=== PATIENT | female | born 1950 | race Caucasian/White ===

== ENCOUNTER 2017-04-12 13:55 | Outpatient (CLI) | payer MEDICARE, OTHER ==
--- NOTE | 2017-04-17 17:10 | Mammography Report ---
DIGITAL SCREENING MAMMOGRAM: 04/12/2017 CLINICAL INDICATION: A 66-year-old for screening. COMPARISON: 01/2014, 01/2012, 01/2011. TECHNIQUE: Routine CC and MLO projections were obtained of the breasts as well as bilateral laterall y exaggerated craniocaudal views. FINDINGS: Parenchymal tissue within both breasts is heterogeneously dense, which may lower the sensi tivity of mammography; however, there are no dominant masses, suspicious microcalcifications, or seco ndary signs of malignancy. In comparison to the previous studies, there are no significant changes. ASSESSMENT: NO MAMMOGRAPHIC EVIDENCE OF MALIGNANCY. NO SIGNIFICANT INTERVAL CHANGES. RECOMMENDATION: Screening mammography is recommended annually. BI-RADS category 1 - negative. STANDARD QUALIFYING STATEMENTS 1. This examination was reviewed with the aid of Computed-Aided Detection (CAD). 2. A negative or benign imaging report should not delay biopsy if clinically suspicious findings are present. Consider surgical consultation if warranted. More than 5% of cancers are not identified by i maging. 3. Dense breasts may obscure an underlying neoplasm. JOB #: [id number] EXT JOB #:[id number]
== END 2017-04-12 13:56 | disposition home or self-care (01) ==
LOC: DI.S 13:55
PROVIDERS: ATTEND Family Medicine
DX: Z12.39 Encounter for other screening for malignant neoplasm of breast (principal)
CPT/HCPCS: 77067

== ENCOUNTER 2019-04-08 09:17 | Outpatient (CLI) | payer MEDICARE ==
--- NOTE | 2019-04-09 09:11 | DEXA Report ---
Reason: PREVENTIVE MEASURE Procedure Date: 04/08/2019 Accession Number: [id number] / [id number] Procedure: DEX - Dexa Spine and/or Hip CPT Code: FULL RESULT: EXAM: Dexa Spine and/or Hip DATE: 04/08/2019 9:55 AM CLINICAL HISTORY: PREVENTIVE MEASURE TECHNIQUE: Dual energy x-ray absorptiometry (DXA) was performed on a [employer] System. Regions measured are the AP Spine, femoral neck, and if needed forearm. COMPARISON: None. In accordance with the International Society for Clinical Densitometry (ISCD) guidelines, data from previous exams may be reanalyzed using current recommendations and techniques. This is done to allow a more accurate basis for comparison with the current study. FINDINGS: The data for the lumbar spine is as follows: BMD (g/cm/cm) T-SCORE Z-SCORE REGION L1 0.987 -1.2 -0.3 L2 1.211 0.1 1.0 L3 1.237 0.3 1.2 L4 1.277 0.6 1.5 TOTAL 1.191 0.1 1.0 NOTE: All evaluable vertebrae are used for classification The data for the hip is as follows: BMD (g/cm/cm) T-SCORE Z-SCORE REGION Neck 0.832 -1.5 -0.4 TOTAL 0.817 -1.5 -0.7 NOTE: The femoral neck or total proximal femur, whichever is lowest, is used for classification. IMPRESSION: THE WHO CLASSIFICATION BASED ON THE INTERNATIONAL REFERENCE STANDARD IS OSTEOPENIA. THE FRACTURE RISK IS INCREASED. RECOMMENDATION: Patients with diagnosis of osteoporosis or osteopenia should have regular bone mineral density assessment. For those eligible for Medicare, routine testing is allowed once every 2 years. Testing frequency can be increased for patients who have rapidly progressing disease or for those who are receiving medical therapy to restore bone mass. COMMENT: World Health Organization (WHO) definitions for osteoporosis and osteopenia: NORMAL BMD: T-score at -1.0 or higher, fracture risk is low OSTEOPENIA BMD: T-score between -1.0 and -2.5, fracture risk is increased. OSTEOPOROSIS BMD: T-score at -2.5 or lower, fracture risk is high. National Osteoporosis Foundation recommends: 1. Obtain adequate dietary calcium (at least 1200 mg per day) and vitamin D (400-800 international units per day). 2. Participate, as appropriate, in regular weightbearing and muscle-strengthening exercise. 3. Avoid tobacco use and reduce alcohol and caffeine intake. 4. For more detailed information see the website at www.NOF.org.
== END 2019-04-08 09:18 | disposition home or self-care (01) ==
LOC: DI 09:17
PROVIDERS: ATTEND Family Medicine
DX: M85.88 Other specified disorders of bone density and structure, other site (principal)
CPT/HCPCS: 77080

== ENCOUNTER 2019-10-29 09:03 | Outpatient (CLI) | payer MEDICARE | END 2019-10-29 09:04 | disposition home or self-care (01) | LOC: DI 09:03 | PROVIDERS: ATTEND Internal Medicine Hematology & Oncology | DX: C50.411 Malignant neoplasm of upper-outer quadrant of right female breast (principal) | CPT/HCPCS: 93306 ==

== ENCOUNTER 2019-11-26 09:26 | Emergency (ER) | payer MEDICARE ==
--- NOTE | 2019-11-26 10:32 | ED Physician Documentation ---
PD HPI FEMALE - Stated complaint Stated Complaint: FEMALE /MOUTH SORES - Chief complaint Chief Complaint: General - History obtained from History obtained from: Patient - History of Present Illness Timing - onset: How many days ago (She had started another round of chemotherapy on November 18 and had been tolerating fairly well up until the last few days when she noticed more throat pain nausea general aches and malaise. She denies any diarrhea per se. She has not had fever. She has had some mild nasal congestion. No noted cough.) Timing - duration: Days (3-4) Timing - details: Gradual onset, Still present Associated symptoms: No: Fever, Abdominal pain, Genital sore/lesion, Dysuria (She did not have discomfort urinating but noticed she was not urinating very much and it was dark.) Similar symptoms before: Diagnosis (She had had some general symptoms similar to this from chemotherapy previously but not this pronounced.) Recently seen: Clinic (She was seen in the [facility] clinic 8 days ago with starting the second round of chemotherapy for her breast cancer.) Review of Systems Constitutional: reports: Myalgias, Fatigue. denies: Fever, Chills Nose: reports: Congestion. denies: Rhinorrhea / runny nose Throat: denies: Sore throat Cardiac: denies: Chest pain / pressure, Palpitations Respiratory: denies: Dyspnea, Cough GI: reports: Nausea. denies: Abdominal Pain, Vomiting, Diarrhea : denies: Frequency (less urine output), Discharge Skin: denies: Rash, Lesions Musculoskeletal: denies: Neck pain, Back pain Neurologic: reports: Generalized weakness, Headache. denies: Near syncope, Altered mental status PD PAST MEDICAL HISTORY - Past Medical History Cardiovascular: None Respiratory: None Neuro: None Endocrine/Autoimmune: None Derm: Other (chemotherapy for breast cancer) - Present Medications Home Medications: Ambulatory Orders Medication Instructions Recorded Confirmed Atorvastatin Calcium 20 mg PO DAILY 11/04/19 11/18/19 Bupropion HCl [Bupropion Xl] 150 mg PO DAILY 11/04/19 11/18/19 Cholecalciferol (Vitamin D3) 1,000 unit PO DAILY 11/04/19 11/18/19 [Vitamin D3] Citalopram Hydrobromide 20 mg PO DAILY 11/04/19 11/18/19 [Citalopram HBr] Levothyroxine [Synthroid] 88 mcg PO QDAC 11/04/19 11/18/19 Lidocaine/Prilocain 2.5% Cream 30 gm TOP DAILY 11/04/19 11/18/19 [Emla 2.5% Cream] Ondansetron [Ondansetron Odt] 8 mg PO BID PRN 11/04/19 11/18/19 Prochlorperazine [Compazine] 10 mg PO Q6H PRN 11/04/19 11/18/19 dexAMETHasone [Dexamethasone] 8 mg PO DAILY 11/04/19 11/18/19 hydroCHLOROthiazide 25 mg PO DAILY 11/04/19 11/18/19 [Hydrochlorothiazide] lisinopriL [Lisinopril] 20 mg PO DAILY 11/04/19 11/18/19 - Allergies Allergies/Adverse Reactions: Allergies Allergy/AdvReac Type Severity Reaction Status Date / Time No Known Drug Allergies Allergy Verified 11/26/19 09:32 - Living Situation Living Situation: reports: With spouse/s.o. Living Arrangement: reports: At home - Social History Does the pt smoke?: No Does the pt drink ETOH?: No Does the pt have substance abuse?: No PD ED PE NORMAL - Vitals Vital signs reviewed: Yes - General General: Alert and oriented X 3, Well developed/nourished - HEENT HEENT: Ears normal, Pharynx benign. No: Moist mucous membranes - Neck Neck: Supple, no meningeal sign, No adenopathy - Cardiac Cardiac: RRR, No murmur, Other (chest wall area without tenderness nor signs of infection. ) - Respiratory Respiratory: Clear bilaterally - Abdomen Abdomen: Soft, Non tender Results - Vitals Vitals: Vital Signs - 24 hr 11/26/19 11/26/19 11/26/19 09:32 11:08 12:44 Temperature 37.7 C H Heart Rate 97 73 73 Respiratory 14 16 16 Rate Blood Pressure 96/71 114/72 96/59 L O2 Saturation 96 94 96 11/26/19 11/26/19 14:11 15:00 Temperature 37.1 C Heart Rate 73 78 Respiratory 14 16 Rate Blood Pressure 102/59 L 99/67 O2 Saturation 97 100 Oxygen O2 Source Room air - Labs Labs: Laboratory Tests 11/26/19 11/26/19 11/26/19 10:45 10:45 10:45 WBC 0.2 L* RBC 2.88 L Hgb 9.1 L Hct 27.3 L MCV 94.8 MCH 31.6 H MCHC 33.3 RDW 11.5 L Plt Count 129 L MPV 9.7 Neut # (Auto) Not Reportable Lymph # (Auto) Not Reportable [place] # (Auto) Not Reportable Eos # (Auto) Not Reportable Baso # (Auto) Not Reportable Absolute Nucleated RBC Not Reportable Total Counted 50 Band Neuts % (Manual) 0 Abnorm Lymph % (Manual) 0 Nucleated RBC % Not Reportable Neutrophils # (Manual) 0.0 L* Lymphocytes # (Manual) 0.1 L Monocytes # (Manual) 0.0 Eosinophils # (Manual) 0.0 Basophils # (Manual) 0.0 Differential Comment MANUAL DIFFERENTIAL Manual Slide Review Indicated WBC Morphology 1+ DOHLE BODIES Platelet Estimate DECREASED (<130,000) Platelet Morphology NORMAL APPEARANCE RBC Morph Micro Appear NORMAL APPEARANCE Sodium 132 L Potassium 3.6 Chloride 96 L Carbon Dioxide 26 Anion Gap 10.0 BUN 13 Creatinine 0.8 Estimated GFR (MDRD) 71 L Glucose 133 H Lactic Acid Calcium 8.2 L Magnesium 1.8 Total Bilirubin 0.8 AST 12 ALT 11 Alkaline Phosphatase 52 Total Protein 6.3 L Albumin 3.2 Globulin 3.1 Albumin/Globulin Ratio 1.0 Lipase 21 L Urine Color Urine Clarity Urine pH Ur Specific [place] Urine Protein Urine Glucose (UA) Urine Ketones Urine Occult Blood Urine Nitrite Urine Bilirubin Urine Urobilinogen Ur Leukocyte Esterase Ur Microscopic Review Urine Culture Comments Influenza A (Rapid) Influenza B (Rapid) 11/26/19 11/26/19 11/26/19 10:45 11:05 14:10 WBC RBC Hgb Hct MCV MCH MCHC RDW Plt Count MPV Neut # (Auto) Lymph # (Auto) [place] # (Auto) Eos # (Auto) Baso # (Auto) Absolute Nucleated RBC Total Counted Band Neuts % (Manual) Abnorm Lymph % (Manual) Nucleated RBC % Neutrophils # (Manual) Lymphocytes # (Manual) Monocytes # (Manual) Eosinophils # (Manual) Basophils # (Manual) Differential Comment Manual Slide Review WBC Morphology Platelet Estimate Platelet Morphology RBC Morph Micro Appear Sodium Potassium Chloride Carbon Dioxide Anion Gap BUN Creatinine Estimated GFR (MDRD) Glucose Lactic Acid 1.7 Calcium Magnesium Total Bilirubin AST ALT Alkaline Phosphatase Total Protein Albumin Globulin Albumin/Globulin Ratio Lipase Urine Color DARK YELLOW Urine Clarity CLEAR Urine pH 6.0 Ur Specific [place] 1.025 Urine Protein TRACE Urine Glucose (UA) NEGATIVE Urine Ketones NEGATIVE Urine Occult Blood NEGATIVE Urine Nitrite NEGATIVE Urine Bilirubin NEGATIVE Urine Urobilinogen 1 (NORMAL) Ur Leukocyte Esterase NEGATIVE Ur Microscopic Review NOT INDICATED Urine Culture Comments NOT INDICATED Influenza A (Rapid) Negative Influenza B (Rapid) Negative - Rads (name of study) chest xray Radiology: Prelim report reviewed (No acute infiltrates), See rad report PD MEDICAL DECISION MAKING - ED course Complexity details: re-evaluated patient (She is feeling much better with IV fluids and antiemetics and anti-inflammatories. I think she mostly was dehydrated and side effects of the chemo.), considered differential (She may be having side effects of her chemotherapy finally cumulative with the general aches sore throat and nausea. Alternatively there could be a viral illness on top of her chemotherapy side effects. We will look for signs of acute bacterial infections. We will check her blood count. She is afebrile here. She does appear clinically dehydrated.), d/w patient, d/w sr technical sales consultant (Dr. Ureña, documentation manager Oncology, who is comfortable with workup. Since no fever nor infections, then okay with the neutropenia. Will see patient tomorrow in [facility] for recheck/further IV fluids if needed. ) Departure - Departure Disposition: 01 Home, Self Care Clinical Impression: Stomatitis, Dehydration, General weakness, Chemotherapy induced neutropenia Condition: Stable Record reviewed to determine appropriate education?: Yes Instructions: ED Dehydration Follow-Up: Bernadine Rhodes MD [Primary Care Provider] - Alena Streeter MD [Physician No Access] - Comments: Small frequent fluids. He could use some Benadryl liquid 1 to 2 teaspoons every 6 hours rinse and swallow in your mouth to help with some of the mouth sores. Dr. Ureña also suggested some baking soda and water to help with that as well. They can see you in the [facility] clinic tomorrow at 2:00. Show up there for a reassessment and likely some further IV fluids. Return if other symptoms develop or you to have fever or other concerns. Discharge Date/Time: 11/26/19 15:01
[2019-11-26] MEDS ORDERED: SODIUM CHLORIDE 0.9% 1,000 ML IV ONE ×3 (10:53→12:27)
[2019-11-26] MEDS ORDERED: KETOROLAC 15 MG/ML VIAL IVP STA (10:54)
[2019-11-26 11:01] LABS: HGB - HEMOGLOBIN 9.1 g/dL (12.0-16.0); MEAN CORPUSCULAR HEMOGLOBIN 31.6 pg (27.0-31.0); MEAN CORPUSCULAR HGB CONC 33.3 g/dL (32.0-36.0); MEAN CORPUSCULAR VOLUME 94.8 fL (81.0-99.0); MEAN PLATELET VOLUME 9.7 fL (7.9-10.8); PLT - PLATELET COUNT 129 10^3/uL (130-450); RED BLOOD COUNT 2.88 10^6/uL (4.20-5.40); RED CELL DISTRIBUTION WIDTH 11.5 % (12.0-15.0)
[2019-11-26 11:07] LABS: ALBUMIN 3.2 g/dL (3.2-5.5); BILIRUBIN,TOTAL 0.8 mg/dL (0.2-1.0); CALCIUM 8.2 mg/dL (8.5-10.3); CREATININE 0.8 mg/dL (0.4-1.0); TOTAL PROTEIN 6.3 g/dL (6.7-8.2)
[2019-11-26 11:15] LABS: WHITE BLOOD COUNT 0.2 x10^3/uL (4.8-10.8)
[2019-11-26 11:17] LABS: ABNORMAL LYMPHS % (MANUAL) 0 %; BAND NEUTROPHILS % (MANUAL) 0 %
--- NOTE | 2019-11-26 12:05 | XRAY Report ---
Reason: dyspnea Procedure Date: 11/26/2019 Accession Number: [id number] / [id number] Procedure: XR - Chest 2 View X-Ray CPT Code: 83816 Final Report FULL RESULT: EXAM: CHEST RADIOGRAPHY EXAM DATE: 11/26/2019 11:31 AM. CLINICAL HISTORY: Shortness of breath. COMPARISON: None. TECHNIQUE: 2 views. FINDINGS: Lungs/Pleura: No focal opacities evident. No pleural effusion. No pneumothorax. Normal volumes. Mediastinum: Heart and mediastinal contours are unremarkable. Other: Left sided [id number] is seen terminating in the mid SVC region. IMPRESSION: No acute cardiopulmonary abnormality demonstrated. RADIA
[2019-11-26 12:18] LABS: BASOPHILS % (MANUAL) 8 %; LYMPHOCYTES # (MANUAL) 0.1 10^3/uL (1.5-3.5); LYMPHOCYTES % (MANUAL) 44 %; PLATELET MORPHOLOGY NORMAL APPEARANCE (NORMAL); RBC MORPHOLOGY (MULTIPLE) NORMAL APPEARANCE (NORMAL)
[2019-11-26 12:19] LABS: DIFFERENTIAL COMMENT MANUAL DIFFERENTIAL; PLATELET ESTIMATE, MANUAL DECREASED (<130,000) (NORMAL)
[2019-11-26 14:26] LABS: BILIRUBIN,URINE NEGATIVE (NEGATIVE); GLUCOSE, URINE (UA) NEGATIVE (NEGATIVE); KETONES,URINE (UA) NEGATIVE (NEGATIVE); LEUKOCYTE ESTERASE, URINE NEGATIVE (NEGATIVE); NITRITE,URINE NEGATIVE (NEGATIVE); OCCULT BLOOD,URINE NEGATIVE (NEGATIVE); PROTEIN,URINE TRACE mg/dL (NEGATIVE); UROBILINOGEN,URINE 1 (NORMAL) E.U./dL (NORMAL)
[2019-11-26 14:29] LABS: CLARITY,URINE CLEAR (CLEAR)
[2019-11-26 15:02] VITALS: BP 99/67
== END 2019-11-26 15:01 | disposition home or self-care (01) ==
LOC: ED 09:26
DX: K12.1 Other forms of stomatitis (principal); E86.0 Dehydration; R53.1 Weakness; D70.1 Agranulocytosis secondary to cancer chemotherapy; T45.1X5A Adverse effect of antineoplastic and immunosuppressive drugs, initial encounter; C50.919 Malignant neoplasm of unspecified site of unspecified female breast
CPT/HCPCS: 36415; 71046; 80053; 81001; 81003; 83605; 83690; 83735; 85025; 87040; 87077; 87086; 87181; 87275; 87276; 96361; 96374; 99284

== ENCOUNTER 2019-11-27 14:51 | Observation (INO) | payer MEDICARE ==
[2019-11-27] MEDS ORDERED: VANCOMYCIN INJ 1.5 GM in SODIUM CHLORIDE 0.9% 500 ML IV STA (14:56)
[2019-11-27] MEDS ORDERED: CEFEPIME 2 GM in SODIUM CHLORIDE 0.9% MINIBAG 100 ML IV STA (14:57)
--- NOTE | 2019-11-27 15:10 | ED Physician Documentation ---
History of Present Illness - Stated complaint Stated Complaint: + BLOOD CULTURE - History obtained from History obtained from: Patient - History of Present Illness Timing: Other (69-year-old woman undergoing chemotherapy for for breast cancer. She was seen yesterday for an acute illness with malaise, vomiting, poor appetite, mouth sores. Blood cultures were drawn and she was brought back today because 1 of the 2 blood cultures is positive for gram-positive cocci. She does not feel any worse than yesterday. She denies fevers and chills. She is had some difficulty urinating but her urine yesterday was unremarkable. No cough or pulmonary complaints.) Review of Systems Ten Systems: 10 systems reviewed and negative Constitutional: reports: Fatigue. 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 Derm: Other (chemotherapy for breast cancer) - Present Medications Home Medications: Ambulatory Orders Medication Instructions Recorded Confirmed Atorvastatin Calcium 20 mg PO DAILY 11/04/19 11/18/19 Bupropion HCl [Bupropion Xl] 150 mg PO DAILY 11/04/19 11/18/19 Cholecalciferol (Vitamin D3) 1,000 unit PO DAILY 11/04/19 11/18/19 [Vitamin D3] Citalopram Hydrobromide 20 mg PO DAILY 11/04/19 11/18/19 [Citalopram HBr] Levothyroxine [Synthroid] 88 mcg PO QDAC 11/04/19 11/18/19 Lidocaine/Prilocain 2.5% Cream 30 gm TOP DAILY 11/04/19 11/18/19 [Emla 2.5% Cream] Ondansetron [Ondansetron Odt] 8 mg PO BID PRN 11/04/19 11/18/19 Prochlorperazine [Compazine] 10 mg PO Q6H PRN 11/04/19 11/18/19 dexAMETHasone [Dexamethasone] 8 mg PO DAILY 11/04/19 11/18/19 hydroCHLOROthiazide 25 mg PO DAILY 11/04/19 11/18/19 [Hydrochlorothiazide] lisinopriL [Lisinopril] 20 mg PO DAILY 11/04/19 11/18/19 Mouthwash Compounding Base 227 240 ml MM 11/27/19 [Mouthwash-Om] Nystatin 5 ml PO QID 11/27/19 11/27/19 - Allergies Allergies/Adverse Reactions: Allergies Allergy/AdvReac Type Severity Reaction Status Date / Time No Known Drug Allergies Allergy Verified 11/27/19 15:14 - Social History Does the pt smoke?: No Smoking Status: Never smoker Does the pt drink ETOH?: No Does the pt have substance abuse?: No PD ED PE NORMAL - Vitals Vital signs reviewed: Yes - General General: Alert and oriented X 3, No acute distress - HEENT HEENT: PERRL, EOMI - Neck Neck: Supple, no meningeal sign, No bony TTP - Cardiac Cardiac: RRR, No murmur - Respiratory Respiratory: No respiratory distress, Clear bilaterally - Abdomen Abdomen: Normal bowel sounds, Soft, Non tender - Back Back: No CVA TTP, No spinal TTP - Derm Derm: Normal color, Warm and dry - Extremities Extremities: No edema, No calf tenderness / cord - Neuro Neuro: Alert and oriented X 3, Normal speech Results - Vitals Vitals: Vital Signs - 24 hr 11/27/19 15:14 Temperature 37.4 C Heart Rate 77 Respiratory 18 Rate Blood Pressure 107/68 O2 Saturation 98 Oxygen O2 Source Room air - Labs Labs: Laboratory Tests 11/27/19 11/27/19 15:32 15:32 WBC 1.2 L* RBC 2.57 L Hgb 8.1 L Hct 25.1 L MCV 97.7 MCH 31.5 H MCHC 32.3 RDW 11.7 L Plt Count 116 L MPV 10.8 Neut # (Auto) Not Reportable Lymph # (Auto) Not Reportable [place] # (Auto) Not Reportable Eos # (Auto) Not Reportable Baso # (Auto) Not Reportable Absolute Nucleated RBC Not Reportable Total Counted 50 Band Neuts % (Manual) 14 H Abnorm Lymph % (Manual) 0 Metamyelocytes % 4 H Nucleated RBC % Not Reportable Neutrophils # (Manual) 0.9 L Lymphocytes # (Manual) 0.1 L Monocytes # (Manual) 0.1 Eosinophils # (Manual) 0.0 Basophils # (Manual) 0.0 Differential Comment MANUAL DIFFERENTIAL Manual Slide Review Indicated WBC Morphology 2+ TOXIC GRANULATION Platelet Estimate DECREASED (<130,000) Platelet Morphology NORMAL APPEARANCE RBC Morph Micro Appear 1+ HYPOCHROMASIA Sodium 138 Potassium 3.4 L Chloride 105 Carbon Dioxide 25 Anion Gap 8.0 BUN 12 Creatinine 0.7 Estimated GFR (MDRD) 83 L Glucose 99 Calcium 8.0 L Total Bilirubin 0.6 AST 18 ALT 22 Alkaline Phosphatase 64 Total Protein 6.1 L Albumin 2.9 L Globulin 3.2 Albumin/Globulin Ratio 0.9 L Lipase 22 PD MEDICAL DECISION MAKING - ED course ED course: 69-year-old woman presents as requested because "blood cultures from yesterday are positive 1 out of 2 for gram-positive cocci. Could be a contaminant but she is at high risk for infection given chemotherapy and neutropenia and as such the cultures were repeated and she was given cefepime and vancomycin and she will be admitted. Departure - Departure Disposition: 66 [facility] DC/Xfer Clinical Impression: Chemotherapy induced neutropenia, Bacteremia Condition: Serious Discharge Date/Time: 11/27/19 16:48
[2019-11-27] MEDS ORDERED: ONDANSETRON 4 MG/2 ML VIAL IVP PRN (15:33)
[2019-11-27] MEDS ORDERED: oxyCODONE 5 MG TABLET PO PRN (15:33)
[2019-11-27] MEDS ORDERED: ONDANSETRON ODT 4 MG TABLET TL PRN (15:33)
[2019-11-27] MEDS ORDERED: SODIUM CHLORIDE FLUSH 0.9% 10 ML SYRINGE IVP PRN (15:33)
[2019-11-27] MEDS ORDERED: ACETAMINOPHEN 325 MG TABLET PO PRN (15:33)
[2019-11-27 15:43] LABS: BASOPHILS % (AUTO) 3.4 %; HGB - HEMOGLOBIN 8.1 g/dL (12.0-16.0); LYMPHOCYTES % (AUTO) 20.7 %; MEAN CORPUSCULAR HEMOGLOBIN 31.5 pg (27.0-31.0); MEAN CORPUSCULAR HGB CONC 32.3 g/dL (32.0-36.0); MEAN CORPUSCULAR VOLUME 97.7 fL (81.0-99.0); MEAN PLATELET VOLUME 10.8 fL (7.9-10.8); MONOCYTES % (AUTO) 7.8 %; NEUTROPHILS % (AUTO) 63.8 %; PLT - PLATELET COUNT 116 10^3/uL (130-450); RED BLOOD COUNT 2.57 10^6/uL (4.20-5.40); RED CELL DISTRIBUTION WIDTH 11.7 % (12.0-15.0)
[2019-11-27 15:52] LABS: WHITE BLOOD COUNT 1.2 x10^3/uL (4.8-10.8)
[2019-11-27 15:54] LABS: ABNORMAL LYMPHS % (MANUAL) 0 %
[2019-11-27 15:57] LABS: ALBUMIN 2.9 g/dL (3.2-5.5); ALBUMIN/GLOBULIN RATIO 0.9 (1.0-2.2); BILIRUBIN,TOTAL 0.6 mg/dL (0.2-1.0); CREATININE 0.7 mg/dL (0.4-1.0); TOTAL PROTEIN 6.1 g/dL (6.7-8.2)
[2019-11-27 16:15] LABS: BAND NEUTROPHILS % (MANUAL) 14 %; LYMPHOCYTES # (MANUAL) 0.1 10^3/uL (1.5-3.5); LYMPHOCYTES % (MANUAL) 10 %; METAMYELOCYTES % (MANUAL) 4 %; MONOCYTES # (MANUAL) 0.1 10^3/uL (0.0-1.0)
[2019-11-27 16:17] LABS: DIFFERENTIAL COMMENT MANUAL DIFFERENTIAL; PLATELET ESTIMATE, MANUAL DECREASED (<130,000) (NORMAL); PLATELET MORPHOLOGY NORMAL APPEARANCE (NORMAL)
--- NOTE | 2019-11-27 17:20 | HISTORY & PHYSICAL EXAMINATION ---
Chief Complaint - Chief Complaint Chief Complaint: Bacteremia History of Present Illness - Admitted From Admitted From:: ER - History Obtained From History obtained from: Patient - History of Present Illness HPI Comment/Other: Cassidy Mathis is a 69 yo female with a PMH of HTN, hypothyroidism, depression, alcohol abuse, and right breast infiltrating ductal carcinoma, ER/MS/HER-2 negative cT2 v T3 N0Mx. She received her first two of four Adriamycin and Cytoxan infusions 11/05/2019 and 11/18/2019. Patient came to the ER yesterday complaining of mucocytis, headache with photosensitivity, and urinary retention. Blood cultures were drawn from her port. After IV hydration, anti-emtics, anti- inflammatory medication, the patient felt better and was discharged home. Patient was instructed to return to the [facility] today 11/27/2019 for reassessment of her symptoms. 1 out of 2 bottles were growing gram positive cocci in clusters. Patient was notified and the decision to admit patient and treat patient with empiric IV antibiotics for CLABSI. Patient's vital signs in the ER were unremarkable. Patient admitted that she felt much better than she had yesterday. The headache and photosensitivity have not returned. She continues to have uncomfortable sores in her mouth and on her lips. Patient was is good spirits and was agreeable to hospital admit. WBC 1.2 and ANC 900. History - Past Medical History Cardiovascular: reports: Hypertension, High cholesterol Respiratory: reports: None Neuro: reports: None Endocrine/Autoimmune: reports: HyPOthyroidism MEDICAL EDITOR: reports: Breast cancer, Other () : reports: Retention HEENT: reports: None Psych: reports: Depression Musculoskeletal: reports: None MRSA Hx?: No Other Past Medical History: Alcohol dependence - Family & Social History Family History: Mother: Alive and Well, Father: , Parkinson's Disease Living arrangement: At home Living Situation: With spouse/s.o., With family Social History Notes: She never smoked. She never had a history of recreational substance abuse. - Substance History Use: Uses substance without health or social issues: Alcohol (Previous dependence. Currently reports drinking one glass of wine per day.) Abuse: Recurrent use of substance despite neg consequences: NONE Dependence: Experiences withdrawal or developed tolerances: NONE - POLST Patient has POLST: No POLST Status: Full Code Meds/Allgy - Home Medications Home Medications: Ambulatory Orders Medication Instructions Recorded Confirmed Atorvastatin Calcium 20 mg PO DAILY 11/04/19 11/18/19 Bupropion HCl [Bupropion Xl] 150 mg PO DAILY 11/04/19 11/18/19 Cholecalciferol (Vitamin D3) 1,000 unit PO DAILY 11/04/19 11/18/19 [Vitamin D3] Citalopram Hydrobromide 20 mg PO DAILY 11/04/19 11/18/19 [Citalopram HBr] Levothyroxine [Synthroid] 88 mcg PO QDAC 11/04/19 11/18/19 Lidocaine/Prilocain 2.5% Cream 30 gm TOP DAILY 11/04/19 11/18/19 [Emla 2.5% Cream] Ondansetron [Ondansetron Odt] 8 mg PO BID PRN 11/04/19 11/18/19 Prochlorperazine [Compazine] 10 mg PO Q6H PRN 11/04/19 11/18/19 dexAMETHasone [Dexamethasone] 8 mg PO DAILY 11/04/19 11/18/19 hydroCHLOROthiazide 25 mg PO DAILY 11/04/19 11/18/19 [Hydrochlorothiazide] lisinopriL [Lisinopril] 20 mg PO DAILY 11/04/19 11/18/19 Mouthwash Compounding Base 227 240 ml MM 11/27/19 [Mouthwash-Om] Nystatin 5 ml PO QID 11/27/19 11/27/19 - Allergies Allergies/Adverse Reactions: Allergies Allergy/AdvReac Type Severity Reaction Status Date / Time No Known Drug Allergies Allergy Verified 11/27/19 15:14 Review of Systems - Constitutional Constitutional: reports: Fatigue, Poor appetite. denies: Fever, Chills, Night sweats, Weight gain, Weight loss - Eyes Eyes: denies: Pain, Irritation, Amaurosis - Ears, Nose & Throat Ears, Nose & Throat: reports: Sore throat, Mouth lesions (Thrush on her tongue and sores in mouth and lips), Other (White coating on her tongue) - Cardiovascular Cariovascular: denies: Irregular heart rate, Palpitations, Chest pain - Respiratory Respiratory: reports: Other (Recent cold that was present at Jeanine time has resolved). denies: Cough, Sputum production, Orthopnea - Gastrointestinal Gastrointestinal: reports: Poor appetite. denies: Abdominal pain, Constipation, Diarrhea, Nausea, Vomiting - Genitourinary Genitourinary: reports: Nocturia, Other (Retention 11/26/2019-resolved). denies: Dysuria, Hematuria - Musculoskeletal Musculoskeletal: reports: Muscle weakness (Patient is weaker than her baseline, but is able to walk her dog outside for about 20 minutes before she gets tired.). denies: Muscle pain, Muscle aches, Stiffness - Integumentary Integumentary: denies: Rash, Lesions - Neurological Neurological: reports: General weakness, Headache (Present yesterday with ph otophobia and now gone). denies: Focal weakness - Psychiatric Psychiatric: reports: Depression. denies: Suicidal, Hallucinations, Homicidal - Endocrine Endocrine: denies: Polyuria, Polydypsia, Polyphagia - Hematologic/Lymphatic Hematologic/Lymphatic: reports: Anemia, Bruising. denies: Petechiae, Blood clots, Lymphadenopathy, Bleeding tendencies Prior Level of Functionality: Patient lives at home with her and adult son. She is able to complete activities of daily living and walk her dog for 20 minutes. She feels that she has about half as much energy as she did before starting chemotherapy. Exam - Vital Signs Reviewed Vital Signs: Yes Vital Signs: Vital Signs x48h Temp Pulse Pulse Resp BP BP Pulse Ox 11/27/19 17:03 36.7 C 79 14 93/61 100 11/27/19 15:38 70 14 90/60 99 11/27/19 15:14 37.4 C 77 18 107/68 98 - Physical Exam General Appearance: positive: No acute distress, Alert, Other (White female who looks her stated age, wearing a hat, and has diffuse alopecia) Eyes Bilateral: positive: Normal inspection ENT: positive: Other (Dry oral mucosa with thrush of the tongue and mucositis/sores on lateral edges of tongue and buccal mucosa roof of mouth and lips that hurts) Neck: positive: Nml inspection. negative: Lymphadenopathy (R), Lymphadenopathy (L) Respiratory: positive: Chest non-tender, No respiratory distress, Breath sounds nml Cardiovascular: positive: Regular rate & rhythm, No murmur, No gallop Peripheral Pulses: positive: 2+ Abdomen: positive: Non-tender, Nml bowel sounds, No distention Back: positive: Nml inspection Skin: positive: Color nml Extremities: positive: Non-tender, Nml appearance Neurologic/Psychiatric: positive: Oriented x3, Mood/affect nml Conclusion/Plan - Problem List (1) Bacteremia due to Gram-positive bacteria Conclusion/Plan: Patient neutropenic with WBC 1.2 and ANC 900. Afebrile. Patient looks and feels well. VSS. Patient received IV vancomycin and cefepime for empiric treatment of CLABSI presumed to be present on admission in the emergency room. Repeat Blood cultures sent unfortunately not from the port. Patient received 1L NS. 1. Continue IV vancomycin and cefepime. 2. Daily CBC. . 3. Daily blood cultures. 4. If she continues to have blood cultures that are positive after starting vancomycin and cefepime, I will have to suspect that there is a port infection and the line may need to be changed (2) Pancytopenia due to antineoplastic chemotherapy Conclusion/Plan: After two rounds of chemotherapy, patient ANC 900. 1. Initiate neutropenic precautions. 2. Neutropenic diet. 3 She has already received neulasta in [facility]. 4. Daily CBC (3) Stomatitis Conclusion/Plan: Patient has completed 2 of 4 rounds of Adriamycin and Cytoxan (11/05/2019 and 11/18/2019). She has sores in her mouth and on her lips. 1. Magic mouthwash 2. Eat soft and/or cold foods. 3. Avoid spicy, salty, acid-rich foods. 4. Draw plenty of fluids. 5. Good oral hygiene with soft tooth brush. (4) Hypokalemia Conclusion/Plan: supplement po. recheck in am. (5) Hypotension Conclusion/Plan: Probably due to decreased p.o. intake, dehydration, and anemia. Lactic acid is normal. I do not suspect sepsis at this time but will continue to monitor. Continue IV fluids Qualifiers: Hypotension type: orthostatic hypotension Qualified Code(s): I95.1 - Orthostatic hypotension - Lab Results Lab results reviewed: Yes Fish Bones: 11/27/19 15:32 11/27/19 15:32 Other Lab Results: Lab Results x24hrs 11/27/19 11/27/19 11/27/19 15:38 15:32 15:32 WBC 1.2 x10^3/uL L* x10^3/uL (4.8-10.8) RBC 2.57 10^6/uL L 10^6/uL (4.20-5.40) Hgb 8.1 g/dL L g/dL (12.0-16.0) Hct 25.1 % L % (37.0-47.0) MCV 97.7 fL fL (81.0-99.0) MCH 31.5 pg H pg (27.0-31.0) MCHC 32.3 g/dL g/dL (32.0-36.0) RDW 11.7 % L % (12.0-15.0) Plt Count 116 10^3/uL L 10^3/uL (130-450) MPV 10.8 fL fL (7.9-10.8) Neut # (Auto) Not Reportable Lymph # (Auto) Not Reportable Terry # (Auto) Not Reportable Eos # (Auto) Not Reportable Baso # (Auto) Not Reportable Absolute Nucleated RBC Not Reportable Total Counted 50 Band Neuts % (Manual) 14 % H % (0 - 10) Abnorm Lymph % (Manual) 0 % % Metamyelocytes % 4 % H % ( - 0) Nucleated RBC % Not Reportable Neutrophils # (Manual) 0.9 10^3/uL L 10^3/uL (1.5-6.6) Lymphocytes # (Manual) 0.1 10^3/uL L 10^3/uL (1.5-3.5) Monocytes # (Manual) 0.1 10^3/uL 10^3/uL (0.0-1.0) Eosinophils # (Manual) 0.0 10^3/uL 10^3/uL (0-0.7) Basophils # (Manual) 0.0 10^3/uL 10^3/uL (0-0.1) Differential Comment MANUAL DIFFERENTIAL Manual Slide Review Indicated WBC Morphology 2+ TOXIC GRANULATION (NORMAL) Platelet Estimate DECREASED (<130,000) (NORMAL) Platelet Morphology NORMAL APPEARANCE (NORMAL) RBC Morph Micro Appear 1+ HYPOCHROMASIA (NORMAL) Sodium 138 mmol/L mmol/L (135-145) Potassium 3.4 mmol/L L mmol/L (3.5-5.0) Chloride 105 mmol/L mmol/L (101-111) Carbon Dioxide 25 mmol/L mmol/L (21-32) Anion Gap 8.0 (6-13) BUN 12 mg/dL mg/dL (6-20) Creatinine 0.7 mg/dL mg/dL (0.4-1.0) Estimated GFR (MDRD) 83 L (>89) Glucose 99 mg/dL mg/dL (70-100) Lactic Acid 1.4 mmol/L mmol/L (0.5-2.2) Calcium 8.0 mg/dL L mg/dL (8.5-10.3) Total Bilirubin 0.6 mg/dL mg/dL (0.2-1.0) AST 18 IU/L IU/L (10-42) ALT 22 IU/L IU/L (10-60) Alkaline Phosphatase 64 IU/L IU/L (42-121) Total Protein 6.1 g/dL L g/dL (6.7-8.2) Albumin 2.9 g/dL L g/dL (3.2-5.5) Globulin 3.2 g/dL g/dL (2.1-4.2) Albumin/Globulin Ratio 0.9 L (1.0-2.2) Lipase 22 U/L U/L (22-51) - Diagnostic Imaging Results Diagnostic Imaging Results Comments: CHEST RADIOGRAPHY EXAM DATE: 11/26/2019 11:31 AM. CLINICAL HISTORY: Shortness of breath. COMPARISON: None. TECHNIQUE: 2 views. FINDINGS: Lungs/Pleura: No focal opacities evident. No pleural effusion. No pneumothorax. Normal volumes. Mediastinum: Heart and mediastinal contours are unremarkable. Other: Left sided [id number] is seen terminating in the mid SVC region. IMPRESSION: No acute cardiopulmonary abnormality demonstrated. Core Measures - Anticipated LOS I expect patient to be DC'd or transferred within 96 hours.: Yes - DVT/VTE - Prophylaxis VTE/DVT Device ordered at admit?: Yes
[2019-11-27] MEDS: PANTOPRAZOLE 40 MG TABLET PO SCH (17:45)
[2019-11-27] MEDS: SODIUM CHLORIDE FLUSH 0.9% 10 ML SYRINGE IVP SCH (17:47)
--- NOTE | 2019-11-27 18:31 | PHARMACY PROGRESS NOTE ---
- Therapy Status Vancomycin regimen day #: 1 (1.5 G IV dose x1 given in ED, follwed by Maintenance dose 1250 mg IV q12h (consistent with protocol: 15 mg/kg rounded to nearest 250 mg)) Therapy status: Awaiting steady state Basis for treatment: Empirical Treatment indication: Positive blood Cx (preliminary) gram + cocci Trough goal: 15-20 Concurrent antibiotics: cefepime - VALE Risk Risk level for Acute Kidney Injury: Moderate Acute Kidney Injury risk factors: Goal trough >15, Chronic baseline hypertension - Monitoring and Recommendation Clinical response to treatment: I&O Previous 24 hours 11/25/19 11/26/19 11/27/19 23:59 23:59 23:59 Intake Total 100 Balance 100 Lab Results 11/27/19 15:32 BUN 12 Creatinine 0.7 Estimated GFR (MDRD) 83 L Monitoring plan: Daily serum creatinine Next trough due prior to maintenance dose #: 3 Next trough due (date/time): 11/29 at 0430 Areas for additional monitoring: IV to PO when appropriate, Therapy de-escalation based on culture results, Acute Kidney Injury Pharmacy recommendation: Continue current regime
[2019-11-27] MEDS: SODIUM CHLORIDE 0.9% 1,000 ML IV SCH (19:01)
[2019-11-28] MEDS: CEFEPIME 2 GM in SODIUM CHLORIDE 0.9% MINIBAG 100 ML IV SCH ×2 (01:11→09:13)
[2019-11-28] MEDS: SODIUM CHLORIDE FLUSH 0.9% 10 ML SYRINGE IVP SCH ×2 (01:12→09:30)
[2019-11-28] MEDS ORDERED: MAGIC MOUTHWASH 120 ML BOTTLE PO PRN (03:39)
[2019-11-28] MEDS ORDERED: VANCOMYCIN INJ 1.25 GM in SODIUM CHLORIDE 0.9% 250 ML IV SCH (05:00)
[2019-11-28] MEDS: SODIUM CHLORIDE 0.9% 1,000 ML IV SCH (05:02)
[2019-11-28 05:38] LABS: BASOPHILS % (AUTO) 3.4 %; HGB - HEMOGLOBIN 7.3 g/dL (12.0-16.0); LYMPHOCYTES % (AUTO) 14.5 %; MEAN CORPUSCULAR HEMOGLOBIN 31.6 pg (27.0-31.0); MEAN CORPUSCULAR HGB CONC 32.6 g/dL (32.0-36.0); MEAN PLATELET VOLUME 10.6 fL (7.9-10.8); MONOCYTES % (AUTO) 8.5 %; NEUTROPHILS % (AUTO) 66.3 %; PLT - PLATELET COUNT 124 10^3/uL (130-450); RED BLOOD COUNT 2.31 10^6/uL (4.20-5.40); RED CELL DISTRIBUTION WIDTH 11.7 % (12.0-15.0); WHITE BLOOD COUNT 2.3 x10^3/uL (4.8-10.8)
[2019-11-28 05:45] LABS: ABNORMAL LYMPHS % (MANUAL) 0 %
[2019-11-28 05:49] LABS: ALBUMIN 2.5 g/dL (3.2-5.5); BILIRUBIN,TOTAL 0.4 mg/dL (0.2-1.0); CALCIUM 7.8 mg/dL (8.5-10.3); CREATININE 0.7 mg/dL (0.4-1.0); TOTAL PROTEIN 5.1 g/dL (6.7-8.2)
[2019-11-28 06:19] LABS: BAND NEUTROPHILS % (MANUAL) 17 %; DIFFERENTIAL COMMENT MANUAL DIFFERENTIAL; LYMPHOCYTES # (MANUAL) 0.3 10^3/uL (1.5-3.5); LYMPHOCYTES % (MANUAL) 11 %; METAMYELOCYTES % (MANUAL) 1 %; MONOCYTES # (MANUAL) 0.1 10^3/uL (0.0-1.0); MYELOCYTES % (MANUAL) 1 %; PLATELET ESTIMATE, MANUAL DECREASED (<130,000) (NORMAL); RBC MORPHOLOGY (MULTIPLE) NORMAL APPEARANCE (NORMAL)
[2019-11-28] MEDS: PANTOPRAZOLE 40 MG TABLET PO SCH (06:42)
[2019-11-28] MEDS ORDERED: POTASSIUM CHLORIDE 20 MEQ TABLET PO ONE (07:24)
[2019-11-28 07:55] VITALS: BP 92/48
[2019-11-28] MEDS ORDERED: LEVOTHYROXINE 88 MCG TABLET PO SCH (08:00)
--- NOTE | 2019-11-28 08:39 | PROVIDER PROGRESS NOTE ---
<Yohana Perez - Last Filed: 11/28/19 08:37> Subjective - Prog Note Date Prog Note Date: 11/28/19 Prog Note Time: 08:38 - Subjective Pt reports feeling: Improved Subjective: Patient states that she feels relatively well. She slept about 4 hours. Current Medications - Current Medications Current Medications: Active Medications Acetaminophen (Tylenol) 650 mg PO Q4HR PRN PRN Reason: Pain 1 to 4 Bupropion HCl (Wellbutrin Xl) 150 mg PO DAILY [facility] Cholecalciferol (Vitamin D3) 1,000 unit PO DAILY [facility] Citalopram Hydrobromide (Celexa) 20 mg PO DAILY [facility] Sodium Chloride (Normal Saline 0.9%) 1,000 mls @ 100 mls/hr IV .Q10H [facility] Last Infusion: 11/28/19 05:19 Dose: 0 mls/hr Cefepime HCl 2 gm/ Sodium (Chloride) 100 mls @ 200 mls/hr IV Q8H [facility] Last Infusion: 11/28/19 01:43 Dose: Infused Vancomycin HCl 1.25 gm/ Sodium (Chloride) 250 mls @ 166.667 mls/hr IV Q12H [facility] Last Infusion: 11/28/19 06:43 Dose: Infused Levothyroxine Sodium (Synthroid) 88 mcg PO QDAC [facility] Last Admin: 11/28/19 08:18 Dose: 88 mcg Multi-Ingredient Mouthwash/Gargle () 30 ml PO Q4H PRN PRN Reason: Mouth Sore Pain Nystatin (Mycostatin) 5 ml PO QID [facility] Ondansetron HCl (Zofran Inj) 4 mg IVP Q6HR PRN PRN Reason: Nausea / Vomiting Ondansetron HCl (Zofran Odt) 4 mg TL Q6HR PRN PRN Reason: Nausea / Vomiting Oxycodone HCl (Roxicodone) 5 mg PO Q4HR PRN PRN Reason: Pain 5 to 7 Pantoprazole Sodium (Protonix) 40 mg PO QDAC [facility] Last Admin: 11/28/19 06:42 Dose: 40 mg Sodium Chloride (Normal Saline Flush 0.9%) 10 ml IVP PRN PRN PRN Reason: NEEDED PER PROVIDER ORDERS Sodium Chloride (Normal Saline Flush 0.9%) 10 ml IVP 0100,0900,1700 [facility] Last Admin: 11/28/19 01:12 Dose: Not Given Atorvastatin Calcium 20 mg PO DAILY 11/04/19 Bupropion HCl [Bupropion Xl] 150 mg PO DAILY 11/04/19 Cholecalciferol (Vitamin D3) [Vitamin D3] 1,000 unit PO DAILY 11/04/19 Citalopram Hydrobromide [Citalopram HBr] 20 mg PO DAILY 11/04/19 Levothyroxine [Synthroid] 88 mcg PO QDAC 11/04/19 Lidocaine/Prilocain 2.5% Cream [Emla 2.5% Cream] 30 gm TOP DAILY 11/04/19 Ondansetron [Ondansetron Odt] 8 mg PO BID PRN 11/04/19 Prochlorperazine [Compazine] 10 mg PO Q6H PRN 11/04/19 dexAMETHasone [Dexamethasone] 8 mg PO DAILY 11/04/19 hydroCHLOROthiazide [Hydrochlorothiazide] 25 mg PO DAILY 11/04/19 lisinopriL [Lisinopril] 20 mg PO DAILY 11/04/19 Mouthwash Compounding Base 227 [Mouthwash-Om] 240 ml MM 11/27/19 Nystatin 5 ml PO QID 11/27/19 Objective - Vital Signs/Intake & Output Reviewed Vital Signs: Yes Vital Signs: Vital Signs x48h Temp Pulse Resp BP Pulse Ox 11/28/19 07:54 36.9 C 69 16 92/48 L 97 11/28/19 05:24 37.2 C 78 16 92/56 L 99 Intake & Output: Intake & Output 11/25/19 11/26/19 11/27/19 11/28/19 23:59 23:59 23:59 23:59 Intake Total 936 1801.666 Balance 936 1801.666 - Objective General Appearance: positive: No acute distress, Alert. negative: Anxious Eyes Bilateral: positive: Normal inspection, PERRL, EOMI, Conjunctivae nml. negative: No lid inflammation, No scleral icterus ENT: positive: ENT inspection nml, Oral lesions Neck: positive: Nml inspection Respiratory: positive: Chest non-tender, No respiratory distress, Breath sounds nml. negative: Wheezes, Rales, Rhonchi Cardiovascular: positive: Regular rate & rhythm, No murmur, No gallop. negative: Irregularly irregular, Bradycardia Peripheral Pulses: 2+ Radial (R), 2+ Radial (L), 2+ Dorsalis pedis (R), 2+ Dorsalis pedis (L) Abdomen: positive: Non-tender, No organomegaly, Nml bowel sounds, No distention Back: positive: Nml inspection Skin: positive: Color nml, Warm, Dry Extremities: positive: Non-tender, Nml appearance, No pedal edema Neurologic/Psychiatric: positive: Oriented x3, Mood/affect nml, Weakness - Lab Results Fish Bones: 11/28/19 05:15 11/28/19 05:15 Other Labs: Lab Results x24hrs 11/28/19 11/28/19 11/27/19 Range/Units 05:15 05:15 15:38 WBC 2.3 L (4.8-10.8) x10^3/uL RBC 2.31 L (4.20-5.40) 10^6/uL Hgb 7.3 L (12.0-16.0) g/dL Hct 22.4 L (37.0-47.0) % MCV 97.0 (81.0-99.0) fL MCH 31.6 H (27.0-31.0) pg MCHC 32.6 (32.0-36.0) g/dL RDW 11.7 L (12.0-15.0) % Plt Count 124 L (130-450) 10^3/uL MPV 10.6 (7.9-10.8) fL Neut # (Auto) Not Reportable Lymph # (Auto) Not Reportable [place] # (Auto) Not Reportable Eos # (Auto) Not Reportable Baso # (Auto) Not Reportable Absolute Nucleated RBC Not Reportable Total Counted 100 Band Neuts % (Manual) 17 H (0 - 10) % Abnorm Lymph % (Manual) 0 % Metamyelocytes % 1 H ( - 0) % Myelocytes % 1 H ( - 0) % Nucleated RBC % Not Reportable Neutrophils # (Manual) 1.9 (1.5-6.6) 10^3/uL Lymphocytes # (Manual) 0.3 L (1.5-3.5) 10^3/uL Monocytes # (Manual) 0.1 (0.0-1.0) 10^3/uL Eosinophils # (Manual) 0.0 (0-0.7) 10^3/uL Basophils # (Manual) 0.0 (0-0.1) 10^3/uL Differential Comment MANUAL DIFFERENTIAL Manual Slide Review WBC Morphology (NORMAL) Platelet Estimate DECREASED (<130,000) (NORMAL) Platelet Morphology (NORMAL) RBC Morph Micro Appear NORMAL APPEARANCE (NORMAL) Sodium 141 (135-145) mmol/L Potassium 3.3 L (3.5-5.0) mmol/L Chloride 111 (101-111) mmol/L Carbon Dioxide 25 (21-32) mmol/L Anion Gap 5.0 L (6-13) BUN 11 (6-20) mg/dL Creatinine 0.7 (0.4-1.0) mg/dL Estimated GFR (MDRD) 83 L (>89) Glucose 91 (70-100) mg/dL Lactic Acid 1.4 (0.5-2.2) mmol/L Calcium 7.8 L (8.5-10.3) mg/dL Total Bilirubin 0.4 (0.2-1.0) mg/dL AST 11 (10-42) IU/L ALT 19 (10-60) IU/L Alkaline Phosphatase 53 (42-121) IU/L Total Protein 5.1 L (6.7-8.2) g/dL Albumin 2.5 L (3.2-5.5) g/dL Globulin 2.6 (2.1-4.2) g/dL Albumin/Globulin Ratio 1.0 (1.0-2.2) Lipase (22-51) U/L 11/27/19 11/27/19 Range/Units 15:32 15:32 WBC 1.2 L* (4.8-10.8) x10^3/uL RBC 2.57 L (4.20-5.40) 10^6/uL Hgb 8.1 L (12.0-16.0) g/dL Hct 25.1 L (37.0-47.0) % MCV 97.7 (81.0-99.0) fL MCH 31.5 H (27.0-31.0) pg MCHC 32.3 (32.0-36.0) g/dL RDW 11.7 L (12.0-15.0) % Plt Count 116 L (130-450) 10^3/uL MPV 10.8 (7.9-10.8) fL Neut # (Auto) Not Reportable Lymph # (Auto) Not Reportable [place] # (Auto) Not Reportable Eos # (Auto) Not Reportable Baso # (Auto) Not Reportable Absolute Nucleated RBC Not Reportable Total Counted 50 Band Neuts % (Manual) 14 H (0 - 10) % Abnorm Lymph % (Manual) 0 % Metamyelocytes % 4 H ( - 0) % Myelocytes % ( - 0) % Nucleated RBC % Not Reportable Neutrophils # (Manual) 0.9 L (1.5-6.6) 10^3/uL Lymphocytes # (Manual) 0.1 L (1.5-3.5) 10^3/uL Monocytes # (Manual) 0.1 (0.0-1.0) 10^3/uL Eosinophils # (Manual) 0.0 (0-0.7) 10^3/uL Basophils # (Manual) 0.0 (0-0.1) 10^3/uL Differential Comment MANUAL DIFFERENTIAL Manual Slide Review Indicated WBC Morphology 2+ TOXIC GRANULATION (NORMAL) Platelet Estimate DECREASED (<130,000) (NORMAL) Platelet Morphology NORMAL APPEARANCE (NORMAL) RBC Morph Micro Appear 1+ HYPOCHROMASIA (NORMAL) Sodium 138 (135-145) mmol/L Potassium 3.4 L (3.5-5.0) mmol/L Chloride 105 (101-111) mmol/L Carbon Dioxide 25 (21-32) mmol/L Anion Gap 8.0 (6-13) BUN 12 (6-20) mg/dL Creatinine 0.7 (0.4-1.0) mg/dL Estimated GFR (MDRD) 83 L (>89) Glucose 99 (70-100) mg/dL Lactic Acid (0.5-2.2) mmol/L Calcium 8.0 L (8.5-10.3) mg/dL Total Bilirubin 0.6 (0.2-1.0) mg/dL AST 18 (10-42) IU/L ALT 22 (10-60) IU/L Alkaline Phosphatase 64 (42-121) IU/L Total Protein 6.1 L (6.7-8.2) g/dL Albumin 2.9 L (3.2-5.5) g/dL Globulin 3.2 (2.1-4.2) g/dL Albumin/Globulin Ratio 0.9 L (1.0-2.2) Lipase 22 (22-51) U/L ABX Reporting Has patient been on IV antibiotics over the past 48 hours?: No Assessment/Plan - Problem List (1) Bacteremia due to Gram-positive bacteria Impression: Bacterial culture drawn from port 11/26/2019 at 1058. Positive form coagulase-n egative staphylococci 11/27/2019 at 1809. Second blood culture collected 11/26/2019 at 1100 has no growth to date. Patient afebrile, feeling tired but overall well, hypotensive with BP 90s/50s. WBCs 2.3, up from 1.2 the day prior. Port site is clean dry and intact, no redness or drainage noted. 1. Continue empiric coverage of CLABSI with vancomycin and cefepime. 2. Monitor blood cultures from 11/26, 11/27. (2) Pancytopenia due to antineoplastic chemotherapy Impression: Patient has finished 2 of 4 rounds of Adriamycin and Cytoxan 11/05/19 and 11/18/19 as neoadjuvant treatment for right breast infiltrating ductal carcinoma ER/IL/HER-2 negative, cT2 v T3 N0Mx. Patient came to the ER 11/26/2019 for stomatitis and urinary retention. Labs notable for pancytopenia. Improvement of WBC, ANC from 11/26 to 11/28. 1. Continue neutropenic precations. 2. Continue neutropenic diet. (3) Stomatitis Impression: Patient has mouth and lip sores after second of four rounds of Adriamycin and Cytoxan. 1. Mouth wash q4hrs for comfort. 2. Gentle oral hygiene. 3. Soft diet. (4) Hypokalemia Impression: Patient potassium level 11/27 3.4. She was given 20 meq KCl. Potassium level 11/28 3.3. 1. Increase potassium to 20 meq KCL BID. (5) Hypotension Impression: Patient continues to be hypotensive despite oral and IV hydration. Patient reports taking her lisinopril and hydrochlorothiazide 11/27/2019. 1. Hold lisinopril and HCTZ today. 2. Consider holding lisinopril and HCTZ at discharge. Follow-up with PCP to restart. Qualifiers: Hypotension type: hypotension due to hypovolemia Qualified Code(s): I95.89 - Other hypotension; E86.1 - Hypovolemia <Eve Lester - Last Filed: 11/28/19 14:25> Subjective - Subjective Subjective: After breakfast. Her was at the bedside. A few questions were asked about the causes of her anemia. What they could be. They have noted that her blood pressure has been low for several weeks now. She is given has varying stories of whether she took the blood pressure pill in the last 3 days, or has not taken it for a week. Both she and her disagree about when she stopped taking her blood pressure pill. Overall she is improved with less mouth pain. Actually had hunger and was wanting to eat. Got up and showered this morning. Tired and a little lightheaded but feels overall so much better. Objective - Vital Signs/Intake & Output Vital Signs: Vital Signs x48h Temp Pulse Resp BP Pulse Ox 11/28/19 07:54 36.9 C 69 16 92/48 L 97 Intake & Output: Intake & Output 11/25/19 11/26/19 11/27/19 11/28/19 23:59 23:59 23:59 23:59 Intake Total 936 1901.666 Balance 936 1901.666 - Objective Comments/Other: On examination the patient is pale, diffuse alopecia with her hat off. Fatmata is much improved in the mouth and there is not as much white coating. Oral mucosa is also much more pink and moist. She has no petechial lesions of the eyes mouth. Neck has shotty adenopathy and the lungs are clear. Abdomen is benign. - Lab Results Fish Bones: 11/28/19 05:15 11/28/19 05:15 Other Labs: Lab Results x24hrs 11/28/19 11/28/19 11/27/19 Range/Units 05:15 05:15 15:38 WBC 2.3 L (4.8-10.8) x10^3/uL RBC 2.31 L (4.20-5.40) 10^6/uL Hgb 7.3 L (12.0-16.0) g/dL Hct 22.4 L (37.0-47.0) % MCV 97.0 (81.0-99.0) fL MCH 31.6 H (27.0-31.0) pg MCHC 32.6 (32.0-36.0) g/dL RDW 11.7 L (12.0-15.0) % Plt Count 124 L (130-450) 10^3/uL MPV 10.6 (7.9-10.8) fL Neut # (Auto) Not Reportable Lymph # (Auto) Not Reportable [place] # (Auto) Not Reportable Eos # (Auto) Not Reportable Baso # (Auto) Not Reportable Absolute Nucleated RBC Not Reportable Total Counted 100 Band Neuts % (Manual) 17 H (0 - 10) % Abnorm Lymph % (Manual) 0 % Metamyelocytes % 1 H ( - 0) % Myelocytes % 1 H ( - 0) % Nucleated RBC % Not Reportable Neutrophils # (Manual) 1.9 (1.5-6.6) 10^3/uL Lymphocytes # (Manual) 0.3 L (1.5-3.5) 10^3/uL Monocytes # (Manual) 0.1 (0.0-1.0) 10^3/uL Eosinophils # (Manual) 0.0 (0-0.7) 10^3/uL Basophils # (Manual) 0.0 (0-0.1) 10^3/uL Differential Comment MANUAL DIFFERENTIAL Manual Slide Review WBC Morphology (NORMAL) Platelet Estimate DECREASED (<130,000) (NORMAL) Platelet Morphology (NORMAL) RBC Morph Micro Appear NORMAL APPEARANCE (NORMAL) Sodium 141 (135-145) mmol/L Potassium 3.3 L (3.5-5.0) mmol/L Chloride 111 (101-111) mmol/L Carbon Dioxide 25 (21-32) mmol/L Anion Gap 5.0 L (6-13) BUN 11 (6-20) mg/dL Creatinine 0.7 (0.4-1.0) mg/dL Estimated GFR (MDRD) 83 L (>89) Glucose 91 (70-100) mg/dL Lactic Acid 1.4 (0.5-2.2) mmol/L Calcium 7.8 L (8.5-10.3) mg/dL Total Bilirubin 0.4 (0.2-1.0) mg/dL AST 11 (10-42) IU/L ALT 19 (10-60) IU/L Alkaline Phosphatase 53 (42-121) IU/L Total Protein 5.1 L (6.7-8.2) g/dL Albumin 2.5 L (3.2-5.5) g/dL Globulin 2.6 (2.1-4.2) g/dL Albumin/Globulin Ratio 1.0 (1.0-2.2) Lipase (22-51) U/L 11/27/19 11/27/19 Range/Units 15:32 15:32 WBC 1.2 L* (4.8-10.8) x10^3/uL RBC 2.57 L (4.20-5.40) 10^6/uL Hgb 8.1 L (12.0-16.0) g/dL Hct 25.1 L (37.0-47.0) % MCV 97.7 (81.0-99.0) fL MCH 31.5 H (27.0-31.0) pg MCHC 32.3 (32.0-36.0) g/dL RDW 11.7 L (12.0-15.0) % Plt Count 116 L (130-450) 10^3/uL MPV 10.8 (7.9-10.8) fL Neut # (Auto) Not Reportable Lymph # (Auto) Not Reportable [place] # (Auto) Not Reportable Eos # (Auto) Not Reportable Baso # (Auto) Not Reportable Absolute Nucleated RBC Not Reportable Total Counted 50 Band Neuts % (Manual) 14 H (0 - 10) % Abnorm Lymph % (Manual) 0 % Metamyelocytes % 4 H ( - 0) % Myelocytes % ( - 0) % Nucleated RBC % Not Reportable Neutrophils # (Manual) 0.9 L (1.5-6.6) 10^3/uL Lymphocytes # (Manual) 0.1 L (1.5-3.5) 10^3/uL Monocytes # (Manual) 0.1 (0.0-1.0) 10^3/uL Eosinophils # (Manual) 0.0 (0-0.7) 10^3/uL Basophils # (Manual) 0.0 (0-0.1) 10^3/uL Differential Comment MANUAL DIFFERENTIAL Manual Slide Review Indicated WBC Morphology 2+ TOXIC GRANULATION (NORMAL) Platelet Estimate DECREASED (<130,000) (NORMAL) Platelet Morphology NORMAL APPEARANCE (NORMAL) RBC Morph Micro Appear 1+ HYPOCHROMASIA (NORMAL) Sodium 138 (135-145) mmol/L Potassium 3.4 L (3.5-5.0) mmol/L Chloride 105 (101-111) mmol/L Carbon Dioxide 25 (21-32) mmol/L Anion Gap 8.0 (6-13) BUN 12 (6-20) mg/dL Creatinine 0.7 (0.4-1.0) mg/dL Estimated GFR (MDRD) 83 L (>89) Glucose 99 (70-100) mg/dL Lactic Acid (0.5-2.2) mmol/L Calcium 8.0 L (8.5-10.3) mg/dL Total Bilirubin 0.6 (0.2-1.0) mg/dL AST 18 (10-42) IU/L ALT 22 (10-60) IU/L Alkaline Phosphatase 64 (42-121) IU/L Total Protein 6.1 L (6.7-8.2) g/dL Albumin 2.9 L (3.2-5.5) g/dL Globulin 3.2 (2.1-4.2) g/dL Albumin/Globulin Ratio 0.9 L (1.0-2.2) Lipase 22 (22-51) U/L Assessment/Plan - Problem List (1) Bacteremia due to Gram-positive bacteria Impression: It looks more like her initial blood culture was contamination. I have explained this to her and her . She will be going home today. Yesterday's blood cultures are not finalized for 48 hours. She asked what would happen if her blood cultures were positive. I would suspect that I would just give her oral antibiotics. But we will wait and see what happens. (5) Hypotension Impression: I have asked her to take her blood pressure on a daily basis. Just write it down in a diary. When her blood pressure is consistently in the 140s or 150s sh e consider resuming lisinopril at 10 mg a day not 20 mg a day. Qualifiers: Hypotension type: hypotension due to hypovolemia Qualified Code(s): I95.89 - Other hypotension; E86.1 - Hypovolemia
[2019-11-28] MEDS ORDERED: CITALOPRAM HYDROBROMIDE 20 MG TABLET PO SCH (09:00)
[2019-11-28] MEDS ORDERED: CHOLECALCIFEROL 1,000 UNIT TABLET PO SCH (09:00)
[2019-11-28] MEDS ORDERED: buPROPion XL 150 MG TABLET PO SCH (09:00)
[2019-11-28] MEDS ORDERED: NYSTATIN 500000 UNITS/5 ML UDC PO SCH (09:00)
--- NOTE | 2019-11-28 10:27 | Discharge Plan ---
Discharge Plan Problem Reviewed?: Yes Disposition: Home, Self Care Condition: Good Prescriptions: Mouthwash Compounding Base 227 [Mouthwash-Om] 240 ml MM Q4H PRN #240 mouthwash PRN Reason: Mouth Sore Pain Diet: Regular Activity Restrictions: Activity as Tolerated Shower Restrictions: No Driving Restrictions: No Instruction Topics: Neutropenia Health Concerns: You were called by our emergency room physicians because the blood cultures that you had had taken the day before in the ER were now positive for staph aureus. You are currently on chemotherapy and have a very low white cell count. As such we were concerned that you had a port line infection causing staff to go into your bloodstream. After evaluation in the emergency room you did not have a fever, your absolute neutrophil count (which is the count of your white cells) was above 500, and you had already improved and how you felt from the day bef ore. We started you on antibiotic therapy for possible infection. We also continued the treatment of the mucositis/candidiasis of your mouth. Plan of Treatment: 1. Blood cultures, repeat, have been negative so far. 2. The staph aureus that was identified from the emergency room is now identified as a contaminant. 3. As such, you do not need to be on antibiotics anymore and can go home. Care Goals: 1. Follow-up with your primary care provider in the next few weeks for continuity of care 2. Follow-up with your oncologist on your regularly scheduled visit Assessment: Patient understands care goals and will follow through No Smoking: If you smoke, Please STOP! Call for help. Follow-up with: Marie Wilson PA-C [Physician No Access] -
--- NOTE | 2019-11-28 10:59 | ADVANCE CARE PLANNING NOTE ---
Advance Care Planning - Planning Encounter Date: 11/28/19 Time: 10:58 Purpose: Explore her understanding of her cancer Parties in Attendance: , Patient, Hospitalist Dr. Lester Decisional Capacity of the Patient: intact and alert to person, place, time, situation. Lucid historian - Diagnosis for Encounter (1) Infiltrating duct carcinoma of breast, estrogen receptor negative, stage 3 Qualifiers: Laterality: right Qualified Code(s): C50.911 - Malignant neoplasm of unspecified site of right female breast; Z17.1 - Estrogen receptor negative status [ER-] - Encounter Subjective/Patient's Story: She is a 69-year-old white female who considers herself completely healthy until she was diagnosed with breast cancer. She is to her first , and they live in their own home that they built in 1997. He is a contractor. They have 2 sons, and 1 son lives with him. He has mental health issues and has difficulty maintaining employment so he lives with them. He does work with his dad and uncle who are in the [employer] business. But only a few hours a day, most of the time he does not. She says that her life is relatively stable, and happy. The main worry is their son. It is starting to don on them that they are getting older, and who will take care of him when they are gone. She does have problems with blood pressure, a little bit of being overweight, but regarded herself is completely independent. She loves walking with [place] dogs, [place] and also like to read and do a little gardening. All of that is gone by the [place] right now because of the effects of the chemotherapy. It has left her with poor appetite, a raw mouth, severe fatigue. But her breast cancer is shrinking in the right breast and she is very happy with this. As a stage III breast cancer, she has been told that her treatment is a treatmen t designed for "cure". That is her anticipation. She and her have not made any plans in case this does not work. This last week of chemotherapy really knocked her down. With the wall mouth, poor appetite, she was not eating or drinking very much and was miserable. When she was seen in the emergency room and received IV fluids and treatment for her mouth she is much improved. But then her blood cultures were positive and she had to come back to the hospital. At this time we think the blood cultures are contaminant. She is back to being up and about. She is walking in her room, eating 50% of her food, and taking a shower on her own. At this time she wishes to remain a full code. Objective/Medical Story: Cassidy Mathis is a 69 yo female with a PMH of HTN, hypothyroidism, depression, alcohol abuse, and right breast infiltrating ductal carcinoma, ER/TX/HER-2 negative cT2 v T3 N0Mx. She received her first two of four Adriamycin and Cytoxan infusions 11/05/2019 and 11/18/2019. Patient came to the ER yesterday complaining of mucocytis, headache with photosensitivity, and urinary retention. Blood cultures were drawn from her port. After IV hydration, anti-emtics, anti- inflammatory medication, the patient felt better and was discharged home. Patient was instructed to return to the [facility] [place] today 11/27/2019 for reassessment of her symptoms. 1 out of 2 bottles were growing gram positive cocci in clusters. Patient was notified and the decision to admit patient and treat patient with empiric IV antibiotics for CLABSI. Patient's vital signs in the ER were unremarkable. Patient admitted that she felt much better than she had yesterday. The headache and photosensitivity have not returned. She continues to have uncomfortable sores in her mouth and on her lips. Patient was is good spirits and was agreeable to hospital admit. WBC 1.2 and ANC 900. - Past Medical History Cardiovascular: reports: Hypertension, High cholesterol Respiratory: reports: None Neuro: reports: None Endocrine/Autoimmune: reports: HyPOthyroidism RUG SCRATCHER: reports: Breast cancer, Other () : reports: Retention HEENT: reports: None Psych: reports: Depression Musculoskeletal: reports: None MRSA Hx?: No Other Past Medical History: Alcohol dependence in the past, sober for years now Goals of Care: 1. To continue chemotherapy with anticipation of shrinking tumor, followed by surgery. At this time she is not anticipating being treated with radiation. Goal is cure. 2. To make plans regarding her son who lives with him. I have recommended that they get a neuropsychiatric evaluation order through his primary care provider and start there. 3. To return to her previous life of gentle walks, enjoying her food in the company of her family. Plan: 1. I would like her to follow-up with her oncologist on her regularly scheduled appointments. 2. Follow-up with her primary care provider for continuity of care 3. Encouraged to make sure that she takes plenty of fluid intake, stop her blood pressure pills because of hypotension, increase her caloric intake with Ensure on those bad days. 4. She will be talking to her other son, to see if they have thought about what it would be like if his brother came to live with him down the road. Code Status: Attempt Resuscitation Time spent on advance care plannin minutes
--- NOTE | 2019-11-28 11:19 | PHARMACY PROGRESS NOTE ---
- Best Possible Medication History Admit Date and Time: 11/28/19 0956 Processed by: Nursing Medication History completed: Yes As the person ultimately responsible for medication therapy, providers are able to order a medication from an existing home medication list in [facility] via the "Reconcile Routine" prior to Confirmation of that medication by software support representative. Such practice is discouraged except when the physician, in their clinical judgment, deems that a medical need exists for a medication without regard to previous use.
--- NOTE | 2019-11-28 16:48 | DISCHARGE SUMMARY ---
Discharge Summary Admit Date: 11/27/19 Discharge Date: 11/28/19 Discharging Provider: Eve Lester MD Primary Care Provider: PHILL Pérez Code Status: Attempt Resuscitation Condition at Discharge: Good Discharge Disposition: 01 Home, Self Care - DIAGNOSES Discharge Diagnoses with Status of Each Condition: 1. Coag negative Staphylococcus bacteremia 2. Pancytopenia due to antineoplastic chemotherapy 3. Stomatitis and mucositis 4. Hypokalemia 5. Hypotension 6. Infiltrating duct carcinoma of breast, estrogen receptor negative, stage III. - HPI History of Present Illness: Cassidy Mathis is a 69 yo female with a PMH of HTN, hypothyroidism, depression, alcohol abuse, and right breast infiltrating ductal carcinoma, ER/UT/HER-2 negative cT2 v T3 N0Mx. She received her first two of four Adriamycin and Cytoxan infusions 11/05/2019 and 11/18/2019. Patient came to the ER yesterday complaining of mucocytis, headache with photosensitivity, and urinary retention. Blood cultures were drawn from her port. After IV hydration, anti-emtics, anti- inflammatory medication, the patient felt better and was discharged home. Patient was instructed to return to the [facility] today 11/27/2019 for reassessment of her symptoms. 1 out of 2 bottles were growing gram positive cocci in clusters. Patient was notified and the decision to admit patient and treat patient with empiric IV antibiotics for CLABSI. Patient's vital signs in the ER were unremarkable. Patient admitted that she felt much better than she had yesterday. The headache and photosensitivity have not returned. She continues to have uncomfortable sores in her mouth and on her lips. Patient was is good spirits and was agreeable to hospital admit. WBC 1.2 and ANC 900. History - Past Medical History Cardiovascular: reports: Hypertension, High cholesterol Respiratory: reports: None Neuro: reports: None Endocrine/Autoimmune: reports: HyPOthyroidism [employer]: reports: Breast cancer, Other () : reports: Retention HEENT: reports: None Psych: reports: Depression Musculoskeletal: reports: None MRSA Hx?: No Other Past Medical History: Alcohol dependence - HOSPITAL COURSE Hospital Course: For her stage III infiltrating duct carcinoma of the breast that is triple receptor negative. She felt lousy this weekend and had photophobia, headache, and severe stomatitis.She is a nichole lady who has recently started cycle 2 of Cytoxan and Adriamycin she was lightheaded and dizzy and came to the emergency room. She was seen by Dr. Ferrer and she was hydrated, treated for her mucositis, and felt better. She went home. Blood cultures were done before discharge. Those blood cultures have come back positive for gram-positive cocci and she was brought back to the emergency room. Overall she states that she felt much better. The photophobia, headache were gone. She was actually having an appetite again. Mucositis was still a problem. She was started on empiric antibiotic therapy with cefepime and vancomycin for possible CLABSI on admission. She did not have a fever. Her absolute neutrop hil count was 900. After 24 hours the bacteria was identified as coag negative staph and most likel y contaminant. Her absolute neutrophil count was now 1900. She continued to be afebrile, showered, eating. As such it was felt that she had contamination of the blood cultures and did not have true CLABSI. She was discharged to home. Noted during her stay was the pancytopenia due to antineoplastic chemotherapy. That is gradually improving over 24 hours as well. Stomatitis and mucositis were treated with Magic mouthwash and nystatin swish and spit. A new bottle of mouthwash was called into [facility] in [place]. Hypokalemia was treated with supplement. She continues to be mildly hypotensive. She was in the 90s systolic in the emergency room. After hydration and eating she was still in the 90s. She is on 20 mg of lisinopril and hydrochlorothiazide in the outpatient setting. I have recommended that she not take those medications. I have asked her to take her blood pressure on a daily basis. Put that in a diary. Give that diary to her primary care provider. I would not consider treating her until her systolic is consistently, on a daily basis, in the 140s to 150s.During her stay calcium, magnesium, and phosphorus were all supplemented. Potassium as well. Exam at discharge showed a middle-aged white female who had diffuse alopecia with sparse spikes of hair. Temperature was 36.9. Heart rate 69. Blood pressure 92/48. Respirations 16 and 97% on room air. Alert, oriented. Vivacious individual in spite of her illness. Very, very pleasant person that made us all laugh many many times. Neck has shotty adenopathy. Lungs are clear. She has a regular rate and rhythm. The abdomen is soft, nontender. No pedal edema. There is no petechiae on her nailbeds, sclerae clear. She continues to have some stomatitis and that her tongue is still a little white but not nearly as cracked and dry as it was on admission. Buccal mucosa also normal. She is to follow-up with her primary care provider in the next few weeks. To follow-up with PHILL Mai who is the practitioner following her for her breast cancer in the medical ambulatory clinic. - ALLERGIES Allergies/Adverse Reactions: Allergies Allergy/AdvReac Type Severity Reaction Status Date / Time No Known Drug Allergies Allergy Verified 11/27/19 15:14 - MEDICATIONS Home Medications: Ambulatory Orders Medication Instructions Recorded Confirmed Atorvastatin Calcium 20 mg PO DAILY 11/04/19 11/28/19 Bupropion HCl [Bupropion Xl] 150 mg PO DAILY 11/04/19 11/28/19 Cholecalciferol (Vitamin D3) 1,000 unit PO DAILY 11/04/19 11/28/19 [Vitamin D3] Citalopram Hydrobromide 20 mg PO DAILY 11/04/19 11/28/19 [Citalopram HBr] Levothyroxine [Synthroid] 88 mcg PO QDAC 11/04/19 11/28/19 Lidocaine/Prilocain 2.5% Cream 30 gm TOP DAILY 11/04/19 11/28/19 [Emla 2.5% Cream] Ondansetron [Ondansetron Odt] 8 mg PO BID PRN 11/04/19 11/28/19 Prochlorperazine [Compazine] 10 mg PO Q6H PRN 11/04/19 11/28/19 dexAMETHasone [Dexamethasone] 8 mg PO DAILY 11/04/19 11/28/19 Nystatin 5 ml PO QID 11/27/19 11/28/19 Mouthwash Compounding Base 227 240 ml MM Q4H PRN #240 mouthwash 11/28/19 [Mouthwash-Om] - LABS Result Diagrams: 11/28/19 05:15 11/28/19 05:15
== END 2019-11-28 11:55 | disposition home or self-care (01) ==
LOC: ED 14:51 → UNDOADMOB 15:33 → MS2 15:33 → INTOOBSV 15:33 → MS2 11-28 09:56
PROVIDERS: ADMIT Specialist; ATTEND Specialist
DX: D70.1 Agranulocytosis secondary to cancer chemotherapy (principal); D69.59 Other secondary thrombocytopenia; D64.81 Anemia due to antineoplastic chemotherapy; T45.1X5A Adverse effect of antineoplastic and immunosuppressive drugs, initial encounter; C50.911 Malignant neoplasm of unspecified site of right female breast; Z17.1 Estrogen receptor negative status [ER-]; K12.1 Other forms of stomatitis; K12.30 Oral mucositis (ulcerative), unspecified; I95.1 Orthostatic hypotension; E86.1 Hypovolemia; I10 Essential (primary) hypertension; E03.9 Hypothyroidism, unspecified; E87.6 Hypokalemia; F32.9 Major depressive disorder, single episode, unspecified; Z95.828 Presence of other vascular implants and grafts; Z79.899 Other long term (current) drug therapy
CPT/HCPCS: 36415; 80053; 83605; 83690; 85025; 87040; 96361; 96365; 96366; 96367; 96368; 99283; 99285; A9270; G0378; J3370; J8499

== ENCOUNTER 2020-09-28 13:02 | Outpatient (CLI) | payer MEDICARE ==
--- NOTE | 2020-09-29 13:53 | Mammography Report ---
UNILATERAL LEFT DIGITAL SCREENING MAMMOGRAM 3D/2D: 09/28/2020 CLINICAL: Routine screening. Personal history of right breast cancer. Comparison is made to exams dated: 09/18/2019 mammogram, 04/12/2017 mammogram, and 01/22/2014 mammogram - [facility]. There are scattered fibroglandular elements in left breast. No significant masses, calcifications, or other findings are seen in the breast. There has been no significant interval change. IMPRESSION: NEGATIVE There is no mammographic evidence of malignancy. A 1 year screening mammogram is recommended. This exam was interpreted at Station ID: [id number]. NOTE: For mammograms, a report in lay terms will be sent to the patient. Approximately 15% of breast malignancies will not be visualized mammographically. In the management of a palpable breast mass, a negative mammogram must not discourage biopsy of a clinically suspicious lesion. Electronically Signed By: Abebe Boles M.D. slc/penrad:09/28/2020 17:12:59 ACR BI-RADS Category 1: Negative 3341F PARENCHYMAL PATTERN: (A) - The breast(s) demonstrate(s) scattered fibroglandular densities. BI-RADS CATEGORY: (1) - 1 RECOMMENDATION: (ANNUAL) - Recommend routine annual screening mammography. [id number] 1 year screening LATERALITY: (B)
== END 2020-09-28 13:03 | disposition home or self-care (01) ==
LOC: DI 13:02
PROVIDERS: ATTEND Internal Medicine Hematology & Oncology
DX: Z12.31 Encounter for screening mammogram for malignant neoplasm of breast (principal); Z85.3 Personal history of malignant neoplasm of breast
CPT/HCPCS: 77063

== ENCOUNTER 2021-09-21 13:04 | Outpatient (CLI) | payer MEDICARE ==
--- NOTE | 2021-09-27 13:48 | Mammography Report ---
UNILATERAL LEFT DIGITAL SCREENING MAMMOGRAM 3D/2D WITH EXAGGERATED CC: 09/21/2021 CLINICAL: Routine screening. Personal history of right breast cancer. Comparison is made to exams dated: 09/28/2020 mammogram, 09/18/2019 mammogram, and 04/12/2017 mammogr am - [facility]. There are scattered fibroglandular elements in left breast. No significant masses, calcifications, or other findings are seen in the breast. There has been no significant interval change. IMPRESSION: NEGATIVE There is no mammographic evidence of malignancy. A 1 year screening mammogram is recommended. Future imaging is recommended as follows: 09/29/2021 screening mammogram. This exam was interpreted at Station ID: [id number]. NOTE: For mammograms, a report in lay terms will be sent to the patient. Approximately 15% of breast malignancies will not be visualized mammographically. In the management of a palpable breast mass, a negative mammogram must not discourage biopsy of a clinically suspicious lesion. Electronically Signed By: Aldo Fisher M.D. ddpao/penrad:09/26/2021 07:57:07 ACR BI-RADS Category 1: Negative 3341F PARENCHYMAL PATTERN: (A) - The breast(s) demonstrate(s) scattered fibroglandular densities. BI-RADS CATEGORY: (1) - 1 RECOMMENDATION: (ANNUAL) - Recommend routine annual screening mammography. [id number] 1 year screening LATERALITY: (B)
== END 2021-09-21 13:05 | disposition home or self-care (01) ==
LOC: DI.S 13:04
PROVIDERS: ATTEND Internal Medicine Hematology & Oncology
DX: Z12.31 Encounter for screening mammogram for malignant neoplasm of breast (principal); C50.411 Malignant neoplasm of upper-outer quadrant of right female breast; C50.911 Malignant neoplasm of unspecified site of right female breast; Z85.3 Personal history of malignant neoplasm of breast

== ENCOUNTER 2021-11-14 10:52 | Outpatient (CLI) | payer MEDICARE ==
[2021-11-14 14:41] LABS: BILIRUBIN,URINE NEGATIVE (NEGATIVE); GLUCOSE, URINE (UA) NEGATIVE (NEGATIVE); KETONES,URINE (UA) NEGATIVE (NEGATIVE); LEUKOCYTE ESTERASE, URINE LARGE (NEGATIVE); NITRITE,URINE NEGATIVE (NEGATIVE); OCCULT BLOOD,URINE TRACE-INTA (NEGATIVE); PROTEIN,URINE NEGATIVE (NEGATIVE); UROBILINOGEN,URINE 0.2 (NORMAL) E.U./dL (NORMAL)
[2021-11-14 14:48] LABS: CLARITY,URINE CLOUDY (CLEAR)
[2021-11-14 15:09] LABS: BACTERIA,URINE Many /HPF (None Seen); SQUAMOUS EPITHELIAL CELL,UR MANY Squamous (<= Few); WBC,URINE >25 /HPF (0-5)
[2021-11-14 15:10] LABS: EPITHELIAL CELLS,UR FEW Transitional /HPF (<= Few)
== END 2021-11-14 23:59 | disposition home or self-care (01) ==
LOC: LAB.S 10:52
PROVIDERS: ATTEND Emergency Medicine
DX: R30.0 Dysuria (principal)
CPT/HCPCS: 81001; 87086

== ENCOUNTER 2021-11-17 08:00 | Outpatient (CLI) | payer MEDICARE ==
--- NOTE | 2021-11-17 17:36 | XRAY Report ---
PROCEDURE: Chest 2 View X-Ray INDICATIONS: DYSPNEA ON EXERTION TECHNIQUE: 2 view(s) of the chest. COMPARISON: None. FINDINGS: Examination is limited by technical factors. Surgical changes and devices: None. Lungs and pleura: No pneumothorax. Large left pleural effusion. Limited evaluation of the right lung secondary to technique. Mediastinum: Mediastinal contours are normal. Heart size is normal. Bones and chest wall: No suspicious bony abnormalities. Soft tissues appear unremarkable. IMPRESSION: Large left pleural effusion. Reviewed by: Jayleen Torrez MD on 11/17/2021 5:35 PM PST Approved by: Jayleen Torrez MD on 11/17/2021 5:35 PM [facility] Station ID: [id number]
[2021-11-17 20:01] LABS: BILIRUBIN,URINE NEGATIVE (NEGATIVE); GLUCOSE, URINE (UA) NEGATIVE (NEGATIVE); KETONES,URINE (UA) NEGATIVE (NEGATIVE); LEUKOCYTE ESTERASE, URINE MODERATE (NEGATIVE); NITRITE,URINE NEGATIVE (NEGATIVE); OCCULT BLOOD,URINE NEGATIVE (NEGATIVE); PROTEIN,URINE NEGATIVE (NEGATIVE); UROBILINOGEN,URINE 0.2 (NORMAL) E.U./dL (NORMAL)
[2021-11-17 20:02] LABS: CLARITY,URINE SL. CLOUDY (CLEAR)
[2021-11-17 20:18] LABS: BACTERIA,URINE Few /HPF (None Seen); RBC,URINE 0-5 /HPF (0-5); SQUAMOUS EPITHELIAL CELL,UR MOD Squamous (<= Few)
== END 2021-11-17 23:59 | disposition home or self-care (01) ==
LOC: DI.S 08:00
PROVIDERS: ATTEND Emergency Medicine
DX: J90 Pleural effusion, not elsewhere classified (principal); R30.0 Dysuria; M54.50 Low back pain, unspecified; R82.79 Other abnormal findings on microbiological examination of urine; Z20.822 Contact with and (suspected) exposure to COVID-19
CPT/HCPCS: 71046; 81001; 87086; U0004

== ENCOUNTER 2021-11-24 14:01 | Outpatient (CLI) | payer MEDICARE ==
[2021-11-24] MEDS ORDERED: GADOBUTROL 7.5 MMOL/7.5 ML VIAL ONE (14:17)
[2021-11-24] MEDS ORDERED: IOPAMIDOL-300 50 ML VIAL ONE (14:58)
[2021-11-24] MEDS ORDERED: iohexoL-300 100 ML VIAL ONE (14:59)
--- NOTE | 2021-11-24 15:59 | MRI Report ---
PROCEDURE: Brain W/WO INDICATIONS: METASTATIC BREAST CA CONTRAST: IV CONTRAST: Gadavist ml: 7.5 TECHNIQUE: Noncontrast axial T1 spin echo, axial T2 fast spin echo, sagittal and axial FLAIR, coronal T2 fast sp in echo, axial gradient echo, axial diffusion and ADC through the brain. After the administration of contrast, axial and coronal T1 spin echo with fat saturation through the brain. COMPARISON: None. FINDINGS: Image quality: Excellent. CSF spaces: Basal cisterns are patent. No extra-axial fluid collections. Ventricles are normal in size and shape. Brain: There is a 1.0 x 1.1 x 1.5 cm lobulated enhancing focus with surrounding increased FLAIR signa l in the left lateral frontal lobe seen on series 1102 image 72. There are approximately 10-12 enhanc ing foci within the cerebellum, many punctate in size. However, the largest is on the left measuring 1.2 x 1.1 x 1.3 cm on series 1102 image 34. 2 mm enhancement is noted in the inferior right frontal t emporal lobe seen on series 1102 image 52. 6 mm right parietal lobe focus of enhancement is present o n series 1102 image 48. 2 mm right parietal-occipital enhancement is present on series 1102 image 45. 2 to 3 mm focus of enhancement is noted within the right anterior janee on series 1102 image 39. Post erior right janee lesion measuring approximately 4 mm noted on series 1102 image 35. All lesions demon strate corresponding hyperintense FLAIR signal. In addition, there overall appears to be mildly asymm etrically more prominent enhancement of the meninges on the right. There is no visualized midline martha ft. There is cerebral volume loss for age. There is periventricular white matter chronic small vessel is chemic change. The brainstem appears normal. Diffusion-weighted images demonstrate no acute ischemi c insults. No chronic ischemic insults. Normal intravascular flow voids are present. Skull and face: There is heterogeneous appearance within the clivus. Several scattered poorly defined areas of abnormal signal are also noted within the calvarium. Orbits appear normal. Sinuses: Sinuses and mastoids appear clear. IMPRESSION: 1. Multifocal areas of enhancement with surrounding vasogenic edema as described above most consisten t with metastatic disease. 2. Areas of abnormal marrow signal within the calvarium most notably the clivus raising concern for o sseous metastatic disease. These areas would be better evaluated with CT head and/or bone scan. Reviewed by: Radha Gomez MD on 11/24/2021 3:58 PM PST Approved by: Radha Gomez MD on 11/24/2021 3:58 PM PST Station ID: [id number]
[2021-11-24] MEDS ORDERED: GADOBUTROL 7.5 MMOL/7.5 ML VIAL IVP ONE (16:20)
[2021-11-24] MEDS ORDERED: iohexoL-300 100 ML VIAL IVP ONE (21:33)
[2021-11-24] MEDS ORDERED: IOPAMIDOL-300 50 ML VIAL PO ONE (21:40)
== END 2021-11-24 14:02 | disposition home or self-care (01) ==
LOC: DI 14:01
PROVIDERS: ATTEND Internal Medicine Hematology & Oncology
DX: C50.919 Malignant neoplasm of unspecified site of unspecified female breast (principal); R90.89 Other abnormal findings on diagnostic imaging of central nervous system; R93.7 Abnormal findings on diagnostic imaging of other parts of musculoskeletal system; R93.0 Abnormal findings on diagnostic imaging of skull and head, not elsewhere classified; C78.02 Secondary malignant neoplasm of left lung; J90 Pleural effusion, not elsewhere classified; C78.7 Secondary malignant neoplasm of liver and intrahepatic bile duct
CPT/HCPCS: 70553; 74177; A9585; Q9967

== ENCOUNTER 2021-11-24 15:15 | Outpatient (CLI) | payer MEDICARE ==
--- NOTE | 2021-11-24 17:48 | CT Report ---
PROCEDURE: Abdomen/Pelvis W INDICATIONS: METASTATIC BREAST CA CONTRAST: IV CONTRAST: Optiray 320 ml: 100 PO CONTRAST: Isovue 300 ml50 TECHNIQUE: After the administration of oral and intravenous contrast, 5 mm thick sections acquired from the diap hragms to the symphysis. 5 mm thick coronal and sagittal reformats were acquired. For radiation dos e reduction, the following was used: automated exposure control, adjustment of mA and/or kV accordin g to patient size. COMPARISON: None. FINDINGS: Image quality: Excellent. ABDOMEN: Lung bases: At least moderate multiloculated left pleural effusion with a configuration highly suspic ious for malignant pleural fluid. Additionally, there is nodularity along the pleura, likely represen ting pleural implants. Associated compressive atelectasis in the left lung base. Multiple basilar pul monary nodules consistent with pulmonary metastatic disease. The largest imaged nodule on this CT of the abdomen and pelvis measures approximately 9 mm. Heart size is normal. Solid organs: There is a metastatic lesion in segment 8 of the right lobe of the liver, measuring 1.5 cm. There is eventration of the right hemidiaphragm. This lesion is not amenable to percutaneous bio psy based on its location near the capsule underneath the diaphragmatic eventration. Spleen is unrema rkable. Gallbladder is unremarkable. Biliary system is non dilated. Pancreas enhances normally. No adrenal nodules. Kidneys demonstrate normal size and enhancement, without hydronephrosis. Peritoneum and bowel: Bowel loops demonstrate normal wall thickness and caliber. No free fluid or a ir. Nodes and vessels: No retroperitoneal or mesenteric adenopathy by size criteria. Aorta and inferior vena cava are normal in size. Miscellaneous: No ventral hernias. PELVIS: Genitourinary: Bladder wall thickness is normal. Miscellaneous: No inguinal hernias or adenopathy. Bones: There is a prominent Schmorl's node involving inferior endplate of L3. Additionally, there is central low density which may represent a lytic metastatic lesion. There is also a question of a subt le metastatic lesion involving L4. No vertebral body compression fractures. IMPRESSION: 1. There is pulmonary parenchymal metastatic disease. 2. There is a multiloculated left pleural effusion with pleural nodularity which is highly consistent with a malignant left pleural effusion. 3. There is a 1.5 cm segment 8 right lobe liver metastatic lesion. This lesion is not amenable to elzbieta ge guided biopsy. 4. Question lumbar metastatic disease. Consider lumbar MRI with and without contrast versus spine scr een MRI for confirmation. Reviewed by: Agustin Gaming MD on 11/24/2021 5:47 PM PST Approved by: Agustin Gaming MD on 11/24/2021 5:47 PM PST Station ID: [id number]
== END 2021-11-24 23:59 | disposition home or self-care (01) ==
LOC: DI 15:15
PROVIDERS: ATTEND Internal Medicine Hematology & Oncology
DX: C50.919 Malignant neoplasm of unspecified site of unspecified female breast (principal); C78.02 Secondary malignant neoplasm of left lung; J90 Pleural effusion, not elsewhere classified; C78.7 Secondary malignant neoplasm of liver and intrahepatic bile duct; R93.7 Abnormal findings on diagnostic imaging of other parts of musculoskeletal system

== ENCOUNTER 2021-11-25 09:46 | Outpatient (CLI) | payer MEDICARE ==
--- NOTE | 2021-11-25 15:28 | Nuclear Medicine Report ---
PROCEDURE: Bone Whole Body INDICATIONS: METASTATIC BREAST CA RADIOPHARMACEUTICAL: 26.7 mCi Tc-99m MDP IV. TECHNIQUE: Delayed whole-body scintigrams were obtained approximately 3-4 hours after intravenous injection of r adiotracer. Anterior and posterior views were acquired from vertex to feet. Additional left and rig ht oblique views of the were obtained. COMPARISON: None available. FINDINGS: Foci of relatively intense radiotracer uptake identified in the superior lateral right orb it wall of the calvarium, the posterior left fourth rib and in the right L4 pedicle suspicious for me tastatic disease. Increased radiotracer uptake identified in the cervical spine, upper thoracic spine , the shoulders bilaterally and the knees bilaterally most compatible with osteoarthritis. No areas o f photopenia identified in the osseous skeleton. No abnormal soft tissue uptake. Activity in the kidn eys is normal and symmetric. IMPRESSION: Abnormal radiotracer uptake in the right superior-lateral orbital wall, the left fourth rib and the r ight L4 pedicle concerning for osseous metastatic disease. Reviewed by: Polly Estrella MD, PhD on 11/25/2021 3:27 PM PST Approved by: Polly Estrella MD, PhD on 11/25/2021 3:27 PM PST Station ID: [id number]
== END 2021-11-25 09:47 | disposition home or self-care (01) ==
LOC: DI 09:46
PROVIDERS: ATTEND Internal Medicine Hematology & Oncology
DX: C50.919 Malignant neoplasm of unspecified site of unspecified female breast (principal); R93.7 Abnormal findings on diagnostic imaging of other parts of musculoskeletal system
CPT/HCPCS: 78306

== ENCOUNTER 2021-11-30 09:46 | Outpatient (CLI) | payer MEDICARE ==
[2021-11-30 10:05] LABS: CREATININE 0.7 mg/dL (0.4-1.0)
[2021-11-30] MEDS ORDERED: lidocaine 1% 20 ML MDV ONE (12:26)
--- NOTE | 2021-11-30 12:50 | XRAY Report ---
PROCEDURE: Post Thoracentesis 1V CXR INDICATIONS: POST THORACENTESIS TECHNIQUE: One view of the chest was acquired. COMPARISON: Chest x-ray 11/17/2021 FINDINGS: Surgical changes and devices: None. Right axillary clips. Lungs and pleura: Mild left effusion. No pneumothorax. Mediastinum: Mediastinal contours appear normal. Heart size is normal. Bones and chest wall: No suspicious bony lesions. Overlying soft tissues appear unremarkable. IMPRESSION: Mild left effusion. No pneumothorax. Reviewed by: Radha Gomez MD on 11/30/2021 12:49 PM PST Approved by: Radha Gomez MD on 11/30/2021 12:49 PM PST Station ID: [id number]
[2021-11-30] MEDS ORDERED: lidocaine 1% 20 ML MDV SUBQ ONE (14:03)
--- NOTE | 2021-11-30 16:20 | Ultrasound Report ---
PROCEDURE: Thoracentesis Puncture INDICATIONS: METASTATIC BREAST CA TECHNIQUE: The indications, alternatives, benefits, risks, and complications of the procedure were explained to the patient. Written informed consent was obtained and placed in the chart. The chest was examined sonographically, and an appropriate site was chosen for thoracentesis. The skin was prepared and diana ped in the usual sterile fashion, and 1% lidocaine was infiltrated from the skin down through the ple ural surface. A 19-gauge catheter-covered needle was then introduced into the pleural space, the cat heter was advanced and the needle was withdrawn, and thereafter pleural fluid was aspirated. The cat heter was then removed and a dressing was applied. COMPARISON: None. FINDINGS: Access site: Left hemithorax. Needle: One-Step centesis catheter with introducer needle. Fluid volume and description: Clear yellow 350 cc Fluid sent for diagnostic testing: No Medications: 1% lidocaine for local anaesthesia. Complications: None; post-procedural chest radiograph is pending to assess for pneumothorax. IMPRESSION: Successful ultrasound-guided thoracentesis. Reviewed by: Radha Gomez MD on 11/30/2021 4:19 PM PST Approved by: Radha Gomez MD on 11/30/2021 4:19 PM PST Station ID: [id number]
== END 2021-11-30 09:47 | disposition home or self-care (01) ==
LOC: DI 09:46
PROVIDERS: ATTEND Internal Medicine Hematology & Oncology
DX: C50.919 Malignant neoplasm of unspecified site of unspecified female breast (principal)
CPT/HCPCS: 32555; 36415; 82565; 85049

== ENCOUNTER 2021-12-02 08:01 | Outpatient (CLI) | payer MEDICARE ==
[2021-12-02] MEDS ORDERED: lidocaine 1% 20 ML MDV ONE (08:03)
[2021-12-02] MEDS ORDERED: LACTATED RINGERS 1,000 ML IV ONE ×2 (08:34→10:24)
[2021-12-02 08:44] LABS: BASOPHILS % (AUTO) 0.5 %; EOSINOPHILS # (AUTO) 0.1 10^3/uL (0.0-0.7); EOSINOPHILS % (AUTO) 1.4 %; HCT - HEMATOCRIT 36.6 % (37.0-47.0); HGB - HEMOGLOBIN 11.8 g/dL (12.0-16.0); LYMPHOCYTES % (AUTO) 11.2 %; MEAN CORPUSCULAR HEMOGLOBIN 30.7 pg (27.0-31.0); MEAN CORPUSCULAR HGB CONC 32.2 g/dL (32.0-36.0); MEAN CORPUSCULAR VOLUME 95.3 fL (81.0-99.0); MEAN PLATELET VOLUME 9.1 fL (7.9-10.8); MONOCYTES # (AUTO) 0.5 10^3/uL (0.0-1.0); MONOCYTES % (AUTO) 5.3 %; NEUTROPHILS % (AUTO) 81.1 %; PLT - PLATELET COUNT 465 10^3/uL (130-450); RED BLOOD COUNT 3.84 10^6/uL (4.20-5.40); RED CELL DISTRIBUTION WIDTH 12.4 % (12.0-15.0); WHITE BLOOD COUNT 8.7 x10^3/uL (4.8-10.8)
[2021-12-02 08:54] LABS: INR 1.2 (0.8-1.2); PT - PROTHROMBIN TIME 12.9 secs (9.9-12.6)
[2021-12-02] MEDS ORDERED: fentaNYL 100 MCG/2 ML VIAL ONE (09:24)
[2021-12-02] MEDS ORDERED: MIDAZOLAM 2 MG/2 ML VIAL ONE (09:24)
--- NOTE | 2021-12-02 11:50 | CT Report ---
PROCEDURE: RT LUNG BX PERC Sedation analgesia for minutes. INDICATIONS: RT LUNG NODULE BIOPSEY TECHNIQUE: The indications, alternatives, benefits, risks, and possible complications of the procedure were comm unicated to the patient. Informed written consent from the patient was obtained and placed in the art. Continuous EKG and hemodynamic monitoring was started by trained personnel. For radiation dose reduction, the following was used: automated exposure control, adjustment of mA and/or kV according to patient size. The patient was brought to the CT suite and instrument person spiral CT imaging was performed with localization g rid. The appropriate site for percutaneous access to the biopsy target was marked, was prepped and d raped sterilely, and was infused with local anaesthesia. Under CT guidance, a core biopsy trocar and needle set was advanced to the biopsy target, and specimen(s) were obtained. The trocar and needle were then removed, and the patient was sent for post-procedure monitoring. COMPARISON: Chest CT without contrast, 11/18/2021. CT abdomen and pelvis with contrast, 11/24/2021. FINDINGS: Biopsy site: Right middle lobe nodule. Needle: 20 gauge biopsy needle with introducer trocar. Number of passes: 3 Medications: 1% lidocaine for local anaesthesia. IV Fentanyl and Versed for conscious sedation for 20 minutes (see nursing record). Complications: Tiny penumothorax in anterior right middle lobe.. IMPRESSION: 1. Successful CT-guided biopsy of right middle lobe nodule. 2. Trace pneumothorax at the biopsy site. Reviewed by: Abel Murray MD on 12/02/2021 11:48 AM PST Approved by: Abel Murray MD on 12/02/2021 11:48 AM PST Station ID: [id number]
--- NOTE | 2021-12-02 12:36 | XRAY Report ---
PROCEDURE: Chest 1 View X-Ray INDICATIONS: POST LT LUNG BIOPSEY 2HR FILM NO CHARGE TECHNIQUE: One view of the chest was acquired. COMPARISON: Chest x-ray, 11/30/2021. FINDINGS: Surgical changes and devices: None. Lungs and pleura: There is a small right apical pneumothorax. Small left effusion is present there i s left upper lobe infiltrate and new since the last exam, suspicious for pneumonia. Mediastinum: Mediastinal contours appear normal. Heart size is normal. Bones and chest wall: No suspicious bony lesions. Overlying soft tissues appear unremarkable. IMPRESSION: 1. Small right apical pneumothorax. 2. Small left effusion. 3. Left upper lobe infiltrates suspicious for pneumonia. Reviewed by: Abel Murray MD on 12/02/2021 12:35 PM PST Approved by: Abel Murray MD on 12/02/2021 12:35 PM PST Station ID: [id number]
[2021-12-02] MEDS ORDERED: ACETAMINOPHEN 500 MG TABLET PO ONE (12:47)
[2021-12-02 14:24] VITALS: BP 127/67
--- NOTE | 2021-12-02 16:21 | XRAY Report ---
PROCEDURE: Chest 1 View X-Ray INDICATIONS: POST LUNG BIOPSEY 4HR FILM TECHNIQUE: One view of the chest was acquired. COMPARISON: Chest x-ray 12/02/2021. FINDINGS: Surgical changes and devices: None. Lungs and pleura: There is a small right apical pneumothorax, unchanged from the last exam. Small le ft effusion is stable. There is left upper lobe infiltrate. Mediastinum: Mediastinal contours appear normal. Heart size is normal. Bones and chest wall: No suspicious bony lesions. Overlying soft tissues appear unremarkable. IMPRESSION: 1. Stable small right apical pneumothorax. Note: The patient had a CT-guided lung biopsy today. Post biopsy CT showed a small pneumothorax. Fol low up chest x-ray at 2 hours and 4 hours post biopsy showed small right apical pneumothorax, not sig nificant changed over the time. Patient mild headache post biopsy which was treated with Tylenol and resolved. No chest pain or shortness of breath. Her vital signs have been stable. Oxygen saturation 9 5-96% on room air. I talked with the patient and her prior to her discharge from the hospital . I instructed the patient to come to ER if she develops chest pain or dyspnea. Patient and her husba nd understood instructions. She was discharged from the hospital in good condition. Reviewed by: Abel Murray MD on 12/02/2021 4:20 PM PST Approved by: Abel Murray MD on 12/02/2021 4:20 PM PST Station ID: [id number]
== END 2021-12-02 08:02 | disposition home or self-care (01) ==
LOC: DI 08:01
PROVIDERS: ATTEND Internal Medicine Hematology & Oncology
DX: C50.911 Malignant neoplasm of unspecified site of right female breast (principal); J95.811 Postprocedural pneumothorax; J90 Pleural effusion, not elsewhere classified; R91.8 Other nonspecific abnormal finding of lung field
CPT/HCPCS: 32408; 85025; 85610; A9270; J7120

== ENCOUNTER 2021-12-09 08:01 | Outpatient (CLI) | payer MEDICARE ==
[2021-12-09] MEDS ORDERED: LACTATED RINGERS 1,000 ML IV ONE ×2 (08:17→12:33)
[2021-12-09] MEDS ORDERED: MIDAZOLAM 2 MG/2 ML VIAL ONE (08:53)
[2021-12-09] MEDS ORDERED: fentaNYL 100 MCG/2 ML VIAL ONE (08:54)
[2021-12-09] MEDS ORDERED: lidocaine 1% 20 ML MDV ONE (09:26)
[2021-12-09] MEDS ORDERED: LACTATED RINGERS 450 ML IV ONE (10:45)
--- NOTE | 2021-12-09 11:41 | XRAY Report ---
PROCEDURE: Chest 1 View X-Ray INDICATIONS: IMMEDIATE POST LUNG BIOPSY TECHNIQUE: One view of the chest was acquired. COMPARISON: 12/02/2021 FINDINGS: Surgical changes and devices: Surgical clips are redemonstrated in the right axilla. Lungs and pleura: No evidence of pneumothorax. There are increased indistinct opacities peripherally in the right midlung zone in the area of biopsy compatible with postbiopsy hemorrhage. Bilateral ind istinct nodules are redemonstrated. There is a mild to moderate left pleural effusion with areas of l oculation redemonstrated. Findings are slightly increased on the prior study. Mediastinum: Mediastinal contours appear unchanged. Heart size is normal. Bones and chest wall: No suspicious bony lesions. Postsurgical changes redemonstrated status post ri ght mastectomy. IMPRESSION: 1. No evidence of pneumothorax. 2. Indistinct peripheral opacities in the right midlung zone consistent with postbiopsy hemorrhage. 3. Small to moderate left pleural effusion with areas of loculation. Reviewed by: Aldo Fisher MD on 12/09/2021 11:40 AM PST Approved by: Aldo Fisher MD on 12/09/2021 11:40 AM PST Station ID: [id number]
--- NOTE | 2021-12-09 13:21 | XRAY Report ---
PROCEDURE: Chest 1 View X-Ray INDICATIONS: 2HR POST LUNG BIOPSY TECHNIQUE: One view of the chest was acquired. COMPARISON: CT lung biopsy earlier today. CXR 12/02/2021. CT chest 11/18/2021. FINDINGS: Surgical changes and devices: Right axillary clips. Lungs and pleura: No pneumothorax is identified. Moderate left pleural effusion. No significant effus ion on the right. Airspace opacity in the left upper lobe is similar. Mediastinum: Mediastinal contours appear unchanged. Heart size is within normal limits. Bones and chest wall: No suspicious bony lesions. Overlying soft tissues appear unremarkable. IMPRESSION: No pneumothorax identified in the right lung post lung biopsy. Similar left lung pleural effusion and airspace opacity. Reviewed by: Abebe Boles MD on 12/09/2021 1:19 PM [facility] Approved by: Abebe Boles MD on 12/09/2021 1:19 PM [facility] Station ID: [id number]
--- NOTE | 2021-12-09 14:52 | CT Report ---
PROCEDURE: RT LUNG BX PERC Sedation analgesia for 45 minutes. INDICATIONS: BREAST CANCER TECHNIQUE: The indications, alternatives, benefits, risks, and possible complications of the procedure were comm unicated to the patient. Informed written consent from the patient was obtained and placed in the art. Continuous EKG and hemodynamic monitoring was started by trained personnel. For radiation dose reduction, the following was used: automated exposure control, adjustment of mA and/or kV according to patient size. The patient was brought to the CT suite and cardiac care unit nurse spiral CT imaging was performed with localization g rid. The appropriate site for percutaneous access to the biopsy target was marked, was prepped and d raped sterilely, and was infused with local anaesthesia. Under CT guidance, a core biopsy trocar and needle set was advanced to the biopsy target, and specimen(s) were obtained. The trocar and needle were then removed, and the patient was sent for post-procedure monitoring. COMPARISON: CT chest 11/18/2021, CT lung biopsy 12/02/2021. FINDINGS: Biopsy site: Right lower lobe. Needle: 20 gauge biopsy needle with introducer trocar. Number of passes: 3 Medications: 1% lidocaine for local anaesthesia. IV Fentanyl and Versed for conscious sedation for 45 minutes (see nursing record). Complications: Post biopsy images demonstrate no evidence of pneumothorax. There are confluent opaci ties in the right lower lobe adjacent to the nodule consistent with hemorrhage. IMPRESSION: 1. Successful CT-guided biopsy of right lower lobe nodule. 2. Postbiopsy hemorrhage demonstrated in the right lower lobe. Reviewed by: Aldo Fisher MD on 12/09/2021 2:50 PM PST Approved by: Aldo Fisher MD on 12/09/2021 2:50 PM PST Station ID: [id number]
[2021-12-09 15:05] VITALS: BP 102/66
--- NOTE | 2021-12-09 15:07 | XRAY Report ---
PROCEDURE: Chest 1 View X-Ray INDICATIONS: 4HR POST LUNG BIOPSY TECHNIQUE: One view of the chest was acquired. COMPARISON: Prior study of same day FINDINGS: SUPPORT DEVICES: None. LUNGS/PLEURA: Redemonstrated left lower lung zone opacity, compatible with pleural fluid/atelectasis. No appreciable left pneumothorax. Left pleural thickening/scarring. The right lung is well aerated. MEDIASTINUM: The cardiac silhouette is partially obscured. BONES/SOFT TISSUES: No acute abnormality. Right chest wall surgical clips. IMPRESSION: 1.No appreciable left pneumothorax. Reviewed by: Rome Shen MD on 12/09/2021 3:06 PM PST Approved by: Rome Shen MD on 12/09/2021 3:06 PM PST Station ID: [id number]
[2021-12-09 15:42] LABS: HCT - HEMATOCRIT 29.9 % (37.0-47.0); HGB - HEMOGLOBIN 9.5 g/dL (12.0-16.0)
== END 2021-12-09 08:02 | disposition home or self-care (01) ==
LOC: DI 08:01
PROVIDERS: ATTEND Internal Medicine Hematology & Oncology
DX: C50.411 Malignant neoplasm of upper-outer quadrant of right female breast (principal); R91.1 Solitary pulmonary nodule; J95.830 Postprocedural hemorrhage of a respiratory system organ or structure following a respiratory system procedure; J90 Pleural effusion, not elsewhere classified
CPT/HCPCS: 32408; 36415; 71045; 85014; 85018; J7120

== ENCOUNTER 2022-01-05 14:05 | Outpatient (CLI) | payer MEDICARE ==
--- NOTE | 2022-01-05 16:27 | CONSULTATION NOTE ---
Palliative Care Consultation - Referral Referring Provider: Dr. Lidia Streeter Time of Visit: [id number] Referral setting: Home Referral Reason: Pain of neoplasm/Constipation/Metastatic cancer - Information Sources Records reviewed: Previous records reviewed History/Review of Systems obtained from: Patient, Family (spouse, Madhav) - History of Present Illness Brief History of Present Illness: This is a 71-year-old female who was seen evaluated a for initial palliative care consultation in the setting of metastatic breast cancer, pain of neoplastic origin, advance care planning seen within her home with her spouse, Madhav present. Provider wore N95 mask. The patient has a history of right breast infiltrating ductal carcinoma, triple negative. She is status post chemotherapy followed by right mastectomy and sentinel lymph node biopsy with pathologic response. She completed radiation June 2020.The patient and spouse report that initially and the course of the patient's chemotherapy a "knocked her down" but then it felt as if it was "smooth sailing." In October 2021 the patient was experiencing shortness of breath which was not her baseline. She was seen and evaluated at urgent care the first time where she was possibly believed to have a urinary tract infection and this was not the case. She continued to have shortness of breath and return to urgent care the following day where a chest x-ray was obtained demonstrating a pleural effusion and she was sent to the emergency department where she had approximately 2 L of fluid drained from her left lung. This was deemed to be malignant. She also was started to have headaches during around the same time of presentation of symptoms in October 2021. She denies blurred vision or double vision. She is presently titrating on Namenda for prevention of memory loss.She had a CT-guided biopsy on 12/02 that was nondiagnostic and again on 12/09 with a second attempt however, unsuccessful. She is now status post left pleural biopsy via VATS on 01/02 with pathology pending and she now has a Tunneled pleural catheter placed by Dr. Lott that the spouse has been managing at home. He reports that yesterday drained 37.5 mL of fluid. Having the drain placed has significantly improve the patient's breathing. She was also diagnosed with intracranial metastases and she is status post brain radiation by Dr. Parker on 01/03. She reports since completion of radiation she has had improvement in her headaches. She also has pain to her left side as well as headaches that she has been managing with oxycodone 10 mg approximately every 3-4 hours. OxyContin was attempted be be prescribed by her oncologist however insurance denied. She is to start MS Contin 10 mg twice daily however, the patient spouse has not picked this up from the pharmacy but plans to later this evening. The patient relays that with the oxycodone her pain level will diminish and typically goes to a 7-8 out of 10. Unfortunately, the patient does have difficulty with swallowing pills and this leads the spouse to cutting up medications. She also has nausea and has not tolerated Zofran. She finds that the Compazine suppositories the most effective to eliminate her nausea. She reports in the last 1 to 2 days her appetite has picked up. She has lost approximately 9 to 10 pounds in the last 2 to 3 months. Has had a bowel movement however, it has been some interval between and would benefit from further bowel regimen. She reports having a bowel movement today. She believes that as she had not been eating much this would lead to a decrease in regularity. Patient is seen in recliner chair in front of a wood-[employer] stove with no evidence of acute distress. Medical/Surgical History - Past Medical History Cardiovascular: reports: Hypertension, High cholesterol Respiratory: reports: None Neuro: Headaches Endocrine/Autoimmune: reports: HyPOthyroidism GI: reports: None CIRCUS SUPERVISOR: reports: Breast cancer (right, triple negative invasive ductal carcinoma), Other () : reports: Retention HEENT: reports: None Psych: reports: Depression Musculoskeletal: reports: None Derm: reports: Other MRSA Hx?: No Other Past Medical History: +COVID -19 vaccine and booster - Past Surgical History Ortho: reports: Other /CIRCUS SUPERVISOR: reports: Mastectomy (Right mastectomy and sentinel lymph ode biopsy 03/2020) Other past surgical history: Left Tunneled pleural catheter placed 01/02/[address] Lott - Substance History Use: Uses substance without health or social issues: NONE, Alcohol (Previous dependence. Currently reports drinking one glass of wine per day--but in the last 2 months has not had a desire to drink wine or alcohol.) Social History - Living Situation Living arrangement: At home Living Situation: With spouse/s.o., With family (son) Support System: The patient and spouse have lived on and off of [facility] since the 1970s. They have been for 50 years. They have 2 sons. 1 son lives with them. They have 3 grandchildren. They also have 1 dog, Madison who is a pisano retriever in the home. Family History - Family History Family History: Father: , Parkinson's Disease Medications/Allergies - Medications Home Medications: Ambulatory Orders Medication Instructions Recorded Confirmed Levothyroxine [Synthroid] 88 mcg PO QDAC 11/04/19 12/13/21 oxyCODONE [Roxicodone] 10 mg PO .Q3-4H PRN MDD NTE 8tabs 12/08/21 12/13/21 Ondansetron Odt [Zofran Odt] 1 PO Q8HR PRN 12/21/21 Prochlorperazine Supp [Compazine 25 mg [place] BID 12/21/21 12/21/21 Supp] Senna [Senokot] 8.6 mg PO DAILY MDD 1-2tab TID PRN 12/21/21 12/21/21 polyethylene glycoL 3350 [Miralax] 1 PO DAILY MDD up to BID 12/21/21 Memantine [Namenda] MDD see below 01/06/22 Ms Contin Er 10 mg PO BID 01/06/22 Prochlorperazine Maleate 1 tab PO Q6H PRN 01/06/22 01/06/22 [Compazine] - Allergies Allergies/Adverse Reactions: Allergies Allergy/AdvReac Type Severity Reaction Status Date / Time dexamethasone Allergy Rash Verified 01/06/22 16:14 Review of Systems - Constitutional Constitutional: reports: Fatigue, Poor appetite (recently picked up), Weight loss (9-10lbs). denies: Fever - Eyes Eyes: reports: Corrective lenses. denies: Blurred vision, Vision loss - Ears, Nose & Throat Ears, Nose & Throat: denies: Hearing loss, Hearing aids, Dentures - Cardiovascular Cardiovascular: denies: Chest pain, Edema - Respiratory Respiratory: reports: SOB with exertion, Other (Left pleural catheter). denies: Wheezing, SOB at rest - Gastrointestinal Gastrointestinal: reports: Constipation (see HPI), Nausea, Vomiting, Other (Decreased appetite but picked up today). denies: Abdominal pain, Early satiety - Genitourinary Genitourinary: denies: Dysuria - Musculoskeletal Musculoskeletal: reports: Back pain, Assistive devices (walker) - Integumentary Integumentary: denies: Rash - Neurological Neurological: reports: General weakness, Headache. denies: Dizziness - Psychiatric Psychiatric: reports: Depression - Endocrine Endocrine: reports: Hypothyroidism - All Other Systems All Other Systems: reports: Reviewed and negative Physical Exam - Vital Signs Temperature: 36.9 C Pulse Rate: 90 O2 Saturation: 93 (on RA) Blood Pressure: 105/60 - Physical Exam General Appearance: positive: No acute distress, Alert Eyes Bilateral: positive: Normal inspection, Other (+eyeglasses) ENT: positive: No signs of dehydration Neck: positive: Trachea midline Cardiovascular: positive: Regular rate & rhythm Respiratory: positive: No respiratory distress, Rales (LLL), Other (Air movement throughout both lobes; Dressing to left chest wall C/D/I for pleural catheter) Abdomen: positive: Non-tender, Soft, Nml bowel sounds. negative: Guarding Skin: positive: Pallor, Bruising (right dorsal aspect of hand from IV, resolving) Extremities: positive: No pedal edema Neurologic/Psychiatric: positive: Oriented x3, Mood/affect nml, Weakness Palliative Care - POLST Patient has POLST: No Pain: Pain unchanged (Back pain with rating 7-8/10 taking oxycodone 10mg q3-4h as needed and to start MS COntin 10mg BID but has not been picked up from pharmacy yet. Patient has difficulty with swallowing medications.) Tiredness/Fatigue: Moderate (4-6) Nausea: Moderate (4-6) Anorexia: Moderate (4-6) Dyspnea: Moderate (4-6) Depression: Mild (1-3) Feelings of wellbeing/Perceived Quality of Life: Improved Sleep: Sleeps well Constipation: Yes, Opoid induced, Intermittent constipation Performance Status: Prior to October 2021 the patient was ambulatory without an assistive device. Now she ambulates with a walker. Continent of bowel and bladder. assists with managing medications. - Palliative Care Discussion: The patient was initially diagnosed with stage IIIb triple negative invasive ductal carcinoma of the right breast in 2019 and unfortunately, this has now metastasized to brain metastasis, bony metastasis, and liver metastasis. She developed a malignant left pleural effusion and now has a tunneled pleural catheter that was placed on 01/03 that is providing relief for the patient's. She reports that her breathing has improved. However, she does continue to present with symptom burden of nausea, vomiting, anorexia, and Pandian of neoplastic origin. The patient is achieving some pain relief with oxycodone 10 mg every 3-4 hours as needed. Thus far today she is taking 30 mg of oxycodone during this evaluation. Patient is to start MS Contin 10 mg twice daily and set expectations that moving forward palliative care will follow and manage pain and it is to be through one provider in 1 pharmacy moving forward with both the patient and spouse understanding verbalized. Does have Narcan within the home. Set expectations that we will not be pain-free but the goal will be to be comfortable and functional. Also set expectations regarding physical tolerance versus addiction as spouse expressed some concerns regarding addiction with opioid therapy. The patient and spouse are anxious to have the biopsy results from 01/02 to move forward with a chemotherapy plan. The patient spouse expresses that he is "not ready to lose her." They both have Experienced cancer and are optimistic regarding the patient's ability to tolerate her chemotherapy and looking towards longevity. Impression and Recommendations - Palliative Care Impression: This is a 71-year-old female who has a history of right breast infiltrating ductal carcinoma, triple negative status post right mastectomy and chemotherapy diagnosed 2019 now with metastatic cancer involving brain metastases, bony mets, liver mets and malignant left pleural effusion with pain of neoplastic origin. She presents with symptom burden of anorexia, nausea, and pain of neoplastic origin. To initiate MS Contin 10 mg twice daily beginning this evening and to titrate from there. To continue to utilize her oxycodone 10 mg every 3-4 hours as needed for breakthrough pain. Palliative care will continue to provide pain and symptom management, care coordination and anticipatory guidance as well as develop pain rapport. Recommendations/Counseling Done: 1. Pain of neoplastic origin with bony metastasis. Patient primarily has back pain. Initiate MS Contin 10 mg twice daily beginning this evening and as prescribed by oncology and set expectations moving forward will likely need to move to 3 times daily dosing and reviewed long acting opioid therapy. Advised to continue to utilize oxycodone 10 mg every 3-4 hours for breakthrough pain and continue to record for monitoring and and acknowledgment for how to adjust long-acting opioid therapy. When at next prescription as needed for oxycodone to transition to oxycodone 5 mg tablets to take 2 tablets every 3-4 hours as needed for breakthrough pain given the patient has difficulty swallowing the 10 mg oxycodone tablets and would prefer to take the smaller 5 mg tablets. Has Narcan in the home. Is aware that moving forward opioid therapy to come from palliative care as one provider and 1 pharmacy. Patient does not present with neuropathic component and is unable to swallow the gabapentin capsules and therefore, advised to discontinue. 2. Constipation. In the setting of high decreased oral intake and opioid therapy. Discussed initiation of MiraLAX 1 cap in 4 to 6 ounces dailyAnd discussed bowel titration up to 1 cap twice a day. To initiate senna 8.6 mg take 1 to 2 tablets up to 3 times a day for constipation and reviewed titration. Discussed that the goal is to have a bowel movement that is soft approximately every other day and to titrate bowel regimen accordingly. 3. Generalized weakness. Due to deconditioning and recent dyspnea on exertion due to malignant left pleural effusion. Patient utilizing a walker. No history of falls. Advised to look into transport her wheelchair at [facility]. Fall precautions. 4. Nausea and vomiting in the setting of metastatic breast cancer. Patient has not found oral antiemetics effective and is utilizing Compazine rectal suppository effectively. Given her decreased oral intake lengthy discussion was had about increasing caloric intake and having small frequent meals throughout the day. 5. Metastatic breast cancer. Followed by oncology. Treatment regimen to be established status post biopsy result. To follow-up with [facility] regarding patient's next oncology appointment as patient and spouse do not have one on hand. 6. Advanced care planning. Patient does not have a POLST. Both the patient and spouse are looking for longevity and are optimistic given the patient tolerated chemotherapy when she was diagnosed with right breast infiltrating ductal carcinoma in 2019. Palliative care will need to continue to build rapport and provide assistance moving forward regarding advanced care planning slowly as report develops. Total time spent 85 minutes with greater than 50% of this spent in counselling and coordination of care with patient and spouse; review of palliative philsophy; review of recent oncology notes; examination of patient; review of pain medication and bowel regimen management; pain and symptom management; supportive listening and anticipatory guidance. Disclaimer: This chart was formulated using voice recognition technology and unfortunately sound alike errors may occur.
== END 2022-01-05 14:06 | disposition home or self-care (01) ==
LOC: PC 14:05
PROVIDERS: ATTEND Nurse Practitioner Family
DX: Z51.5 Encounter for palliative care (principal); G89.3 Neoplasm related pain (acute) (chronic); R13.10 Dysphagia, unspecified; C78.7 Secondary malignant neoplasm of liver and intrahepatic bile duct; C79.51 Secondary malignant neoplasm of bone; C79.31 Secondary malignant neoplasm of brain; Z85.3 Personal history of malignant neoplasm of breast; J91.0 Malignant pleural effusion; Z79.891 Long term (current) use of opiate analgesic; Z79.899 Other long term (current) drug therapy; Z96.89 Presence of other specified functional implants; R63.0 Anorexia; K59.03 Drug induced constipation; T40.2X5A Adverse effect of other opioids, initial encounter; R53.1 Weakness; Z74.09 Other reduced mobility; R11.2 Nausea with vomiting, unspecified; R53.83 Other fatigue
CPT/HCPCS: 99345

== ENCOUNTER 2022-01-10 10:40 | Outpatient (CLI) | payer MEDICARE ==
--- NOTE | 2022-01-10 13:14 | CONSULTATION NOTE ---
Palliative Care Follow Up - Referral Referring Provider: Dr. Lidia Streeter Time of Visit: [id number] Referral setting: Home Referral Reason: Pain of neoplasm/Constipation - Information Sources Records reviewed: Previous records reviewed History/Review of Systems obtained from: Patient, Family (spouse, Madhav) - History of Present Illness Update Brief HPI Update: This is a 8-year-old female who was seen in follow-up today in her home due to metastatic breast cancer, pain of neoplastic origin and constipation with her spouse, Madhav present. Provider wore N95 mask. The patient underwent a CT-guided biopsy on 12/02 that was nondiagnostic and again on 12/09 with a second attempt to have her under expects full. She is now status post left pleural biopsy via VATS on 01/02 with pathology pending she now has a tunneled pleural catheter placed by Dr. Lopez at this pouts has been managing at home. This was done on 01/02/2022. Output on 01/08 was 28 mL. Patient reports that her breathing is "fine." She is not becoming dyspneic on exertion. She denies any increase shortness of breath. Last week she was started on MS Contin 10 mg twice daily by her oncologist and since last week has had an improvement of her overall pain down to a 5 out of 10 when previously 7-8 out of 10. Her pain is mainly concentrated to her lower back. She is utilizing oxycodone for breakthrough pain. Typically taking 25 to 45 mg of oxycodone per day which has reduced since initiating MS Contin. She is also sleeping through the night without waking up. Her appetite has also improved and she has been eating more. Since appetite has picked up the patient reports that she has noticed less weakness. She finds it easier to get up and is more ambulatory. Given her usage of oxycodone would benefit from further dose titration of MS Contin to 10 mg 3 times daily. It has been approximately 6 days from her last bowel movement. She has been able to swallow the senna. Of note, the patient does have difficulty with swallowing medications however, this has eased up some per the spouse's report. Would benefit from further bowel titration today. Patient seen in recliner chair watching TV with no evidence of acute distress. Appears comfortable and engaged. 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 Their home has a generator. They have been for 50 years. They have 2 sons. 1 son lives with them. They have 3 grandchildren. They have 1 dog, Madison who is a pisano retriever in the home as well as a cat, sender. The patient spouse is overseeing meal prep and medication management. The patient's sister is coming to assist with cleaning within the home. Medications/Allergies - Medications Home Medications: Ambulatory Orders Medication Instructions Recorded Confirmed Levothyroxine [Synthroid] 88 mcg PO QDAC 11/04/19 12/13/21 Ondansetron Odt [Zofran Odt] 1 PO Q8HR PRN 12/21/21 Prochlorperazine Supp [Compazine 25 mg KS BID 12/21/21 12/21/21 Supp] Senna [Senokot] 17.6 mg PO BID MDD 2-3 tab TID 12/21/21 12/21/21 titrate PRN polyethylene glycoL 3350 [Miralax] 1 PO BID MDD up to BID 12/21/21 Memantine [Namenda] MDD see below 01/06/22 Ms Contin Er 10 mg PO TID 01/06/22 Prochlorperazine Maleate 1 tab PO Q6H PRN 01/06/22 01/06/22 [Compazine] Magnesium Hydroxide [Milk of 30 ml PO DAILY PRN MDD no BM in 72 01/10/22 01/10/22 Magnesia] hours Naloxone HCl Nasal [Narcan Nasal] PRN MDD use as prescribed 01/10/22 oxyCODONE [Roxicodone] 1 - 2 tab PO Q4H PRN 01/10/22 01/10/22 - Allergies Allergies/Adverse Reactions: Allergies Allergy/AdvReac Type Severity Reaction Status Date / Time dexamethasone Allergy Rash Verified 01/06/22 16:14 Review of Systems - Constitutional Constitutional: reports: Fatigue, Poor appetite (recently picked up), Weight loss (9-10lbs). denies: Fever - Eyes Eyes: reports: Corrective lenses - Ears, Nose & Throat Ears, Nose & Throat: denies: Mouth lesions - Cardiovascular Cardiovascular: denies: Chest pain, Edema - Respiratory Respiratory: reports: Other (Left pleural catheter). denies: Wheezing, SOB at rest - Gastrointestinal Gastrointestinal: reports: Constipation (see HPI), Nausea (controlled with compazine suppositories), Vomiting (no vomiting since the weekend--improvement), Bloating, Other (Decreased appetite but picked up today). denies: Abdominal pain, Abdominal distention, Early satiety - Genitourinary Genitourinary: denies: Dysuria - Musculoskeletal Musculoskeletal: reports: Back pain, Assistive devices (walker) - Neurological Neurological: reports: General weakness. denies: Dizziness - Psychiatric Psychiatric: reports: Depression - Endocrine Endocrine: reports: Hypothyroidism - All Other Systems All Other Systems: reports: Reviewed and negative Physical Exam - Vital Signs Temperature: 36.6 C Pulse Rate: 64 O2 Saturation: 94 (on RA) Blood Pressure: 103/67 (left arm) - Physical Exam General Appearance: positive: No acute distress, Alert Eyes Bilateral: positive: Other (+eyeglasses) ENT: positive: No signs of dehydration. negative: Oral lesions Neck: positive: Trachea midline Cardiovascular: positive: Regular rate & rhythm Respiratory: positive: No respiratory distress, Rales (LLL), Other (Air movement throughout both lobes) Abdomen: positive: Non-tender, Soft, Nml bowel sounds (hyperactive bowel sounds throughout). negative: Guarding, Distended Skin: positive: Pallor, Bruising (right dorsal aspect of hand from IV, resolving), Other (mild alopecia to scalp due to radiation) Extremities: positive: No pedal edema Neurologic/Psychiatric: positive: Oriented x3, Mood/affect nml, Weakness Palliative Care - POLST Patient has POLST: No Pain: Pain improved (Taking MS Contin capsule 10m BID and able to swallow-- pain imrpoved to 5/10 and increased function. Using oxycodone 5-10mg every 4 hours if needed appx 25-45mg of oxyconde per day.) Anorexia: Moderate (4-6) (appetite is imroving), Weight loss Sleep: Sleep improved Constipation: Yes, Opoid induced - Palliative Care Discussion: Patient has had significant improvement with her pain since initiation of morphine extended release 10 mg capsules twice a day with utilization of oxycodone 5 to 10 mg every 4 hours as needed for breakthrough pain. She has tolerated this adjustment well. She is sleeping better through the night. Given her daily activity would benefit from increase of MS Contin to 10 mg 3 times daily. Pain continues to primarily be located in the patient's lower back. The patient is experiencing constipation due to lack of oral intake, sedentary as well as opioid therapy. Advised to titrate senna to 2 tablets every 4 hours until a bowel movement is achieved not to exceed 12 tablets in 24 hours. The patient has been able to tolerate her senna. Also made recommendation to utilize milk of magnesia 30 mL once today and then every 3 days if there is been no bowel movement. Once the patient has a bowel movement to reset her senna dosage to 2 tablets twice a day and moving forward to increase her MiraLAX to twice a day. Goal remains to have a soft bowel movement daily to every other day. Patient has no discomfort related to her lack of defecation in almost 1 week and has positive flatus. Impression and Recommendations - Palliative Care Impression: This is a 71-year-old female with a history of right breast infiltrating ductal carcinoma diagnosed in 2019 now with metastatic cancer involving brain metastases, bony mets, liver mets and malignant left pleural effusion with pain of neoplastic origin specifically to her back. Improvement of pain however, would benefit from dose titration of MS Contin to 10 mg 3 times daily. Continue to utilize oxycodone 5 to 10 mg every 4 hours as needed for breakthrough pain. Patient has had reduction in symptom burden of anorexia and nausea. Palliative care will continue to provide care and coordination, pain and symptom management as well as anticipatory guidance. Recommendations/Counseling Done: 1. Pain of neoplastic origin with bony metastases. Patient primarily has back pain. Increase MS Contin to 10 mg twice a day and continue to set expectations moving forward. New Rx for MS Contin 10 mg capsules sent to [facility] [place] however, unable to sweet pickled fruit maker until / per pharmacy. Looked up patient in [facility] however, no record found at the present time. Utilize oxycodone 5 mg tablets utilizing 1 to 2 tablets every 4 hours as needed for breakthrough pain and continue to record for monitoring for adjustment of long-acting opioid therapy. Patient prefers oxycodone 5 mg tablets for ease of swallowing. New Rx for oxycodone 5 mg tablets sent to pharmacy. Patient has Narcan in the home. Continue to monitor and adjust pain regimen based on patient's response. 2. Constipation in the setting of decreased oral intake, sedentary movement, and opioid therapy. Increase MiraLAX to 1 cap twice a day. Initiate senna 8.6 mg take 2 tablets every 4 hours until bowel movement is achieved not to exceed 12 tablets in 24 hours. Once bowel movement achieved to change to senna 2 tablets twice a day and reviewed bowel titration schedule with patient and spouse. Also to utilize milk of magnesia take 30 mL once daily if no bowel movement in 3 days. To take first dose of milk of magnesia today. May also utilize prune juice on a daily basis for prevention of constipation. Patient to trial today. Also encourage spouse to have Dulcolax suppository on hand within the home. However, patient does not perceive rectal fullness. Goal continues to be a bowel movements that is soft are approximately daily to every other day and to titrate bowel regimen accordingly. 4. Nausea and vomiting in the setting of metastatic breast cancer. Patient continues to not find oral antiemetics effective and is utilizing Compazine rectal suppository approximately 1-2 times per day. New Rx for Compazine suppository sent to [facility]. Patient has had a reduction in her overall nausea as her pain is under better control and her appetite has increased. Continue to encourage staying hydrated and drinking slowly throughout the day. Continue to have small frequent meals throughout the day. Continue to follow. 5. Metastatic breast cancer. Followed by oncology. Treatment regimen to be established status post biopsy results. Follow-up with oncology 01/17 and palliative care to follow-up after this visit for care coordination. Has follow-up with Dr. Lott on 01/13. Total time spent 45 minutes with greater than 50% of the spent in counseling and coordination of care with the patient and spouse, review of bowel titration and management, Medication management for pain and symptom management; examination of patient; and anticipatory guidance. Disclaimer: The chart note was formulated using voice recognition technology and unfortunately sound alike errors may occur.
== END 2022-01-10 10:41 | disposition home or self-care (01) ==
LOC: PC 10:40
PROVIDERS: ATTEND Nurse Practitioner Family
DX: Z51.5 Encounter for palliative care (principal); G89.3 Neoplasm related pain (acute) (chronic); C79.51 Secondary malignant neoplasm of bone; C79.31 Secondary malignant neoplasm of brain; C78.7 Secondary malignant neoplasm of liver and intrahepatic bile duct; J91.0 Malignant pleural effusion; K59.00 Constipation, unspecified; R11.2 Nausea with vomiting, unspecified; R63.0 Anorexia
CPT/HCPCS: 99349

== ENCOUNTER 2022-01-20 10:25 | Outpatient (CLI) | payer MEDICARE ==
--- NOTE | 2022-01-20 17:22 | CONSULTATION NOTE ---
Palliative Care Follow Up - Referral Referring Provider: Dr. Lidia Streeter Time of Visit: 9418-7752 Referral setting: Home Referral Reason: Pain of neoplasm/Constipation/Metastatic breast cancer - Information Sources Records reviewed: Previous records reviewed History/Review of Systems obtained from: Patient, Family (spouse, Madhav) Exam limitations: Clinical condition (mild STM impairment) - History of Present Illness Update Brief HPI Update: This is a 71-year-old female who was seen in follow-up today in her home due to metastatic breast cancer, pain of neoplastic origin and constipation with her spouse, Madhav present. Provider wore N95 mask. Patient has an Aspria drainage system that was placed at [facility] by Dr. Ambriz on 01/02/22. She was to have a f/u last sunday but did not attend and spouse states he was told the sutures needed to come out and to empty the drainage system every 3 days. Reports that they will drain about 20-25mL at a time. Patient will have dyspnea with exertion after going to the bathroom and returning to her recliner chair in the living room. No cough reported. Will fatigue easily. Is still struggling with nausea and vomiting. She continues to not findings oral antiemetics helpful and is utilizing Compazine suppository typically twice a day. Yesterday, she had an episode of vomiting that lasted 20 minutes. She has been fine since that time. Continues to maintain oral hydration throughout the day but solids are hit and miss. Patient due to her underlying nausea was no longer able to tolerate senna without becoming nauseated. Therefore switched her to Dulcolax 5 mg daily. Had a bowel movement yesterday and then this morning. It is hit or miss if she is able to keep down her MiraLAX. She did have 1 cap full yesterday. She is having a craving for leftmost and her is trying to look into this. On 01/10 the patient's MS Contin was increased to 10 mg 3 times a day. Patient spouse reports that insurance will not cover for 3 times daily dosing. Given the patient's underlying nausea and vomiting best to switch to a fentanyl patch for maintenance of pain. She is using a lysing approximately 45 to 65 mg of oxycodone during the day for breakthrough pain upon review of documentation from the patient's spouse who is recording. She was seen and evaluated by the oncologist on 01/17 with the results of her biopsy performed 01/02 from left pleural biopsy that confirmed metastatic breast cancer, triple negative. She is to have a port placed on 01/23 and to begin chemotherapy on 01/24 with carboplatinum and Gemzar. Awaiting results of PD-L1 to see if immunotherapy will be added. 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 The home has a generator. They have been for 50 years. They have 2 sons. 1 son lives with them. They have 3 grandchildren. They have dog, Madison who is a pisano retriever in the home as well as a cat, sender. The patient spouse is overseeing meal prep and medication management. 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 The patient's [id number] assisted with reorganizing and straightening the kitchen yesterday for which, the patient is appreciative. Medications/Allergies - Medications Home Medications: Ambulatory Orders Medication Instructions Recorded Confirmed Levothyroxine [Synthroid] 88 mcg PO QDAC 11/04/19 12/13/21 Ondansetron Odt [Zofran Odt] 1 PO Q8HR PRN 12/21/21 Prochlorperazine Supp [Compazine 25 mg CA BID 12/21/21 12/21/21 Supp] Senna [Senokot] 17.6 mg PO BID PRN MDD 2-3 tab TID 12/21/21 12/21/21 titrate PRN polyethylene glycoL 3350 [Miralax] 1 PO BID MDD up to BID 12/21/21 Memantine [Namenda] MDD see below 01/06/22 Prochlorperazine Maleate 1 tab PO Q6H PRN 01/06/22 01/06/22 [Compazine] Magnesium Hydroxide [Milk of 30 ml PO DAILY PRN MDD no BM in 72 01/10/22 01/10/22 Magnesia] hours Naloxone HCl Nasal [Narcan Nasal] PRN MDD use as prescribed 01/10/22 oxyCODONE [Roxicodone] 1 - 2 tab PO Q4H PRN 01/10/22 01/10/22 Bisacodyl Supp [Dulcolax Supp] 1 supp CA DAILY PRN 01/20/22 01/20/22 bisacodyL [Dulcolax] 5 mg PO BID 01/20/22 01/20/22 fentaNYL 12 MCG PATCH [Duragesic 1 patch TP Q72H 01/20/22 01/20/22 12mcg patch] - Allergies Allergies/Adverse Reactions: Allergies Allergy/AdvReac Type Severity Reaction Status Date / Time dexamethasone Allergy Rash Verified 01/06/22 16:14 Review of Systems - Constitutional Constitutional: reports: Fatigue, Poor appetite (see HPI), Weight loss (9- 10lbs). denies: Fever - Eyes Eyes: reports: Corrective lenses - Ears, Nose & Throat Ears, Nose & Throat: denies: Hearing aids, Dentures - Cardiovascular Cardiovascular: reports: Exertional dyspnea. denies: Chest pain, Edema - Respiratory Respiratory: reports: Other (Left pleural catheter). denies: Cough, Wheezing, SOB at rest - Gastrointestinal Gastrointestinal: reports: Constipation (see HPI), Nausea (controlled with compazine suppositories), Vomiting (vomiting yesterday, wanted coffee this AM). denies: Abdominal pain, Abdominal distention, Diarrhea, Early satiety - Genitourinary Genitourinary: denies: Dysuria - Musculoskeletal Musculoskeletal: reports: Back pain, Assistive devices (walker) - Integumentary Integumentary: reports: Other (Hair loss). denies: Rash - Neurological Neurological: reports: General weakness. denies: Dizziness - Psychiatric Psychiatric: reports: Depression - Endocrine Endocrine: reports: Hypothyroidism - All Other Systems All Other Systems: reports: Reviewed and negative Physical Exam - Vital Signs Temperature: 36.7 C Pulse Rate: 88 O2 Saturation: 92 (on RA) Blood Pressure: 123/69 (left wrist) - Physical Exam General Appearance: positive: No acute distress, Alert Eyes Bilateral: positive: Other (+eyeglasses) ENT: positive: No signs of dehydration Neck: positive: Trachea midline Cardiovascular: positive: Regular rate & rhythm Respiratory: positive: No respiratory distress, Rales (LLL), Other (air movement throughout both lobes; +Aspira drain in place left chestwall with two sutures at enterance without drainage or erythema). negative: Diminished in bases, Wheezes Abdomen: positive: Non-tender, Soft, Nml bowel sounds. negative: Guarding, Distended Skin: positive: Pallor, Bruising (right dorsal aspect of hand from IV, resolving), Other (mild alopecia to scalp due to radiation) Extremities: positive: No pedal edema Neurologic/Psychiatric: positive: Oriented x3 (mild STM impairment at times with recall, and is supportive by her spouse), Mood/affect nml, Weakness Palliative Care - POLST Patient has POLST: No Pain: Pain improved (with MS COntin 10mg TID--however due to vomiting and insurance will swith to fentanyl patch and continue oxycodone 5-10mg every 4 hours as needed, see HPI for details) Nausea: Moderate (4-6) Anorexia: Moderate (4-6) Depression: None Sleep: Sleeps well Constipation: Opoid induced, Intermittent constipation - Palliative Care Discussion: Patient has been doing well with MS Contin 10 mg 3 times a day with controlling her pain however, given her nausea, vomiting and lack of insurance to cover up to 3 times daily dosing will transition to fentanyl patch 12 mcg. Lengthy discussion was had with patient and spouse regarding administration of fentanyl patch, disposal of patches in setting expectations. Oxycodone 5 to 10 mg to continue to be utilized every 4 hours as needed for pain. Unclear regarding removal of sutures at site of pleural drain and contacted IR at [facility] for clarification on awaiting a return call. Patient is scheduled to have not only a port placement on 01/23 but that initiates chemotherapy on 01/24. She does not report trepidation regarding initiating chemotherapy if it will "do its job." She was looking forward to "eliminating the cancer."Patient has been doing well with MS Contin 10 mg 3 times a day with controlling her pain however, given her nausea, vomiting and lack of insurance to cover up to 3 times daily dosing will transition to fentanyl patch 12 mcg. Lengthy discussion was had with patient and spouse regarding administration of fentanyl patch, disposal of patches in setting expectations. Oxycodone 5 to 10 mg to continue to be utilized every 4 hours as needed for pain. Unclear regarding removal of sutures at site of pleural drain and contacted IR at [facility] for clarification on awaiting a return call. Patient is scheduled to have not only a port placement on 01/23 but that initiates chemotherapy on 01/24. She does not report trepidation regarding initiating chemotherapy if it will "do its job." She was looking forward to "eliminating the cancer." Impression and Recommendations - Palliative Care Impression: This is a 71-year-old female with a history of right breast infiltrating ductal carcinoma diagnosed in 2019 now with metastatic breast cancer, triple negative to begin chemotherapy on 01/24. She continues with symptom burden of nausea, vomiting, anorexia, and pain of neoplastic origin as well as constipation due to opioid therapy. Given her oral intake in the setting of nausea and vomiting will transition to fentanyl patch and discontinue MS Contin moving forward. Bowel regimen will also be adjusted as the patient no longer can tolerate senna due to nausea and vomiting. Palliative care will continue to provide care coordination, pain and symptom management as well as anticipatory guidance. Recommendations/Counseling Done: 1. Pain of neoplastic origin with bony metastases. Patient primarily has back pain. Given underlying nausea and vomiting as well as insurance coverage will transition to fentanyl patch 12 mcg to be changed every 72 hours. Reviewed purpose, dose, and side effects at length with patient and spouse and how to dispose of fentanyl patches. Advised starting tomorrow a.m. to take MS Contin 10 mg and then discontinue and place fentanyl patch [address]. Advised will take 8 to 10 hours to build to effect. During that time patient may u tilize oxycodone 5 mg 1 to 2 tablets every 4 hours as needed for breakthrough pain and continue to record for monitoring adjustment of long-acting opioid therapy. Patient prefers oxycodone 5 mg tablets for ease of swallowing. Patient has Narcan within the home. Continue to monitor and adjust pain regimen based on the patient's response. Once beginning chemotherapy would expect reduction in pain based upon response. 2. Constipation in the setting of decreased oral intake, sedentary lifestyle and opioid therapy. Continue MiraLAX 1 cap twice a day. Has patient is no longer able to tolerate senna will hold at this time. Increase to lax 5 mg tablets to 1 tablet twice a day. Utilize milk of magnesia 30 mL once daily if no bowel movement in 3 days. May also utilize prune juice on a daily basis for prevention of constipation. Does have Dulcolax suppository on hand within the home. Goal continues to be a bowel movement that is soft approximately daily to every other day and titrate bowel regimen accordingly. 3. Malignant left pleural effusion. Pleural catheter in place. No signs and symptoms of infection at site. Spouse is to drain every 3 days. Message left for IR at [facility] to determine if sutures are to come out at the site of insertion. 4. Nausea and vomiting in the setting of metastatic breast cancer. Patient continues to not find oral antiemetics effective and is utilizing Compazine rectal suppository approximately 1-2 times per day. Continue to encourage staying hydrated and drinking slowly throughout the day. Continue to encourage small frequent meals throughout the day. Continue to follow. 5. Metastatic breast cancer, triple negative. Followed by oncology. To add initiate carboplatin and gemzar on 01/24 after port placement on 01/23. s/p brain radiation by Dr. Parker on 01/04 (10 fractions). Unable to increase namenda past 5mg daily due to nausea and vomiting. Continue to be followed by oncology. Total time spent 55 minutes with greater than 50% of the spent in counseling and coordination of care with the patient and spouse; examination of patient; evaluation of pleural port; review of pain and symptom management with setting expectations, supportive listening, and anticipatory guidance. [id number] to PHILL Zamarripa at [facility] who reports typically will have the sutures for the pleural catheter in place for at least 2 weeks. However, if the patient has not bothered by the sutures these may be left in as it can provide additional support. In regards to drainage of the pleural catheter if the quantity drained is 200 to 250 mL or less in total for a week and not more symptomatic may begin decreasing frequency from daily x7 days post insertion to every other to every 3 days. If the drain were to stop draining then to recontact their office and they would be able to assist with unclogging. Patient spouse is aware to make palliative care [facility] aware in the future with any concerns regarding care coordination to an sure the appropriate parties have coordinated. [place] f[place] [facility]: suture removal. Disclaimer: The chart note was formulated using voice recognition technology and unfortunately sound alike errors may occur.
== END 2022-01-20 10:26 | disposition home or self-care (01) ==
LOC: PC 10:25
PROVIDERS: ATTEND Nurse Practitioner Family
DX: Z51.5 Encounter for palliative care (principal); G89.3 Neoplasm related pain (acute) (chronic); C50.919 Malignant neoplasm of unspecified site of unspecified female breast; C79.51 Secondary malignant neoplasm of bone; K59.03 Drug induced constipation; T40.2X5A Adverse effect of other opioids, initial encounter; J91.0 Malignant pleural effusion; R11.2 Nausea with vomiting, unspecified; R53.1 Weakness; R41.3 Other amnesia
CPT/HCPCS: 99349

== ENCOUNTER 2022-01-24 09:30 | Outpatient (CLI) | payer MEDICARE ==
--- NOTE | 2022-01-24 12:56 | CONSULTATION NOTE ---
Palliative Care Follow Up - Referral Referring Provider: Dr. Lidia Streeter Time of Visit: [id number] Referral setting: [facility] Referral Reason: Pain of neoplasm/Aneroxia/Metstatic breast Ca - Information Sources Records reviewed: Previous records reviewed History/Review of Systems obtained from: Patient, Family (Madhav) Exam limitations: Clinical condition (mild STM impairment) - History of Present Illness Update Brief HPI Update: This is a 71-year-old female who is seen in follow-up today at the [facility] due to metastatic breast cancer, pain of neoplastic origin, anorexia, and constipation with her spouse, Madhav present. Provider wore N95 mask. The patient continues to have waxing and waning nausea and vomiting. She has not found oral antiemetics helpful and is using utilizing Compazine suppository. Had no vomiting yesterday. It is hit or miss in regards to her solid intake but is able to have consistency with her oral intake with liquids. She has had weight loss that is perceived. Continue to encourage supplementation and caloric intake during the day. The patient has a history of constipation with opioids contributing. Since initiating Dulcolax 5 mg tablets twice a day patient has had an improvement with her ability to defecate. Last bowel movement was yesterday. However, would benefit from utilizing MiraLAX in his entire dose. Patient was previously on MS Contin 10 mg twice daily that was initially initiated by her oncologist. However due to escalating pain as well as nausea and vomiting this was transition to fentanyl patch 12 mcg on 01/21/2022. This had a positive effect until yesterday, the patient spouse reported the patient was having increased pain that was not well controlled with oxycodone 10 mg approximately every 3-4 hours. Had the patient spouse place an additional 12 mcg patch of fentanyl in place for an approximately 25 mcg of fentanyl. Today, the patient reports that her pain is significantly improved. The pain was mainly to her lower back radiating from left to right. She states that her pain is now down to about a 3 out of 10. Yesterday she reports pain was "out of control." She was unable to have her port placed on 01/23 as a originally scheduled and today, had chemotherapy education and is beginning chemotherapy peripherally. 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 They have a generator. They have been for 50 years. They have 2 sons, 1 son lives with them. They have 3 grandchildren. They have 1 dog, Madison who is a pisano retriever in the home as well as a cat, sender. Medications/Allergies - Medications Home Medications: Ambulatory Orders Medication Instructions Recorded Confirmed Levothyroxine [Synthroid] 88 mcg PO QDAC 11/04/19 12/13/21 Ondansetron Odt [Zofran Odt] 1 PO Q8HR PRN 12/21/21 Prochlorperazine Supp [Compazine [address] BID 12/21/21 12/21/21 Supp] Senna [Senokot] 17.6 mg PO BID PRN MDD 2-3 tab TID 12/21/21 12/21/21 titrate PRN polyethylene glycoL 3350 [Miralax] 1 PO BID MDD up to BID 12/21/21 Memantine [Namenda] MDD see below 01/06/22 Prochlorperazine Maleate 1 tab PO Q6H PRN 01/06/22 01/06/22 [Compazine] Magnesium Hydroxide [Milk of 30 ml PO DAILY PRN MDD no BM in 72 01/10/22 01/10/22 Magnesia] hours Naloxone HCl Nasal [Narcan Nasal] PRN MDD use as prescribed 01/10/22 oxyCODONE [Roxicodone] 2 tab PO .Q3-4H PRN 01/10/22 01/10/22 Bisacodyl Supp [Dulcolax Supp] [address] DAILY PRN 01/20/22 01/20/22 bisacodyL [Dulcolax] 5 mg PO BID 01/20/22 01/20/22 fentaNYL [Fentanyl 25mcg patch] 1 patch TP Q72H 01/24/22 01/24/22 - Allergies Allergies/Adverse Reactions: Allergies Allergy/AdvReac Type Severity Reaction Status Date / Time dexamethasone Allergy Rash Verified 01/06/22 16:14 Review of Systems - Constitutional Constitutional: reports: Fatigue, Poor appetite (see HPI), Weight loss (today weight 72.2kg 01/24/22). denies: Fever - Eyes Eyes: reports: Corrective lenses - Cardiovascular Cardiovascular: reports: Exertional dyspnea. denies: Chest pain, Edema - Respiratory Respiratory: reports: Other (Left pleural catheter, Aspire, and drained 30mL last night and spouse draining every 2 days appx presently). denies: Cough, Wheezing, SOB at rest - Gastrointestinal Gastrointestinal: reports: Constipation (see HPI), Nausea (controlled with compazine suppositories), Poor appetite, Early satiety. denies: Abdominal pain, Diarrhea, Vomiting (none today) - Musculoskeletal Musculoskeletal: reports: Back pain, Assistive devices (walker in the home. They just got a wheelchair to use for long distances.) - Integumentary Integumentary: reports: Other (Hair loss). denies: Rash - Neurological Neurological: reports: General weakness, Memory problems (after XRT to brain). denies: Dizziness - Psychiatric Psychiatric: reports: Depression - Endocrine Endocrine: reports: Hypothyroidism - All Other Systems All Other Systems: reports: Reviewed and negative (supplemented by spouse, Madhav) Physical Exam - Vital Signs Temperature: 36.3 C Pulse Rate: 82 O2 Saturation: 95 (on RA) Blood Pressure: 98/67 - Physical Exam General Appearance: positive: No acute distress, Alert, Other (muscle wasting noted, well groomed) Eyes Bilateral: positive: Other (+eyeglasses) ENT: positive: No signs of dehydration Neck: positive: Trachea midline Cardiovascular: positive: Regular rate & rhythm Respiratory: positive: No respiratory distress, Rales (LLL), Other (air movement throughout both lobes; +Aspira drain in place left chestwall- patient denies irritation from suture sites) Abdomen: positive: Non-tender, Soft, Nml bowel sounds. negative: Distended Skin: positive: Pallor, Bruising (right dorsal aspect of hand from IV, resolving), Other (mild alopecia to scalp due to radiation) Extremities: positive: No pedal edema Neurologic/Psychiatric: positive: Oriented x3 (mild STM impairment at times with recall, and is supportive by her spouse), Mood/affect nml, Weakness Palliative Care - POLST Patient has POLST: No Pain: Pain improved (after increase of fentanyl patch to 25mcg every 72h and use of oxycodone 10mg for breakthrough pain) Anorexia: Moderate (4-6) Constipation: Yes, Opoid induced, Managed Performance Status: Patient becomes easily fatigued ambulating long distances and utilizes a walker. For longer distances she utilizes a wheelchair. - Palliative Care Discussion: The patient tolerated transition to fentanyl patch from MS Jayson due to her underlying nausea and vomiting. However, yesterday she had escalating back pain that required dose increase of her fentanyl patch from 12 mcg to approximately 25 mcg utilizing to 12 mcg patches. Patient reports significant improvement of her pain with this adjustment. She continues to utilize oxycodone 10mg approximately every 4 hours if needed. Reiterated today with the and spouse marking the calendar when the patch is due to be changed every 72 hours as a way to keep track and having a central area for all parties to see. Spouse is managing medications and at times continues to become overwhelmed and requires reeducation And support. The patient herself at times has some cognitive impairment due to her radiation radiation to the brain. Results - Lab Results Lab results reviewed: Yes Lab and Imaging Results: Potassium 3.3 Impression and Recommendations - Palliative Care Impression: This is a 71-year-old female With a history of right breast infiltrating ductal carcinoma diagnosed in 2019 now with metastatic cancer involving brain metastases, bony mets, liver mets and malignant left pleural effusion with pain of neoplastic origin specifically to her back, anorexia, and constipation. Has tolerated dose increase of fentanyl patch to 25 mcg every 72 hours. Advised to utilize oxycodone 10 mg every 3-4 hours as needed for breakthrough pain. We will also request that squash centre manager evaluate the patient today while she is in the MAC. Palliative care will continue to provide care coordination, pain and symptom management as well as anticipatory guidance. Recommendations/Counseling Done: 1. Pain of neoplastic origin with bony metastases. Patient primarily has back pain. Continue fentanyl patch 25 mcg every 72 hours and discontinue fentanyl 12 mcg patch. New Rx for fentanyl 25 mcg patch sent to [facility] in [place]. Advised to utilize oxycodone 10 mg every 3-4 hours as needed for breakthrough pain and new Rx sent to [facility]. Patient prefers oxycodone 5 mg tablets for ease of swallowing. Narcan in the home. Reviewed site rotation with spouse. Continue to monitor and adjust pain regimen based on patient's response. 2. Hyperkalemia in the setting of nausea and vomiting. Potassium today 3.3. Request squash centre manager to provide insight into foods for the patient increased to raise her potassium level. If continues to persist will need supplementation and would make recommendation for Effer-K that is a powder for ease of administration given the patient's limitations with swallowing. 3. Nausea and vomiting the setting of metastatic breast cancer. Patient continues to not find oral antiemetics effective and is utilizing Compazine rectal suppositories approximately 1-2 times per day. Continue to encourage staying hydrated and drinking slowly. Continue to have small frequent meals throughout the day and discussed ways to increase caloric intake. Requested that squash centre manager see and evaluate the patient with nursing to place referral request. 4. Constipation in the setting of decreased oral intake, sedentary lifestyle and opioid therapy. Continue MiraLAX 1 cap twice a day and reiterated today the need for complete administration and intake. No longer able to tolerate senna and will hold at this time due to nausea and vomiting. Continue Dulcolax 5 mg twice daily. Did discuss may increase to Dulcolax 5 mg 1 tablet 3 times daily as needed if increased assistance is needed for defecation. Does have Dulcolax suppositories on hand within the home. Goal continues to be a bowel movement that is soft approximately daily to every other day and to titrate the bowel regimen accordingly. 5. Left malignant pleural effusion. Has tunneled catheter in place. Given the minimal output advised the spouse to drain every 4 days. Patient is not bothered by sutures and will remove at next appointment next week given time restraints. 6. Metastatic breast cancer. Followed by oncology. To begin chemotherapy today, 01/24/2022. To have port placement tomorrow, 01/25/2022. Continues to be followed by oncology. Total time spent 30 minutes with greater than 50% of the spent in counseling and coordination of care with the patient and spouse, care coordination with excelsior machine tender; bowel titration. Pain and symptom management as well as anticipatory guidance. Disclaimer: The chart note was formulated using voice recognition technology and unfortunately sound alike errors may occur.
== END 2022-01-24 09:31 | disposition home or self-care (01) ==
LOC: PC 09:30
PROVIDERS: ATTEND Nurse Practitioner Family
DX: Z51.5 Encounter for palliative care (principal); G89.3 Neoplasm related pain (acute) (chronic); R63.0 Anorexia; R11.2 Nausea with vomiting, unspecified; E87.5 Hyperkalemia; R63.4 Abnormal weight loss; Z79.891 Long term (current) use of opiate analgesic; Z79.899 Other long term (current) drug therapy; R53.1 Weakness; Z96.89 Presence of other specified functional implants; K59.03 Drug induced constipation; T40.2X5A Adverse effect of other opioids, initial encounter; R53.83 Other fatigue; C79.51 Secondary malignant neoplasm of bone; C78.7 Secondary malignant neoplasm of liver and intrahepatic bile duct; J91.0 Malignant pleural effusion; C79.31 Secondary malignant neoplasm of brain; Z85.3 Personal history of malignant neoplasm of breast; R41.3 Other amnesia; Y84.2 Radiological procedure and radiotherapy as the cause of abnormal reaction of the patient, or of later complication, without mention of misadventure at the time of the procedure; Z74.1 Need for assistance with personal care
CPT/HCPCS: 99214; 99349

== ENCOUNTER 2022-01-25 08:30 | Day surgery (SDC) | payer MEDICARE | END 2022-01-25 08:31 | disposition home or self-care (01) | LOC: SDS 08:30 | PROVIDERS: ATTEND Surgery | DX: Z53.9 Procedure and treatment not carried out, unspecified reason (principal) ==

== ENCOUNTER 2022-01-26 09:27 | Day surgery (SDC) | payer MEDICARE ==
[2022-01-26] MEDS ORDERED: CEFAZOLIN SODIUM IN 0.9 % NACL 2 GM/50 ML BAG IV ONE (09:41)
[2022-01-26] MEDS ORDERED: LACTATED RINGERS 1,000 ML IV ONE ×2 (10:13→12:06)
--- NOTE | 2022-01-26 10:28 | ANESTHESIA ---
Pre-Anesthesia VS, & Labs - Diagnosis metastatic breast CA - Procedure port placement Vital Signs: Temp Pulse Resp BP Pulse Ox 36 C L 102 H 16 92/56 L 91 L 01/26/22 09:47 01/26/22 09:47 01/26/22 09:47 01/26/22 09:47 01/26/22 09:47 Height: 5 ft 7 in Weight (kg): 72.9 kg Body Mass Index: 25.2 BMI Classification: Overweight - NPO >8 hours - Is Patient ?: No - Lab Results Lab results reviewed: Yes Home Medications and Allergies Levothyroxine [Synthroid] 88 mcg PO QDAC 11/04/19 Ondansetron Odt [Zofran Odt] 1 PO Q8HR PRN 12/21/21 Prochlorperazine Supp [Compazine Supp] 25 mg AK BID 12/21/21 Senna [Senokot] 17.6 mg PO BID PRN MDD 2-3 tab TID titrate PRN 12/21/21 polyethylene glycoL 3350 [Miralax] 1 PO BID MDD up to BID 12/21/21 Memantine [Namenda] MDD see below 01/06/22 Prochlorperazine Maleate [Compazine] 1 tab PO Q6H PRN 01/06/22 Magnesium Hydroxide [Milk of Magnesia] 30 ml PO DAILY PRN MDD no BM in 72 hours 01/10/22 Naloxone HCl Nasal [Narcan Nasal] PRN MDD use as prescribed 01/10/22 oxyCODONE [Roxicodone] 2 tab PO .Q3-4H PRN 01/10/22 Bisacodyl Supp [Dulcolax Supp] 1 supp [place] DAILY PRN 01/20/22 bisacodyL [Dulcolax] 5 mg PO BID 01/20/22 fentaNYL [Fentanyl 25mcg patch] 1 patch TP Q72H 01/24/22 Allergies/Adverse Reactions: Allergies Allergy/AdvReac Type Severity Reaction Status Date / Time dexamethasone Allergy Rash Verified 01/06/22 16:14 Anes History & Medical History - Anesthetic History Anesthesia Complications: reports: No previous complications Family history of Anesthesia Complications: Denies Family history of Malignant Hyperthermia: Denies - Medical History Cardiovascular: reports: Hypertension, High cholesterol Pulmonary: reports: None Gastrointestinal: reports: Other Urinary: reports: Retention Neuro: reports: Headaches Musculoskeletal: reports: None Endocrine/Autoimmune: reports: HyPOthyroidism Blood Disorders: reports: None Skin: reports: Other Smoking Status: Never smoker - Surgical History General: reports: Other Cardiothoracic: reports: Other Gynecologic: reports: Mastectomy Orthopedic: reports: Other Exam General: Alert, Oriented x3, Cooperative Mouth Openin Fingerbreadth Neck Mobility: Normal Mallampati classification: II Respiratory: Lungs clear, Decreased breath sounds Cardiovascular: Regular rate Neurological: Normal speech Mental/Cognitive Status: Alert/Oriented X3, Normal for patient Cognitive Status: Within normal limits Plan Anesthesia Type: MAC Consent for Procedure(s) Verified and Reviewed: Yes Code Status: Attempt Resuscitation ASA classification: 3-Severe systemic disease Is this case an emergency?: No
--- NOTE | 2022-01-26 11:17 | HISTORY & PHYSICAL EXAMINATION ---
Chief Complaint - Chief Complaint Chief Complaint: cancer and need for port placement History of Present Illness - History Obtained From Records Reviewed: yes History obtained from: pt Exam Limitations: none - History of Present Illness HPI Comment/Other: metastatic breast cancer History - Past Medical History Cardiovascular: reports: Hypertension, High cholesterol Respiratory: reports: None Neuro: reports: Headaches Endocrine/Autoimmune: reports: HyPOthyroidism GI: reports: Other DIAMOND DIE DRILLER: reports: Breast cancer (right, triple negative invasive ductal carcinoma), Other () : reports: Retention HEENT: reports: Chronic vision loss Psych: reports: Depression Musculoskeletal: reports: None Derm: reports: Other MRSA Hx?: No - Past Surgical History General: reports: Other Ortho: reports: Other /DIAMOND DIE DRILLER: reports: Mastectomy Cardiovascular: reports: Other - Family & Social History Family History: Mother: Alive and Well, Father: , Parkinson's Disease Living Situation: With spouse/s.o., With family (son) Social History Notes: She never smoked. She never had a history of recreational substance abuse. - Substance History Use: Uses substance without health or social issues: NONE, Alcohol (Previous dependence. Currently reports drinking one glass of wine per day--but in the last 2 months has not had a desire to drink wine or alcohol.) - POLST Patient has POLST: No POLST Status: Full Code Meds/Allgy - Home Medications Home Medications: Ambulatory Orders Medication Instructions Recorded Confirmed Levothyroxine [Synthroid] 88 mcg PO QDAC 11/04/19 12/13/21 Senna [Senokot] 17.6 mg PO BID PRN MDD 2-3 tab TID 12/21/21 12/21/21 titrate PRN polyethylene glycoL 3350 [Miralax] 1 PO BID MDD up to BID 12/21/21 Memantine [Namenda] MDD see below 01/06/22 Magnesium Hydroxide [Milk of 30 ml PO DAILY PRN MDD no BM in 72 01/10/22 01/10/22 Magnesia] hours Naloxone HCl Nasal [Narcan Nasal] PRN MDD use as prescribed 01/10/22 oxyCODONE [Roxicodone] 2 tab PO .Q3-4H PRN 01/10/22 01/10/22 Bisacodyl Supp [Dulcolax Supp] 1 supp NE DAILY PRN 01/20/22 01/20/22 bisacodyL [Dulcolax] 5 mg PO BID 01/20/22 01/20/22 fentaNYL [Fentanyl 25mcg patch] 12 mcg TP Q72H 01/24/22 01/24/22 - Allergies Allergies/Adverse Reactions: Allergies Allergy/AdvReac Type Severity Reaction Status Date / Time dexamethasone Allergy Rash Verified 01/26/22 10:42 Review of Systems - Constitutional Constitutional: reports: Fatigue (10 pt ros as above otherwise unremarkable) Exam - Vital Signs Reviewed Vital Signs: Yes Vital Signs: Vital Signs x48h Temp Pulse Resp BP Pulse Ox 01/26/22 11:01 84 18 99/66 99 01/26/22 10:45 88 18 86/62 L 99 01/26/22 10:15 85 16 93/68 88 L 01/26/22 09:47 36 C L 102 H 16 92/56 L 91 L - Physical Exam General Appearance: positive: No acute distress, Alert Eyes Bilateral: positive: PERRL, EOMI, No scleral icterus ENT: positive: No signs of dehydration Neck: positive: No JVD Respiratory: positive: No respiratory distress, Other (decreased on the left) Abdomen: positive: Non-tender, No distention Neurologic/Psychiatric: positive: Oriented x3 Conclusion/Plan - Problem List (1) Metastatic breast cancer Conclusion/Plan: plan port placement. parq held and consent obtained - Lab Results Lab results reviewed: Yes
[2022-01-26] MEDS ORDERED: BUPIVACAINE 0.5% PF 10 ML VIAL IM ONE ×2 (11:43)
[2022-01-26] MEDS ORDERED: LIDOCAINE 2%-EPI 1:100000 20 ML MDV SUBQ ONE ×2 (11:44)
[2022-01-26] MEDS ORDERED: oxyCODONE 5 MG TABLET PO PRN (12:05)
--- NOTE | 2022-01-26 12:06 | XRAY Report ---
PROCEDURE: OR Port-A-Cath INDICATIONS: PORT PLACEMENT TECHNIQUE: Fluoroscopic cine run was obtained during effacement of the left-sided Port-A-Cath COMPARISON: None. FINDINGS: Fluoroscopic cine run shows sequential placement of the Port-A-Cath tip at the cavoatrial junction IMPRESSION: Fluoroscopic guidance Reviewed by: Joe Bond MD on 01/26/2022 11:05 AM [facility] Approved by: Joe Bond MD on 01/26/2022 11:05 AM [facility] Station ID: [id number]
--- NOTE | 2022-01-26 12:10 | OPERATIVE REPORT ---
Operative Report - General Procedure Date: 01/26/22 Planned Procedure: left subclavian power port placement Pre-Op Diagnosis: metatstatic breast cancer Procedure Performed: left subclavian power port placement Post Op Diagnosis: metastatic breast cancer - Procedure Note Primary Surgeon: isaaih conway Anesthesia Technique: Local, MAC Pathology: none Estimated Blood Loss (mL): 5 Drain/Tube Type: Other (none) Indications: metastatic breast cancer Findings: goo placement with tip at junction of svc and atrium. good flush and flow Complications: none - Other Other Information/Narrative: The patient was properly identified brought to the operating room and placed in supine position. Monitored anesthesia care was given as well as IV sedation. A towel roll was placed under the upper back. The patient was prepped and draped in a sterile fashion and given preoperative antibiotics. Local anesthetic was given. The left subclavian vein was easily accessed first pass with a needle. Guide wire placed and position confirmed. A subcutaneous pocket on the left upper chest was created measuring approximately 2-1/2 cm. Portacatheter tubing was then placed subcutaneous up to the venous access point. The portacatheter tubing was then easily placed with the use of a dilator peel-away sheath. The tubing was aspirated and flushed with saline. Under fluoroscopic guidance the tubing was pulled back to the junction of the atrium and the superior vena cava. The portacatheter aspirated and flushed easily assuring good position. The portacatheter was then cut to size and further assembled. The port was secured to subcutaneous tissue with 2 interrupted 4-0 Prolene sutures. The port again was aspirated and flushed now with heparin. Buried interrupted subdermal 3-0 Vicryl sutures were then placed. Skin was closed with buried interrupted and running 4-0 Monocryl subcuticular suture. Dressing was applied. The patient tolerated the procedure well was awakened and brought to recovery in good condition.
[2022-01-26] MEDS ORDERED: oxyCODONE 5 MG TABLET ONE (12:28)
[2022-01-26 13:10] VITALS: BP 96/60
--- NOTE | 2022-01-26 13:17 | ANESTHESIA POST OP EVALUATION ---
Anesthesia Post Eval - Post Anesthesia Eval Vitals: Last Vital Signs Temp 36.3 C L 01/26/22 13:04 Pulse 88 01/26/22 13:04 Resp 16 01/26/22 13:04 BP 96/60 01/26/22 13:04 Pulse Ox 94 01/26/22 13:04 CV Function Including HR & BP: Stable Pain Control: Satisfactory Nausea & Vomiting: Negative Mental Status: Baseline Respiratory Status: Airway Patent Hydration Status: Satisfactory Anesthesia Complications: None
== END 2022-01-26 09:28 | disposition home or self-care (01) ==
LOC: SDS 09:27
PROVIDERS: ATTEND Surgery
DX: C50.911 Malignant neoplasm of unspecified site of right female breast (principal); C79.9 Secondary malignant neoplasm of unspecified site; Z17.1 Estrogen receptor negative status [ER-]; I10 Essential (primary) hypertension; E03.9 Hypothyroidism, unspecified; E78.00 Pure hypercholesterolemia, unspecified; F32.A Depression, unspecified; H54.7 Unspecified visual loss; R33.9 Retention of urine, unspecified; Z79.890 Hormone replacement therapy; Z88.8 Allergy status to other drugs, medicaments and biological substances; Z90.10 Acquired absence of unspecified breast and nipple
CPT/HCPCS: 36561; A9270; C1788; J0690; J7120

== ENCOUNTER 2022-01-29 09:39 | Outpatient (CLI) | payer MEDICARE | END 2022-01-29 09:40 | disposition critical access hospital (66) | LOC: EMS 09:39 | DX: M54.6 Pain in thoracic spine (principal) | CPT/HCPCS: A0425; A0429 ==

== ENCOUNTER 2022-01-29 10:12 | Emergency (ER) | payer MEDICARE ==
--- OUTSIDE RECORDS SUMMARY | 2022-01-29 10:20 | EXTERNAL MEDICAL SUMMARY RPT | Continuity of Care Document ---
:1950 Author Organization [place] Address [address] [place] [address] Phone Care Team Providers Name Role Phone OR Unavailable Unavailable MD Unavailable Unavailable PA-C Unavailable Unavailable RN Unavailable Unavailable Adeel Unavailable Unavailable Registrar Unavailable Unavailable Allergies No information. Encounters No information. Medications date description facility [id number] polyethylene glycol [facility] [id number] magnesium hydroxide [facility] [id number] bupropion hcl [facility] [id number] levothyroxine [facility] [id number] atorvastatin [facility] [id number] citalopram [facility] [id number] meloxicam [facility] [id number] bupropion hcl [facility] [id number] levothyroxine [facility] [phone] atorvastatin [facility] [id number] citalopram [facility] [id number] meloxicam [facility] [id number] bupropion hcl [facility] [id number] levothyroxine [facility] [id number] atorvastatin [facility] [id number] citalopram [facility] [id number] meloxicam [facility] [id number] bupropion hcl [facility] [id number] levothyroxine [facility] [id number] atorvastatin [facility] [id number] citalopram [facility] [id number] meloxicam [facility] [id number] bupropion hcl [facility] [id number] levothyroxine [facility] [id number] atorvastatin [facility] [id number] citalopram [facility] [id number] meloxicam [facility] [place] Problems date description facility [id number] Malignant tumor of breast [facility] 20220118 Malignant neoplasm of unspecified site [facility] & of unspecified female breast Ancillary S ervices [facility] 20220118 Malignant neoplasm of breast (female), [facility] & unspecified [facility] 20220118 Infiltrating duct carcinoma of breast [facility] 20220102 Malignant pleural effusion [facility] 20211226 Medical Problem (Major) [facility] 20211226 Malignant pleural effusion [facility] 20211117 Urine C&S [facility] Services [facility] haroon 20211117 Pulmonary congestion [facility] 20211117 Other symptoms involving respiratory W alk-In [facility] Primary Care & system and chest Ancillary Services [facility] 20211117 Other specified symptoms and signs [facility] & involving the circulatory and Ancillary Services [facility] respiratory systems 20211117 Other nonspecific findings on [facility] & examination of urine Ancillary Services [facility] 20211117 Other low back pain [facility] Care & Ancillary Services C haroon 20211117 Other forms of dyspnea [facility] 20211117 Dyspnea on exertion [facility] & [facility] Services [facility] le[facility]ard 20211117 Details of drug misuse behavior [facility] haroon 20211117 CHEST 2 VIEW [facility] Services C haroon 20211117 Acute low back pain [facility] Care & Ancillary Services C haroon 20211117 Pleural effusion, not elsewhere [facility] & classified Ancillary Services C haroon 20211117 Other dyspnea and respiratory [facility] Care & abnormality Ancillary Services [facility] haroon 20211117 Other abnormal findings on [facility] orestes Primary Care & microbiological examination of urine Anc illary Services [facility] 20211117 Alcohol use [facility] Services C haroon 20211117 Unspecified pleural effusion [facility] & Ancillary Services C haroon 20211117 Never smoker [facility] Services C haroon 20211117 Urinalysis with Microscopic Exam [facility] haroon 20211117 Pleural effusion [facility] C haroon 20211117 Lumbago [facility] C haroon 20211117 Leukocytes in urine [facility] & [facility] Services C haroon 20211117 COVID19 Testing [facility] Services C haroon 20211117 Hypoxemia [facility] [id number] Hypokalemia [facility] 23330151 Cough [facility] [id number] Contact with and (suspected) exposure [facility] to covid-19 [id number] Back Pain [facility] 82563769 Lumbar sprain [facility] Services [facility] har[place] 20211114 Low back strain [facility] har[place] 20211114 Alcohol use [facility] Services C haroon 20211114 Urinalysis with Microscopic Exam, [facility] Primary Care & Culture in Indicated Ancillary Services [facility] 20211114 Never smoker [facility] Services [facility] har[place] 20211114 Strain of muscle, fascia and tendon of [facility] Primary Care & lower back, initial encounter Ancillary Services [facility] 20211114 Dysuria [facility] Services C haroon 20211114 Details of drug misuse behavior Walk[facility] n [facility] Primary Care & Ancillary Services C haroon 20211114 No current problems or disability - [facility] Primary Care & unknown Ancillary Services Wanda patiño Procedures date description facility 20211117 POC URINALYSIS DIP [facility] [id number] POC URINALYSIS DIP [facility] [id number] POC URINALYSIS DIP [facility] [phone] POC URINALYSIS DIP [facility] [id number] POC URINALYSIS DIP [facility] [id number] POC URINALYSIS DIP [facility] [id number] POC URINALYSIS DIP [facility] [id number] POC URINALYSIS DIP [facility] [id number] POC URINALYSIS DIP [facility] Results test status date ordered by attending specimen anthony e WBC_urine_on_microscop unknown [id number] unknown unknown unknown y Urobilinogen_Presence_ unknown [id number] unknown unknown unknown in_Urine_by_Test_strip Urobilinogen_Presence_ unknown [id number] unknown unknown unknown in_Urine_by_Test_strip Specific_gravity_of_Ur unknown 95315722 unknown unknown unknown ine_by_Test_strip Specific_gravity_of_Ur unknown 85917779 unknown unknown unknown ine_by_Test_strip pH_of_Urine_by_Test_st unknown 52429098 unknown unknown unknown rip Nitrite_Presence_in_Ur unknown 78284773 unknown unknown unknown ine_by_Test_strip Nitrite_Presence_in_Ur unknown 17569377 unknown unknown unknown ine_by_Test_strip Leukocyte_esterase_Pre unknown 40316064 unknown unknown unknown sence_in_Urine_by_Test_ strip Leukocyte_esterase_Pre unknown 14781785 unknown unknown unknown sence_in_Urine_by_Test_ strip Ketones_Mass_volume_in unknown 16767609 unknown unknown unknown _Urine_by_Test_strip Ketones_Mass_volume_in unknown 32743837 unknown unknown unknown _Urine_by_Test_strip Glucose_Mass_volume_in unknown 07368544 unknown unknown unknown _Urine_by_Test_strip Color_of_Urine unknown 72652743 unknown unknown unknown Color_of_Urine unknown 81269641 unknown unknown unknown Bilirubin.total_Presen unknown 37595210 unknown unknown unknown ce_in_Urine_by_Test_str ip Bilirubin.total_Presen unknown 79999447 unknown unknown unknown ce_in_Urine_by_Test_str ip Appearance_of_Urine unknown 61101851 unknown unknown unk nown clarity_urine_point unknown 40609350 unknown unknown unk nown pH_study_of_acidity unknown 80097819 unknown unknown unk nown urinalysis_routine unknown 53240417 unknown unknown unkn own glucose_urine unknown 12577436 unknown unknown unknown appearance_urine unknown 50850821 unknown unknown unknow n leukocyte_esterase_uri unknown 32527145 unknown unknown unknown ne_by_dipstick leukocyte_esterase_uri unknown 74612399 unknown unknown unknown ne_by_dipstick urobilinogen_urine_sem unknown 06177511 unknown unknown unknown iquantitative_dipstick_ urobilinogen_urine_sem unknown 09824923 unknown unknown unknown iquantitative_dipstick_ specific_gravity_urine unknown 93132363 unknown unknown unknown specific_gravity_urine unknown 25358760 unknown unknown unknown pH_urine_semiquantitat unknown 71272877 unknown unknown unknown morteza nitrite_urine_semiquan unknown 21473058 unknown unknown unknown titative nitrite_urine_semiquan unknown 25011886 unknown unknown unknown titative ketones_urine_by_test_ unknown 88984544 unknown unknown unknown strip ketones_urine_by_test_ unknown 71030125 unknown unknown unknown strip bilirubin_urine unknown 89104173 unknown unknown unknown bilirubin_urine unknown 03579969 unknown unknown unknown urine_color unknown 71530513 unknown unknown unknown urine_color unknown 52926058 unknown unknown unknown Glucose_Mass_volume_in unknown 84574043 unknown unknown unknown _Urine Albumin_Presence_in_Ur unknown 81939062 unknown unknown unknown ine RBC_urine_dipstick unknown 02184451 unknown unknown unkn own Erythrocytes_area_in_U unknown 44431496 unknown unknown unknown rine_sediment_by_Micros copy_high_power_field glucose_urine_semiquan unknown 60631559 unknown unknown unknown titative protein_urine_semiquan unknown 40125344 unknown unknown unknown titative_dipstick_ Urine_HCG_QC_Result_CL unknown 61483060 unknown unknown unknown IA_Waived_ WBC_urine_on_microscop unknown 29785159 unknown unknown unknown y DIPSTICK_URINE_STRIP_L unknown 65644696 unknown unknown unknown OT_NUMBER WBC_URINE unknown 53101205 unknown unknown unknown UROBILINOGEN_URINE unknown 61926685 unknown unknown unkn own SPECIFIC_GRAVITY_URINE unknown 60256123 unknown unknown unknown T unknown 23568292 unknown unknown unknown T unknown 38624151 unknown unknown unknown T unknown 72167064 unknown unknown unknown T unknown 29665928 unknown unknown unknown T unknown 25767923 unknown unknown unknown T unknown 88876468 unknown unknown unknown T unknown 06656543 unknown unknown unknown T unknown 20038789 unknown unknown unknown T unknown 58620285 unknown unknown unknown T unknown 67305302 unknown unknown unknown T unknown 45635337 unknown unknown unknown PH_URINE unknown 71799903 unknown unknown unknown NITRITE_URINE unknown 08680612 unknown unknown unknown LEUKOCYTE_ESTERASE_URI unknown 95792699 unknown unknown unknown NE KETONES_URINE_UA_ unknown 62372092 unknown unknown unkno wn GLUCOSE_URINE_UA_ unknown 35326798 unknown unknown unkno wn COLOR_URINE unknown 97899201 unknown unknown unknown CLARITY_URINE unknown 80096174 unknown unknown unknown BILIRUBIN_URINE unknown 52255610 unknown unknown unknown _2019NCoV_COVID-19_Lab unknown 84040926 unknown unknown unknown _Test_Result_Text_ WBC_urine_on_microscop unknown 39051034 unknown unknown unknown y Urobilinogen_Presence_ unknown 83616792 unknown unknown unknown in_Urine_by_Test_strip Specific_gravity_of_Ur unknown 77719187 unknown unknown unknown ine_by_Test_strip pH_of_Urine_by_Test_st unknown 92084560 unknown unknown unknown rip Nitrite_Presence_in_Ur unknown 57572254 unknown unknown unknown ine_by_Test_strip Leukocyte_esterase_Pre unknown 85678613 unknown unknown unknown sence_in_Urine_by_Test_ strip Ketones_Mass_volume_in unknown 26641004 unknown unknown unknown _Urine_by_Test_strip Glucose_Mass_volume_in unknown 02097855 unknown unknown unknown _Urine_by_Test_strip Color_of_Urine unknown 02154402 unknown unknown unknown Bilirubin.total_Presen unknown 56621059 unknown unknown unknown ce_in_Urine_by_Test_str ip Appearance_of_Urine unknown 80386828 unknown unknown unk nown clarity_urine_point unknown 98339264 unknown unknown unk nown pH_study_of_acidity unknown 29578763 unknown unknown unk nown urinalysis_routine unknown 49579369 unknown unknown unkn own glucose_urine unknown 62487562 unknown unknown unknown appearance_urine unknown 19097473 unknown unknown unknow n leukocyte_esterase_uri unknown 30411938 unknown unknown unknown ne_by_dipstick urobilinogen_urine_sem unknown 12635734 unknown unknown unknown iquantitative_dipstick_ specific_gravity_urine unknown 92080561 unknown unknown unknown pH_urine_semiquantitat unknown 16054447 unknown unknown unknown morteza nitrite_urine_semiquan unknown 42921927 unknown unknown unknown titative ketones_urine_by_test_ unknown 70624414 unknown unknown unknown strip bilirubin_urine unknown 32397992 unknown unknown unknown urine_color unknown 86549859 unknown unknown unknown Glucose_Mass_volume_in unknown 53386119 unknown unknown unknown _Urine Albumin_Presence_in_Ur unknown 39443882 unknown unknown unknown ine RBC_urine_dipstick unknown 33633427 unknown unknown unkn own Erythrocytes_area_in_U unknown 10104524 unknown unknown unknown rine_sediment_by_Micros copy_high_power_field glucose_urine_semiquan unknown 18172704 unknown unknown unknown titative protein_urine_semiquan unknown 54128406 unknown unknown unknown titative_dipstick_ Urine_HCG_QC_Result_CL unknown 59858852 unknown unknown unknown IA_Waived_ WBC_urine_on_microscop unknown 74305272 unknown unknown unknown y DIPSTICK_URINE_STRIP_L unknown 93285864 unknown unknown unknown OT_NUMBER WBC_URINE unknown 60861398 unknown unknown unknown UROBILINOGEN_URINE unknown 10101832 unknown unknown unkn own SPECIFIC_GRAVITY_URINE unknown 26360066 unknown unknown unknown T unknown 15292114 unknown unknown unknown T unknown 70607890 unknown unknown unknown T unknown 86384634 unknown unknown unknown T unknown 34208197 unknown unknown unknown T unknown 55516608 unknown unknown unknown T unknown 82029037 unknown unknown unknown T unknown 57881042 unknown unknown unknown T unknown 33001156 unknown unknown unknown T unknown 69007811 unknown unknown unknown T unknown 83806065 unknown unknown unknown T unknown 40876820 unknown unknown unknown PH_URINE unknown 80640582 unknown unknown unknown NITRITE_URINE unknown 74474746 unknown unknown unknown LEUKOCYTE_ESTERASE_URI unknown 00099683 unknown unknown unknown NE KETONES_URINE_UA_ unknown 57566129 unknown unknown unkno wn GLUCOSE_URINE_UA_ unknown 35731600 unknown unknown unkno wn COLOR_URINE unknown 26222506 unknown unknown unknown CLARITY_URINE unknown 36778522 unknown unknown unknown BILIRUBIN_URINE unknown 32741005 unknown unknown unknown COVID-19_REFERENCE_TES unknown 26868210 unknown unknown unknown T T unknown 02368935 unknown unknown unknown _2019NCoV_COVID-19_Lab unknown 44833602 unknown unknown unknown _Test_Result_Text_ WBC_urine_on_microscop unknown 15227931 unknown unknown unknown y Urobilinogen_Presence_ unknown 44898863 unknown unknown unknown in_Urine_by_Test_strip Specific_gravity_of_Ur unknown 74582092 unknown unknown unknown ine_by_Test_strip pH_of_Urine_by_Test_st unknown 44407237 unknown unknown unknown rip Nitrite_Presence_in_Ur unknown 30333066 unknown unknown unknown ine_by_Test_strip Leukocyte_esterase_Pre unknown 98675297 unknown unknown unknown sence_in_Urine_by_Test_ strip Ketones_Mass_volume_in unknown 01261812 unknown unknown unknown _Urine_by_Test_strip Glucose_Mass_volume_in unknown 92252402 unknown unknown unknown _Urine_by_Test_strip Color_of_Urine unknown 82292676 unknown unknown unknown Bilirubin.total_Presen unknown 08961732 unknown unknown unknown ce_in_Urine_by_Test_str ip Appearance_of_Urine unknown 02316449 unknown unknown unk nown clarity_urine_point unknown 71854209 unknown unknown unk nown pH_study_of_acidity unknown 27919997 unknown unknown unk nown urinalysis_routine unknown 82317617 unknown unknown unkn own glucose_urine unknown 71218204 unknown unknown unknown appearance_urine unknown 11641144 unknown unknown unknow n leukocyte_esterase_uri unknown 11489902 unknown unknown unknown ne_by_dipstick urobilinogen_urine_sem unknown 37207159 unknown unknown unknown iquantitative_dipstick_ specific_gravity_urine unknown 99745432 unknown unknown unknown pH_urine_semiquantitat unknown 12433671 unknown unknown unknown morteza nitrite_urine_semiquan unknown 58116375 unknown unknown unknown titative ketones_urine_by_test_ unknown 74725182 unknown unknown unknown strip bilirubin_urine unknown 63785963 unknown unknown unknown urine_color unknown 13351468 unknown unknown unknown Glucose_Mass_volume_in unknown 47631889 unknown unknown unknown _Urine Albumin_Presence_in_Ur unknown 24808347 unknown unknown unknown ine RBC_urine_dipstick unknown 27391899 unknown unknown unkn own Erythrocytes_area_in_U unknown 64255142 unknown unknown unknown rine_sediment_by_Micros copy_high_power_field glucose_urine_semiquan unknown 33067184 unknown unknown unknown titative protein_urine_semiquan unknown 29946539 unknown unknown unknown titative_dipstick_ Urine_HCG_QC_Result_CL unknown 23099387 unknown unknown unknown IA_Waived_ WBC_urine_on_microscop unknown 44939841 unknown unknown unknown y DIPSTICK_URINE_STRIP_L unknown 26706033 unknown unknown unknown OT_NUMBER WBC_URINE unknown 86736940 unknown unknown unknown UROBILINOGEN_URINE unknown 70074802 unknown unknown unkn own SPECIFIC_GRAVITY_URINE unknown 48296778 unknown unknown unknown T unknown 25833989 unknown unknown unknown T unknown 60977670 unknown unknown unknown T unknown 14787632 unknown unknown unknown T unknown 57664147 unknown unknown unknown T unknown 73041351 unknown unknown unknown T unknown 05787680 unknown unknown unknown T unknown 90780635 unknown unknown unknown T unknown 98366609 unknown unknown unknown T unknown 00858343 unknown unknown unknown T unknown 77844988 unknown unknown unknown T unknown 71254315 unknown unknown unknown PH_URINE unknown 03477385 unknown unknown unknown NITRITE_URINE unknown 05948287 unknown unknown unknown LEUKOCYTE_ESTERASE_URI unknown 00628163 unknown unknown unknown NE KETONES_URINE_UA_ unknown 12782017 unknown unknown unkno wn GLUCOSE_URINE_UA_ unknown 76721162 unknown unknown unkno wn COLOR_URINE unknown 95946667 unknown unknown unknown CLARITY_URINE unknown 40269618 unknown unknown unknown BILIRUBIN_URINE unknown 86470147 unknown unknown unknown COVID-19_REFERENCE_TES unknown 68461589 unknown unknown unknown T T unknown 08082571 unknown unknown unknown _2019NCoV_COVID-19_Lab unknown 39425203 unknown unknown unknown _Test_Result_Text_ WBC_urine_on_microscop unknown 28652453 unknown unknown unknown y Urobilinogen_Presence_ unknown 61988019 unknown unknown unknown in_Urine_by_Test_strip Specific_gravity_of_Ur unknown 83637841 unknown unknown unknown ine_by_Test_strip pH_of_Urine_by_Test_st unknown 34415927 unknown unknown unknown rip Nitrite_Presence_in_Ur unknown 12726936 unknown unknown unknown ine_by_Test_strip Leukocyte_esterase_Pre unknown 27399135 unknown unknown unknown sence_in_Urine_by_Test_ strip Ketones_Mass_volume_in unknown 54483301 unknown unknown unknown _Urine_by_Test_strip Glucose_Mass_volume_in unknown 46272922 unknown unknown unknown _Urine_by_Test_strip Color_of_Urine unknown 98957732 unknown unknown unknown Bilirubin.total_Presen unknown 03864585 unknown unknown unknown ce_in_Urine_by_Test_str ip Appearance_of_Urine unknown 31178998 unknown unknown unk nown clarity_urine_point unknown 40421214 unknown unknown unk nown pH_study_of_acidity unknown 08809367 unknown unknown unk nown urinalysis_routine unknown 30481627 unknown unknown unkn own glucose_urine unknown 31040939 unknown unknown unknown appearance_urine unknown 44508713 unknown unknown unknow n leukocyte_esterase_uri unknown 96069825 unknown unknown unknown ne_by_dipstick urobilinogen_urine_sem unknown 89356053 unknown unknown unknown iquantitative_dipstick_ specific_gravity_urine unknown 46350473 unknown unknown unknown pH_urine_semiquantitat unknown 16133237 unknown unknown unknown morteza nitrite_urine_semiquan unknown 12973555 unknown unknown unknown titative ketones_urine_by_test_ unknown 01099316 unknown unknown unknown strip bilirubin_urine unknown 61931477 unknown unknown unknown urine_color unknown 85933674 unknown unknown unknown Glucose_Mass_volume_in unknown 67969506 unknown unknown unknown _Urine Albumin_Presence_in_Ur unknown 91740587 unknown unknown unknown ine RBC_urine_dipstick unknown 15727905 unknown unknown unkn own Erythrocytes_area_in_U unknown 02646334 unknown unknown unknown rine_sediment_by_Micros copy_high_power_field glucose_urine_semiquan unknown 15605240 unknown unknown unknown titative protein_urine_semiquan unknown 00453169 unknown unknown unknown titative_dipstick_ Urine_HCG_QC_Result_CL unknown 83405444 unknown unknown unknown IA_Waived_ WBC_urine_on_microscop unknown 72154364 unknown unknown unknown y DIPSTICK_URINE_STRIP_L unknown 14697280 unknown unknown unknown OT_NUMBER WBC_URINE unknown 45099171 unknown unknown unknown UROBILINOGEN_URINE unknown 43247047 unknown unknown unkn own SPECIFIC_GRAVITY_URINE unknown 49383976 unknown unknown unknown T unknown 37500632 unknown unknown unknown T unknown 39838422 unknown unknown unknown T unknown 61988599 unknown unknown unknown T unknown 75153169 unknown unknown unknown T unknown 10478574 unknown unknown unknown T unknown 57574771 unknown unknown unknown T unknown 40925860 unknown unknown unknown T unknown 69731230 unknown unknown unknown T unknown 10833683 unknown unknown unknown T unknown 87166093 unknown unknown unknown T unknown 00231666 unknown unknown unknown PH_URINE unknown 55053349 unknown unknown unknown NITRITE_URINE unknown 59803107 unknown unknown unknown LEUKOCYTE_ESTERASE_URI unknown 79812068 unknown unknown unknown NE KETONES_URINE_UA_ unknown 53451546 unknown unknown unkno wn GLUCOSE_URINE_UA_ unknown 04210433 unknown unknown unkno wn COLOR_URINE unknown 21709910 unknown unknown unknown CLARITY_URINE unknown 45012314 unknown unknown unknown BILIRUBIN_URINE unknown 57420128 unknown unknown unknown COVID-19_REFERENCE_TES unknown 00410251 unknown unknown unknown T T unknown 16216310 unknown unknown unknown WBC_urine_on_microscop unknown 16570757 unknown unknown unknown y Urobilinogen_Presence_ unknown 87468395 unknown unknown unknown in_Urine_by_Test_strip Specific_gravity_of_Ur unknown 64428539 unknown unknown unknown ine_by_Test_strip pH_of_Urine_by_Test_st unknown 37034054 unknown unknown unknown rip Nitrite_Presence_in_Ur unknown 98416979 unknown unknown unknown ine_by_Test_strip Leukocyte_esterase_Pre unknown 98949211 unknown unknown unknown sence_in_Urine_by_Test_ strip Ketones_Mass_volume_in unknown 48836358 unknown unknown unknown _Urine_by_Test_strip Glucose_Mass_volume_in unknown [id number] unknown unknown unknown _Urine_by_Test_strip Epithelial_cells_area_ unknown [id number] unknown unknown unknown in_Urine_sediment_by_Mi croscopy_high_power_fie ld Color_of_Urine unknown [id number] unknown unknown unknown Bilirubin.total_Presen unknown [id number] unknown unknown unknown ce_in_Urine_by_Test_str ip Appearance_of_Urine unknown [id number] unknown unknown unk nown clarity_urine_point unknown [id number] unknown unknown unk nown pH_study_of_acidity unknown 91980958 unknown unknown unk nown urinalysis_routine unknown [id number] unknown unknown unkn own glucose_urine unknown 20211114 unknown unknown unknown appearance_urine unknown 20211114 unknown unknown unknow n leukocyte_esterase_uri unknown [id number] unknown unknown unknown ne_by_dipstick urobilinogen_urine_sem unknown 20211114 unknown unknown unknown iquantitative_dipstick_ specific_gravity_urine unknown 20211114 unknown unknown unknown pH_urine_semiquantitat unknown 08650120 unknown unknown unknown morteza nitrite_urine_semiquan unknown 20211114 unknown unknown unknown titative ketones_urine_by_test_ unknown 20211114 unknown unknown unknown strip bilirubin_urine unknown 20211114 unknown unknown unknown urine_color unknown 20211114 unknown unknown unknown epithelial_cells_urine unknown 21409706 unknown unknown unknown Glucose_Mass_volume_in unknown 47211977 unknown unknown unknown _Urine Albumin_Presence_in_Ur unknown 49640920 unknown unknown unknown ine RBC_urine_dipstick unknown 96504121 unknown unknown unkn own Erythrocytes_area_in_U unknown 84178072 unknown unknown unknown rine_sediment_by_Micros copy_high_power_field glucose_urine_semiquan unknown 96448628 unknown unknown unknown titative protein_urine_semiquan unknown 05024346 unknown unknown unknown titative_dipstick_ WBC_urine_on_microscop unknown [id number] unknown unknown unknown y DIPSTICK_URINE_STRIP_L unknown 01366446 unknown unknown unknown OT_NUMBER WBC_URINE unknown [id number] unknown unknown unknown T unknown 04120121 unknown unknown unknown T unknown 08692406 unknown unknown unknown T unknown 81035603 unknown unknown unknown T unknown 88392460 unknown unknown unknown T unknown [id number] unknown unknown unknown PH_URINE unknown 32650491 unknown unknown unknown GLUCOSE_URINE_UA_ unknown 70082435 unknown unknown unkno wn EPITHELIAL_CELLS_UR unknown 01781058 unknown unknown unk nown CLARITY_URINE unknown [id number] unknown unknown unknown WBC_urine_on_microscop unknown 47635063 unknown unknown unknown y Urobilinogen_Presence_ unknown 00015141 unknown unknown unknown in_Urine_by_Test_strip Specific_gravity_of_Ur unknown 97572567 unknown unknown unknown ine_by_Test_strip pH_of_Urine_by_Test_st unknown 24293525 unknown unknown unknown rip Nitrite_Presence_in_Ur unknown 74903284 unknown unknown unknown ine_by_Test_strip Leukocyte_esterase_Pre unknown 20211114 unknown unknown unknown sence_in_Urine_by_Test_ strip Ketones_Mass_volume_in unknown 38803381 unknown unknown unknown _Urine_by_Test_strip Glucose_Mass_volume_in unknown 20211114 unknown unknown unknown _Urine_by_Test_strip Epithelial_cells_area_ unknown 20211114 unknown unknown unknown in_Urine_sediment_by_Mi croscopy_high_power_fie ld Color_of_Urine unknown 20211114 unknown unknown unknown Bilirubin.total_Presen unknown 20211114 unknown unknown unknown ce_in_Urine_by_Test_str ip Appearance_of_Urine unknown 20211114 unknown unknown unk nown clarity_urine_point unknown 20211114 unknown unknown unk nown pH_study_of_acidity unknown 20211114 unknown unknown unk nown urinalysis_routine unknown 20211114 unknown unknown unkn own glucose_urine unknown 20211114 unknown unknown unknown appearance_urine unknown 20211114 unknown unknown unknow n leukocyte_esterase_uri unknown 20211114 unknown unknown unknown ne_by_dipstick urobilinogen_urine_sem unknown 20211114 unknown unknown unknown iquantitative_dipstick_ specific_gravity_urine unknown 20211114 unknown unknown unknown pH_urine_semiquantitat unknown 96450984 unknown unknown unknown morteza nitrite_urine_semiquan unknown 20211114 unknown unknown unknown titative ketones_urine_by_test_ unknown 80555511 unknown unknown unknown strip bilirubin_urine unknown 20211114 unknown unknown unknown urine_color unknown 20211114 unknown unknown unknown epithelial_cells_urine unknown 48324787 unknown unknown unknown Glucose_Mass_volume_in unknown 20211114 unknown unknown unknown _Urine Albumin_Presence_in_Ur unknown 20211114 unknown unknown unknown ine RBC_urine_dipstick unknown 20211114 unknown unknown unkn own Erythrocytes_area_in_U unknown 20211114 unknown unknown unknown rine_sediment_by_Micros copy_high_power_field glucose_urine_semiquan unknown 20211114 unknown unknown unknown titative protein_urine_semiquan unknown 22506499 unknown unknown unknown titative_dipstick_ WBC_urine_on_microscop unknown 09871552 unknown unknown unknown y DIPSTICK_URINE_STRIP_L unknown 57281051 unknown unknown unknown OT_NUMBER WBC_URINE unknown 07918793 unknown unknown unknown UROBILINOGEN_URINE unknown 62983699 unknown unknown unkn own SPECIFIC_GRAVITY_URINE unknown 93163707 unknown unknown unknown T unknown 39296069 unknown unknown unknown T unknown 67997409 unknown unknown unknown T unknown 99237990 unknown unknown unknown T unknown 09205875 unknown unknown unknown T unknown 82639952 unknown unknown unknown T unknown 61339247 unknown unknown unknown T unknown 92024045 unknown unknown unknown T unknown 75148826 unknown unknown unknown T unknown 21164045 unknown unknown unknown T unknown 70255095 unknown unknown unknown T unknown 77762194 unknown unknown unknown T unknown 94341376 unknown unknown unknown PH_URINE unknown 91507827 unknown unknown unknown NITRITE_URINE unknown 79086387 unknown unknown unknown LEUKOCYTE_ESTERASE_URI unknown 34809564 unknown unknown unknown NE KETONES_URINE_UA_ unknown 11985770 unknown unknown unkno wn GLUCOSE_URINE_UA_ unknown 08246186 unknown unknown unkno wn EPITHELIAL_CELLS_UR unknown 58126082 unknown unknown unk nown COLOR_URINE unknown 18688587 unknown unknown unknown CLARITY_URINE unknown 12604848 unknown unknown unknown BILIRUBIN_URINE unknown 80522444 unknown unknown unknown Epithelial_cells_area_ unknown 88655010 unknown unknown unknown in_Urine_sediment_by_Mi croscopy_high_power_fie ld epithelial_cells_urine unknown 92917919 unknown unknown unknown T unknown 53156545 unknown unknown unknown EPITHELIAL_CELLS_UR unknown 48238447 unknown unknown unk nown Epithelial_cells_area_ unknown 68645996 unknown unknown unknown in_Urine_sediment_by_Mi croscopy_high_power_fie ld epithelial_cells_urine unknown 90597437 unknown unknown unknown T unknown 75272413 unknown unknown unknown EPITHELIAL_CELLS_UR unknown 84543506 unknown unknown unk nown Epithelial_cells_area_ unknown 18068779 unknown unknown unknown in_Urine_sediment_by_Mi croscopy_high_power_fie ld epithelial_cells_urine unknown 89573457 unknown unknown unknown T unknown 65830850 unknown unknown unknown EPITHELIAL_CELLS_UR unknown 71657442 unknown unknown unk nown facility observation status value reference units lab code abn ormal line range notes [facility] WBC_urine_o unknown 11-25 /HPF unknown _5821-4 un known unknown Clinic n_microscopy [facility] Urobilinoge unknown negative unknown _5818-0 unkn own unknown Clinic n_Presence_i Primary n_Urine_by_T Care & est_strip [facility] Urobilinoge unknown 0.2 (NORMAL) unknown _5818-0 unknown unknown Clinic n_Presence_i Primary n_Urine_by_T Care & est_strip [facility] Specific_gr unknown 1.025 unknown _5811-5 unknow n unknown Clinic avity_of_Uri Primary ne_by_Test_s Care & trip [facility] Specific_gr unknown 1.020 unknown _5811-5 unknow n unknown Clinic avity_of_Uri Primary ne_by_Test_s Care & trip [facility] pH_of_Urine unknown 5 unknown _5803-2 unknow n unknown Clinic _by_Test_str Primary ip [facility] Nitrite_Pre unknown negative unknown _5802-4 unkn own unknown Clinic sence_in_Uri Primary ne_by_Test_s Care & trip [facility] Nitrite_Pre unknown NEGATIVE unknown _5802-4 unkn own unknown Clinic sence_in_Uri Primary ne_by_Test_s Care & trip [facility] Leukocyte_e unknown MODERATE unknown _5799-2 unkn own unknown Clinic sterase_Pres Primary ence_in_Urin Care & e_by_Test_st [facility] rip [facility] Leukocyte_e unknown 2+ unknown _5799-2 unknow n unknown Clinic sterase_Pres Primary ence_in_Urin Care & e_by_Test_st [facility] rip [facility] Ketones_Mas unknown trace (5) unknown _5797-6 unk nown unknown Clinic s_volume_in_ Primary Urine_by_Tes Care & t_strip [facility] Ketones_Mas unknown NEGATIVE unknown _5797-6 unkn own unknown Clinic s_volume_in_ Primary Urine_by_Tes Care & t_strip [facility] Glucose_Mas unknown negative unknown _5792-7 unkn own unknown Clinic s_volume_in_ Primary Urine_by_Tes Care & t_strip [facility] Color_of_Ur unknown yellow unknown _5778-6 unknow n unknown Clinic ine [facility] Color_of_Ur unknown YELLOW unknown _5778-6 unknow n unknown Clinic ine [facility] Bilirubin.t unknown NEGATIVE unknown _5770-3 unkn own unknown Clinic otal_Presenc Primary e_in_Urine_b Care & y_Test_strip [facility] Bilirubin.t unknown 2+ unknown _5770-3 unknow n unknown Clinic otal_Presenc Primary e_in_Urine_b Care & y_Test_strip [facility] Appearance_ unknown hazy unknown _5767-9 unknow n unknown Clinic of_Urine [facility] clarity_uri unknown SL. CLOUDY unknown _5589 unk nown unknown Clinic ne_point [facility] pH_study_of unknown 5.0 unknown _51641 unknown unknown Clinic _acidity [facility] urinalysis_ unknown Clean Catch unknown _47 un known unknown Clinic routine [facility] glucose_uri unknown NEGATIVE unknown _3369 unkno wn unknown Clinic ne mg/dL [facility] appearance_ unknown hazy unknown _328 unknown unknown Clinic urine [facility] leukocyte_e unknown MODERATE unknown _327 unkno wn unknown Clinic sterase_urin Primary e_by_dipstic Care & k [facility] leukocyte_e unknown 2+ unknown _327 unknown unknown Clinic sterase_urin Primary e_by_dipstic Care & k [facility] urobilinoge unknown negative unknown _326 unkno wn unknown Clinic n_urine_semi Primary quantitative Care & _dipstick_ [facility] urobilinoge unknown 0.2 (NORMAL) unknown _326 u nknown unknown Clinic n_urine_semi Primary quantitative Care & _dipstick_ [facility] specific_gr unknown 1.025 unknown _325 unknown unknown Clinic avity_urine [facility] specific_gr unknown 1.020 unknown _325 unknown unknown Clinic avity_urine [facility] pH_urine_se unknown 5 unknown _324 unknown unknown Clinic miquantitati Primary ve [facility] nitrite_uri unknown negative unknown _323 unkno wn unknown Clinic ne_semiquant Primary itative [facility] & [facility] nitrite_uri unknown NEGATIVE unknown _323 unkno wn unknown Clinic ne_semiquant Primary itative [facility] ketones_uri unknown trace (5) unknown _322 unkn own unknown Clinic ne_by_test_s Primary trip [facility] ketones_uri unknown NEGATIVE unknown _322 unkno wn unknown Clinic ne_by_test_s Primary trip [facility] bilirubin_u unknown NEGATIVE unknown _319 unkno wn unknown Clinic rine [facility] bilirubin_u unknown 2+ unknown _319 unknown unknown Clinic rine [facility] urine_color unknown yellow unknown _2751 unknown unknown Clinic [facility] urine_color unknown YELLOW unknown _2751 unknown unknown Clinic [facility] Glucose_Mas unknown NEGATIVE unknown _2350-7 unkn own unknown Clinic s_volume_in_ mg/dL Primary Urine [facility] Albumin_Pre unknown trace unknown _1753-3 unknow n unknown Clinic sence_in_Uri Primary ne [facility] RBC_urine_d unknown negative unknown _1700005 unk nown unknown Clinic ipstick [facility] Erythrocyte unknown negative unknown _13945-1 unk nown unknown Clinic s_area_in_Ur Primary ine_sediment Care & _by_Microsco Ancillary py_high_powe Services r_field [facility] glucose_uri unknown negative unknown _123 unkno wn unknown Clinic ne_semiquant Primary itative Care & [facility] protein_uri unknown trace unknown _118 unknown unknown Clinic ne_semiquant Primary itative_dips Care & tick_ [facility] Urine_HCG_Q unknown Yes unknown _114942 unknow n unknown Clinic C_Result_CLI Primary A_Waived_ Care & [facility] WBC_urine_o unknown 10-13 /HPF unknown _1016 unk nown unknown Clinic n_microscopy [facility] DIPSTICK_UR unknown 306605 unknown _101400 unknow n unknown Clinic INE_STRIP_LO Primary T_NUMBER [facility] WBC_URINE unknown 10-13 /HPF unknown UWBC unkno wn unknown Clinic [facility] UROBILINOGE unknown 0.2 (NORMAL) unknown UUROBIL unknown unknown Clinic N_URINE [facility] SPECIFIC_GR unknown 1.025 unknown USG unknown unknown Clinic AVITY_URINE [facility] T unknown 10-13 /HPF unknown UR_WBC unknown unknown Clinic [facility] T unknown 0.2 (NORMAL) unknown UR_URO unknow n unknown Clinic [facility] T unknown 1.025 unknown UR_SG unknown [facility] T unknown 5.0 unknown UR_PH unknown [facility] T unknown NEGATIVE unknown UR_NIT unknown u [facility] T unknown MODERATE unknown UR_LEU_E unknown unknown Clinic STERASE [facility] T unknown NEGATIVE unknown UR_KETO_ unknown unknown Clinic UA_ [facility] T unknown NEGATIVE unknown UR_GLU unknown u [facility] mg/dL [facility] T unknown YELLOW unknown UR_COLOR unknown u [facility] T unknown SL. CLOUDY unknown UR_CLARI unknow n unknown Clinic TY [facility] T unknown NEGATIVE unknown UR_BILI unknown unknown Clinic [facility] PH_URINE unknown 5.0 unknown UPH unknown u nknown Clinic [facility] NITRITE_URI unknown NEGATIVE unknown UNITRITE unk nown unknown Clinic NE [facility] LEUKOCYTE_E unknown MODERATE unknown ULEUK unkno wn unknown Clinic STERASE_URIN Primary E [facility] KETONES_URI unknown NEGATIVE unknown UKET unkno wn unknown Clinic NE_UA_ [facility] GLUCOSE_URI unknown NEGATIVE unknown UGLUC unkno wn unknown Clinic NE_UA_ mg/dL [facility] COLOR_URINE unknown YELLOW unknown UCOL unknown unknown Clinic [facility] CLARITY_URI unknown SL. CLOUDY unknown UCLAR unk nown unknown Clinic NE [facility] BILIRUBIN_U unknown NEGATIVE unknown UBIL unkno wn unknown Clinic RINE [facility] _2019NCoV_C unknown NEGATIVE unknown _[id number] unkn own unknown Clinic OVID-19_Lab_ Primary Test_Result_ Care & Text_ [facility] WBC_urine_o unknown 11-25 /HPF unknown _5821-4 un known unknown Clinic n_microscopy [facility] Urobilinoge unknown 0.2 (NORMAL) unknown _5818-0 unknown unknown Clinic n_Presence_i Primary n_Urine_by_T Care & est_strip [facility] Specific_gr unknown 1.025 unknown _5811-5 unknow n unknown Clinic avity_of_Uri Primary ne_by_Test_s Care & trip [facility] pH_of_Urine unknown 5 unknown _5803-2 unknow n unknown Clinic _by_Test_str Primary ip [facility] Nitrite_Pre unknown NEGATIVE unknown _5802-4 unkn own unknown Clinic sence_in_Uri Primary ne_by_Test_s Care & trip [facility] Leukocyte_e unknown MODERATE unknown _5799-2 unkn own unknown Clinic sterase_Pres Primary ence_in_Urin Care & e_by_Test_st [facility] rip [facility] Ketones_Mas unknown NEGATIVE unknown _5797-6 unkn own unknown Clinic s_volume_in_ Primary Urine_by_Tes Care & t_strip [facility] Glucose_Mas unknown negative unknown _5792-7 unkn own unknown Clinic s_volume_in_ Primary Urine_by_Tes Care & t_strip [facility] Color_of_Ur unknown YELLOW unknown _5778-6 unknow n unknown Clinic ine [facility] Bilirubin.t unknown NEGATIVE unknown _5770-3 unkn own unknown Clinic otal_Presenc Primary e_in_Urine_b Care & y_Test_strip [facility] Appearance_ unknown hazy unknown _5767-9 unknow n unknown Clinic of_Urine [facility] clarity_uri unknown SL. CLOUDY unknown _5589 unk nown unknown Clinic ne_point [facility] pH_study_of unknown 5.0 unknown _51641 unknown unknown Clinic _acidity [facility] urinalysis_ unknown Clean Catch unknown _47 un known unknown Clinic routine [facility] glucose_uri unknown NEGATIVE unknown _3369 unkno wn unknown Clinic ne mg/dL [facility] appearance_ unknown hazy unknown _328 unknown unknown Clinic urine [facility] leukocyte_e unknown MODERATE unknown _327 unkno wn unknown Clinic sterase_urin Primary e_by_dipstic Care & k [facility] urobilinoge unknown 0.2 (NORMAL) unknown _326 u nknown unknown Clinic n_urine_semi Primary quantitative Care & _dipstick_ [facility] specific_gr unknown 1.025 unknown _325 unknown unknown Clinic avity_urine [facility] pH_urine_se unknown 5 unknown _324 unknown unknown Clinic miquantitati Primary ve [facility] & [facility] nitrite_uri unknown NEGATIVE unknown _323 unkno wn unknown Clinic ne_semiquant Primary itative Care & [facility] ketones_uri unknown NEGATIVE unknown _322 unkno wn unknown Clinic ne_by_test_s Primary trip [facility] & [facility] bilirubin_u unknown NEGATIVE unknown _319 unkno wn unknown Clinic rine [facility] urine_color unknown YELLOW unknown _2751 unknown unknown Clinic [facility] Glucose_Mas unknown NEGATIVE unknown _2350-7 unkn own unknown Clinic s_volume_in_ mg/dL Primary Urine [facility] & [facility] Albumin_Pre unknown trace unknown _1753-3 unknow n unknown Clinic sence_in_Uri Primary ne [facility] RBC_urine_d unknown negative unknown _1700005 unk nown unknown Clinic ipstick [facility] Erythrocyte unknown negative unknown _13945-1 unk nown unknown Clinic s_area_in_Ur Primary ine_sediment Care & _by_Microsco Ancillary py_high_powe Services r_field [facility] glucose_uri unknown negative unknown _123 unkno wn unknown Clinic ne_semiquant Primary itative Care & [facility] protein_uri unknown trace unknown _118 unknown unknown Clinic ne_semiquant Primary itative_dips Care & tick_ [facility] Urine_HCG_Q unknown Yes unknown _114942 unknow n unknown Clinic C_Result_CLI Primary A_Waived_ Care & [facility] WBC_urine_o unknown 11-25 /HPF unknown _1016 unk nown unknown Clinic n_microscopy [facility] DIPSTICK_UR unknown 110238 unknown _101400 unknow n unknown Clinic INE_STRIP_LO Primary T_NUMBER [facility] & [facility] WBC_URINE unknown - /HPF unknown UWBC unkno wn unknown Clinic [facility] UROBILINOGE unknown 0.2 (NORMAL) unknown UUROBIL unknown unknown Clinic N_URINE [facility] SPECIFIC_GR unknown 1.025 unknown USG unknown unknown Clinic AVITY_URINE [facility] T unknown 10-13 /HPF unknown UR_WBC unknown unknown Clinic [facility] T unknown 0.2 (NORMAL) unknown UR_URO unknow n unknown Clinic [facility] T unknown 1.025 unknown UR_SG unknown unk nown Clinic [facility] T unknown 5.0 unknown UR_PH unknown unk nown Clinic [facility] T unknown NEGATIVE unknown UR_NIT unknown u nknown Clinic [facility] T unknown MODERATE unknown UR_LEU_E unknown unknown Clinic STERASE [facility] T unknown NEGATIVE unknown UR_KETO_ unknown unknown Clinic UA_ [facility] T unknown NEGATIVE unknown UR_GLU unknown u nkno Clinic mg/dL [facility] T unknown YELLOW unknown UR_COLOR unknown u nknown Clinic [facility] T unknown SL. CLOUDY unknown UR_CLARI unknow n unknown Clinic TY [facility] T unknown NEGATIVE unknown UR_BILI unknown unknown Clinic [facility] PH_URINE unknown 5.0 unknown UPH unknown u nknow Clinic [facility] NITRITE_URI unknown NEGATIVE unknown UNITRITE unk nown unknown Clinic NE [facility] LEUKOCYTE_E unknown MODERATE unknown ULEUK unkno wn unknown Clinic STERASE_URIN Primary E [facility] KETONES_URI unknown NEGATIVE unknown UKET unkno wn unknown Clinic NE_UA_ [facility] GLUCOSE_URI unknown NEGATIVE unknown UGLUC unkno wn unknown Clinic NE_UA_ mg/dL [facility] COLOR_URINE unknown YELLOW unknown UCOL unknown unknown Clinic [facility] CLARITY_URI unknown SL. CLOUDY unknown UCLAR unk nown unknown Clinic NE [facility] BILIRUBIN_U unknown NEGATIVE unknown UBIL unkno wn unknown Clinic RINE [facility] COVID-19_RE unknown NEGATIVE unknown COVID19. unk nown unknown Clinic FERENCE_TEST REF [facility] T unknown NEGATIVE unknown COVID-19 unknown unknown Clinic [facility] _2019NCoV_C unknown NEGATIVE unknown _[id number] unkn own unknown Clinic OVID-19_Lab_ Primary Test_Result_ Care & Text_ [facility] WBC_urine_o unknown 11-25 /HPF unknown _5821-4 un known unknown Clinic n_microscopy [facility] Urobilinoge unknown 0.2 (NORMAL) unknown _5818-0 unknown unknown Clinic n_Presence_i Primary n_Urine_by_T Care & est_strip [facility] Specific_gr unknown 1.025 unknown _5811-5 unknow n unknown Clinic avity_of_Uri Primary ne_by_Test_s Care & trip [facility] pH_of_Urine unknown 5 unknown _5803-2 unknow n unknown Clinic _by_Test_str Primary ip [facility] Nitrite_Pre unknown NEGATIVE unknown _5802-4 unkn own unknown Clinic sence_in_Uri Primary ne_by_Test_s Care & trip [facility] Leukocyte_e unknown MODERATE unknown _5799-2 unkn own unknown Clinic sterase_Pres Primary ence_in_Urin Care & e_by_Test_st Ancillary rip Services [facility] Ketones_Mas unknown NEGATIVE unknown _5797-6 unkn own unknown Clinic s_volume_in_ Primary Urine_by_Tes Care & t_strip [facility] Glucose_Mas unknown negative unknown _5792-7 unkn own unknown Clinic s_volume_in_ Primary Urine_by_Tes Care & t_strip [facility] Color_of_Ur unknown YELLOW unknown _5778-6 unknow n unknown Clinic ine [facility] Bilirubin.t unknown NEGATIVE unknown _5770-3 unkn own unknown Clinic otal_Presenc Primary e_in_Urine_b Care & y_Test_strip [facility] Appearance_ unknown hazy unknown _5767-9 unknow n unknown Clinic of_Urine [facility] clarity_uri unknown SL. CLOUDY unknown _5589 unk nown unknown Clinic ne_point [facility] pH_study_of unknown 5.0 unknown _51641 unknown unknown Clinic _acidity [facility] urinalysis_ unknown Clean Catch unknown _47 un known unknown Clinic routine [facility] glucose_uri unknown NEGATIVE unknown _3369 unkno wn unknown Clinic ne mg/dL [facility] appearance_ unknown hazy unknown _328 unknown unknown Clinic urine [facility] leukocyte_e unknown MODERATE unknown _327 unkno wn unknown Clinic sterase_urin Primary e_by_dipstic Care & k [facility] urobilinoge unknown 0.2 (NORMAL) unknown _326 u nknown unknown Clinic n_urine_semi Primary quantitative Care & _dipstick_ [facility] specific_gr unknown 1.025 unknown _325 unknown unknown Clinic avity_urine [facility] pH_urine_se unknown 5 unknown _324 unknown unknown Clinic miquantitati Primary ve Care & [facility] nitrite_uri unknown NEGATIVE unknown _323 unkno wn unknown Clinic ne_semiquant Primary itative Care & [facility] ketones_uri unknown NEGATIVE unknown _322 unkno wn unknown Clinic ne_by_test_s Primary trip Care & [facility] bilirubin_u unknown NEGATIVE unknown _319 unkno wn unknown Clinic rine [facility] urine_color unknown YELLOW unknown _2751 unknown unknown Clinic [facility] Glucose_Mas unknown NEGATIVE unknown _2350-7 unkn own unknown Clinic s_volume_in_ mg/dL Primary Urine Care & [facility] Albumin_Pre unknown trace unknown _1753-3 unknow n unknown Clinic sence_in_Uri Primary ne [facility] RBC_urine_d unknown negative unknown _1700005 unk nown unknown Clinic ipstick [facility] Erythrocyte unknown negative unknown _13945-1 unk nown unknown Clinic s_area_in_Ur Primary ine_sediment Care & _by_Microsco Ancillary py_high_powe Services r_field [facility] glucose_uri unknown negative unknown _123 unkno wn unknown Clinic ne_semiquant Primary itative Care & [facility] protein_uri unknown trace unknown _118 unknown unknown Clinic ne_semiquant Primary itative_dips Care & tick_ [facility] Urine_HCG_Q unknown Yes unknown _[id number] unknow n unknown Clinic C_Result_CLI Primary A_Waived_ Care & [facility] WBC_urine_o unknown 10-13 /HPF unknown _1016 unk nown unknown Clinic n_microscopy [facility] DIPSTICK_UR unknown [id number] unknown _101400 unknow n unknown Clinic INE_STRIP_LO Primary T_NUMBER Care & [facility] WBC_URINE unknown 10-13 /HPF unknown UWBC unkno wn unknown Clinic [facility] UROBILINOGE unknown 0.2 (NORMAL) unknown UUROBIL unknown unknown Clinic N_URINE [facility] SPECIFIC_GR unknown 1.025 unknown USG unknown unknown Clinic AVITY_URINE [facility] T unknown 10-13 /HPF unknown UR_WBC unknown unknown Clinic [facility] T unknown 0.2 (NORMAL) unknown UR_URO unknow n unknown Clinic [facility] T unknown 1.025 unknown UR_SG unknown [facility] T unknown 5.0 unknown UR_PH unknown [facility] T unknown NEGATIVE [facility] T unknown MODERATE unknown UR_LEU_E unknown unknown Clinic STERASE [facility] T unknown NEGATIVE unknown UR_KETO_ unknown unknown Clinic UA_ [facility] T unknown NEGATIVE unknown UR_GLU unknown u nknow Clinic mg/dL [facility] T unknown YELLOW [facility] T unknown SL. CLOUDY unknown UR_CLARI unknow n unknown Clinic TY [facility] T unknown NEGATIVE unknown UR_BILI unknown unknown Clinic [facility] PH_URINE unknown 5.0 unknown UPH unknown u nknown Clinic [facility] NITRITE_URI unknown NEGATIVE unknown UNITRITE unk nown unknown Clinic NE [facility] LEUKOCYTE_E unknown MODERATE unknown ULEUK unkno wn unknown Clinic STERASE_URIN Primary E [facility] KETONES_URI unknown NEGATIVE unknown UKET unkno wn unknown Clinic NE_UA_ [facility] GLUCOSE_URI unknown NEGATIVE unknown UGLUC unkno wn unknown Clinic NE_UA_ mg/dL [facility] COLOR_URINE unknown YELLOW unknown UCOL unknown unknown Clinic [facility] CLARITY_URI unknown SL. CLOUDY unknown UCLAR unk nown unknown Clinic NE [facility] BILIRUBIN_U unknown NEGATIVE unknown UBIL unkno wn unknown Clinic RINE [facility] COVID-19_RE unknown NEGATIVE unknown COVID19. unk nown unknown Clinic FERENCE_TEST REF [facility] T unknown NEGATIVE unknown COVID-19 unknown unknown Clinic [facility] _2019NCoV_C unknown NEGATIVE unknown _[id number] unkn own unknown Clinic OVID-19_Lab_ Primary Test_Result_ Care & Text_ Ancillary [facility] WBC_urine_o unknown 11-25 /HPF unknown _5821-4 un known unknown Clinic n_microscopy [facility] Urobilinoge unknown 0.2 (NORMAL) unknown _5818-0 unknown unknown Clinic n_Presence_i Primary n_Urine_by_T Care & est_strip [facility] Specific_gr unknown 1.025 unknown _5811-5 unknow n unknown Clinic avity_of_Uri Primary ne_by_Test_s Care & trip [facility] pH_of_Urine unknown 5 unknown _5803-2 unknow n unknown Clinic _by_Test_str [facility] ip [facility] Nitrite_Pre unknown NEGATIVE unknown _5802-4 unkn own unknown Clinic sence_in_Uri Primary ne_by_Test_s Care & trip [facility] Leukocyte_e unknown MODERATE unknown _5799-2 unkn own unknown Clinic sterase_Pres Primary ence_in_Urin Care & e_by_Test_st Ancillary rip [facility] Ketones_Mas unknown NEGATIVE unknown _5797-6 unkn own unknown Clinic s_volume_in_ Primary Urine_by_Tes Care & t_strip [facility] Glucose_Mas unknown negative unknown _5792-7 unkn own unknown Clinic s_volume_in_ Primary Urine_by_Tes Care & t_strip [facility] Color_of_Ur unknown YELLOW unknown _5778-6 unknow n unknown Clinic ine [facility] Bilirubin.t unknown NEGATIVE unknown _5770-3 unkn own unknown Clinic otal_Presenc Primary e_in_Urine_b Care & y_Test_strip [facility] Appearance_ unknown hazy unknown _5767-9 unknow n unknown Clinic of_Urine [facility] clarity_uri unknown SL. CLOUDY unknown _5589 unk nown unknown Clinic ne_point [facility] pH_study_of unknown 5.0 unknown _51641 unknown unknown Clinic _acidity [facility] urinalysis_ unknown Clean Catch unknown _47 un known unknown Clinic routine [facility] glucose_uri unknown NEGATIVE unknown _3369 unkno wn unknown Clinic ne mg/dL [facility] appearance_ unknown hazy unknown _328 unknown unknown Clinic urine [facility] leukocyte_e unknown MODERATE unknown _327 unkno wn unknown Clinic sterase_urin Primary e_by_dipstic Care & k [facility] urobilinoge unknown 0.2 (NORMAL) unknown _326 u nknown unknown Clinic n_urine_semi Primary quantitative Care & _dipstick_ [facility] specific_gr unknown 1.025 unknown _325 unknown unknown Clinic avity_urine [facility] pH_urine_se unknown 5 unknown _324 unknown unknown Clinic miquantitati Primary ve Care & [facility] nitrite_uri unknown NEGATIVE unknown _323 unkno wn unknown Clinic ne_semiquant Primary itative Care & [facility] ketones_uri unknown NEGATIVE unknown _322 unkno wn unknown Clinic ne_by_test_s Primary trip Care & [facility] bilirubin_u unknown NEGATIVE unknown _319 unkno wn unknown Clinic rine [facility] urine_color unknown YELLOW unknown _2751 unknown unknown Clinic [facility] Glucose_Mas unknown NEGATIVE unknown _2350-7 unkn own unknown Clinic s_volume_in_ mg/dL Primary Urine Care & [facility] Albumin_Pre unknown trace unknown _1753-3 unknow n unknown Clinic sence_in_Uri Primary ne [facility] & [facility] RBC_urine_d unknown negative unknown _1700005 unk nown unknown Clinic ipstick [facility] Erythrocyte unknown negative unknown _13945-1 unk nown unknown Clinic s_area_in_Ur Primary ine_sediment Care & _by_Microsco Ancillary py_high_powe Services r_field [facility] glucose_uri unknown negative unknown _123 unkno wn unknown Clinic ne_semiquant Primary itative Care & [facility]illary [facility] protein_uri unknown trace unknown _118 unknown unknown Clinic ne_semiquant Primary itative_dips Care & tick_ [facility] Urine_HCG_Q unknown Yes unknown _[id number] unknow n unknown Clinic C_Result_CLI Primary A_Waived_ Care & [facility] WBC_urine_o unknown 11-25 /HPF unknown _1016 unk nown unknown Clinic n_microscopy [facility] DIPSTICK_UR unknown [id number] unknown _101400 unknow n unknown Clinic INE_STRIP_LO Primary T_NUMBER Care & [facility] WBC_URINE unknown 1125 /HPF unknown UWBC unkno wn unknown Clinic [facility] UROBILINOGE unknown 0.2 (NORMAL) unknown UUROBIL unknown unknown Clinic N_URINE [facility] SPECIFIC_GR unknown 1.025 unknown USG unknown unknown Clinic AVITY_URINE [facility] T unknown 11-25 /HPF unknown UR_WBC unknown unknown Clinic [facility] T unknown 0.2 (NORMAL) unknown UR_URO unknow n unknown Clinic [facility] T unknown 1.025 unknown UR_SG unknown unk now Clinic [facility] T unknown 5.0 unknown UR_PH unknown unk nown Clinic [facility] T unknown NEGATIVE unknown UR_NIT unknown u nknow Clinic [facility] T unknown MODERATE unknown UR_LEU_E unknown unknown Clinic STERASE [facility] T unknown NEGATIVE unknown UR_KETO_ unknown unknown Clinic UA_ [facility] T unknown NEGATIVE unknown UR_GLU unknown u nknow Clinic mg/dL [facility] T unknown YELLOW unknown UR_COLOR unknown u nknow Clinic [facility] T unknown SL. CLOUDY unknown UR_CLARI unknow n unknown Clinic TY [facility] T unknown NEGATIVE unknown UR_BILI unknown unknown Clinic [facility] PH_URINE unknown 5.0 unknown UPH unknown u nknown Clinic [facility] NITRITE_URI unknown NEGATIVE unknown UNITRITE unk nown unknown Clinic NE [facility] LEUKOCYTE_E unknown MODERATE unknown ULEUK unkno wn unknown Clinic STERASE_URIN Primary E [facility] KETONES_URI unknown NEGATIVE unknown UKET unkno wn unknown Clinic NE_UA_ [facility] GLUCOSE_URI unknown NEGATIVE unknown UGLUC unkno wn unknown Clinic NE_UA_ mg/dL [facility] COLOR_URINE unknown YELLOW unknown UCOL unknown unknown Clinic [facility] CLARITY_URI unknown SL. CLOUDY unknown UCLAR unk nown unknown Clinic NE [facility] BILIRUBIN_U unknown NEGATIVE unknown UBIL unkno wn unknown Clinic RINE [facility] COVID-19_RE unknown NEGATIVE unknown COVID19. unk nown unknown Clinic FERENCE_TEST REF [facility] T unknown NEGATIVE unknown COVID-19 unknown unknown Clinic [facility] WBC_urine_o unknown >25 /HPF unknown _5821-4 unkn own unknown Clinic n_microscopy [facility] Urobilinoge unknown 0.2 unknown _5818-0 unknow n unknown Clinic n_Presence_i Primary n_Urine_by_T Care & est_strip [facility] Specific_gr unknown 1.010 unknown _5811-5 unknow n unknown Clinic avity_of_Uri Primary ne_by_Test_s Care & trip [facility] pH_of_Urine unknown 5 unknown _5803-2 unknow n unknown Clinic _by_Test_str Primary ip Care & [facility] Nitrite_Pre unknown negative unknown _5802-4 unkn own unknown Clinic sence_in_Uri Primary ne_by_Test_s Care & trip [facility]illary [facility] Leukocyte_e unknown 3+ unknown _5799-2 unknow n unknown Clinic sterase_Pres Primary ence_in_Urin Care & e_by_Test_st Ancillary rip Services [facility] Ketones_Mas unknown negative unknown _5797-6 unkn own unknown Clinic s_volume_in_ Primary Urine_by_Tes Care & t_strip [facility]illary [facility] Glucose_Mas unknown negative unknown _5792-7 unkn own unknown Clinic s_volume_in_ Primary Urine_by_Tes Care & t_strip [facility]illary [facility] Epithelial_ unknown FEW unknown _5787-7 unknow n unknown Clinic cells_area_i Transitional Primary n_Urine_sedi Care & ment_by_Micr Ancillary oscopy_high_ Services power_field [facility] Color_of_Ur unknown yellow unknown _5778-6 unknow n unknown Clinic ine [facility] Bilirubin.t unknown negative unknown _5770-3 unkn own unknown Clinic otal_Presenc Primary e_in_Urine_b Care & y_Test_strip [facility]illary [facility] Appearance_ unknown cloudy unknown _5767-9 unknow n unknown Clinic of_Urine [facility] clarity_uri unknown CLOUDY unknown _5589 unknown unknown Clinic ne_point [facility] pH_study_of unknown 5.0 unknown _51641 unknown unknown Clinic _acidity [facility] urinalysis_ unknown Clean Catch unknown _47 un known unknown Clinic routine [facility] glucose_uri unknown NEGATIVE unknown _3369 unkno wn unknown Clinic ne mg/dL [facility] appearance_ unknown cloudy unknown _328 unknown unknown Clinic urine [facility] leukocyte_e unknown 3+ unknown _327 unknown unknown Clinic sterase_urin Primary e_by_dipstic Care & k [facility]illary [facility] urobilinoge unknown 0.2 unknown _326 unknown unknown Clinic n_urine_semi Primary quantitative Care & _dipstick_ [facility]illary [facility] specific_gr unknown 1.010 unknown _325 unknown unknown Clinic avity_urine [facility] pH_urine_se unknown 5 unknown _324 unknown unknown Clinic miquantitati Primary ve Care & [facility]illary [facility] nitrite_uri unknown negative unknown _323 unkno wn unknown Clinic ne_semiquant Primary itative Care & [facility]illary [facility] ketones_uri unknown negative unknown _322 unkno wn unknown Clinic ne_by_test_s Primary trip Care & Ancillary [facility] bilirubin_u unknown negative unknown _319 unkno wn unknown Clinic rine [facility] urine_color unknown yellow unknown _2751 unknown unknown Clinic [facility] epithelial_ unknown FEW unknown _2416 unknown unknown Clinic cells_urine Transitional [facility] Glucose_Mas unknown NEGATIVE unknown _2350-7 unkn own unknown Clinic s_volume_in_ mg/dL Primary Urine Care & Ancillary [facility] Albumin_Pre unknown trace unknown _1753-3 unknow n unknown Clinic sence_in_Uri Primary ne Care & Ancillary [facility] RBC_urine_d unknown negative unknown _1700005 unk nown unknown Clinic ipstick [facility] Erythrocyte unknown negative unknown _13945-1 unk nown unknown Clinic s_area_in_Ur Primary ine_sediment Care & _by_Microsco Ancillary py_high_powe Services r_field [facility] glucose_uri unknown negative unknown _123 unkno wn unknown Clinic ne_semiquant Primary itative Care & Ancillary [facility] protein_uri unknown trace unknown _118 unknown unknown Clinic ne_semiquant Primary itative_dips Care & tick_ Ancillary [facility] WBC_urine_o unknown >25 /HPF unknown _1016 unkno wn unknown Clinic n_microscopy [facility] DIPSTICK_UR unknown 118807 unknown _101400 unknow n unknown Clinic INE_STRIP_LO Primary T_NUMBER Care & Ancillary Services [facility] WBC_URINE unknown >25 /HPF unknown UWBC unknown unknown Clinic [facility] T unknown >25 /HPF unknown UR_WBC unknown u [facility] Primary Care [facility] Anc[facility] Services [facility] T unknown 5.0 unknown [facility] T unknown NEGATIVE unknown UR_GLU unknown u [facility] mg/dL Primary Care & Ancillary Services [facility] T unknown FEW unknown UR_EPI_O unknown u [facility] Transitional TH Primary Care & Ancillary [facility] T unknown CLOUDY unknown UR_CLARI unknown u [facility] TY [facility] Care [facility] PH_URINE unknown 5.0 unknown UPH unknown u [facility] GLUCOSE_URI unknown NEGATIVE unknown UGLUC unkno wn unknown Clinic NE_UA_ mg/dL [facility] EPITHELIAL_ unknown FEW unknown UEPI unknown unknown Clinic CELLS_UR Transitional [facility] CLARITY_URI unknown CLOUDY unknown UCLAR unknown unknown Clinic NE [facility] WBC_urine_o unknown >25 /HPF unknown _5821-4 unkn own unknown Clinic n_microscopy [facility] Urobilinoge unknown 0.2 (NORMAL) unknown _5818-0 unknown unknown Clinic n_Presence_i Primary n_Urine_by_T Care & est_strip [facility] Specific_gr unknown >=1.030 unknown _5811-5 unkno wn unknown Clinic avity_of_Uri Primary ne_by_Test_s Care & trip [facility]illary [facility] pH_of_Urine unknown 5 unknown _5803-2 unknow n unknown Clinic _by_Test_str Primary ip Care & [facility] Nitrite_Pre unknown NEGATIVE unknown _5802-4 unkn own unknown Clinic sence_in_Uri Primary ne_by_Test_s Care & trip [facility]illary [facility] Leukocyte_e unknown LARGE unknown _5799-2 unknow n unknown Clinic sterase_Pres Primary ence_in_Urin Care & e_by_Test_st Ancillary rip Services [facility] Ketones_Mas unknown NEGATIVE unknown _5797-6 unkn own unknown Clinic s_volume_in_ Primary Urine_by_Tes Care & t_strip Ancillary [facility] Glucose_Mas unknown negative unknown _5792-7 unkn own unknown Clinic s_volume_in_ Primary Urine_by_Tes Care & t_strip [facility]illary [facility] Epithelial_ unknown FEW unknown _5787-7 unknow n unknown Clinic cells_area_i Transitional Primary n_Urine_sedi Care & ment_by_Micr Ancillary oscopy_high_ Services power_field [facility] Color_of_Ur unknown YELLOW unknown _5778-6 unknow n unknown Clinic ine [facility] Bilirubin.t unknown NEGATIVE unknown _5770-3 unkn own unknown Clinic otal_Presenc Primary e_in_Urine_b Care & y_Test_strip [facility]illary [facility] Appearance_ unknown cloudy unknown _5767-9 unknow n unknown Clinic of_Urine [facility] clarity_uri unknown CLOUDY unknown _5589 unknown unknown Clinic ne_point [facility] pH_study_of unknown 5.0 unknown _51641 unknown unknown Clinic _acidity [facility] urinalysis_ unknown Clean Catch unknown _47 un known unknown Clinic routine [facility] glucose_uri unknown NEGATIVE unknown _3369 unkno wn unknown Clinic ne mg/dL [facility] appearance_ unknown cloudy unknown _328 unknown unknown Clinic urine [facility] leukocyte_e unknown LARGE unknown _327 unknown unknown Clinic sterase_urin Primary e_by_dipstic Care & k [facility]illary [facility] urobilinoge unknown 0.2 (NORMAL) unknown _326 u nknown unknown Clinic n_urine_semi Primary quantitative Care & _dipstick_ Ancillary [facility] specific_gr unknown >=1.030 unknown _325 unknow n unknown Clinic avity_urine [facility] pH_urine_se unknown 5 unknown _324 unknown unknown Clinic miquantitati Primary ve Care & Ancillary Services [facility] nitrite_uri unknown NEGATIVE unknown _323 unkno wn unknown Clinic ne_semiquant Primary itative Care & Ancillary Services [facility] ketones_uri unknown NEGATIVE unknown _322 unkno wn unknown Clinic ne_by_test_s Primary trip Care & Ancillary Services [facility] bilirubin_u unknown NEGATIVE unknown _319 unkno wn unknown Clinic rine [facility] urine_color unknown YELLOW unknown _2751 unknown unknown Clinic [facility] epithelial_ unknown FEW unknown _2416 unknown unknown Clinic cells_urine Transitional [facility] Glucose_Mas unknown NEGATIVE unknown _2350-7 unkn own unknown Clinic s_volume_in_ mg/dL Primary Urine Care & Ancillary Services [facility] Albumin_Pre unknown trace unknown _1753-3 unknow n unknown Clinic sence_in_Uri Primary ne Care & Ancillary Services [facility] RBC_urine_d unknown negative unknown _1700005 unk nown unknown Clinic ipstick [facility] Erythrocyte unknown negative unknown _13945-1 unk nown unknown [facility] s_area_in_Ur Primary ine_sediment Care & _by_[employer] Ancillary py_high_powe Services r_field [facility] glucose_uri unknown negative unknown _123 unkno wn unknown Clinic ne_semiquant Primary itative Care & Ancillary Services [facility] protein_uri unknown trace unknown _118 unknown unknown Clinic ne_semiquant Primary itative_dips Care & tick_ Ancillary Services [facility] WBC_urine_o unknown >25 /HPF unknown _1016 unkno wn unknown Clinic n_microscopy [facility] DIPSTICK_UR unknown [id number] unknown _[id number] unknow n unknown Clinic INE_STRIP_LO Primary T_NUMBER Care & Ancillary Services [facility] WBC_URINE unknown >25 /HPF unknown UWBC unknown unknown Clinic [facility] UROBILINOGE unknown 0.2 (NORMAL) unknown UUROBIL unknown unknown Clinic N_URINE [facility] SPECIFIC_GR unknown >=1.030 unknown USG unknow n unknown Clinic AVITY_URINE Primary [facility] Anc[facility] T unknown >25 /HPF unknown UR_WBC unknown u [facility] Primary Care & Ancillary Services [facility] T unknown 0.2 (NORMAL) unknown UR_URO unknow n unknown Clinic Primary [facility] T unknown >=1.030 unknown UR_SG unknown un known Clinic [facility] T unknown 5.0 unknown UR_PH unknown unk [facility] Primary Care & Ancillary Services [facility] T unknown NEGATIVE unknown UR_NIT unknown u [facility] Primary Care & Ancillary Services [facility] T unknown LARGE unknown UR_LEU_E unknown u [facility] STERASE Primary Care & Ancillary Services [facility] T unknown NEGATIVE unknown UR_KETO_ unknown unknown Clinic UA_ Primary Care & Ancillary Services [facility] T unknown NEGATIVE unknown UR_GLU unknown u [facility] mg/dL Primary Care & Ancillary Services [facility] T unknown FEW unknown UR_EPI_O unknown u [facility] Transitional TH Primary Care & Ancillary Services [facility] T unknown YELLOW unknown UR_COLOR unknown u [facility] Care & Ancillary Services [facility] T unknown CLOUDY unknown UR_CLARI unknown u [facility] TY Primary Care & Ancillary Services [facility] T unknown NEGATIVE unknown UR_BILI unknown unknown Clinic [facility] PH_URINE unknown 5.0 unknown UPH unknown u nknown Clinic [facility] NITRITE_URI unknown NEGATIVE unknown UNITRITE unk nown unknown Clinic NE Primary Care & Anc[facility] LEUKOCYTE_E unknown LARGE unknown ULEUK unknown unknown Clinic STERASE_URIN Primary E Care & Ancillary Services [facility] KETONES_URI unknown NEGATIVE unknown UKET unkno wn unknown Clinic NE_UA_ Primary Care & Ancillary Services [facility] GLUCOSE_URI unknown NEGATIVE unknown UGLUC unkno wn unknown Clinic NE_UA_ mg/dL Primary Care & Ancillary Services [facility] EPITHELIAL_ unknown FEW unknown UEPI unknown unknown Clinic CELLS_UR Transitional Primary Care & Ancillary Services [facility] COLOR_URINE unknown YELLOW unknown UCOL unknown unknown Clinic [facility] CLARITY_URI unknown CLOUDY unknown UCLAR unknown unknown Clinic NE [facility] BILIRUBIN_U unknown NEGATIVE unknown UBIL unkno wn unknown Clinic RINE Primary Care [facility] Anc[facility] Services [facility] Epithelial_ unknown FEW unknown _[id number] unknow n unknown Clinic cells_area_i Transitional Primary n_Urine_sedi Care & ment_by_Micr Ancillary oscopy_high_ Services power_field [facility] epithelial_ unknown FEW unknown _2416 unknown unknown Clinic cells_urine Transitional Primary Care & Ancillary Services [facility] T unknown FEW unknown UR_EPI_O unknown u nknown Clinic Transitional TH Primary Care & Ancillary Services [facility] EPITHELIAL_ unknown FEW unknown UEPI unknown unknown Clinic CELLS_UR Transitional Primary Care & Ancillary Services [facility] Epithelial_ unknown FEW unknown _5787-7 unknow n unknown Clinic cells_area_i Transitional Primary n_Urine_sedi Care & ment_by_Micr Ancillary oscopy_high_ Services power_field [facility] epithelial_ unknown FEW unknown _2416 unknown unknown Clinic cells_urine Transitional Primary Care & Ancillary Services [facility] T unknown FEW unknown UR_EPI_O unknown u nknown Clinic Transitional TH Primary Care & Ancillary Services [facility] EPITHELIAL_ unknown FEW unknown UEPI unknown unknown Clinic CELLS_UR Transitional Primary Care & Ancillary Services [facility] Epithelial_ unknown FEW unknown _5787-7 unknow n unknown Clinic cells_area_i Transitional Primary n_Urine_sedi Care & ment_by_Micr Ancillary oscopy_high_ Services power_field [facility] epithelial_ unknown FEW unknown _2416 unknown unknown Clinic cells_urine Transitional Primary Care & Ancillary Services [facility] T unknown FEW unknown UR_EPI_O unknown u nknown Clinic Transitional TH Primary Care & Ancillary Services [facility] EPITHELIAL_ unknown FEW unknown UEPI unknown unknown Clinic CELLS_UR Transitional Primary Care & Ancillary Services [facility] Vital Signs date measurement value source 20211114 weight_standard 168 lb 20211114 weight_metric 76.2 kg 20211114 temperature_standard 97.4 F 20211114 temperature_metric 36.33 C 20211114 respiration_rate 16 /min 20211114 height_standard 67 in 20211114 height_metric 170.18 cm 20211114 heart_rate 105 /min 20211114 BP_systolic 134 mm[Hg] 20211114 BP_diastolic 81 mm[Hg] 20211114 BMI 26.41 kg/m2 20211114 weight_standard 168 lb 20211114 weight_metric 76.2 kg 20211114 temperature_standard 97.4 F 20211114 temperature_metric 36.33 C 20211114 respiration_rate 16 /min 20211114 height_standard 67 in 20211114 height_metric 170.18 cm 20211114 heart_rate 105 /min 20211114 BP_systolic 134 mm[Hg] 20211114 BP_diastolic 81 mm[Hg] 20211114 BMI 26.41 kg/m2 20211117 weight_standard 169 lb 20211117 weight_metric 76.66 kg 20211117 temperature_standard 97.8 F 20211117 temperature_metric 36.56 C 20211117 respiration_rate 16 /min 20211117 height_standard 67 in 20211117 height_metric 170.18 cm 20211117 heart_rate 82 /min 20211117 BP_systolic 137 mm[Hg] 20211117 BP_diastolic 97 mm[Hg] 20211117 BMI 26.56 kg/m2 20211117 weight_standard 169 lb 20211117 weight_metric 76.66 kg 20211117 temperature_standard 97.8 F 20211117 temperature_metric 36.56 C 20211117 respiration_rate 16 /min 20211117 height_standard 67 in 20211117 height_metric 170.18 cm 20211117 heart_rate 82 /min 20211117 BP_systolic 137 mm[Hg] 20211117 BP_diastolic 97 mm[Hg] 20211117 BMI 26.56 kg/m2 20211117 weight_standard 169 lb 20211117 weight_metric 76.66 kg 20211117 temperature_standard 97.8 F 20211117 temperature_metric 36.56 C 20211117 respiration_rate 16 /min 20211117 height_standard 67 in 20211117 height_metric 170.18 cm 20211117 heart_rate 82 /min 20211117 BP_systolic 137 mm[Hg] 20211117 BP_diastolic 97 mm[Hg] 20211117 BMI 26.56 kg/m2 20211117 weight_standard 169 lb 20211117 weight_metric 76.66 kg 20211117 temperature_standard 97.8 F 20211117 temperature_metric 36.56 C 20211117 respiration_rate 16 /min 20211117 height_standard 67 in 20211117 height_metric 170.18 cm 20211117 heart_rate 82 /min 20211117 BP_systolic 137 mm[Hg] 20211117 BP_diastolic 97 mm[Hg] 20211117 BMI 26.56 kg/m2
--- NOTE | 2022-01-29 11:03 | ED Physician Documentation ---
PD HPI BACK PAIN - Stated complaint Stated Complaint: BACK PX - Chief complaint Chief Complaint: Back Pain - History obtained from History obtained from: Patient, EMS - History of Present Illness Timing - onset: How many days ago (has had increased back pain over baseline the past 2-3 days. SHe had been on MS Contin and recently changed to Fentanyl with oxycodone short acting. Initially 12.5 mcg patch with increase to 25 mcg 5 days ago, per Palliative care notes. Patient says pain not better.) Timing - duration: Days Timing - details: Gradual onset, Still present, Waxing and waning (improves some with home PO Oxycodone but not well improved and minimally improved with Rx doses since last night. No fall nor infjury. No new area of pain.) Location: Lower Quality: Pain, Sharp, Aching Associated symptoms: Other (constipation has been an issue.). No: Fever, Weakness, Numbness, Incontinent of urine Improves with: No: Meds (not well enough improved per pateint.) Worsened by: Movement Similar symptoms before: Diagnosis (breast CA with spine bone mets and ongoing low back pain.) Recently seen: Clinic (had visit from Palliative [facility] on 01/24/22 and prior to that (01/19/22). Is getting chemo with recent port placed left chestwall.) Review of Systems Constitutional: denies: Fever, Chills Nose: denies: Rhinorrhea / runny nose, Congestion Throat: denies: Sore throat Cardiac: denies: Chest pain / pressure, Palpitations Respiratory: denies: Dyspnea, Cough GI: reports: Constipation. denies: Abdominal Pain, Nausea, Vomiting, Diarrhea : denies: Incontinent Skin: denies: Abrasion (s), Laceration (s) Musculoskeletal: reports: Back pain. denies: Neck pain Neurologic: reports: Headache. denies: Focal weakness, Numbness, Altered mental status PD PAST MEDICAL HISTORY - Past Medical History Past Medical History: Yes Cardiovascular: Hypertension, High cholesterol Respiratory: None Neuro: Headaches Endocrine/Autoimmune: HyPOthyroidism GI: Other TAG WRITER: Breast cancer (with mets to spine/bone, brain, lung.), Other : Retention HEENT: Chronic vision loss Psych: Depression Musculoskeletal: None Derm: Other - Past Surgical History Past Surgical History: Yes General: Other Ortho: Other /TAG WRITER: Mastectomy Cardiovascular: Other - Present Medications Home Medications: Ambulatory Orders Medication Instructions Recorded Confirmed Levothyroxine [Synthroid] 88 mcg PO QDAC 11/04/19 12/13/21 Senna [Senokot] 17.6 mg PO BID PRN MDD 2-3 tab TID 12/21/21 12/21/21 titrate PRN polyethylene glycoL 3350 [Miralax] 1 PO BID MDD up to BID 12/21/21 Memantine [Namenda] MDD see below 01/06/22 Magnesium Hydroxide [Milk of 30 ml PO DAILY PRN MDD no BM in 72 01/10/22 01/10/22 Magnesia] hours Naloxone HCl Nasal [Narcan Nasal] PRN MDD use as prescribed 01/10/22 oxyCODONE [Roxicodone] 2 tab PO .Q3-4H PRN 01/10/22 01/10/22 Bisacodyl Supp [Dulcolax Supp] 1 supp SD DAILY PRN 01/20/22 01/20/22 bisacodyL [Dulcolax] 5 mg PO BID 01/20/22 01/20/22 fentaNYL [Fentanyl 25mcg patch] 12 mcg TP Q72H 01/24/22 01/24/22 - Allergies Allergies/Adverse Reactions: Allergies Allergy/AdvReac Type Severity Reaction Status Date / Time dexamethasone Allergy Rash Verified 01/29/22 10:24 - Social History Does the pt smoke?: No Smoking Status: Never smoker Does the pt drink ETOH?: No Does the pt have substance abuse?: No - Immunizations Immunizations are current?: No - POLST Patient has POLST: No POLST Status: Full Code PD ED PE NORMAL - Vitals Vital signs reviewed: Yes - General General: Alert and oriented X 3, No acute distress, Well developed/nourished - HEENT HEENT: Atraumatic - Neck Neck: Supple, no meningeal sign, No adenopathy - Cardiac Cardiac: RRR, No murmur - Respiratory Respiratory: Clear bilaterally, Other (port left chest wall with healing incision wound. No signs of infection. ) - Abdomen Abdomen: Soft, Non tender - Back Back: Other (tender lower back spine to percussion. No skin tenderness nor rash. ) - Derm Derm: Normal color, Warm and dry - Neuro Neuro: Alert and oriented X 3, No motor deficit, No sensory deficit, Normal speech Results - Vitals Vitals: Vital Signs - 24 hr 01/29/22 01/29/22 01/29/22 10:21 12:23 14:00 Temperature 36.6 C 36.6 C Heart Rate 90 85 84 Respiratory 16 16 16 Rate Blood Pressure 121/82 H 124/87 H 138/92 H O2 Saturation 96 93 98 Oxygen O2 Source Room air - Labs Labs: Laboratory Tests 01/29/22 01/29/22 11:32 11:32 WBC 3.5 L RBC 2.98 L Hgb 8.5 L Hct 27.5 L MCV 92.3 MCH 28.5 MCHC 30.9 L RDW 14.1 Plt Count 240 MPV 8.4 Neut # (Auto) Not Reportable Lymph # (Auto) Not Reportable Ida # (Auto) Not Reportable Eos # (Auto) Not Reportable Baso # (Auto) Not Reportable Absolute Nucleated RBC Not Reportable Total Counted 100 Band Neuts % (Manual) 0 Abnorm Lymph % (Manual) 0 Nucleated RBC % Not Reportable Neutrophils # (Manual) 3.3 Lymphocytes # (Manual) 0.2 L Monocytes # (Manual) 0.0 Eosinophils # (Manual) 0.0 Basophils # (Manual) 0.0 Differential Comment MANUAL DIFFERENTIAL Manual Slide Review Indicated Platelet Estimate NORMAL (130-450,000) Platelet Morphology NORMAL APPEARANCE RBC Morph Micro Appear 1+ HYPOCHROMASIA Sodium 134 L Potassium 3.6 Chloride 93 L Carbon Dioxide 27 Anion Gap 14.0 H BUN 12 Creatinine 0.6 Estimated GFR (MDRD) 99 Glucose 115 H Calcium 8.7 Magnesium 1.8 Total Bilirubin 0.8 AST 260 H ALT 66 H Alkaline Phosphatase 166 H Total Creatine Kinase 45 Total Protein 6.2 L Albumin 2.4 L Globulin 3.8 Albumin/Globulin Ratio 0.6 L Lipase 40 PD MEDICAL DECISION MAKING - ED course Complexity details: reviewed old records (Palliative Care notes 01/24/22 and 01/19/22), re-evaluated patient (Tried to contact Palliative Care but no one online marketing strategist apparent. For now, will increase her Fentanyl to 37 mcg (added 12 mcg to her existing 25 mcg). She had not been taking full Miralax dosing at home, so e ncouraged to do so. ), considered differential (ongoing back pain from bone mets, not improved with recent change/increase in Fentanyl with PO Oxycodone as well. Not much improved with additional IV doses opioids in ER, but improved fiarly well then with Ketamine 0.5 mg/kg IV.), d/w patient Departure - Departure Disposition: 01 Home, Self Care Clinical Impression: Metastatic breast cancer Chronic back pain Qualifiers: Back pain location: low back pain Back pain laterality: unspecified Sciatica presence: without sciatica Qualified Code(s): M54.50 - Low back pain, unspecified Constipation Qualifiers: Constipation type: drug induced constipation Qualified Code(s): K59.03 - Drug induced constipation Condition: Stable Record reviewed to determine appropriate education?: Yes Follow-Up: Zuleima Jules ARNP, THREAD DRAWER-BC [Provider Admit Priv/Credential] - Alena Streeter MD [Primary Care Provider] - Comments: For now I think we can just increase your fentanyl dose by combining your current 25 mcg and adding another 12 [address] place that on adjacent to your current patch. Continue with your oxycodone pain medicine as needed as well. Add Tylenol 4 times daily for the next week as well. I was not able to reach the palliative care providers on-call today but you can contact them tomorrow. Follow-up with Zuleima Jules the palliative care nurse practitioner tomorrow. Call or text as you would normally would, to be in touch with them. See if they want to have that increase to remain consistent or have alternative ideas on the pain control. Regarding your constipation, we gave a dose of lactulose here to help spur a little bit more stool softening. Be sure to fully take your MiraLAX dosings twice daily as directed along with your other stool softeners. Discharge Date/Time: 01/29/22 14:44
[2022-01-29] MEDS ORDERED: fentaNYL 100 MCG/2 ML VIAL IVP STA (11:26)
[2022-01-29] MEDS ORDERED: SODIUM CHLORIDE 0.9% 1,000 ML IV STA (11:26)
[2022-01-29] MEDS ORDERED: KETOROLAC 30 MG/ML VIAL IVP STA (11:27)
[2022-01-29 11:39] LABS: BASOPHILS % (AUTO) 0.6 %; EOSINOPHILS % (AUTO) 1.7 %; HCT - HEMATOCRIT 27.5 % (37.0-47.0); HGB - HEMOGLOBIN 8.5 g/dL (12.0-16.0); LYMPHOCYTES % (AUTO) 6.1 %; MEAN CORPUSCULAR HEMOGLOBIN 28.5 pg (27.0-31.0); MEAN CORPUSCULAR HGB CONC 30.9 g/dL (32.0-36.0); MEAN CORPUSCULAR VOLUME 92.3 fL (81.0-99.0); MEAN PLATELET VOLUME 8.4 fL (7.9-10.8); MONOCYTES % (AUTO) 0.9 %; NEUTROPHILS % (AUTO) 90.1 %; PLT - PLATELET COUNT 240 10^3/uL (130-450); RED BLOOD COUNT 2.98 10^6/uL (4.20-5.40); RED CELL DISTRIBUTION WIDTH 14.1 % (12.0-15.0); WHITE BLOOD COUNT 3.5 x10^3/uL (4.8-10.8)
[2022-01-29 11:41] LABS: SLIDE REVIEW? Indicated
[2022-01-29 11:42] LABS: ABNORMAL LYMPHS % (MANUAL) 0 %; BAND NEUTROPHILS % (MANUAL) 0 %
[2022-01-29 11:49] LABS: ALBUMIN 2.4 g/dL (3.2-5.5); ALBUMIN/GLOBULIN RATIO 0.6 (1.0-2.2); BILIRUBIN,TOTAL 0.8 mg/dL (0.2-1.0); CALCIUM 8.7 mg/dL (8.5-10.3); CREATININE 0.6 mg/dL (0.4-1.0); MAGNESIUM 1.8 mg/dL (1.7-2.8); POTASSIUM 3.6 mmol/L (3.5-5.0); TOTAL PROTEIN 6.2 g/dL (6.7-8.2)
[2022-01-29 12:28] LABS: DIFFERENTIAL COMMENT MANUAL DIFFERENTIAL; LYMPHOCYTES # (MANUAL) 0.2 10^3/uL (1.5-3.5); LYMPHOCYTES % (MANUAL) 6 %; NEUTROPHILS # (MANUAL) 3.3 10^3/uL (1.5-6.6); PLATELET ESTIMATE, MANUAL NORMAL (130-450,000) (NORMAL); PLATELET MORPHOLOGY NORMAL APPEARANCE (NORMAL); RBC MORPHOLOGY (MULTIPLE) 1+ HYPOCHROMASIA (NORMAL)
[2022-01-29] MEDS ORDERED: KETAMINE 500 MG/10 ML VIAL IVP STA (12:48)
[2022-01-29] MEDS ORDERED: fentaNYL 12 MCG PATCH TOP STA (13:34)
[2022-01-29] MEDS ORDERED: LACTULOSE 10 GM /15 ML UDC PO STA (13:43)
[2022-01-29 14:37] VITALS: BP 138/92
== END 2022-01-29 14:44 | disposition home or self-care (01) ==
LOC: EDUNIT# → ED 10:12
DX: M54.50 Low back pain, unspecified (principal); G89.29 Other chronic pain; C50.919 Malignant neoplasm of unspecified site of unspecified female breast; C78.00 Secondary malignant neoplasm of unspecified lung; C79.51 Secondary malignant neoplasm of bone; C79.31 Secondary malignant neoplasm of brain; K59.03 Drug induced constipation
CPT/HCPCS: 36415; 80053; 82550; 83690; 83735; 85025; 96374; 96375; 99284; A9270

== ENCOUNTER 2022-01-31 08:15 | Outpatient (CLI) | payer MEDICARE ==
--- NOTE | 2022-01-31 13:42 | CONSULTATION NOTE ---
Palliative Care Follow Up - Referral Referring Provider: Dr. Lidia Streeter Time of Visit: [id number] Referral setting: [facility] [place] [facility] [place]erral Reason: Pain of neoplasm/Elevated LFTs/Metastatic breast Ca - Information Sources Records reviewed: Previous records reviewed History/Review of Systems obtained from: Patient, Family (spouse, Madhav), Nursing (Mandy), Other (PHILL Wilson) Exam limitations: Clinical condition (STM impairment) - History of Present Illness Update Brief HPI Update: This is a 71-year-old female who is seen in follow-up today at the [facility] [place] [place] due to pain of neoplastic origin, anorexia, elevated LFTs and metastatic breast cancer with her spouse, Madhav present. Provider wore N95 mask. Patient had her first treatment with carbo/Gemzar last week and with pre antiemetics has not had vomiting and reduction in use of compazine suppositories. However, today with headache she is having light sensitivity and nausea related to smells that are heightened. She does have a history of pain that has been consistent to her mid thoracic spine now reporting a headache and pain at her cervical spine likely indicative of metastatic disease. She was seen in the emergency department on 01/29 due to increasing pain over the last 2 days despite transitioning and increasing her fentanyl patch to 25 mcg. In the emergency department her pain did not respond well to IV doses of opioids but did fairly improve with utilization of ketamine 0.5 mg/kilogram via IV. Her fentanyl patch was increased to 37 mcg with utilization of 12 mcg and 25 mcg patch congruently. The patient's spouse has been giving oxycodone almost [id number] every 4 hours at 10 mg. The patient today reports that she is feeling poorly and was questioning coming in for her appointment given her pain and poor functional status. She continues to overall maintain hydration with water, tea, green tea and milk. However, she has minimal oral intake with solids only having a few bites of oatmeal yesterday and chicken noodle soup. She was seen by podiatrist last week in the [facility] [place]. With her headache, she denies visual changes such as blurred vision or double vision. She reports today that she has had a headache since her radiation to the brain that has "never quite gone away" but it has escalated over the last 2 to 3 days. She does have a tunneled catheter placed for a malignant left pleural effusion. Spouse waited to drain the port for 5 days and only received 50 mL after 5 days that is no longer blood-tinged and is light yellow in color. Patient denies any increase shortness of breath. She has been battling constipation but with routine Dulcolax has had more bowel regularity with last bowel movement on Sunday. 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, brain mets and liver mets since 11/07/2021; tunneled Pleurx pleural catheter placed 01/02/2022, depression, urinary retention, right mastectomy March 2020, previous history of alcohol dependence, hypothyroidism Social History - Living Situation Living arrangement: At home Living Situation: With spouse/s.o., With family (son) Medications/Allergies - Medications Home Medications: Ambulatory Orders Medication Instructions Recorded Confirmed Levothyroxine [Synthroid] 88 mcg PO QDAC 11/04/19 12/13/21 Senna [Senokot] 17.6 mg PO BID PRN MDD 2-3 tab TID 12/21/21 12/21/21 titrate PRN polyethylene glycoL 3350 [Miralax] 1 PO BID MDD up to BID 12/21/21 Memantine [Namenda] MDD see below 01/06/22 Magnesium Hydroxide [Milk of 30 ml PO DAILY PRN MDD no BM in 72 01/10/22 01/10/22 Magnesia] hours Naloxone HCl Nasal [Narcan Nasal] PRN MDD use as prescribed 01/10/22 oxyCODONE [Roxicodone] 3 tab PO .Q3-4H PRN 01/10/22 01/10/22 Bisacodyl Supp [Dulcolax Supp] 1 supp LA DAILY PRN 01/20/22 01/20/22 bisacodyL [Dulcolax] 5 mg PO BID 01/20/22 01/20/22 fentaNYL [Fentanyl 25mcg patch] 50 mcg TP Q72H 01/24/22 01/24/22 - Allergies Allergies/Adverse Reactions: Allergies Allergy/AdvReac Type Severity Reaction Status Date / Time dexamethasone Allergy Rash Verified 01/29/22 10:24 Review of Systems - Constitutional Constitutional: reports: Fatigue, Poor appetite (see HPI), Weight loss (today weight 72.2kg 01/24/22). denies: Fever - Eyes Eyes: reports: Corrective lenses - Cardiovascular Cardiovascular: reports: Exertional dyspnea. denies: Chest pain, Edema - Respiratory Respiratory: reports: Other (Left pleural catheter, Aspire, and drained 30mL last night and spouse draining every 2 days appx presently). denies: Cough, Wheezing, SOB at rest - Gastrointestinal Gastrointestinal: reports: Constipation, Nausea, Poor appetite, Early satiety - Musculoskeletal Musculoskeletal: reports: Back pain, Assistive devices (walker in the home. They just got a wheelchair to use for long distances.) - Integumentary Integumentary: reports: Other (Hair loss). denies: Rash - Neurological Neurological: reports: General weakness, Memory problems - Psychiatric Psychiatric: reports: Depression - Endocrine Endocrine: reports: Hypothyroidism - All Other Systems All Other Systems: reports: Reviewed and negative (supplemented by spouse, Madhav) Physical Exam - Physical Exam General Appearance: positive: Alert, Moderate distress (grimacing and attempting to get comfortable in MAC recliner), Cachetic, Other (+muscle wasting noted) Eyes Bilateral: positive: Normal inspection ENT: positive: No signs of dehydration Neck: positive: No JVD, Trachea midline Cardiovascular: positive: Regular rate & rhythm Respiratory: positive: No respiratory distress, Rales (LLL), Other (Aspira drain in place left chestwall) Abdomen: positive: Non-tender, Soft, Nml bowel sounds. negative: Distended Skin: positive: Pallor Extremities: positive: No pedal edema Neurologic/Psychiatric: positive: Oriented x3 (+STM impairment with recall and is supported by spouse), Weakness, Other (Irritable today due to pain) Comments/Other: VS per chart in [facility] [place] Palliative Care - POLST Patient has POLST: No Pain: Pain worsening (pain to mid-thoracic spine, cervical spine and headache. Increase fentanyl by 50% to 50mcg patch and increase oxycodone to 15mg every 3- 4hours) Tiredness/Fatigue: Severe (7-10) Drowsiness/Sedation: Severe (7-10) Nausea: Moderate (4-6) Anorexia: Severe (7-10) Dyspnea: Severe (7-10) Depression: Severe (7-10) Anxiety: Severe (7-10) Feelings of wellbeing/Perceived Quality of Life: Poor, Worsening Constipation: Opoid induced, Managed, Intermittent constipation - Palliative Care Discussion: Patient is having escalating pain to thoracic spine, cervical spine as well as headaches without visual changes. In light of the patient's escalating pain will increase her fentanyl by 50% to 50 mcg patch and patient spouse to utilize to 25 mcg patches within the home and new Rx for 50 mcg patch sent to pharmacy. Given dose increase will also increase patient's oxycodone to cover 10% for breakthrough dose at 15 mg of oxycodone every 3-4 hours and advised the patient spouse to continue to record. Discussed will likely need to further titrate the patient's fentanyl patch to get ahead of her pain and will likely be making these changes again swiftly with patient and spouse recognizing and verbalizing understanding. Given the patient's having escalating pain and spouse has oxycodone from home was given 15 mg within the clinic and after approximately 30 minutes during this visit the patient visibly had reduction in pain that was also verbalized. Concern regarding the patient's escalating pain and elevation of liver enzymes that she may be having disease progression. Discussion was had with patient's oncologist, Dr. Streeter as well as PHILL Jacobsen, Chemotherapy to be held this week and reassess. May consider discussion with palliative radiation in the future if oncologist deems this may be assistive in the future. Presently the pain is overwhelming the patient and she does not find that this is "a way to live." Results - Lab Results Lab results reviewed: Yes Lab and Imaging Results: Labwork 01/31/22 Impression and Recommendations - Palliative Care Impression: This is a 71-year-old female with history of right breast cancer infiltrating ductal carcinoma diagnosed in 2019 now with metastatic cancer involving brain metastases, bony mets, liver mets, and malignant left pleural effusion with escalating pain of neoplastic origin specifically to her thoracic spine, cervical spine and headache and transaminitis. Increase fentanyl patch to 50 mcg every 72 hours beginning today. Increase oxycodone to 15 mg every 3-4 hours as needed for breakthrough pain. Palliative care will continue to provide care coordination, pain and symptom management as well as anticipatory guidance. Recommendations/Counseling Done: 1. Pain of neoplastic origin with bony metastases. Patient with thoracic and cervical spinal pain as well as headache, escalating pain. Increase fentanyl by 50% to 50 mcg patch apply every 72 hours with new Rx for 5 patches sent to [email or web address] in [place] per spouse's request. Expect will likely need further dose titration of fentanyl in the near future and set this expectation with patient and spouse. Increase oxycodone to 15 mg every 3-4 hours for 10% of of total daily dose of MDD. Patient prefers oxycodone 5 mg tablets for ease of swallowing. Narcan in the home. Continue to monitor and adjust pain regimen based on the patient's response. 2. Nausea due to chemotherapy and malignancy. Requested that 4 mg IV Zofran be administered today with positive response. 3. Left malignant pleural effusion. Has tunneled catheter in place. Continues with minimal output. Patient is not bothered by sutures however, given pain level today patient does not wish to have sutures removed and will present to the home tomorrow for reevaluation and removal of sutures. 4. Transaminitis, unclear etiology with concern for disease progression vs chemotherapy. Oncology aware and chemotherapy held today. 5.Metastatic breast cancer. Followed by oncology. 6. Advance care planning. Patient does not have a POLST and previously has been optimistic regarding toleration of chemotherapy and longevity. Given the patient's escalating pain, transmellitus, and functional status are all concerning for disease progression and will need to further develop and explore goals of care and expectations. Patient would be appropriate for hospice. Total time spent 45 minutes with greater than 50% is spent in counseling coronation of care with the patient, spouse, oncology team; review of lab work; review of pain medication and titration; symptom management; supportive listening and anticipatory guidance. Disclaimer: The chart note was formulated using voice recognition technology and unfortunately sound alike errors may occur.
== END 2022-01-31 08:16 | disposition home or self-care (01) ==
LOC: PC 08:15
PROVIDERS: ATTEND Nurse Practitioner Family
DX: Z51.5 Encounter for palliative care (principal); G89.3 Neoplasm related pain (acute) (chronic); R51.9 Headache, unspecified; C79.51 Secondary malignant neoplasm of bone; C50.911 Malignant neoplasm of unspecified site of right female breast; C78.7 Secondary malignant neoplasm of liver and intrahepatic bile duct; C78.02 Secondary malignant neoplasm of left lung; C78.01 Secondary malignant neoplasm of right lung; J91.0 Malignant pleural effusion; C79.31 Secondary malignant neoplasm of brain; R11.0 Nausea; T45.1X5A Adverse effect of antineoplastic and immunosuppressive drugs, initial encounter; R74.01 Elevation of levels of liver transaminase levels; Z79.899 Other long term (current) drug therapy; Z79.891 Long term (current) use of opiate analgesic; R63.0 Anorexia; R63.4 Abnormal weight loss; R53.1 Weakness; R53.83 Other fatigue; R06.09 Other forms of dyspnea; F32.A Depression, unspecified; F41.9 Anxiety disorder, unspecified; K59.03 Drug induced constipation; T40.2X5A Adverse effect of other opioids, initial encounter; Z96.89 Presence of other specified functional implants; Z17.1 Estrogen receptor negative status [ER-]
CPT/HCPCS: 99215

== ENCOUNTER 2022-02-01 13:10 | Outpatient (CLI) | payer MEDICARE ==
--- NOTE | 2022-02-01 17:58 | CONSULTATION NOTE ---
Palliative Care Follow Up - Referral Referring Provider: Dr. Lidia Streeter Time of Visit: [id number] Referral setting: Home Referral Reason: Pain of neoplasm/Constipation/Malignant pleural effusion - Information Sources Records reviewed: Previous records reviewed History/Review of Systems obtained from: Patient, Family (spouse, Madhav) Exam limitations: Clinical condition (STM impairment) - History of Present Illness Update Brief HPI Update: This is a 71-year-old female who was seen in follow-up today in her home due to pain of neoplastic origin, constipation, and malignant pleural effusion with catheter in place with spouse, Madhav present. Provider wore N95 mask. Yesterday, the patient was experiencing escalating pain specifically located to her cervical spine, mid thoracic spine, and a headache without visual changes. She reports that she has been having headaches since radiation that have "never quite gone away" but headache had worsened with sensitivity to light and sound. Yesterday, her fentanyl patch was increased from 37 mcg to 50 mcg every 72 hours and her oxycodone was changed to 15 mg every 3-4 hours as needed for breakthrough pain. She has had significant reduction in her overall pain. She still reports a headache noted between her eyes without blurred vision or double vision. She no longer has report of pain to her cervical spine. She continues to have pain to her mid thoracic spine in the setting of bony metastases however, this is significantly improved now rating 5-6 out of 10 for pain scale. She has been taking intermittently 650 mg of Tylenol with minor relief. Last bowel movement was on Sunday. She has been unable to complete her MiraLAX twice daily dosing. Therefore, would recommend increasing Dulcolax 5 mg to 3 times daily dosing. She does have a pleural tunneled catheter for malignant left pleural effusion. Today, spouse accessed and drain approximately 10 mL of fluid that has trace blood-tinged and light yellow in coloring. Patient has not had any increase shortness of breath. She did consume one third of her breakfast this morning which was "too in whole." She has not had any nausea or vomiting. She continues to have sensitivity to smell. 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 Social History - Living Situation Living arrangement: At home Living Situation: With spouse/s.o., With family (son) Support System: Patient her spouse, Madhav had lived on and off [facility] since the . They have been for 50 years. They have 2 sons, 1 sons live with them. They have 3 grandchildren. They have 1 dog, Madison who is a pisano retriever in the home as well as a cat, sender. Medications/Allergies - Medications Home Medications: Ambulatory Orders Medication Instructions Recorded Confirmed Levothyroxine [Synthroid] 88 mcg PO QDAC 11/04/19 12/13/21 Senna [Senokot] 17.6 mg PO BID PRN MDD 2-3 tab TID 12/21/21 12/21/21 titrate PRN polyethylene glycoL 3350 [Miralax] 1 PO BID MDD up to BID 12/21/21 Memantine [Namenda] MDD see below 01/06/22 Magnesium Hydroxide [Milk of 30 ml PO DAILY PRN MDD no BM in 72 01/10/22 01/10/22 Magnesia] hours Naloxone HCl Nasal [Narcan Nasal] PRN MDD use as prescribed 01/10/22 oxyCODONE [Roxicodone] 3 tab PO .Q3-4H PRN 01/10/22 01/10/22 Bisacodyl Supp [Dulcolax Supp] 1 supp NE DAILY PRN 01/20/22 01/20/22 bisacodyL [Dulcolax] 5 mg PO TID 01/20/22 01/20/22 fentaNYL [Fentanyl 25mcg patch] 50 mcg TP Q72H 01/24/22 01/24/22 - Allergies Allergies/Adverse Reactions: Allergies Allergy/AdvReac Type Severity Reaction Status Date / Time dexamethasone Allergy Rash Verified 01/29/22 10:24 Review of Systems - Constitutional Constitutional: reports: Fatigue, Poor appetite (is drinking water, apple juice, milk), Weight loss (today weight 72.2kg 01/24/22). denies: Fever - Eyes Eyes: reports: Corrective lenses. denies: Blurred vision, Dipolpia - Cardiovascular Cardiovascular: reports: Exertional dyspnea. denies: Chest pain, Edema - Respiratory Respiratory: reports: Other (Left pleural catheter, Aspire, and drained 30mL last night and spouse draining every 2 days appx presently). denies: Cough, SOB at rest - Gastrointestinal Gastrointestinal: reports: Constipation (see HPI), Poor appetite, Early satiety. denies: Abdominal pain, Nausea, Vomiting - Musculoskeletal Musculoskeletal: reports: Back pain, Assistive devices (walker in the home. They just got a wheelchair to use for long distances.) - Integumentary Integumentary: reports: Other (Hair loss). denies: Rash - Neurological Neurological: reports: General weakness, Headache, Dizziness, Memory problems - Psychiatric Psychiatric: reports: Depression - Endocrine Endocrine: reports: Hypothyroidism - All Other Systems All Other Systems: reports: Reviewed and negative (supplemented by spouse, Madhav) Physical Exam - Vital Signs Temperature: 36.3 C Pulse Rate: 83 O2 Saturation: 93 (on RA) Blood Pressure: 105/74 - Physical Exam General Appearance: positive: No acute distress, Alert, Other (well groomed, muscle wasting noted) Eyes Bilateral: positive: Normal inspection, PERRL, Other (+corrective lenses in place) ENT: positive: No signs of dehydration Neck: positive: Trachea midline Cardiovascular: positive: Regular rate & rhythm, No murmur Respiratory: positive: No respiratory distress, Rales (LLL), Other (Aspira drain in place to left chestwall, removed 3 sutures today from site) Abdomen: positive: Non-tender, Soft, Nml bowel sounds. negative: Distended Skin: positive: Pallor Extremities: positive: No pedal edema Neurologic/Psychiatric: positive: Oriented x3 (+STM impairment with recall and supported by spouse), Mood/affect nml, Weakness Palliative Care - POLST Patient has POLST: No Pain: Pain improved (Improved with 50% increase of fentanyl to 50mcg patch and oxycodone 15mg every 3-4h as needed for pain.) Nausea: None Anorexia: Severe (7-10) Dyspnea: Moderate (4-6) Constipation: Yes, Opoid induced, Managed - Palliative Care Discussion: Patient was having escalating pain due to pain of neoplastic origin and yesterday, fentanyl patch was increased by 50% to 50 mcg patch to be changed every 72 hours as well as oxycodone 15 mg every 3-4 hours which the patient is taking fairly consistently approximately every 3 hours. She has had significant improvement in her pain and able to return to baseline function which has significantly deteriorated since her initial diagnosis of metastatic breast cancer. We reviewed today with the patient and spouse the reason behind her chemotherapy being held due to elevated liver enzymes that may be due to chemotherapy or evidence of disease progression. Patient and spouse remain optimistic that patient will be able to have her cancer treated. She is looking for longevity and does not appear to be open to further discussion regarding prognosis to day. Results - Lab Results Lab results reviewed: Yes Lab and Imaging Results: 01/31/2022 Sodium 132, potassium 3.6, BUN 13, creatinine 0.6, estimated GFR 99, glucose 95, AST 322, ALT 111, alk phos 211, albumin 2.6, CA 15-3 antigen 156.6 Impression and Recommendations - Palliative Care Impression: This is a 71-year-old female with a history of right breast cancer infiltrating ductal carcinoma diagnosed in 2019 now with metastatic breast cancer, triple negative with pain of neoplastic origin specifically to her thoracic spine, constipation, and malignant left pleural effusion. Responded well to dose increase of fentanyl patch for escalating pain. Functional status has improved. Would benefit from bowel titration of Dulcolax to 5 mg 3 times daily. If no bowel movement today to administer milk of magnesia on 02/02/2022. Palliative care will continue to provide care coordination, pain and symptom management as well as anticipatory guidance. Recommendations/Counseling Done: 1. 1. Pain of neoplastic origin with bony metastases. Improved. Continue fentanyl 50 mcg patch apply every 72 hours presently using 225 mcg patches to equal 50 mcg patch. Anticipate may need to titrate further in the near future for pain management. Continue oxycodone 15 mg every 3-4 hours. Patient prefers oxycodone 5 mg tablets for ease of swallowing. Neurcaine in the home. Continue to monitor and adjust pain regimen based on the patient's response. 2. Left malignant pleural effusion. Has tunneled catheter in place. Continues with minimal output. Sutures removed today and dressing replaced. We will need to continue to follow closely and follow-up with IR to determine when catheter may need to be removed based on output. 3. Constipation, sedentary lifestyle and opioid therapy contributing. Increase Dulcolax to 5 mg 3 times daily. Strongly encouraged MiraLAX 1 cap twice daily and to fully consume. If no bowel movements today advised to administer milk of magnesia 30 mL on 02/02/2022 and patient and spouse are aware. 4. Metastatic breast cancer, triple negative. Chemotherapy held this week due to transaminitis. Follow-up with oncology on 02/07 as scheduled. 5. Advanced care planning. Patient does not have a POLST in place and continues to remain optimistic regarding along the [place] with chemotherapy. We will make oncologist aware regarding the use of patient and spouse and plan to follow-up after oncology visit on 02/07. Continue to build rapport and explore goals of care and assist with expectations. Total time spent 60 minutes with greater than 50% of the spent in counseling coronation of care with the patient and spouse; review of pain medication and management; symptom management; suture removal and dressing of pleural catheter; examination of patient; supportive listening and anticipatory guidance. Disclaimer: The chart note was formulated using voice recognition technology and unfortunately sound alike errors may occur.
== END 2022-02-01 13:11 | disposition home or self-care (01) ==
LOC: PC 13:10
PROVIDERS: ATTEND Nurse Practitioner Family
DX: Z51.5 Encounter for palliative care (principal); G89.3 Neoplasm related pain (acute) (chronic); C50.919 Malignant neoplasm of unspecified site of unspecified female breast; C79.51 Secondary malignant neoplasm of bone; J91.0 Malignant pleural effusion; K59.03 Drug induced constipation; T40.2X5A Adverse effect of other opioids, initial encounter; R63.0 Anorexia; Z97.8 Presence of other specified devices
CPT/HCPCS: 99350

== ENCOUNTER 2022-02-07 11:25 | Outpatient (CLI) | payer MEDICARE ==
--- NOTE | 2022-02-07 14:45 | CONSULTATION NOTE ---
Palliative Care Follow Up - Referral Referring Provider: Dr. Lidia Streeter Time of Visit: [id number] Referral setting: [facility] Referral Reason: Pain of neoplasm/Constipaton/Anorexia and nausea - Information Sources Records reviewed: Previous records reviewed History/Review of Systems obtained from: Patient, Family (spouse, Madhav) Exam limitations: Clinical condition (STM impairment) - History of Present Illness Update Brief HPI Update: This is a 71-year-old female who was seen in follow-up today at [facility] due to pain of neoplastic origin, constipation, anorexia nausea with her spouse, Madhav present. Provider wore N95 mask. The patient continues to a experience pain to her mid thoracic spine in the setting of bony metastases. She has had improvement since her fentanyl patch was increased to 50 mcg. However, she is utilizing 15 mg of oxycodone approximately 6 times per day equating to 90 mg of oxycodone in addition to 50 mcg of fentanyl patch. Spouse last change the fentanyl patch yesterday. Spouse notes that after the patch is changed that day and the next day the patient's pain seems to be well controlled but on the third day it is not as well controlled. She had a tiring and fatiguing weekend and "slept the weekend away." She was unable to meet with friends who wished to come. She has been having difficulty with defecation. She is passing flatus. Denies any abdominal pain. She continues with minimal oral intake overall and is status post nutritional consult. Today, she is receiving IV hydration due to hypotension and nausea, vomiting and anorexia. She is unable to utilize dexamethasone due to a reported allergy with diffuse rash. Spouse is administering Compazine suppository typically twice per day. Last week, Zyprexa 5 mg was ordered to be given nightly however, this was not ready and the patient has not gone back to the pharmacy to pick it up to initiate. Last bowel movement was on Sunday after administration of Dulcolax suppository. Patient has minimal intake of MiraLAX to the point that likely she is not can see me much of the medication. To try to transition to Colace however, the patient only tried once and was unable to swallow the pills. She is taking Dulcolax 5 mg 3 times a day, most days per the spouse's report. Last week the patient was having headaches with sensitivity to light and smells. No longer having any sensitivity to smells and sensitivity light has significantly reduced. Last week her chemotherapy was held due to Transaminitis which has significantly improved on lab work today and is moving forward with carbo and gemcitabine today. 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 Social History - Living Situation Living arrangement: At home Living Situation: With spouse/s.o., With family Support System: Patient her spouse, Madhav had lived on and off [facility] since the 1970s. They have been for 50 years. They have 2 sons, 1 sons live with them. They have 3 grandchildren. They have 1 dog, Madison who is a pisano retriever in the home as well as a cat, sender. Spouse has built a ramp at the house to utilize the wheelchair for the patient to enter and exit the home with ease. Medications/Allergies - Medications Home Medications: Ambulatory Orders Medication Instructions Recorded Confirmed Levothyroxine [Synthroid] 88 mcg PO QDAC 11/04/19 12/13/21 Senna [Senokot] 17.6 mg PO BID PRN MDD 2-3 tab TID 12/21/21 12/21/21 titrate PRN polyethylene glycoL 3350 [Miralax] 1 PO BID MDD up to BID 12/21/21 Memantine [Namenda] MDD see below 01/06/22 Magnesium Hydroxide [Milk of 30 ml PO DAILY PRN MDD no BM in 72 01/10/22 01/10/22 Magnesia] hours Naloxone HCl Nasal [Narcan Nasal] PRN MDD use as prescribed 01/10/22 oxyCODONE [Roxicodone] 3 tab PO .Q3-4H PRN 01/10/22 01/10/22 Bisacodyl Supp [Dulcolax Supp] 1 supp CA DAILY PRN 01/20/22 01/20/22 bisacodyL [Dulcolax] 5 mg PO TID 01/20/22 01/20/22 fentaNYL [Fentanyl 25mcg patch] 62 mcg TP Q72H MDD use 50mcg and 01/24/22 01/24/22 12mcg patch OLANZapine [Zyprexa] 5 mg PO QPM 02/02/22 02/02/22 Docusate Sodium 100Mg Capsule 100 mg PO BID 02/07/22 02/07/22 [Colace 100Mg Capsule] - Allergies Allergies/Adverse Reactions: Allergies Allergy/AdvReac Type Severity Reaction Status Date / Time dexamethasone Allergy Rash Verified 01/29/22 10:24 Review of Systems - Constitutional Constitutional: reports: Fatigue, Poor appetite, Weight loss (weight 02/07/22 72.2kg). denies: Fever - Eyes Eyes: reports: Corrective lenses - Ears, Nose & Throat Ears, Nose & Throat: denies: Hearing aids - Cardiovascular Cardiovascular: reports: Exertional dyspnea. denies: Chest pain - Respiratory Respiratory: reports: SOB with exertion, Other. denies: SOB at rest (left pleural catheter with Aspire; drained 20ML on Sunday) - Gastrointestinal Gastrointestinal: reports: Constipation (see HPI), Nausea, Vomiting, Poor appetite, Early satiety. denies: Abdominal pain - Genitourinary Genitourinary: denies: Dysuria - Musculoskeletal Musculoskeletal: reports: Back pain, Assistive devices (using walker for short distances and w/c for long distances) - Integumentary Integumentary: reports: Other (Alopecia) - Neurological Neurological: reports: General weakness, Headache (improved, see HPI), Dizziness, Memory problems - Psychiatric Psychiatric: reports: Depression - Endocrine Endocrine: reports: Hypothyroidism - All Other Systems All Other Systems: reports: Reviewed and negative (ROS supplemented by spouse, Madhav) Physical Exam - Vital Signs Pulse Rate: 77 Respiratory Rate: 14 Blood Pressure: 89/53 - Physical Exam General Appearance: positive: No acute distress, Alert, Other (ill appearing, muscle wasting noted) Eyes Bilateral: positive: Normal inspection, Other ENT: positive: No signs of dehydration Neck: positive: Trachea midline Cardiovascular: positive: Regular rate & rhythm, No murmur Respiratory: positive: No respiratory distress, Rales (LLL), Other (Aspira drain in place to left chest wall) Abdomen: positive: Non-tender, Soft, Nml bowel sounds. negative: Distended Skin: positive: Pallor Extremities: positive: No pedal edema Neurologic/Psychiatric: positive: Oriented x3 (+STM impairment with recall and supported by spouse), Mood/affect nml, Weakness Palliative Care - POLST Patient has POLST: No Pain: Comment (Initially improved with fentanyl increase but given use of 90mg of oxycodone per day will increase fentanyl patch to 62mcg every 72hours. Pain now 5/10, improved from 8/10) Tiredness/Fatigue: Moderate (4-6) Drowsiness/Sedation: Moderate (4-6) Nausea: Mild (1-3) Anorexia: Severe (7-10) Dyspnea: Moderate (4-6) Depression: Moderate (4-6) Anxiety: Moderate (4-6) Feelings of wellbeing/Perceived Quality of Life: Acceptable Sleep: Sleeps well Constipation: Opoid induced, Managed, Intermittent constipation - Palliative Care Discussion: Patient has had improvement of her pain since increase of fentanyl patch by 50% to 50 mcg however, there appears to be some evidence of end of dose failure and she is utilizing 90 mg of oxycodone most days. Therefore, appropriate to increase her fentanyl patch by 50% and will increase to 62 mcg to be changed every 72 hours and continue oxycodone 15 mg every 3-4 hours. Will reassess altering the patch to be every 48 hours based on the patient's response. The patient is pleased today that she is able to receive her chemotherapy as last week it was held due to elevated liver enzymes. In review with the patient and spouse today they recognize that the treatment the patient is getting is not curative in nature but supportive in managing the patient's metastatic disease. The patient wants to have the opportunity to continue with chemotherapy as she "does not want to give up the fight." Discussed with the patient that every day she presents for infusions as a new day to make a decision based on how she is feeling which way she wishes to proceed and all parties are present to support her decision making. Discussed that if there is a point that she no longer wishes to move forward with chemotherapy based on her symptoms and desire of focus that it is not about giving up hope but shifting and pivoting the type of care that she is receiving. Patient and spouse recognize all of the above and were able to receive with empathetic and supportive listening. Results - Lab Results Lab results reviewed: Yes Lab and Imaging Results: 01/31/2022 Sodium 132, potassium 3.6, BUN 13, creatinine 0.6, estimated GFR 99, glucose 95, AST 211, ALT 111, alk phos 211, albumin 2.6, CA 15-3 antigen 156.6 02/07/2022 Sodium 135, potassium 3.8, BUN 11, creatinine 0.7, estimated GFR 83, glucose 89, calcium 9.1, AST 40, ALT 32, ALK phos 167, albumin 2.5 Impression and Recommendations - Palliative Care Impression: This is a 71-year-old female with a history of right breast cancer infiltrating ductal carcinoma diagnosed in 2019 now with metastatic breast cancer, triple negative with pain of neoplastic origin specifically to her sick spine, constipation and improved transminitis.Initially responded well to dose increase of fentanyl patch for escalating pain and would benefit from further dose adjustment to 62 mcg patch every 72 hours. Continues to have difficulty with bowel regimen given her anorexia and nausea and difficulty swallowing medications due to her longstanding history and not due to dysphagia. Introduced initiation of Colace 100 mg twice daily and continue Dulcolax 5 mg 3 times daily. Palliative care will continue provide care coordination, pain and symptom management as well as anticipatory guidance. Recommendations/Counseling Done: 1. Pain of neoplastic origin with bony metastases. Increase fentanyl patch to 62 mcg every 72 hours utilizing 50 mcg and 12 mcg patch. Rx for 50 mcg patch sent to [facility] in [place]. Anticipate may need to trial every 48 hours for patch change due to end of dose failure. Set expectations with patient and spouse regarding dose titration and to not preemptively remove the patch prior to 72 hours for risk of running out of medication and leading to uncontrolled pain with understanding verbalized. Continue oxycodone 15 mg every 3-4 hours. Patient prefers oxycodone 5 mg tablets for ease of swallowing. Narcan in the home. Continue to monitor and adjust pain regimen based on the patient's response. 2. Anorexia due to metastatic breast cancer and chemotherapy. Has not tolerated oral antiemetics as they have not been effective. Continue with Compazine rectal suppository at least twice per day as needed. Did initiate Zyprexa 5 mg in the evening for nausea management however, this has not been picked up and begun advised to begin this evening once medication is picked up. Continue to encourage small frequent meals throughout the day that are high in protein. Status post nutritional consult in [facility]. 3. Hypotension in the setting of poor oral intake as noted above. To receive weekly IV hydration with IV hydration today. 4. Sedentary lifestyle contributing due to advanced age., Sedentary lifestyle and opioid therapy contributing. Continue Dulcolax 5 mg 3 times daily. Imelda ortiz encouraged MiraLAX 1 cap twice a day and to initiate Colace 100 mg twice daily. Advised to administer Dulcolax suppository this evening as patient's last bowel movement was on Sunday. Does have milk of magnesia available within the home to administer however, difficult for the patient to take due to her nausea. 5. Metastatic breast cancer, triple negative. Chemotherapy is moving forward today as has had improvement of transaminitis. Continue follow-up with oncology as scheduled. 6. Advanced care planning. Patient does not have a POLST in place. Lengthy discussion was had to day with patient and spouse regarding expectations and recognize that given the stage of cancer the patient has that it is not curable but they are hopeful regarding having palliative chemotherapy to extend time and improve quality of life. The patient does not wish to "give up the fight" at the present time. Please see palliative care discussion for further details. We will need to continue to build rapport And further explore goals of care moving forward and tease out expectations and provide support to both the patient and spouse. Presently, due to some cognitive impairment with the patient's after radiation due to brain metastases the patient heavily relies on her spouse for medication management, meal prep, and assistance with navigation of the healthcare system and both would benefit from continued support from palliative care for navigation. Total time spent 50 minutes with greater than 50% of the spent in counseling and coordination of care with the patient, spouse, and CARMINA Hutchinson at [facility]; review of pain and symptom management; review of lab work; exploration of goals of care; and anticipatory guidance. Disclaimer: The chart note was formulated using voice recognition technology and unfortunately sound alike errors may occur.
== END 2022-02-07 11:26 | disposition home or self-care (01) ==
LOC: PC 11:25
PROVIDERS: ATTEND Nurse Practitioner Family
DX: Z51.5 Encounter for palliative care (principal); G89.3 Neoplasm related pain (acute) (chronic); C50.911 Malignant neoplasm of unspecified site of right female breast; C79.51 Secondary malignant neoplasm of bone; C79.31 Secondary malignant neoplasm of brain; C78.7 Secondary malignant neoplasm of liver and intrahepatic bile duct; C78.02 Secondary malignant neoplasm of left lung; C78.01 Secondary malignant neoplasm of right lung; R63.0 Anorexia; I95.89 Other hypotension; R06.00 Dyspnea, unspecified; K59.00 Constipation, unspecified; F32.A Depression, unspecified; J91.0 Malignant pleural effusion
CPT/HCPCS: 99215

== ENCOUNTER 2022-02-08 01:24 | Outpatient (CLI) | payer MEDICARE | END 2022-02-08 01:25 | disposition critical access hospital (66) | LOC: EMS 01:24 | DX: R41.0 Disorientation, unspecified (principal); R09.89 Other specified symptoms and signs involving the circulatory and respiratory systems; R23.0 Cyanosis; R32 Unspecified urinary incontinence; R39.89 Other symptoms and signs involving the genitourinary system | CPT/HCPCS: A0425; A0429 ==

== ENCOUNTER 2022-02-08 01:52 | Emergency (ER) | payer MEDICARE ==
--- OUTSIDE RECORDS SUMMARY | 2022-02-08 02:10 | EXTERNAL MEDICAL SUMMARY RPT | Continuity of Care Document ---
:1950 Author Organization [facility] Address [address] [place] [address] Phone Care Team Providers Name Role Phone PAUsha Unavailable Unavailable MD Unavailable Unavailable OR Unavailable Unavailable RN Unavailable Unavailable Registrar Unavailable Unavailable Adeel Unavailable Unavailable Allergies No information. Encounters No information. Medications date description facility [id number] polyethylene glycol [facility] 20220118 magnesium hydroxide [facility] [id number] bupropion hcl [facility] [id number] levothyroxine [facility] [phone] atorvastatin [facility] [phone] citalopram [facility] [id number] meloxicam [facility] [phone] bupropion hcl [facility] [id number] levothyroxine [facility] [phone] atorvastatin [facility] [id number] citalopram [facility] [phone] meloxicam [facility] [id number] bupropion hcl [facility] [phone] levothyroxine [facility] [id number] atorvastatin [facility] [id number] citalopram [facility] [id number] meloxicam [facility] [phone] bupropion hcl [facility] [id number] levothyroxine [facility] [phone] atorvastatin [facility] [id number] citalopram [facility] [id number] meloxicam [facility] 20211114 bupropion hcl [facility] [id number] levothyroxine [facility] [id number] atorvastatin [facility] & [facility] Services [facility] [id number] citalopram [facility] [id number] meloxicam [facility] Problems date description facility [id number] Malignant tumor of breast [facility] 20220118 Malignant neoplasm of unspecified site [facility] & of unspecified female breast Ancillary S ervices [facility] 20220118 Malignant neoplasm of breast (female), [facility] & unspecified [facility] 20220118 Infiltrating duct carcinoma of breast [facility] 20220102 Malignant pleural effusion [facility] 20211226 Medical Problem (Major) [facility] 20211226 Malignant pleural effusion [facility] 20211117 Urine C&S [facility] & [facility] Services [facility] har[place] 20211117 Pulmonary congestion [facility] Care & Ancillary Services C [place] 20211117 Other symptoms involving respiratory W [facility]In [facility] Primary Care & system and chest Ancillary Services [facility] [place] 20211117 Other specified symptoms and signs [facility] & involving the circulatory and Ancillary Services [facility] respiratory systems 20211117 Other nonspecific findings on [facility] & examination of urine [facility] 20211117 Other low back pain [facility] Care & Ancillary Services C haroon 20211117 Other forms of dyspnea [facility] [place] 20211117 Dyspnea on exertion [facility] Care & [facility] Services C [place] 20211117 Details of drug misuse behavior [facility] 20211117 CHEST 2 VIEW [facility] Care & Ancillary Services C haroon 20211117 Acute low back pain [facility] Care & Ancillary Services C haroon 20211117 Pleural effusion, not elsewhere [facility] & classified [facility] Services [facility] [place] 20211117 Other dyspnea and respiratory [facility] & abnormality [facility] 20211117 Other abnormal findings on [facility] Primary Care & microbiological examination of urine Anc illary Services [facility] 20211117 Alcohol use [facility] Care & Ancillary Services C har[place] 20211117 Unspecified pleural effusion [facility] & Ancillary Services C haroon 20211117 Never smoker [facility] Care & Ancillary Services C haroon 20211117 Urinalysis with Microscopic Exam [facility] [place] 20211117 Pleural effusion [facility] Care & [facility]illary Services C har[place] 20211117 Lumbago [facility] Care & Ancillary Services C haroon 20211117 Leukocytes in urine [facility] & [facility] Services C haroon 20211117 COVID19 Testing [facility] Care & Ancillary Services C haoron 20211117 Hypoxemia [facility] [id number] Hypokalemia [facility] [id number] Cough [facility] [id number] Contact with and (suspected) exposure [facility] to covid-19 22113147 Back Pain [facility] [id number] Lumbar sprain [facility] Care & Ancillary Services [facility] [place] 20211114 Low back strain [facility] Care & Ancillary Services C [place] 20211114 Alcohol use [facility] Care & Ancillary Services C haroon 20211114 Urinalysis with Microscopic Exam, [facility] Primary Care & Culture in Indicated Ancillary Services [facility] 20211114 Never smoker [facility] Care & Ancillary Services C [place] 20211114 Strain of muscle, fascia and tendon of [facility] Primary Care & lower back, initial encounter Ancillary Services [facility] 20211114 Dysuria [facility] Care & Ancillary Services C haroon 20211114 Details of drug misuse behavior [facility] Primary Care & Ancillary Services C haroon 20211114 No current problems or disability - Wa [facility] Primary Care & unknown Ancillary Services Wanda patiño Procedures date description facility 20211117 POC URINALYSIS DIP [facility] Care & [facility] Services [facility] [phone] POC URINALYSIS DIP [facility] [id number] POC URINALYSIS DIP [facility] [id number] POC URINALYSIS DIP [facility] [id number] POC URINALYSIS DIP [facility] [phone] POC URINALYSIS DIP [facility] [id number] POC URINALYSIS DIP [facility] [id number] POC URINALYSIS DIP [facility] [phone] POC URINALYSIS DIP [facility] Results test status date ordered by attending specimen anthony e WBC_urine_on_microscop unknown [id number] unknown unknown unknown y Urobilinogen_Presence_ unknown [id number] unknown unknown unknown in_Urine_by_Test_strip Urobilinogen_Presence_ unknown 37623017 unknown unknown unknown in_Urine_by_Test_strip Specific_gravity_of_Ur unknown 78456688 unknown unknown unknown ine_by_Test_strip Specific_gravity_of_Ur unknown 71337168 unknown unknown unknown ine_by_Test_strip pH_of_Urine_by_Test_st unknown 09685616 unknown unknown unknown rip Nitrite_Presence_in_Ur unknown 00654680 unknown unknown unknown ine_by_Test_strip Nitrite_Presence_in_Ur unknown 82995706 unknown unknown unknown ine_by_Test_strip Leukocyte_esterase_Pre unknown 19226621 unknown unknown unknown sence_in_Urine_by_Test_ strip Leukocyte_esterase_Pre unknown 44001828 unknown unknown unknown sence_in_Urine_by_Test_ strip Ketones_Mass_volume_in unknown 87463450 unknown unknown unknown _Urine_by_Test_strip Ketones_Mass_volume_in unknown 40749971 unknown unknown unknown _Urine_by_Test_strip Glucose_Mass_volume_in unknown 46602960 unknown unknown unknown _Urine_by_Test_strip Color_of_Urine unknown 81984846 unknown unknown unknown Color_of_Urine unknown 15618709 unknown unknown unknown Bilirubin.total_Presen unknown 54589232 unknown unknown unknown ce_in_Urine_by_Test_str ip Bilirubin.total_Presen unknown 09360805 unknown unknown unknown ce_in_Urine_by_Test_str ip Appearance_of_Urine unknown 86026343 unknown unknown unk nown clarity_urine_point unknown 56988742 unknown unknown unk nown pH_study_of_acidity unknown 31441565 unknown unknown unk nown urinalysis_routine unknown 79680476 unknown unknown unkn own glucose_urine unknown 82592354 unknown unknown unknown appearance_urine unknown 49331619 unknown unknown unknow n leukocyte_esterase_uri unknown 90585087 unknown unknown unknown ne_by_dipstick leukocyte_esterase_uri unknown 87618033 unknown unknown unknown ne_by_dipstick urobilinogen_urine_sem unknown 36086645 unknown unknown unknown iquantitative_dipstick_ urobilinogen_urine_sem unknown 23461084 unknown unknown unknown iquantitative_dipstick_ specific_gravity_urine unknown 93433735 unknown unknown unknown specific_gravity_urine unknown 34432026 unknown unknown unknown pH_urine_semiquantitat unknown 30584774 unknown unknown unknown morteza nitrite_urine_semiquan unknown 54058701 unknown unknown unknown titative nitrite_urine_semiquan unknown 93868437 unknown unknown unknown titative ketones_urine_by_test_ unknown 99639812 unknown unknown unknown strip ketones_urine_by_test_ unknown 52714256 unknown unknown unknown strip bilirubin_urine unknown 12615652 unknown unknown unknown bilirubin_urine unknown 23935231 unknown unknown unknown urine_color unknown 82812786 unknown unknown unknown urine_color unknown 53593944 unknown unknown unknown Glucose_Mass_volume_in unknown 12345285 unknown unknown unknown _Urine Albumin_Presence_in_Ur unknown 44708148 unknown unknown unknown ine RBC_urine_dipstick unknown 96844905 unknown unknown unkn own Erythrocytes_area_in_U unknown 19164891 unknown unknown unknown rine_sediment_by_Micros copy_high_power_field glucose_urine_semiquan unknown 29490996 unknown unknown unknown titative protein_urine_semiquan unknown 81054541 unknown unknown unknown titative_dipstick_ Urine_HCG_QC_Result_CL unknown 41329889 unknown unknown unknown IA_Waived_ WBC_urine_on_microscop unknown 45333492 unknown unknown unknown y DIPSTICK_URINE_STRIP_L unknown 20884312 unknown unknown unknown OT_NUMBER WBC_URINE unknown 15214349 unknown unknown unknown UROBILINOGEN_URINE unknown 46522359 unknown unknown unkn own SPECIFIC_GRAVITY_URINE unknown 68305114 unknown unknown unknown T unknown 52742834 unknown unknown unknown T unknown 52008045 unknown unknown unknown T unknown 33846785 unknown unknown unknown T unknown 30903791 unknown unknown unknown T unknown 88809252 unknown unknown unknown T unknown 21385983 unknown unknown unknown T unknown 09744177 unknown unknown unknown T unknown 85362837 unknown unknown unknown T unknown 51398454 unknown unknown unknown T unknown 02516487 unknown unknown unknown T unknown 98385883 unknown unknown unknown PH_URINE unknown 53990418 unknown unknown unknown NITRITE_URINE unknown 95814375 unknown unknown unknown LEUKOCYTE_ESTERASE_URI unknown 32336272 unknown unknown unknown NE KETONES_URINE_UA_ unknown 81489808 unknown unknown unkno wn GLUCOSE_URINE_UA_ unknown 34131189 unknown unknown unkno wn COLOR_URINE unknown 55191981 unknown unknown unknown CLARITY_URINE unknown 02068513 unknown unknown unknown BILIRUBIN_URINE unknown 58884170 unknown unknown unknown _2019NCoV_COVID-19_Lab unknown 98492339 unknown unknown unknown _Test_Result_Text_ WBC_urine_on_microscop unknown 79454200 unknown unknown unknown y Urobilinogen_Presence_ unknown 29785091 unknown unknown unknown in_Urine_by_Test_strip Specific_gravity_of_Ur unknown 62835587 unknown unknown unknown ine_by_Test_strip pH_of_Urine_by_Test_st unknown 12647913 unknown unknown unknown rip Nitrite_Presence_in_Ur unknown 94414506 unknown unknown unknown ine_by_Test_strip Leukocyte_esterase_Pre unknown 71302633 unknown unknown unknown sence_in_Urine_by_Test_ strip Ketones_Mass_volume_in unknown 01959948 unknown unknown unknown _Urine_by_Test_strip Glucose_Mass_volume_in unknown 06302332 unknown unknown unknown _Urine_by_Test_strip Color_of_Urine unknown 27938005 unknown unknown unknown Bilirubin.total_Presen unknown 97174355 unknown unknown unknown ce_in_Urine_by_Test_str ip Appearance_of_Urine unknown 79419120 unknown unknown unk nown clarity_urine_point unknown 30888311 unknown unknown unk nown pH_study_of_acidity unknown 50058598 unknown unknown unk nown urinalysis_routine unknown 73612871 unknown unknown unkn own glucose_urine unknown 82109234 unknown unknown unknown appearance_urine unknown 40522372 unknown unknown unknow n leukocyte_esterase_uri unknown 35173001 unknown unknown unknown ne_by_dipstick urobilinogen_urine_sem unknown 38314135 unknown unknown unknown iquantitative_dipstick_ specific_gravity_urine unknown 41286970 unknown unknown unknown pH_urine_semiquantitat unknown 84764330 unknown unknown unknown morteza nitrite_urine_semiquan unknown 90398475 unknown unknown unknown titative ketones_urine_by_test_ unknown 78453550 unknown unknown unknown strip bilirubin_urine unknown 15489213 unknown unknown unknown urine_color unknown 49217858 unknown unknown unknown Glucose_Mass_volume_in unknown 39297305 unknown unknown unknown _Urine Albumin_Presence_in_Ur unknown 32565423 unknown unknown unknown ine RBC_urine_dipstick unknown 41016273 unknown unknown unkn own Erythrocytes_area_in_U unknown 18736721 unknown unknown unknown rine_sediment_by_Micros copy_high_power_field glucose_urine_semiquan unknown 63914058 unknown unknown unknown titative protein_urine_semiquan unknown 70691119 unknown unknown unknown titative_dipstick_ Urine_HCG_QC_Result_CL unknown 31952496 unknown unknown unknown IA_Waived_ WBC_urine_on_microscop unknown 56992123 unknown unknown unknown y DIPSTICK_URINE_STRIP_L unknown 30442031 unknown unknown unknown OT_NUMBER WBC_URINE unknown 02998537 unknown unknown unknown UROBILINOGEN_URINE unknown 83061202 unknown unknown unkn own SPECIFIC_GRAVITY_URINE unknown 13034262 unknown unknown unknown T unknown 19006146 unknown unknown unknown T unknown 54264319 unknown unknown unknown T unknown 80929451 unknown unknown unknown T unknown 27854568 unknown unknown unknown T unknown 35377054 unknown unknown unknown T unknown 36051933 unknown unknown unknown T unknown 69932388 unknown unknown unknown T unknown 91911346 unknown unknown unknown T unknown 57630223 unknown unknown unknown T unknown 59819022 unknown unknown unknown T unknown 94058106 unknown unknown unknown PH_URINE unknown 36993258 unknown unknown unknown NITRITE_URINE unknown 26149438 unknown unknown unknown LEUKOCYTE_ESTERASE_URI unknown 97686819 unknown unknown unknown NE KETONES_URINE_UA_ unknown 44116491 unknown unknown unkno wn GLUCOSE_URINE_UA_ unknown 34052559 unknown unknown unkno wn COLOR_URINE unknown 31986319 unknown unknown unknown CLARITY_URINE unknown 76897797 unknown unknown unknown BILIRUBIN_URINE unknown 24281609 unknown unknown unknown COVID-19_REFERENCE_TES unknown 57106438 unknown unknown unknown T T unknown 40480021 unknown unknown unknown _2019NCoV_COVID-19_Lab unknown 66028391 unknown unknown unknown _Test_Result_Text_ WBC_urine_on_microscop unknown 77937489 unknown unknown unknown y Urobilinogen_Presence_ unknown 52764994 unknown unknown unknown in_Urine_by_Test_strip Specific_gravity_of_Ur unknown 20568786 unknown unknown unknown ine_by_Test_strip pH_of_Urine_by_Test_st unknown 36305345 unknown unknown unknown rip Nitrite_Presence_in_Ur unknown 17512671 unknown unknown unknown ine_by_Test_strip Leukocyte_esterase_Pre unknown 80956743 unknown unknown unknown sence_in_Urine_by_Test_ strip Ketones_Mass_volume_in unknown 22373894 unknown unknown unknown _Urine_by_Test_strip Glucose_Mass_volume_in unknown 62259813 unknown unknown unknown _Urine_by_Test_strip Color_of_Urine unknown 05636169 unknown unknown unknown Bilirubin.total_Presen unknown 55247638 unknown unknown unknown ce_in_Urine_by_Test_str ip Appearance_of_Urine unknown 01219471 unknown unknown unk nown clarity_urine_point unknown 69093587 unknown unknown unk nown pH_study_of_acidity unknown 99428735 unknown unknown unk nown urinalysis_routine unknown 57265350 unknown unknown unkn own glucose_urine unknown 10158112 unknown unknown unknown appearance_urine unknown 63073225 unknown unknown unknow n leukocyte_esterase_uri unknown 61945743 unknown unknown unknown ne_by_dipstick urobilinogen_urine_sem unknown 11146083 unknown unknown unknown iquantitative_dipstick_ specific_gravity_urine unknown 67000137 unknown unknown unknown pH_urine_semiquantitat unknown 83382570 unknown unknown unknown morteza nitrite_urine_semiquan unknown 96457687 unknown unknown unknown titative ketones_urine_by_test_ unknown 35344905 unknown unknown unknown strip bilirubin_urine unknown 41164620 unknown unknown unknown urine_color unknown 39497160 unknown unknown unknown Glucose_Mass_volume_in unknown 18078105 unknown unknown unknown _Urine Albumin_Presence_in_Ur unknown 25760361 unknown unknown unknown ine RBC_urine_dipstick unknown 84284876 unknown unknown unkn own Erythrocytes_area_in_U unknown 41005595 unknown unknown unknown rine_sediment_by_Micros copy_high_power_field glucose_urine_semiquan unknown 14385820 unknown unknown unknown titative protein_urine_semiquan unknown 93665514 unknown unknown unknown titative_dipstick_ Urine_HCG_QC_Result_CL unknown 39293386 unknown unknown unknown IA_Waived_ WBC_urine_on_microscop unknown 49860489 unknown unknown unknown y DIPSTICK_URINE_STRIP_L unknown 74707889 unknown unknown unknown OT_NUMBER WBC_URINE unknown 95766308 unknown unknown unknown UROBILINOGEN_URINE unknown 52259913 unknown unknown unkn own SPECIFIC_GRAVITY_URINE unknown 50668724 unknown unknown unknown T unknown 27152340 unknown unknown unknown T unknown 43786235 unknown unknown unknown T unknown 21140656 unknown unknown unknown T unknown 70431413 unknown unknown unknown T unknown 86121535 unknown unknown unknown T unknown 91582524 unknown unknown unknown T unknown 03971626 unknown unknown unknown T unknown 52175589 unknown unknown unknown T unknown 27343819 unknown unknown unknown T unknown 20947000 unknown unknown unknown T unknown 38429160 unknown unknown unknown PH_URINE unknown 06172028 unknown unknown unknown NITRITE_URINE unknown 03922785 unknown unknown unknown LEUKOCYTE_ESTERASE_URI unknown 20756943 unknown unknown unknown NE KETONES_URINE_UA_ unknown 18466657 unknown unknown unkno wn GLUCOSE_URINE_UA_ unknown 28606757 unknown unknown unkno wn COLOR_URINE unknown 90254172 unknown unknown unknown CLARITY_URINE unknown 45485646 unknown unknown unknown BILIRUBIN_URINE unknown 09778668 unknown unknown unknown COVID-19_REFERENCE_TES unknown 12499150 unknown unknown unknown T T unknown 95242569 unknown unknown unknown _2019NCoV_COVID-19_Lab unknown 90409348 unknown unknown unknown _Test_Result_Text_ WBC_urine_on_microscop unknown 19848348 unknown unknown unknown y Urobilinogen_Presence_ unknown 18947735 unknown unknown unknown in_Urine_by_Test_strip Specific_gravity_of_Ur unknown 15104387 unknown unknown unknown ine_by_Test_strip pH_of_Urine_by_Test_st unknown 79662136 unknown unknown unknown rip Nitrite_Presence_in_Ur unknown 45416674 unknown unknown unknown ine_by_Test_strip Leukocyte_esterase_Pre unknown 32473719 unknown unknown unknown sence_in_Urine_by_Test_ strip Ketones_Mass_volume_in unknown 44775599 unknown unknown unknown _Urine_by_Test_strip Glucose_Mass_volume_in unknown 28783222 unknown unknown unknown _Urine_by_Test_strip Color_of_Urine unknown 43885615 unknown unknown unknown Bilirubin.total_Presen unknown 68915557 unknown unknown unknown ce_in_Urine_by_Test_str ip Appearance_of_Urine unknown 78034837 unknown unknown unk nown clarity_urine_point unknown 51529962 unknown unknown unk nown pH_study_of_acidity unknown 88416454 unknown unknown unk nown urinalysis_routine unknown 98263829 unknown unknown unkn own glucose_urine unknown 97604519 unknown unknown unknown appearance_urine unknown 69046419 unknown unknown unknow n leukocyte_esterase_uri unknown 85313435 unknown unknown unknown ne_by_dipstick urobilinogen_urine_sem unknown 38241626 unknown unknown unknown iquantitative_dipstick_ specific_gravity_urine unknown 15732571 unknown unknown unknown pH_urine_semiquantitat unknown 44470513 unknown unknown unknown morteza nitrite_urine_semiquan unknown 17617372 unknown unknown unknown titative ketones_urine_by_test_ unknown 55738061 unknown unknown unknown strip bilirubin_urine unknown 48534007 unknown unknown unknown urine_color unknown 48959424 unknown unknown unknown Glucose_Mass_volume_in unknown 42735824 unknown unknown unknown _Urine Albumin_Presence_in_Ur unknown 86913232 unknown unknown unknown ine RBC_urine_dipstick unknown 36014127 unknown unknown unkn own Erythrocytes_area_in_U unknown 12356669 unknown unknown unknown rine_sediment_by_Micros copy_high_power_field glucose_urine_semiquan unknown 87219822 unknown unknown unknown titative protein_urine_semiquan unknown 70147550 unknown unknown unknown titative_dipstick_ Urine_HCG_QC_Result_CL unknown 90709523 unknown unknown unknown IA_Waived_ WBC_urine_on_microscop unknown 86398286 unknown unknown unknown y DIPSTICK_URINE_STRIP_L unknown 95170423 unknown unknown unknown OT_NUMBER WBC_URINE unknown 04882779 unknown unknown unknown UROBILINOGEN_URINE unknown 97289576 unknown unknown unkn own SPECIFIC_GRAVITY_URINE unknown 56764048 unknown unknown unknown T unknown 41725143 unknown unknown unknown T unknown 53693597 unknown unknown unknown T unknown 00744822 unknown unknown unknown T unknown 40916642 unknown unknown unknown T unknown 49049912 unknown unknown unknown T unknown 29053444 unknown unknown unknown T unknown 70909065 unknown unknown unknown T unknown 23647066 unknown unknown unknown T unknown 40575378 unknown unknown unknown T unknown 24294745 unknown unknown unknown T unknown 44266144 unknown unknown unknown PH_URINE unknown 87116789 unknown unknown unknown NITRITE_URINE unknown 77196752 unknown unknown unknown LEUKOCYTE_ESTERASE_URI unknown 41410207 unknown unknown unknown NE KETONES_URINE_UA_ unknown 67219724 unknown unknown unkno wn GLUCOSE_URINE_UA_ unknown 07914978 unknown unknown unkno wn COLOR_URINE unknown 59643925 unknown unknown unknown CLARITY_URINE unknown 11018728 unknown unknown unknown BILIRUBIN_URINE unknown 39027250 unknown unknown unknown COVID-19_REFERENCE_TES unknown 49208158 unknown unknown unknown T T unknown 02179231 unknown unknown unknown WBC_urine_on_microscop unknown 49583395 unknown unknown unknown y Urobilinogen_Presence_ unknown 82688734 unknown unknown unknown in_Urine_by_Test_strip Specific_gravity_of_Ur unknown 74154050 unknown unknown unknown ine_by_Test_strip pH_of_Urine_by_Test_st unknown 27896843 unknown unknown unknown rip Nitrite_Presence_in_Ur unknown 26985846 unknown unknown unknown ine_by_Test_strip Leukocyte_esterase_Pre unknown [id number] unknown unknown unknown sence_in_Urine_by_Test_ strip Ketones_Mass_volume_in unknown [id number] unknown unknown unknown _Urine_by_Test_strip Glucose_Mass_volume_in unknown [id number] unknown unknown unknown _Urine_by_Test_strip Epithelial_cells_area_ unknown [id number] unknown unknown unknown in_Urine_sediment_by_Mi croscopy_high_power_fie ld Color_of_Urine unknown [id number] unknown unknown unknown Bilirubin.total_Presen unknown [id number] unknown unknown unknown ce_in_Urine_by_Test_str ip Appearance_of_Urine unknown [id number] unknown unknown unk nown clarity_urine_point unknown [id number] unknown unknown unk nown pH_study_of_acidity unknown [id number] unknown unknown unk nown urinalysis_routine unknown [id number] unknown unknown unkn own glucose_urine unknown [id number] unknown unknown unknown appearance_urine unknown [id number] unknown unknown unknow n leukocyte_esterase_uri unknown [id number] unknown unknown unknown ne_by_dipstick urobilinogen_urine_sem unknown [id number] unknown unknown unknown iquantitative_dipstick_ specific_gravity_urine unknown [id number] unknown unknown unknown pH_urine_semiquantitat unknown [id number] unknown unknown unknown morteza nitrite_urine_semiquan unknown [id number] unknown unknown unknown titative ketones_urine_by_test_ unknown [id number] unknown unknown unknown strip bilirubin_urine unknown 20211114 unknown unknown unknown urine_color unknown 20211114 unknown unknown unknown epithelial_cells_urine unknown [id number] unknown unknown unknown Glucose_Mass_volume_in unknown [id number] unknown unknown unknown _Urine Albumin_Presence_in_Ur unknown [id number] unknown unknown unknown ine RBC_urine_dipstick unknown [id number] unknown unknown unkn own Erythrocytes_area_in_U unknown [id number] unknown unknown unknown rine_sediment_by_Micros copy_high_power_field glucose_urine_semiquan unknown [id number] unknown unknown unknown titative protein_urine_semiquan unknown [id number] unknown unknown unknown titative_dipstick_ WBC_urine_on_microscop unknown [id number] unknown unknown unknown y DIPSTICK_URINE_STRIP_L unknown [id number] unknown unknown unknown OT_NUMBER WBC_URINE unknown [id number] unknown unknown unknown T unknown [id number] unknown unknown unknown T unknown [id number] unknown unknown unknown T unknown [id number] unknown unknown unknown T unknown [id number] unknown unknown unknown T unknown [id number] unknown unknown unknown PH_URINE unknown [id number] unknown unknown unknown GLUCOSE_URINE_UA_ unknown [id number] unknown unknown unkno wn EPITHELIAL_CELLS_UR unknown [id number] unknown unknown unk nown CLARITY_URINE unknown [id number] unknown unknown unknown WBC_urine_on_microscop unknown [id number] unknown unknown unknown y Urobilinogen_Presence_ unknown [id number] unknown unknown unknown in_Urine_by_Test_strip Specific_gravity_of_Ur unknown [id number] unknown unknown unknown ine_by_Test_strip pH_of_Urine_by_Test_st unknown [id number] unknown unknown unknown rip Nitrite_Presence_in_Ur unknown [id number] unknown unknown unknown ine_by_Test_strip Leukocyte_esterase_Pre unknown 20211114 unknown unknown unknown sence_in_Urine_by_Test_ strip Ketones_Mass_volume_in unknown [id number] unknown unknown unknown _Urine_by_Test_strip Glucose_Mass_volume_in unknown 20211114 [...] unknown 20211114 unknown unknown unknown pH_urine_semiquantitat unknown [id number] unknown unknown unknown morteza nitrite_urine_semiquan unknown 20211114 unknown unknown unknown titative ketones_urine_by_test_ unknown [id number] unknown unknown unknown strip bilirubin_urine unknown 20211114 unknown unknown unknown urine_color unknown 20211114 unknown unknown unknown epithelial_cells_urine unknown [id number] unknown unknown unknown Glucose_Mass_volume_in unknown 20211114 unknown unknown unknown _Urine Albumin_Presence_in_Ur unknown 20211114 unknown unknown unknown ine RBC_urine_dipstick unknown 20211114 unknown unknown unkn own Erythrocytes_area_in_U unknown 20211114 unknown unknown unknown rine_sediment_by_Micros copy_high_power_field glucose_urine_semiquan unknown 20211114 unknown unknown unknown titative protein_urine_semiquan unknown [id number] unknown unknown unknown titative_dipstick_ WBC_urine_on_microscop unknown [id number] unknown unknown unknown y DIPSTICK_URINE_STRIP_L unknown [id number] unknown unknown unknown OT_NUMBER WBC_URINE unknown [id number] unknown unknown unknown UROBILINOGEN_URINE unknown [id number] unknown unknown unkn own SPECIFIC_GRAVITY_URINE unknown [id number] unknown unknown unknown T unknown [id number] unknown unknown unknown T unknown [id number] unknown unknown unknown T unknown [id number] unknown unknown unknown T unknown [id number] unknown unknown unknown T unknown [id number] unknown unknown unknown T unknown [id number] unknown unknown unknown T unknown [id number] unknown unknown unknown T unknown [id number] unknown unknown unknown T unknown [id number] unknown unknown unknown T unknown [id number] unknown unknown unknown T unknown [id number] unknown unknown unknown T unknown [id number] unknown unknown unknown PH_URINE unknown [id number] unknown unknown unknown NITRITE_URINE unknown [id number] unknown unknown unknown LEUKOCYTE_ESTERASE_URI unknown [id number] unknown unknown unknown NE KETONES_URINE_UA_ unknown [id number] unknown unknown unkno wn GLUCOSE_URINE_UA_ unknown [id number] unknown unknown unkno wn EPITHELIAL_CELLS_UR unknown [id number] unknown unknown unk nown COLOR_URINE unknown [id number] unknown unknown unknown CLARITY_URINE unknown [id number] unknown unknown unknown BILIRUBIN_URINE unknown [id number] unknown unknown unknown Epithelial_cells_area_ unknown [id number] unknown unknown unknown in_Urine_sediment_by_Mi croscopy_high_power_fie ld epithelial_cells_urine unknown [id number] unknown unknown unknown T unknown [id number] unknown unknown unknown EPITHELIAL_CELLS_UR unknown [id number] unknown unknown unk nown Epithelial_cells_area_ unknown [id number] unknown unknown unknown in_Urine_sediment_by_Mi croscopy_high_power_fie ld epithelial_cells_urine unknown [id number] unknown unknown unknown T unknown [id number] unknown unknown unknown EPITHELIAL_CELLS_UR unknown [id number] unknown unknown unk nown Epithelial_cells_area_ unknown [id number] unknown unknown unknown in_Urine_sediment_by_Mi croscopy_high_power_fie ld epithelial_cells_urine unknown [id number] unknown unknown unknown T unknown [id number] unknown unknown unknown EPITHELIAL_CELLS_UR unknown [id number] unknown unknown unk nown facility observation status [...] & Anc[facility] DIPSTICK_UR unknown [id number] unknown _[id number] unknow n unknown Clinic INE_STRIP_LO [...] Walk-In T unknown 1.025 unknown UR_SG unknown [facility] unknown 5.0 unknown UR_PH unknown [facility] unknown NEGATIVE unknown UR_NIT unknown u [facility] unknown MODERATE unknown UR_LEU_E unknown unknown Clinic STERASE [facility] unknown NEGATIVE unknown UR_KETO_ unknown unknown Clinic UA_ [facility] unknown NEGATIVE unknown UR_GLU unknown u [facility] mg/dL Primary [facility] unknown YELLOW unknown UR_COLOR unknown u [facility] & Ancillary Services [...] & Ancillary [facility] DIPSTICK_UR unknown [id number] unknown _[id number] unknow n unknown Clinic INE_STRIP_LO [...] Clinic ipstick Primary Care & Anc[facility] Services [facility] Erythrocyte unknown negative unknown _[id number] unk [...] & [facility] DIPSTICK_UR unknown [id number] unknown _[id number] unknow n unknown Clinic INE_STRIP_LO [...] Walk-In T unknown 1.025 unknown UR_SG unknown [facility] unknown 5.0 unknown UR_PH unknown [facility] unknown NEGATIVE unknown [facility] [...] T unknown YELLOW [facility] [...] [facility] DIPSTICK_UR unknown [id number] unknown _[id number] unknow n unknown Clinic INE_STRIP_LO [...] & Anc[facility] DIPSTICK_UR unknown [id number] unknown _[id number] unknow n unknown Clinic INE_STRIP_LO Primary T_NUMBER Care & [facility] WBC_URINE unknown >25 /HPF unknown UWBC unknown unknown Clinic [facility] unknown >25 /HPF unknown UR_WBC unknown u [facility] unknown 5.0 unknown UR_PH [facility] unknown NEGATIVE unknown UR_GLU unknown u [facility] mg/dL Primary [facility] unknown FEW unknown UR_EPI_O unknown u [facility] T unknown CLOUDY unknown UR_CLARI unknown u [facility] TY Primary [facility] PH_URINE unknown 5.0 unknown UPH unknown u [facility] Primary [facility] & Ancillary Services [...] & Ancillary [facility] DIPSTICK_UR unknown [id number] unknown _[id number] unknow n unknown Clinic INE_STRIP_LO [...] unknown >25 /HPF unknown UR_WBC unknown u [facility] unknown 0.2 (NORMAL) unknown UR_URO unknow n unknown Clinic [facility] unknown >=1.030 unknown UR_SG unknown un known Clinic [facility] unknown 5.0 unknown UR_PH unknown unk [facility] unknown NEGATIVE unknown UR_NIT unknown u [facility] unknown LARGE unknown UR_LEU_E unknown u [facility] STERASE Primary [facility] unknown NEGATIVE unknown UR_KETO_ unknown unknown Clinic UA_ [facility] unknown NEGATIVE unknown UR_GLU unknown u [facility] mg/dL Primary Care & Ancillary Services [facility] T unknown FEW unknown UR_EPI_O unknown u [facility] Primary Care [facility] unknown YELLOW unknown UR_COLOR unknown u [facility] unknown CLOUDY unknown UR_CLARI unknown u [facility] TY Primary Care & Ancillary [...]
--- NOTE | 2022-02-08 02:15 | ED Physician Documentation ---
PD HPI ALTERED MENTAL STATUS - Stated complaint Stated Complaint: AMS - Chief complaint Chief Complaint: Neuro - History obtained from History obtained from: Family (spouse), EMS - History of Present Illness Timing - onset: Today (all day, insidious onset since this morning thus no specific time of onset) Timing - details: Gradual onset Quality / character: Other (odd behavior (non-purposeful movements, per EMS and ), unintelligible gibberish when tring to speak) Associated symptoms: No: Fever, Dyspnea, Cough Contributing factors: Cancer, Recent med change (recent increase in medication (pain medication and addition of hs zyprexa, although unclear if the zyprexa has been started yet)) Treatment INFORMATION SECURITY CONSULTANT: Accucheck (105) Similar symptoms before: Diagnosis (breast CA with metastases to lungs, bone, liver, brain) Recently seen: Emergency Dept - Additional information Additional information: BIBA for AMS. notes that over the course of the day, patient has become increasingly confused, eventually just speaking unintelligible gibberish, making non-purposeful movements. EMS arrived to find patient pale with cyanotic extremities, 88% pulse ox on room air (she does not use oxygen at home), increased to 93-95% with 3 liters/min NC. Patient recently underwent chemo Review of Systems Unable to obtain: AMS, Other (limited to objective / observed from husbands perspective, as patient unable to communicate effectively) Constitutional: denies: Fever GI: denies: Vomiting, Diarrhea Skin: denies: Rash Neurologic: reports: Difficulty speaking, Altered mental status PD PAST MEDICAL HISTORY - Past Medical History Past Medical History: Yes Cardiovascular: Hypertension, High cholesterol Respiratory: None Neuro: Headaches Endocrine/Autoimmune: HyPOthyroidism GI: Other BEDSPREAD FOLDER: Breast cancer, Other : Retention HEENT: Chronic vision loss Psych: Depression Musculoskeletal: None Derm: Other - Past Surgical History Past Surgical History: Yes General: Other Ortho: Other /BEDSPREAD FOLDER: Mastectomy Cardiovascular: Other - Present Medications Home Medications: Ambulatory Orders Medication Instructions Recorded Confirmed Levothyroxine [Synthroid] 88 mcg PO QDAC 11/04/19 02/08/22 polyethylene glycoL 3350 [Miralax] 1 applic PO BID MDD up to BID 12/21/21 Memantine [Namenda] 10 mg PO BID MDD see below 01/06/22 02/08/22 Naloxone HCl Nasal [Narcan Nasal] PRN MDD use as prescribed 01/10/22 oxyCODONE [Roxicodone] 3 tab PO .Q3-4H PRN 01/10/22 02/08/22 Bisacodyl Supp [Dulcolax Supp] 1 supp DE DAILY PRN 01/20/22 02/08/22 bisacodyL [Dulcolax] 5 mg PO TID 01/20/22 02/08/22 fentaNYL [Fentanyl 25mcg patch] 50 mcg TP Q72H MDD use 50mcg and 01/24/22 02/08/22 12mcg patch OLANZapine [Zyprexa] 5 mg PO QPM 02/02/22 02/08/22 Docusate Sodium 100Mg Capsule 100 mg PO BID 02/07/22 02/08/22 [Colace 100Mg Capsule] - Allergies Allergies/Adverse Reactions: Allergies Allergy/AdvReac Type Severity Reaction Status Date / Time dexamethasone Allergy Rash Verified 02/08/22 02:07 - Social History Does the pt smoke?: No Smoking Status: Never smoker Does the pt drink ETOH?: No Does the pt have substance abuse?: No - Immunizations Immunizations are current?: No - POLST Patient has POLST: No POLST Status: Full Code PD ED PE NORMAL - Vitals Vital signs reviewed: Yes - General General: No acute distress, Well developed/nourished, Other (drowsy, poor eye contact, follows one or two simple commands if repeatedly prompted. Answers to questions are unintelligible gibberish) - HEENT HEENT: Atraumatic, PERRL, Other (dry mucous membranes) - Neck Neck: Supple, no meningeal sign - Cardiac Cardiac: RRR, No murmur - Respiratory Respiratory: No respiratory distress, Clear bilaterally, Other (left chest wall gauze in place with tegaderm; small bit of tubing noted within confines of the tegaderm) - Abdomen Abdomen: Soft, Non tender - Derm Derm: Warm and dry, Other (mild pallor) - Extremities Extremities: No edema - Neuro Neuro: No motor deficit Eye Opening: To Voice Motor: Obeys Commands (few simple commands if repeatedly prompted) Verbal: Incomprehensible GCS Score: 11 Results - Vitals Vitals: Vital Signs - 24 hr 02/08/22 02/08/22 02/08/22 08:00 08:23 08:55 Temperature 36.5 C Heart Rate 73 74 Respiratory 11 L 13 Rate Blood Pressure 83/64 L 92/57 L O2 Saturation 90 L 100 95 Oxygen O2 Source Room air - Labs Labs: Laboratory Tests 02/08/22 02/08/22 02/08/22 02:15 02:15 02:15 WBC 3.3 L RBC 2.46 L Hgb 7.2 L Hct 23.2 L MCV 94.3 MCH 29.3 MCHC 31.0 L RDW 15.6 H Plt Count 214 MPV 9.2 Neut # (Auto) 2.8 Lymph # (Auto) 0.2 L Dewitt # (Auto) 0.3 Eos # (Auto) 0.0 Baso # (Auto) 0.0 Absolute Nucleated RBC 0.00 Nucleated RBC % 0.0 Sodium 135 Potassium 3.9 Chloride 96 L Carbon Dioxide 26 Anion Gap 13.0 BUN 12 Creatinine 0.7 Estimated GFR (MDRD) 83 L Glucose 99 Calcium 8.5 Total Bilirubin 0.6 AST 36 ALT 27 Alkaline Phosphatase 136 H Total Protein 5.8 L Albumin 2.2 L Globulin 3.6 Albumin/Globulin Ratio 0.6 L Lipase 30 TSH 68.18 H Urine Color Urine Clarity Urine pH Ur Specific [place] Urine Protein Urine Glucose (UA) Urine Ketones Urine Occult Blood Urine Nitrite Urine Bilirubin Urine Urobilinogen Ur Leukocyte Esterase Ur Microscopic Review Urine Culture Comments 02/08/22 02:40 WBC RBC Hgb Hct MCV MCH MCHC RDW Plt Count MPV Neut # (Auto) Lymph # (Auto) Dewitt # (Auto) Eos # (Auto) Baso # (Auto) Absolute Nucleated RBC Nucleated RBC % Sodium Potassium Chloride Carbon Dioxide Anion Gap BUN Creatinine Estimated GFR (MDRD) Glucose Calcium Total Bilirubin AST ALT Alkaline Phosphatase Total Protein Albumin Globulin Albumin/Globulin Ratio Lipase TSH Urine Color YELLOW Urine Clarity CLEAR Urine pH 5.5 Ur Specific [place] 1.020 Urine Protein NEGATIVE Urine Glucose (UA) NEGATIVE Urine Ketones TRACE Urine Occult Blood NEGATIVE Urine Nitrite NEGATIVE Urine Bilirubin NEGATIVE Urine Urobilinogen 0.2 (NORMAL) Ur Leukocyte Esterase NEGATIVE Ur Microscopic Review NOT INDICATED Urine Culture Comments NOT INDICATED - Rads (name of study) CTH Radiology: Prelim report reviewed, See rad report CTA head Radiology: Prelim report reviewed, See rad report CTA neck Radiology: Prelim report reviewed, See rad report PD MEDICAL DECISION MAKING - ED course Complexity details: reviewed old records, reviewed results, re-evaluated patient, considered differential, d/w patient, d/w family ED course: Held in ED for several hours. She initially had normal blood pressure, but subsequently had persistent hypotension, occasionally 70s SBP which increased to 80s SBP after 1 liter IV fluid. She is given a second liter IV NS and eventually she was normotensive with SBP 90s, improving to 100s. Her hypoxia resolved and she was weaned off of oxygen. I found that her pleth was mostly unusable during ED stay and when it was a good waveform, her pulse ox was 99-100%. Her mental status slowly improved but she was still too drowsy and confused at end of my shift to discharge, and thus care of patient turned over to Dr. Ferrer at end of my shift. One of the more plausable explanations for this event is overmedication with opiates. Too much of her opiate pain medication could explain her hypoxia, decreased level of responsiveness for EMS, and her hypotension during ED stay until she received fluids and enough time had passed since her last dose of PO opiate medication. There is no evidence of infectious process on blood tests nor urinalysis, no evidence of space-occupying intracranial mass or bleeding on CTH, no evidence of CVA or other vascular compromise on CTA head/neck. CXR not performed as there were no respiratory signs/symptoms, and pulse ox improved as mental status improved (suggesting perhaps hypopnea resulted in hypoxia and peripheral cyanosis when medics first arrived). Departure - Departure Disposition: 01 Home, Self Care Clinical Impression: Medication side effect, Metastatic breast cancer Altered mental state Qualifiers: Altered mental status type: stupor Qualified Code(s): R40.1 - Stupor Condition: Stable Follow-Up: Bernadine Rhodes MD [Primary Care Provider] - Zuleima Jules, GURMEET, VENDOR MANAGER-MONISHA [Provider Admit Priv/Credential] - Comments: Continue with the current fentanyl patch dosing of 50 mcg. Also your normal oxycodone pain medicines. You could try at times going with 2 instead of 3 tablets if her pain is doing okay. At this point I would hold on the olanzapine medication at night until you talk with Zuleima Jules. Most likely the combination of medicines combined with chemotherapy cause the altered mentation overnight. That would be a reasonable side effect of the olanzapine. In fact it is actually the effect desired to be calm and help with sleep, but in this case had too much of an effect. Discharge Date/Time: 02/08/22 09:23
[2022-02-08 02:22] LABS: BASOPHILS % (AUTO) 0.3 %; EOSINOPHILS % (AUTO) 0.3 %; HCT - HEMATOCRIT 23.2 % (37.0-47.0); HGB - HEMOGLOBIN 7.2 g/dL (12.0-16.0); LYMPHOCYTES # (AUTO) 0.2 10^3/uL (1.5-3.5); LYMPHOCYTES % (AUTO) 6.6 %; MEAN CORPUSCULAR HEMOGLOBIN 29.3 pg (27.0-31.0); MEAN CORPUSCULAR VOLUME 94.3 fL (81.0-99.0); MEAN PLATELET VOLUME 9.2 fL (7.9-10.8); MONOCYTES # (AUTO) 0.3 10^3/uL (0.0-1.0); MONOCYTES % (AUTO) 9.3 %; NEUTROPHILS # (AUTO) 2.8 10^3/uL (1.5-6.6); NEUTROPHILS % (AUTO) 82.9 %; PLT - PLATELET COUNT 214 10^3/uL (130-450); RED BLOOD COUNT 2.46 10^6/uL (4.20-5.40); RED CELL DISTRIBUTION WIDTH 15.6 % (12.0-15.0); WHITE BLOOD COUNT 3.3 x10^3/uL (4.8-10.8)
[2022-02-08 02:38] LABS: ALBUMIN 2.2 g/dL (3.2-5.5); ALBUMIN/GLOBULIN RATIO 0.6 (1.0-2.2); BILIRUBIN,TOTAL 0.6 mg/dL (0.2-1.0); CALCIUM 8.5 mg/dL (8.5-10.3); CREATININE 0.7 mg/dL (0.4-1.0); POTASSIUM 3.9 mmol/L (3.5-5.0); TOTAL PROTEIN 5.8 g/dL (6.7-8.2)
[2022-02-08 02:51] LABS: BILIRUBIN,URINE NEGATIVE (NEGATIVE); GLUCOSE, URINE (UA) NEGATIVE (NEGATIVE); KETONES,URINE (UA) TRACE mg/dL (NEGATIVE); LEUKOCYTE ESTERASE, URINE NEGATIVE (NEGATIVE); NITRITE,URINE NEGATIVE (NEGATIVE); OCCULT BLOOD,URINE NEGATIVE (NEGATIVE); PH,URINE 5.5 PH (5.0-7.5); PROTEIN,URINE NEGATIVE (NEGATIVE); UROBILINOGEN,URINE 0.2 (NORMAL) E.U./dL (NORMAL)
[2022-02-08 02:54] LABS: CLARITY,URINE CLEAR (CLEAR)
[2022-02-08] MEDS ORDERED: SODIUM CHLORIDE 0.9% 1,000 ML IV STA (03:08)
[2022-02-08] MEDS ORDERED: SODIUM CHLORIDE 0.9% 1,000 ML IV ONE (04:21)
[2022-02-08] MEDS ORDERED: IOVERSOL 320 100 ML VIAL IVP ONE ×2 (04:50→05:37)
--- NOTE | 2022-02-08 07:27 | CT Report ---
PROCEDURE: HEAD WO INDICATIONS: AMS TECHNIQUE: Noncontrast 4.5 mm thick angled axial sections acquired from the foramen magnum to the vertex. For r adiation dose reduction, the following was used: automated exposure control, adjustment of mA and/or kV according to patient size. COMPARISON: None FINDINGS: Image quality: Excellent. CSF spaces: Basal cisterns are patent. No extra-axial fluid collections. The ventricles are symmet red in size and shape. Brain: No intracranial bleeds or masses. There is cerebral volume loss for age, with resultant vent ricular and sulcal prominence. There are periventricular and deep white matter chronic small vessel ischemic changes. There is intracranial internal carotid artery atherosclerosis. Skull and face: Calvarium and visualized facial bones appear intact, without suspicious lesions. Sinuses: Visualized sinuses and mastoids are clear. IMPRESSION: No acute intracranial disease process. Reviewed by: Polly Estrella MD, PhD on 02/08/2022 7:25 AM PDT Approved by: Polly Estrella MD, PhD on 02/08/2022 7:25 AM PDT Station ID: [id number]
--- NOTE | 2022-02-08 07:56 | CT Report ---
PROCEDURE: ANGIO HEAD W/WO INDICATIONS: AMS CONTRAST: IV CONTRAST: Optiray 320 ml: 80 PO CONTRAST: *NO PO CONTRAST TECHNIQUE: Precontrast 4.5 mm thick angled axial sections acquired from the foramen magnum to the vertex. Afte r the administration of intravenous contrast, 1 mm thick sections acquired through the [place] of [place] is. Postcontrast 4.5 mm thick sections then re-acquired from the foramen magnum to the vertex. 3-di mensional wcmallt-knwfozdwt-ueignbhnjw (MIP) and/or volume rendering reformats were acquired of the c entral intracranial vasculature. For radiation dose reduction, the following was used: automated ex posure control, adjustment of mA and/or kV according to patient size. COMPARISON: MRI brain -05/10. FINDINGS: Image quality: Excellent. Anterior circulation: Intracranial internal carotid arteries are normal in flow. Atherosclerotic shaara cifications noted in the cavernous and clinoid segments of the internal carotid arteries. After stati c calcification causes less than 50% narrowing of the clinoid segment of the right internal carotid a rtery. The flow within the paired anterior cerebral arteries is normal and symmetric. The flow withi n the middle cerebral arteries is normal and symmetric. The anterior communicating artery is seen. No aneurysms are seen. Posterior circulation: Visualized portions of the vertebral arteries demonstrate normal caliber, and join to form a normal appearing basilar artery. Flow within the posterior cerebral arteries is norm al and symmetric. Left posterior [place] artery has a origin. No aneurysms are seen. Dural sinuses demonstrate normal postcontrast enhancement. CSF spaces: Ventricles are normal in size and shape. Basal cisterns are patent. No extra-axial flu id collections. Brain: No metastatic lesions are not well visualized compared to prior MRI. The visualized metastati c lesions are not significantly changed compared to prior MRI. No midline shift. No intracranial ble eds. Garcia-white matter interface appears intact. Skull and face: Calvarium and facial bones appear intact, without suspicious lesions. Sinuses: Visualized sinuses and mastoids are clear. 6 mm osteoma noted in the right ethmoid air cell s. IMPRESSION: 1. Known metastatic disease not as well visualized by current CT imaging compared to prior MRI. The v isualized metastatic lesions are not significantly changed compared to prior MRI. 2. No large vessel occlusion, hemodynamically significant vascular stenosis, vascular dissection or a neurysm. Reviewed by: Polly Estrella MD, PhD on 02/08/2022 7:55 AM PDT Approved by: Polly Estrella MD, PhD on 02/08/2022 7:55 AM PDT Station ID: [id number]
--- NOTE | 2022-02-08 08:02 | CT Report ---
PROCEDURE: ANGIO NECK W INDICATIONS: AMS CONTRAST: IV CONTRAST: Optiray 320 ml: 80 PO CONTRAST: *NO PO CONTRAST TECHNIQUE: After the administration of intravenous contrast, 1.5 mm axial sections acquired from the aortic arch to the [place] of [place]. Coronal 3-D maximum intensity projection (MIP) and/or volume rendering ref ormats were then performed. For radiation dose reduction, the following was used: automated exposur e control, adjustment of mA and/or kV according to patient size. COMPARISON: None. FINDINGS: Image quality: Excellent. Carotid system: The great vessels demonstrate a conventional anatomy as they arise from the aortic a [facility]. The origins of the common carotid arteries appear patent. The common carotid arteries demonstr ate normal calibers and courses. The bifurcation regions appear normal bilaterally. The internal ca rotid arteries demonstrate normal caliber and course. Posterior circulation: The origins of the vertebral arteries appear patent. The more superior porti ons of the vertebral arteries demonstrate normal course and caliber. They join to form a normal appe aring basilar artery. Soft tissues: Visualized neck soft tissues demonstrate no suspicious abnormalities. The thyroid is diffusely enlarged. Bilateral pulmonary nodules, mediastinal lymphadenopathy and pleural effusions li salvador related to metastatic disease. Bones: Chronic lesions noted in the osseous skeleton likely related to metastatic disease. T2 namrata pily fracture which results in approximately 30% loss of vertebral body height is noted. T2 compressi on fractures likely pathologic. Spine degenerative disc disease and facet arthropathy are noted. Vi sualized cervical spine appears normally aligned. IMPRESSION: 1. No large vessel occlusion, hemodynamically significant vascular stenosis, vascular dissection or a neurysm. 2. Multiple bilateral lung nodules, mediastinal lymphadenopathy and bilateral pleural fluid collectio ns compatible with metastatic disease. 3. Diffuse osseous metastatic disease. 4. Pathologic compression fracture involving the T2 vertebral body. The estimate of stenosis included in the report of the imaging study was calculated using the NASCET method Reviewed by: Polly Estrella MD, PhD on 02/08/2022 8:00 AM PDT Approved by: Polly Estrella MD, PhD on 02/08/2022 8:00 AM PDT Station ID: [id number]
[2022-02-08] MEDS ORDERED: oxyCODONE 5 MG TABLET PO STA (08:21)
--- NOTE | 2022-02-08 08:25 | ED Physician Documentation ---
ED Addendum - Addendum Addendum: 02/08/22 08:22Evaluating patient on change of shift. She is more conversant than she had been overnight. Her says she still seems a little foggy but otherwise more conversant. She had had chemotherapy yesterday. Denies any vomiting diarrhea or bloody stools. Her confirms she does have history of low blood pressure typically with commonly at in the 90s to 100 systolic. She had had her fentanyl increased to 50 mcg within the last week. They also added olanzapine 5 mg at night to help with sleep. Last night was the first dose of that. She had had labs and imaging of the head as well as some fluids here. It seems most likely she had medication over effect from the combination of medicines with the addition now of the Zyprexa. I would suggest to him to continue with the fentanyl at 50 mcg and not increase to the 62 as yet. Hold the Zyprexa for now until discussion with Zuleima Jules. Her is comfortable bringing her home at this point. She has been without pain medicine for overnight and typically takes it every 4-6 hours. At this point we can give a smaller dose of her usual medicine as she is becoming more lucid and conversant. We do not want to get behind on her pain. I did not give anything IV though. Disposition: The patient is discharged home in stable condition. Diagnosis: 1. metastatic cancer 2. Altered mental status 3. Medication side effect
[2022-02-08 08:56] VITALS: BP 92/57
== END 2022-02-08 09:23 | disposition home or self-care (01) ==
LOC: EDUNIT# → ED 01:52
DX: R41.82 Altered mental status, unspecified (principal); T50.915A Adverse effect of multiple unspecified drugs, medicaments and biological substances, initial encounter; C50.919 Malignant neoplasm of unspecified site of unspecified female breast; C78.7 Secondary malignant neoplasm of liver and intrahepatic bile duct; C78.00 Secondary malignant neoplasm of unspecified lung; C79.51 Secondary malignant neoplasm of bone; C79.31 Secondary malignant neoplasm of brain
CPT/HCPCS: 36415; 51701; 70450; 70496; 70498; 80053; 81003; 83690; 84443; 85025; 96360; 96361; 99284; A9270; Q9967; 81001; 87086

== ENCOUNTER 2022-02-14 11:50 | Outpatient (CLI) | payer MEDICARE ==
--- NOTE | 2022-02-14 17:20 | CONSULTATION NOTE ---
Palliative Care Follow Up - Referral Referring Provider: Dr. Lidia Streeter Time of Visit: 5512-1217 Referral setting: Home Referral Reason: Pain of neoplasm/Constipation/Metastatic Breast Ca - Information Sources Records reviewed: Previous records reviewed History/Review of Systems obtained from: Patient, Family (spouse, Madhav) Exam limitations: Clinical condition (STM impairment) - History of Present Illness Update Brief HPI Update: This is a 71-year-old female who is seen in follow-up today at home due to pain of neoplastic origin, constipation, anorexia, and malignant left pleural effusion with her spouse, Madhav present. Provider wore N95 mask. The patient continues to have minimal oral intake of food and liquid. She has been coming-becoming hypotensive due to her limited oral intake and is receiving IV hydration on a weekly basis. Her nausea has greatly improved after premedication before chemotherapy. Spouse has not needed to utilize Compazine rectal suppositories very frequently since she has begun chemotherapy. Due to her persistent nausea introduced Zyprexa 5 mg in the evening that the sheeba chance took for the first time after her chemotherapy that resulted in the patient having an altered mental status and presented to the emergency department on 02/08 and the Zyprexa was discontinued. This was also in the setting of the patient demonstrating anemia due to chemotherapy and likely hypotension. Given the patient's continued anemia she was transfused 1 packed RBC on 02/13. Her energy level has significantly improved since she received the transfusion. Who was also noted during her emergency department visit that her TSH was 68 on 02/08 and came to light that the patient's spouse had discontinued the patient's levothyroxine after she had been on this for approximately 3 years due to her difficulty swallowing. Magi has resumed levothyroxine on 02/12. Emergency department visits also revealed a new T2 pathologic compression fracture consistent with the patient's reports of continued pain. Her fentanyl patch was increased to 75 mcg on 02/13. Today, she reports a reduction in her overall pain with her pain level of 5 out of 10. She is also finding it better for her to remain in bed with the support of the bed and not sitting up in her recliner. Spouse has noticed the patient's pain is better controlled on the first 2 days of the new fentanyl patch versus the third day. She is likely having end of dose failure with the fentanyl patch. She continues to utilize oxycodone 15 mg every 3-4 hours. Yesterday in urgent radiation oncology request was sent for the patient to be evaluated for radiation at T2 site. She continues with intermittent constipation in the setting of lack of oral intake and sedentary lifestyle. She is able to swallow Dulcolax 5 mg easily and spouse is giving 2-3 times per day despite encouragement of administering 3 times per day. She is not taking in MiraLAX due to her lack of overall oral intake and is no longer utilizing Colace that she finds is difficult to swallow. 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 Social History - Living Situation Living arrangement: At home Living Situation: With spouse/s.o., With family Support System: Patient her spouse, Madhav had lived on and off [facility] since the 1970s. They have been for 50 years. They have 2 sons, 1 sons live with them. They have 3 grandchildren. They have 1 dog, Madison who is a pisano retriever in the home as well as a cat, sender. Has been using wheelchair for transfers in the house to the restroom and for sitting up for a period of time. Medications/Allergies - Medications Home Medications: Ambulatory Orders Medication Instructions Recorded Confirmed Levothyroxine [Synthroid] 88 mcg PO QDAC 11/04/19 02/08/22 polyethylene glycoL 3350 [Miralax] 1 applic PO BID MDD up to BID 12/21/21 Memantine [Namenda] 10 mg PO BID MDD see below 01/06/22 02/08/22 Naloxone HCl Nasal [Narcan Nasal] PRN MDD use as prescribed 01/10/22 oxyCODONE [Roxicodone] 3 tab PO .Q3-4H PRN 01/10/22 02/08/22 Bisacodyl Supp [Dulcolax Supp] 1 supp DC DAILY PRN 01/20/22 02/08/22 bisacodyL [Dulcolax] 5 mg PO TID 01/20/22 02/08/22 fentaNYL [Fentanyl 25mcg patch] 75 mcg TP Q72H MDD use 50mcg and 01/24/22 02/08/22 25mcg patch Meloxicam [Mobic] 15 mg PO DAILY 02/14/22 02/14/22 - Allergies Allergies/Adverse Reactions: Allergies Allergy/AdvReac Type Severity Reaction Status Date / Time dexamethasone Allergy Rash Verified 02/08/22 02:07 Review of Systems - Constitutional Constitutional: reports: Fatigue, Poor appetite, Weight loss (weight 02/07/22 72.2kg). denies: Fever - Eyes Eyes: reports: Corrective lenses - Ears, Nose & Throat Ears, Nose & Throat: denies: Hearing aids - Cardiovascular Cardiovascular: reports: Edema (Yesterday Right hand swelling that resolved with elevation and ice per spouse), Exertional dyspnea. denies: Chest pain - Respiratory Respiratory: reports: SOB with exertion. denies: Cough, SOB at rest (left pleural catheter with Aspire; drained 65mL after 6 days.) - Gastrointestinal Gastrointestinal: reports: Constipation (last BM yesterday x 3), Poor appetite, Early satiety. denies: Abdominal pain, Nausea (improved after chemotherapy treatmend with pre-medication), Vomiting - Genitourinary Genitourinary: reports: Incontinence (intermittent due to ambulation). denies: Hematuria - Musculoskeletal Musculoskeletal: reports: Back pain, Assistive devices (using wheelchair for distances) - Integumentary Integumentary: reports: Other (Alopecia) - Neurological Neurological: reports: General weakness, Dizziness, Memory problems - Psychiatric Psychiatric: reports: Depression - Endocrine Endocrine: reports: Hypothyroidism ( stopped giving synthroid several weeks ago due to swallowing issues and TSH was elevated during ED visit on 02/08/22-- has been resuming giving the synthroid.) - All Other Systems All Other Systems: reports: Reviewed and negative (ROS supplemented by spouse, Madhav) Physical Exam - Vital Signs Temperature: 36.4 C Pulse Rate: 75 O2 Saturation: 91 (on RA) Blood Pressure: 125/75 - Physical Exam General Appearance: positive: No acute distress, Alert, Other (ill appearing, muscle wasting noted, resting in bed, slightly drowsy at times) Eyes Bilateral: positive: Normal inspection, Other ENT: positive: No signs of dehydration Neck: positive: Trachea midline Cardiovascular: positive: Regular rate & rhythm Respiratory: positive: No respiratory distress, Rales (LLL), Other (Aspira drain in place to left chest wall) Abdomen: positive: Non-tender, Soft, Nml bowel sounds. negative: Distended Skin: positive: Pallor Extremities: positive: No pedal edema Neurologic/Psychiatric: positive: Oriented x3 (+STM impairment with recall and supported by spouse, intermittent drowsiness), Mood/affect nml, Weakness Palliative Care - POLST Patient has POLST: No POLST Status: Full Code Pain: Pain improved (Back pain, improved with increase of fentanyl patch to 75mcg (50mcg and two 12mcg patches combined)), Comment (Present pain at 5/10) Sleep: Sleep improved Constipation: Yes, Opoid induced, Managed, Intermittent constipation Performance Status: Patient is no longer ambulatory even with her walker as she reports that she feels "wobbly" and her spouse is transferring her from the bed to the wheelchair and then into the restroom. Intermittently she is using depends with intermittent episodes of incontinence more due to lack of ability to ambulate versus sensation. Minimal oral intake with weight loss. - Palliative Care Discussion: Patient unfortunately has sustained a series of unfortunate events related to her initiation of first-line chemoimmunotherapy that has resulted in her course being held due to elevated LFTs and now with neutropenia and anemia. She is also with symptomatic hypothyroidism and has resumed her levothyroxine after discontinuation due to swallowing difficulty. And she continues with minimal oral intake requiring weekly IV hydration. Unfortunately, she has presented to the emergency department in recent weeks due to escalating pain now discovered a T2 compression fracture that is likely pathologic that is consistent with the patient's reports of pain and with altered mental status after her one-time dose of Zyprexa. She is demonstrating evidence of not being able to tolerate chemoimmunotherapy. In lengthy discussion with patient and spouse today I discussed plans regarding the patient's perception moving forward. Both the patient and spouse recognize that the patient's condition is not curable but wish to cherish every day to together. The patient herself feels at peace with "God in my heart" and she is not ready to "give up" and wishes to "continue to fight." Provided support with the patient that each day as a new day for her to make a decision on how she wishes to proceed and how she is feeling. She relies on her marciano to get through every day and is open to speaking to the palliative care clay plant treater for additional support. She also relies very heavily on her spouse for support. They do have a disabled son that lives with them who they are working through on making plans so things are financially stable for him. They have a lso been talking about the patient's end-of-life and she would wish to be cremated and is in no hurry to have a celebration of life after her . In the context of end-of-life introduced the role of DN AR versus is CPR. The patient perceives herself having a trial of life support and is welcoming of CPR at the present time and if not effective after 2 days the spouse would then discontinue life support. This is something that they have both firmly adamant regarding the patient having a trial as they do not want to give up any type of hope that the patient would may be recover. Did provide a blank POLST for reference for the patient and spouse and advised that this can be fluid in ever- changing based on how the patient is feeling. Did also introduced the role of hospice services and hospice philosophy in the context if the patient at a point felt that she did not wish to continue moving forward with interventions and focus her shift on her goals were regarding her life. Results - Lab Results Lab results reviewed: Yes Lab and Imaging Results: 02/13/2022 WBC 0.6, hemoglobin 7.4, hematocrit 23.2, platelet 261, neutrophil count 0.3, CA 15-3 152.8 Impression and Recommendations - Palliative Care Impression: This is a 71-year-old female with a history of right breast cancer infiltrating ductal carcinoma diagnosed in 2019 now with metastatic breast cancer, triple negative with pain of neoplastic origin specifically to her spine, constipation,, left pleural effusion, and hypotension. She continues with minimal oral intake and continues to benefit from IV hydration weekly. She has had improvement of her overall pain with increase of fentanyl patch to 75 mcg however, noted end of dose failure and therefore will change frequency from every 72 to every 48 hours. Given the patient's new compression fracture at T2 we will add meloxicam 15 mg daily with food as a trial for additional adjunct pain supplementation. Patient continues to have significant difficulty with swallowing medications. Palliative care will continue to provide care coordination, pain and symptom management as well as anticipatory guidance. Recommendations/Counseling Done: 1. Pain of neoplastic origin with bony metastases. This is in the setting of a new T2 pathologic compression fracture noted on ED evaluation 02/08/2022 with radiation oncology referral placed for consideration of palliative radiation to the spine. Continue fentanyl 75 mcg (50 mcg and 25 mcg patch (every 48 hours given the patient's evidence of end of dose failure. Continue oxycodone 15 mg every 3-4 hours for breakthrough pain. Given the new diagnosis of the patient's T2 pathologic compression fracture and her ability to utilize dexamethasone due to a underlying allergy we will introduce a trial of meloxicam 15 mg taken once daily as the patient was prescribed this in October 2022 in the setting of normal renal function to be taken with food daily as an adjunct for pain management. Reviewed purpose, dose, and side effects with patient and spouse at length and if no noted improvement on follow-up next week then consider discontinuation. We will continue to monitor and dose titrate based on the patient's response. Patient prefers oxycodone 5 mg tablets for ease of swallowing and has Narcan in the home. 2. Fatigue. Multifactorial due to hypothyroidism, anemia, and toleration of chemoimmunotherapy. Continue to pace activities to provide energy conservation. Discussed obtainment of bedside commode given patient's weakness with ambulation and spouse to consider. 3. Anorexia due to metastatic breast cancer and chemotherapy. Has not tolerated oral antiemetics that they has not been effective. Concern regarding the patient's ability to absorb medications. Does have Compazine rectal suppository to be utilized at least twice daily and recently nausea has been better controlled. Had altered mental status after one-time dose of Zyprexa 5 mg after chemotherapy and will not resume even at a lower dose. Continue to encourage small frequent meals throughout the day that are high in protein. Has had nutritional consult at [facility]. 4. Constipation. Sedentary lifestyle contributing as well as opioid therapy. Continue Dulcolax 5 mg 3 times daily and strongly encourage the patient's spouse to administer on a routine schedule. Has not been able to take in efficient quality of MiraLAX and unable to swallow Colace. Does have Dulcolax suppository in the home to utilize if needed as well as milk of magnesia. Continue to monitor and adjust bowel regimen as appropriate. 5. Left malignant pleural effusion. Minimal drainage. Noted evidence of pleural effusion remaining on physical examination. Patient is without respiratory complaints at rest. Will reach out to interventional radiology at [facility] to determine next steps regarding the patient's pleural drain. We will follow-up with results. 6. Metastatic breast cancer, triple negative. Is receiving carbo/Gemzar. To begin Zometa infusion due to bony metastases based on insurance authorization. Continue to follow-up with oncology as scheduled. 7. Advanced care planning. Patient does not have a POLST T in place. Lengthy discussion was had today with patient and spouse regarding plan of care moving forward with end-of-life choices. Patient the present time is very vocal and adamant that she would wish to have a trial of CPR and to be on life support if she had a chance of recovery. Her spouse is also very emphatic and supportive of this decision. The patient does have some underlying cognitive deficits due to brain metastases and radiation and although she can make her needs no known and require support from her complex decision making from her spouse. The patient has a strong reliance on her marciano however, did given recent trials would benefit from palliative care clay plant treater support and is appreciative of this request and referral. 1425: Received return phone call from Jasmin Hernandez PA-C at [facility] to discuss the patient's pleural catheter. Reviewed that the patient has had approximately 65 mL of fluid drained after 6 days. Recommendation made to obtain chest x-ray and if minimal noted effusion on imaging may trial either draining once per week if the patient notes a difference in her breathing with drainage or if no difference in her breathing then to not drain at all and after several weeks perform a repeat chest x-ray. If the repeat chest x-ray after no drainage for several weeks remains stable then would follow-up with IR for removal of the tunneled catheter in the office at [facility]. Given the difficulty the patient has leaving her home discussed with SHEEBA Hernandez will have the patient and spouse obtain the chest x-ray when next present at [facility] to limit time out of the home and in agreement this would be acceptable. Will forward results of chest x-ray to SHEEBA Hernandez for reference. Total time spent 50 minutes with greater than 50% of the spent in counseling and coordination of care with the patient and spouse; review of emergency department records and oncology notes; introduction of hospice philosophy; advance care planning and introduction of POLST; pain and symptom management as well as anticipatory guidance. Send update to oncologist Dr. Piña and SHEEBA Jacobsen at [facility]. Disclaimer: The chart note was formulated using voice recognition technology and unfortunately sound alike errors may occur.
== END 2022-02-14 11:51 | disposition home or self-care (01) ==
LOC: PC 11:50
PROVIDERS: ATTEND Nurse Practitioner Family
DX: Z51.5 Encounter for palliative care (principal); G89.3 Neoplasm related pain (acute) (chronic); C50.911 Malignant neoplasm of unspecified site of right female breast; Z17.1 Estrogen receptor negative status [ER-]; J91.0 Malignant pleural effusion; C79.51 Secondary malignant neoplasm of bone; R53.83 Other fatigue; E03.9 Hypothyroidism, unspecified; R63.0 Anorexia; K59.03 Drug induced constipation; M48.54XD Collapsed vertebra, not elsewhere classified, thoracic region, subsequent encounter for fracture with routine healing; T40.2X5A Adverse effect of other opioids, initial encounter; Z79.899 Other long term (current) drug therapy; Z79.891 Long term (current) use of opiate analgesic; R11.0 Nausea; D64.81 Anemia due to antineoplastic chemotherapy; D70.1 Agranulocytosis secondary to cancer chemotherapy; T45.1X5A Adverse effect of antineoplastic and immunosuppressive drugs, initial encounter; Z96.89 Presence of other specified functional implants; Z74.09 Other reduced mobility
CPT/HCPCS: 99349

== ENCOUNTER 2022-02-16 17:05 | Outpatient (CLI) | payer MEDICARE ==
--- NOTE | 2022-02-17 12:49 | Ultrasound Report ---
PROCEDURE: Duplex Ext Veins Right INDICATIONS: RIGHT ARM SWELLING TECHNIQUE: Real-time imaging, as well as color and pulse Doppler interrogation, were performed of the lower extr emity deep veins from the inguinal ligament to the popliteal fossa. COMPARISON: None. FINDINGS: It is notable that there is limited visualization of the brachial as well as cephalic veins. The deep veins are normally compressible, and free of intraluminal thrombus. Color and pulse Doppler demonstrate normal phasic intraluminal flow. There is normal augmentation response to distal compre ssion maneuver. There is an enlarged right supraclavicular lymph node measuring 3.3 x 2.2 cm. Focus of decreased echo genicity is noted in the right shoulder measuring 2.6 x 0.5 x 1.8 cm. IMPRESSION: Limited exam demonstrating no deep venous thrombosis. Enlarged right supraclavicular lymph node. Decreased echogenicity in the right shoulder possibly related to fluid, abscess or hematoma. Reviewed by: Radha Gomez MD on 02/17/2022 12:48 PM PDT Approved by: Radha Gomez MD on 02/17/2022 12:48 PM PDT Station ID: [id number]
== END 2022-02-16 17:06 | disposition home or self-care (01) ==
LOC: DI 17:05
PROVIDERS: ATTEND Internal Medicine Hematology & Oncology
DX: R59.0 Localized enlarged lymph nodes (principal); R93.6 Abnormal findings on diagnostic imaging of limbs

== ENCOUNTER 2022-02-21 10:15 | Outpatient (CLI) | payer MEDICARE ==
--- NOTE | 2022-02-21 15:44 | CONSULTATION NOTE ---
Palliative Care Follow Up - Referral Referring Provider: Dr. Lidia Streeter Time of Visit: Intiated 1015; 45 minutes Referral setting: [facility] Referral Reason: Pain of neoplasm/Constipation/Pleural effusion - Information Sources Records reviewed: Previous records reviewed History/Review of Systems obtained from: Patient, Family Exam limitations: Clinical condition (STM impairment) - History of Present Illness Update Brief HPI Update: This is a 71-year-old female who was seen in follow-up today in the [facility] due to pain of neoplastic origin, constipation, anorexia and malignant left pleural effusion with her spouse, Madhav present. The patient continues to have minimal oral intake of food and liquid. She continues to receive IV hydration on a weekly basis. She continues to live adding pepper to her food however, discussion today had that this can cause increased nausea. Since receiving premedication for chemotherapy most specifically Palonestron, the patient has had a significant reduction in her nausea. Spouse is only intermittently utilizing Compazine rectal suppository 1 previously would be administering up to twice a day. Last week, she had right upper extremity swelling that resolved with ice and elevation. She has not had a return of her swelling. Her oncologist ordered a venous duplex which was negative for a DVT on her right next upper extremity performed on 02/17/2022. Her fentanyl patch was increased to 75 mcg on 02/13 and to be changed every 48 hours. She has had a reduction in her overall pain level to a 4 out of 10. She is participating patient woke up with this, given that extra time of sleeping and so, she had increased pain that has now stabilized. Moving more than she was previously. She is taking 55 to 65 mg of oxycodone on average per day for breakthrough pain. Spouse reports that per pharmacy insurance will not cover more than 12 oxycodone per day. Last week she was started on daily meloxicam 15mg daily with food. Possible improvement with pain, but unclear per patient and spouse. Has not been consistent fully with meloxicam if the patient has not eaten and therefore there have been a few days she has not received the medication. Patient had increased shortness of breath and the spouse was behind on draining her tunneled catheter for her malignant left pleural effusion. 110mL was drained last evening of lightly yellow fluid with improvement of the patient's shortness of breath. It has been 8 days since this had been drained. The patient is demonstrating more consistency with defecation. She is having a bowel movement daily to every other day. She is being administered Dulcolax 5 mg three times daily. 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 Social History - Living Situation Living arrangement: At home Living Situation: With spouse/s.o., With family Support System: Patient her spouse, Madhav had lived on and off [facility] since the 1970s. They have been for 50 years. They have 2 sons, 1 sons live with them. They have 3 grandchildren. They have 1 dog, Madison who is a pisano retriever in the home as well as a cat, sender. Family friends Reza and Sameera visited from [place] over the weekend and the patient and spouse enjoyed spending quality time together. Patient was outside enjoying the sun in her wheelchair and participating in creating bubbles. Medications/Allergies - Medications Home Medications: Ambulatory Orders Medication Instructions Recorded Confirmed Levothyroxine [Synthroid] 88 mcg PO QDAC 11/04/19 02/08/22 polyethylene glycoL 3350 [Miralax] 1 applic PO BID MDD up to BID 12/21/21 Memantine [Namenda] 10 mg PO BID MDD see below 01/06/22 02/08/22 Naloxone HCl Nasal [Narcan Nasal] PRN MDD use as prescribed 01/10/22 oxyCODONE [Roxicodone] 3 tab PO .Q3-4H PRN 01/10/22 02/08/22 Bisacodyl Supp [Dulcolax Supp] 1 supp AR DAILY PRN 01/20/22 02/08/22 bisacodyL [Dulcolax] 5 mg PO TID 01/20/22 02/08/22 fentaNYL [Fentanyl 25mcg patch] 75 mcg TP Q72H MDD use 50mcg and 01/24/22 02/08/22 25mcg patch Meloxicam [Mobic] 15 mg PO DAILY 02/14/22 02/14/22 - Allergies Allergies/Adverse Reactions: Allergies Allergy/AdvReac Type Severity Reaction Status Date / Time dexamethasone Allergy Rash Verified 02/08/22 02:07 Review of Systems - Constitutional Constitutional: reports: Fatigue (sleeping more during the day), Poor appetite, Weight loss (weight 02/07/22 72.2kg). denies: Fever - Eyes Eyes: reports: Corrective lenses - Ears, Nose & Throat Ears, Nose & Throat: denies: Hearing aids - Cardiovascular Cardiovascular: reports: Exertional dyspnea. denies: Edema (no longer with RUE edema, see HPI) - Respiratory Respiratory: reports: SOB with exertion, Other (Left pleural catheter with Aspire, drained 110mL last night 02/20 after 8 days). denies: SOB at rest - Gastrointestinal Gastrointestinal: reports: Constipation (improved), Nausea (improved, see HPI), Poor appetite, Early satiety. denies: Abdominal pain, Vomiting - Genitourinary Genitourinary: denies: Dysuria - Musculoskeletal Musculoskeletal: reports: Back pain (improved), Assistive devices (using wheelchair for distances) - Integumentary Integumentary: reports: Other (Alopecia) - Neurological Neurological: reports: General weakness, Memory problems - Psychiatric Psychiatric: reports: Depression - Endocrine Endocrine: reports: Hypothyroidism ( stopped giving synthroid several weeks ago due to swallowing issues and TSH was elevated during ED visit on 02/08/22-- has been resuming giving the synthroid.) - All Other Systems All Other Systems: reports: Reviewed and negative (ROS supplemented by spouse, Madhav) Physical Exam - Vital Signs O2 Saturation: 91 (on RA) - Physical Exam General Appearance: positive: No acute distress, Alert, Other (Dozing off during evaluation and will awaken to direct questions, ill appearing, muscle wasting noted) Eyes Bilateral: positive: Other (+corrective lenses) ENT: positive: No signs of dehydration Cardiovascular: positive: Regular rate & rhythm Respiratory: positive: No respiratory distress, Rales (LLL), Other (Aspira drain in place left chest wall) Abdomen: positive: Non-tender, Soft, Nml bowel sounds. negative: Distended Skin: positive: Pallor Extremities: positive: No pedal edema Neurologic/Psychiatric: positive: Oriented x3 (+STM impairment with recal and supported by spouse), Mood/affect nml, Weakness Palliative Care - POLST Patient has POLST: No POLST Status: Full Code Pain: Pain improved (Improved with increase of fentanyl patch to 75mcg (50mcg and 25mcg patches combined)), Comment (02/26 to back) Tiredness/Fatigue: Moderate (4-6) Drowsiness/Sedation: Moderate (4-6) Nausea: Severe (7-10) Anorexia: Severe (7-10) Dyspnea: Moderate (4-6) Depression: Moderate (4-6) Anxiety: Moderate (4-6) Feelings of wellbeing/Perceived Quality of Life: Fair Sleep: Sleeps well Constipation: Opoid induced, Managed, Intermittent constipation - Palliative Care Discussion: Patient has had overall improvement with her generalized pain since introduction of meloxicam 15 mg daily and increase of her fentanyl patch to 75 mcg every 48 hours. Both the patient and spouse articulate that reducing the frequency has resulted in reduction of end of dose failure for the patient and overall improvement with pain control. Discussed with the patient and spouse given the report that the pharmacy states that the patient's insurance will not cover for more than 12 tablets of oxycodone per day for breakthrough pain may increase to higher tablets of oxycodone however, the patient wishes to stay at oxycodone 5 mg tablets as it is easier for her to swallow given her history of difficulty with swallowing medications that has been longstanding for her entire life. Patient spouse is fine with paying [id number]. Given the patient's overall pain has improved we will continue meloxicam 15 mg daily moving forward at this time and readdress in the future. Palliative radiation to to to is on hold at t he present time given her positive pain response and desire to not interrupt her chemotherapy per oncologist. Patient does express today her frustration regarding her lack of independence when she was previously able to do things on her own. She is appreciative of her spouse's report but at times feels helpless regarding her inability to care for herself. Supportive and empathetic listening provided. Results - Lab Results Lab results reviewed: Yes Lab and Imaging Results: 02/21/2022 WBC 3.6, hemoglobin 8.4, hematocrit 26.8, platelets 78, Impression and Recommendations - Palliative Care Impression: This is a 71-year-old female with a history of right breast cancer infiltrating ductal carcinoma diagnosed in 2019 now with metastatic breast cancer, triple negative with pain of neoplastic origin specifically to her spine, constipation, and left pleural effusion in the setting of anorexia. She continues with high symptom burden with noted improvement related to constipation and pain over the last week. To obtain chest x-ray today to monitor left pleural effusion. Will follow with the post results. Palliative care will continue to provide care coordination, pain and symptom management as well as anticipatory guidance. Recommendations/Counseling Done: 1. Pain of neoplastic origin with bony metastases. This is in the setting of a new T2 pathologic compression fracture noted on ED evaluation 02/08/2022. Radiation oncology referral was placed for palliative radiation of the spine that is now on hold given patient's improvement with her pain and to avoid interruption of chemotherapy. Pain improved with increase of fentanyl patch. Continue fentanyl 75 mcg, 50 mcg and 25 mcg patch (every 48 hours given the patient's evidence of end of dose failure. Continue oxycodone 50 mg every 3-4 hours for breakthrough pain. Discussed increasing the patient's oxycodone tablet from 5 mg to 10 mg for insurance purposes however, patient and spouse decline given E use the patient has with swallowing oxycodone 5 mg. Has Narcan in the home. Continue meloxicam 15 mg taken once daily with food as an adjunct for pain management and new Rx sent to [facility] in [place]. 2. Left malignant pleural effusion. Discussed at bare minimum catheter needs to be drained on a weekly basis as patient becomes symptomatic over 7 days. Noted evidence of pleural effusion remaining on physical examination. Patient is without respiratory complaints at rest and will have it with increased activity. To obtain chest x-ray today to monitor for size of pleural effusion and will send results to [facility] for reference. Continue to monitor. 3. Constipation. Sedentary lifestyle contributing as well as opioid therapy. Continue Dulcolax 5 mg 3 times daily and continue to administered on a routine schedule. Patient has not been able to utilize and take an official quantity of MiraLAX nor be able to swallow Colace. Does have Dulcolax suppository in the home to utilize if needed as well as milk of magnesia. Continue to monitor and adjust bowel regimen as appropriate. 4. Metastatic breast cancer, triple negative. Is receiving [id number]/[id number]. To continue follow-up with oncology as scheduled. Patient and spouse are aware that therapy is palliative in intent. 45 minutes with review of CBC, oncology note, [id number] with patient and spouse for counseling on pain and symptom management, psychosocial support, anticipatory guidance and advanced care planning. Disclaimer: The chart note was formulated using voice recognition technology and unfortunately sound alike errors may occur.
== END 2022-02-21 10:16 | disposition home or self-care (01) ==
LOC: PC 10:15
PROVIDERS: ATTEND Nurse Practitioner Family
DX: Z51.5 Encounter for palliative care (principal); G89.3 Neoplasm related pain (acute) (chronic); R11.0 Nausea; R63.0 Anorexia; R68.81 Early satiety; J91.0 Malignant pleural effusion; C79.51 Secondary malignant neoplasm of bone; Z85.3 Personal history of malignant neoplasm of breast; R53.83 Other fatigue; K59.03 Drug induced constipation; T40.2X5A Adverse effect of other opioids, initial encounter; Z79.899 Other long term (current) drug therapy; Z79.891 Long term (current) use of opiate analgesic; Z96.89 Presence of other specified functional implants
CPT/HCPCS: 99215

== ENCOUNTER 2022-03-03 13:00 | Outpatient (CLI) | payer MEDICARE ==
--- NOTE | 2022-03-03 16:51 | CONSULTATION NOTE ---
Palliative Care Follow Up - Referral Referring Provider: Dr. Lidia Streeter Time of Visit: [id number] Referral setting: Home Referral Reason: Pain of neoplasm/Constipation/ACP - Information Sources Records reviewed: RN notes reviewed History/Review of Systems obtained from: Patient, Family (spouse, Madhav) - History of Present Illness Update Brief HPI Update: This is a nichole 71-year-old female who was seen in follow-up today in her home due to pain of neoplastic origin, constipation, metastatic breast cancer and advance care planning with her spouse, Madhav present. Patient had increased alertness and thrombocytopenia on 02/28/2022 that resulted in her chemotherapy being held. In addition, due to her ECOG status of 4 requiring assistance for all ADLs. In discussion with the patient's spouse on he was continually waking the patient to provide breakthrough pain medication despite the patient's pain being under well control with fentanyl patch 75 mcg being changed every 48 hours. Since 02/28 the spouse has weaned back on administration of oxycodone administering 10 to 15 mg every 3-4 hours and continue to provide support and reassurance to the patient's spouse as he is fearful of the patient having escalating pain that is not well controlled to listen to the patient's body's response and administration of oxycodone and to not awaken her from sleep. Today, the patient is alert and out of bed in her wheelchair in the kitchen. She was able to participate and be alert during the entire visit. She does have some short-term cognitive deficits due to history of intracranial metastases and status post brain radiation as well as chemotherapy. Spouse has been giving approximately 50 mg of oxycodone per day for breakthrough pain. The patient today reports that she is feeling good. She does not have any pain to her back or reporting a headache. She continues to be incontinent of bowel and bladder due to mobility. She is not ambulatory. Her spouse is using a gait belt to assist with transfers. She does feel that her legs will not support her. She did require a lift assist to get in and out of the car on 02/28 to present to the [facility] as she had fears of falling. She is able to stand and pivot but otherwise is not ambulatory. She last had a bowel movement Sunday. She continues with minimal oral intake. She is able to maintain hydration. However, despite encouragement of small frequent meals and protein shake supplementation the patient is unable to consume much of these meals.She finds that she is not hungry and food does not taste appealing. She did have an episode of emesis after coffee this morning. Spouse has picking up Zofran ODT 4 mg tablets to be utilized every 8 hours as needed for nausea. Discussion had regarding using Zofran prior to meals and continues to have Compazine rectal suppositories for utilization within the home. The patient was able to eat some chili yesterday and tolerated this well. Patient and spouse findings that after receiving chemotherapy the patient has no energy and is extremely weak and until the weekend. This week with out chemotherapy the patient's spouse finds that the patient has some increased alertness and energy. Past Medical History: Patient has a past medical history of hypertension, hyperlipidemia, hypothyroi dism, right breast cancer triple negative invasive ductal carcinoma 2018; metastatic cancer involving bilateral lungs with malignant left pleural effusion with brain metastases, brain mets and liver mets since 11/07/2021; tunneled Pleurx pleural catheter placed 01/02/2022, depression, urinary retention, right mastectomy March 2020, previous history of alcohol dependence, hypothyroidism. Social History - Living Situation Living arrangement: At home Living Situation: With spouse/s.o., With family Support System: Patient her spouse, Madhav had lived on and off [facility] since the 1970s. They have been for 50 years. They have 2 sons, 1 son lives with them and can provide some physical support. They have 3 grandchildren. They have 1 dog, Madison who is a pisano retriever in the home as well as a cat, sender. Medications/Allergies - Medications Home Medications: Ambulatory Orders Medication Instructions Recorded Confirmed Levothyroxine [Synthroid] 88 mcg PO QDAC 11/04/19 02/08/22 polyethylene glycoL 3350 [Miralax] 1 applic PO BID MDD up to BID 12/21/21 Memantine [Namenda] 10 mg PO BID MDD see below 01/06/22 02/08/22 Naloxone HCl Nasal [Narcan Nasal] PRN MDD use as prescribed 01/10/22 oxyCODONE [Roxicodone] 2 - 3 tab PO .Q3-4H PRN 01/10/22 02/08/22 Bisacodyl Supp [Dulcolax Supp] 1 supp AL DAILY PRN 01/20/22 02/08/22 bisacodyL [Dulcolax] 5 mg PO TID 01/20/22 02/08/22 fentaNYL [Fentanyl 25mcg patch] 75 mcg TP Q72H MDD use 50mcg and 01/24/22 02/08/22 25mcg patch Meloxicam [Mobic] 15 mg PO DAILY 02/14/22 02/14/22 Ondansetron Odt [Zofran Odt] 4 mg PO Q8H PRN 03/05/22 03/05/22 Prochlorperazine Supp [Compazine 1 supp AL BID PRN 03/05/22 03/05/22 Supp] - Allergies Allergies/Adverse Reactions: Allergies Allergy/AdvReac Type Severity Reaction Status Date / Time dexamethasone Allergy Rash Verified 02/08/22 02:07 Review of Systems - Constitutional Constitutional: reports: Fatigue (sleeping more during the day), Poor appetite, Weight loss (weight 02/07/22 72.2kg). denies: Fever - Eyes Eyes: reports: Corrective lenses. denies: Vision loss - Ears, Nose & Throat Ears, Nose & Throat: denies: Hearing aids - Cardiovascular Cardiovascular: reports: Exertional dyspnea. denies: Chest pain, Edema (no longer with RUE edema) - Respiratory Respiratory: reports: SOB with exertion, Other (Left pleural catheter with Aspire, drained slightly over 115mL on Sunday and draining once a week. Patient finds better breathing with her sleeping on her left side and right lung up). denies: SOB at rest - Gastrointestinal Gastrointestinal: reports: Constipation (see HPI), Nausea (intermittent, see HPI), Vomiting (episode today), Poor appetite, Early satiety. denies: Abdominal pain - Genitourinary Genitourinary: reports: Incontinence (due to mobility). denies: Dysuria - Musculoskeletal Musculoskeletal: reports: Muscle weakness, Assistive devices (using wheelchair and no longer ambulatory), Transfer issues. denies: Back pain (denies today with pain controlled) - Integumentary Integumentary: reports: Other (Alopecia) - Neurological Neurological: reports: General weakness, Memory problems. denies: Headache - Psychiatric Psychiatric: reports: Depression - Endocrine Endocrine: reports: Hypothyroidism - All Other Systems All Other Systems: reports: Reviewed and negative (ROS supplemented by spouse, Madhav) Physical Exam - Vital Signs Temperature: 36.6 C Pulse Rate: 94 O2 Saturation: 94 (on RA) Blood Pressure: 98/58 (left wrist) - Physical Exam General Appearance: positive: No acute distress, Alert, Other (alert and OOB in wheelchair, ill appearing, muscle wasting noted) Eyes Bilateral: positive: Normal inspection, Other (+corrective lenses) ENT: positive: No signs of dehydration Cardiovascular: positive: Regular rate & rhythm Respiratory: positive: No respiratory distress, Rales (LLL), Other (Aspira drain in place left chest wall) Abdomen: positive: Non-tender, Soft, Nml bowel sounds. negative: Distended Skin: positive: Pallor Extremities: positive: No pedal edema Neurologic/Psychiatric: positive: Oriented x3 (+STM impairment with recall and supported by spouse), Mood/affect nml, Weakness Palliative Care - POLST Patient has POLST: No POLST Status: Full Code Pain: Pain improved Performance Status: Patient is nonambulatory. Incontinent of bowel and bladder due to mobility. Continues to have sensation regarding voiding and defecation. Unable to prepare her own food. Requires assistance with bathing. - Palliative Care Discussion: Given that chemotherapy was held on 02/28, the patient's spouse reports that he thought that the plug on chemotherapy was going to be pulled and was going to be resigned regarding that decision. However, both the patient and to continue to continue to not want to give up hope regarding the ability of the patient to receive chemotherapy recognizing that the patient receivable of chemotherapy is palliative in nature and not curative. Given the patient's functional status, history of thrombocytopenia and intermittent elevation of liver enzymes and hypotension, concerned that chemotherapy could potentially be doing more harm than good from what we have trialed thus far. This was discussed at length with the patient and spouse that there may come a shift in interventions in the near future and to be prepared for that potential shift as they both acknowledged when the patient has not received chemotherapy she is more alert and has inc reased energy. The patient expressed concerns that if a shift comes and if she is no longer able to receive chemotherapy that she would "suffer." Reassurance provided that care and support would always be provided to the patient and spouse and will continue to have hope but setting expectations for a possible turn in the patient's ability to receive chemotherapy in the future. Impression and Recommendations - Palliative Care Impression: This is a 71-year-old female with a history of right breast cancer infiltrating ductal carcinoma diagnosed in 2019 now with metastatic breast cancer, triple negative with pain of neoplastic origin specifically to her spine, constipation, hypotension, and left pleural effusion in the setting of anorexia. Her pain control is presently well controlled. This week, chemotherapy was held. Palliative care will continue to provide care coordination, pain and symptom management as well as anticipatory guidance. Recommendations/Counseling Done: 1. Pain of neoplastic origin with bony metastases. Presently controlled. Has a T2 pathologic compression fracture noted on ED evaluation 02/08/2022. Radiation oncology presently on hold to avoid interruption of chemotherapy. Continue fentanyl 75 mcg every 48 hours (50 mcg and 25 mcg patch) given the patient's evidence of end of dose failure. Given the patient's spouses linear expectations and waking the patient up from sleep for fear of pain escalation contributed to oversedation, Again, lengthy conversation was had with patient and spouse setting expectations that patient is unlikely to be completely pain- free and to not awaken from sleep if the patient is comfortable. To continue oxycodone at reduced dose of 10 to 15 mg every 3-4 hours for breakthrough pain not to exceed 12 tablets in 24 hours to limit overuse. Patient requires use of oxycodone 5 mg tablets given her difficulty with swallowing. Has Narcan in the home. Continue meloxicam 15 mg taken once daily with food as an adjunct for pain management. 2. Hypotension. Minimal burden in the setting of anorexia. Continue to encourage oral hydration. Continue with IV hydration weekly. 3. Constipation. Sedentary lifestyle as well as opioid therapy contributing. Continue Dulcolax 5 mg 3 times a day continued on a routine schedule. Advised to administer Dulcolax suppository this evening in the home and has milk of magnesia available if needed. Has been unable to take full quantity of MiraLAX nor able to swallow Colace. 4. Mild hypokalemia. Resolved. Given the patient's difficulty with swallowing medications that are large in size as well as minimal oral intake if supplementation of potassium as needed in the future would recommend use of powder or effervescent tablets. 5. Metastatic breast cancer, triple negative. Chemotherapy was held on 02/28 with Keytruda, carbo/Gemzar. To continue follow-up with oncology as scheduled. Patient and spouse are aware that therapy is palliative in intent. 6. Advanced care planning. Introduced again today expectations regarding patient's tolerance of chemotherapy to continue to be evaluated by oncology. Lengthy discussion regarding goals of care and patient and spouse continue to hold on heavily to hope. Supportive and empathetic listening provided today. Please see palliative care discussion for further details. Total time spent 50 minutes with greater than 50% of the spent in counseling and coordination of care with the patient and spouse; supportive and empathetic listening including setting expectations regarding pain management and plan of care moving forward; obtainment of hospital bed for future planning and support; examination of patient; and anticipatory guidance. Disclaimer: The chart note was formulated using voice recognition technology and unfortunately sound alike errors may occur.
== END 2022-03-03 13:01 | disposition home or self-care (01) ==
LOC: PC 13:00
PROVIDERS: ATTEND Nurse Practitioner Family
DX: Z51.5 Encounter for palliative care (principal); G89.3 Neoplasm related pain (acute) (chronic); C50.919 Malignant neoplasm of unspecified site of unspecified female breast; C79.51 Secondary malignant neoplasm of bone; Z17.1 Estrogen receptor negative status [ER-]; I95.9 Hypotension, unspecified; K59.00 Constipation, unspecified
CPT/HCPCS: 99349

== ENCOUNTER 2022-03-07 10:30 | Outpatient (CLI) | payer MEDICARE ==
--- NOTE | 2022-03-07 12:22 | CONSULTATION NOTE ---
Palliative Care Follow Up - Referral Referring Provider: Dr. Lidia Streeter Time of Visit: Intiated 1030; 40 minutes Referral setting: [facility] [place] Referral Reason: Pain of neoplams/Constipation/Fatigue - Information Sources Records reviewed: Previous records reviewed History/Review of Systems obtained from: Patient, Family (spouse, Madhav) Exam limitations: Clinical condition (+STM impairment) - History of Present Illness Update Brief HPI Update: This is a nichole 71-year-old female who is seen in follow-up today at [facility] [place] due to pain of neoplastic origin, constipation, fatigue in the setting of anemia and metastatic breast cancer with her spouse, Madhav present. Provider were N95 mask. The patient had her chemotherapy held on 02/28 due to decreased alertness and thrombocytopenia in addition to ECOG status of 4 requiring assistance for all ADLs. The patient continues to require assistance for all ADLs and is in continent of bowel and bladder due to mobility. She was able to transfer into the car yesterday to attend to bank matters as well as an 8 out of the car today to attend to the [facility] [place]. She felt like her legs were able to support her with the assistance of her spouse and son with her transfers. This eased her mind regarding this. The patient's pain is under better control and the patient's spouse is no longer giving oxycodone [id number] were regardless. She is taking approximately 8 tablets of oxycodone per day and the patient's alertness is also improved. She continues on fentanyl patch 75 mcg being changed every 4-8 hours to the end of dose failure. Patient and spouse no longer expressed concerns regarding pain escalate patient with reduction of oxycodone. The patient presents today with anemia with hemoglobin of 6.4 and hematocrit 20.4% and is to receive 1 unit of packed RBC today and 1 unit of packed RBC tomorrow. Patient reports overall having increased fatigue likely due to un derlying anemia. She has had a little bit of an increase in her overall oral intake with food since spouse has been implementing Zofran ODT 4 mg to utilize before meals resulting in reduction of nausea and vomiting. She did have some bites of a pumpkin pie today. Last bowel movement was on Sunday after utilization of Dulcolax suppository. Patient has also been able to taken some MiraLAX with lashaun damien and previously was unable to consume. 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, brain mets and liver mets since 11/07/2021; julio césar neled Pleurx pleural catheter placed 01/02/2022, depression, urinary retention, right mastectomy March 2020, previous history of alcohol dependence, hypothyroidism. Social History - Living Situation Living arrangement: At home Living Situation: With spouse/s.o., With family Support System: Patient her spouse, Madhav had lived on and off [facility] since the 1970s. They have been for 50 years. They have 2 sons, 1 son lives with them and can provide some physical support. They have 3 grandchildren. They have 1 dog, Madison who is a pisano retriever in the home as well as a cat, sender. Patient's best friends, Talita visited over the weekend and presented the patient with a gift from the [employer] and she also visited the patient while there to pray for the patient. Both the patient and spouse feel like this was assistive. Medications/Allergies - Medications Home Medications: Ambulatory Orders Medication Instructions Recorded Confirmed Levothyroxine [Synthroid] 88 mcg PO QDAC 11/04/19 02/08/22 polyethylene glycoL 3350 [Miralax] 1 applic PO BID MDD up to BID 12/21/21 Memantine [Namenda] 10 mg PO BID MDD see below 01/06/22 02/08/22 Naloxone HCl Nasal [Narcan Nasal] PRN MDD use as prescribed 01/10/22 oxyCODONE [Roxicodone] 2 - 3 tab PO .Q3-4H PRN 01/10/22 02/08/22 Bisacodyl Supp [Dulcolax Supp] 1 supp [place] DAILY PRN 01/20/22 02/08/22 bisacodyL [Dulcolax] 5 mg PO TID 01/20/22 02/08/22 fentaNYL [Fentanyl 25mcg patch] 75 mcg TP Q72H MDD use 50mcg and 01/24/22 02/08/22 25mcg patch Meloxicam [Mobic] 15 mg PO DAILY 02/14/22 02/14/22 Ondansetron Odt [Zofran Odt] 4 mg PO Q8H PRN 03/05/22 03/05/22 Prochlorperazine Supp [Compazine 1 supp [place] BID PRN 03/05/22 03/05/22 Supp] - Allergies Allergies/Adverse Reactions: Allergies Allergy/AdvReac Type Severity Reaction Status Date / Time dexamethasone Allergy Rash Verified 02/08/22 02:07 Review of Systems - Constitutional Constitutional: reports: Fatigue (sleeping more during the day), Poor appetite, Weight loss (weight 02/07/22 72.2kg). denies: Fever - Eyes Eyes: reports: Corrective lenses - Ears, Nose & Throat Ears, Nose & Throat: denies: Hearing loss - Cardiovascular Cardiovascular: reports: Exertional dyspnea. denies: Edema (no longer with RUE edema) - Respiratory Respiratory: reports: SOB with exertion, Other (Left pleural catheter with Aspire, drained slightly over 100mL today and draining once a week.). denies: SOB at rest - Gastrointestinal Gastrointestinal: reports: Constipation (see HPI), Poor appetite, Early satiety. denies: Abdominal pain, Abdominal distention, Vomiting (see HPI) - Genitourinary Genitourinary: reports: Incontinence (due to mobility). denies: Dysuria - Musculoskeletal Musculoskeletal: reports: Muscle weakness, Assistive devices (using wheelchair and no longer ambulatory), Transfer issues (see HPI). denies: Back pain (denies today with pain controlled) - Integumentary Integumentary: reports: Other (Alopecia) - Neurological Neurological: reports: General weakness, Memory problems. denies: Headache, Dizziness - Psychiatric Psychiatric: reports: Depression - Endocrine Endocrine: reports: Hypothyroidism - Hematologic/Lymphatic Hematologic/Lymph: reports: Anemia (Hg 6.4 and Hct 20.4% today, 03/07) - All Other Systems All Other Systems: reports: Reviewed and negative (ROS supplemented by spouse, Madhav) Physical Exam - Vital Signs Temperature: 36.6 C Pulse Rate: 81 O2 Saturation: 92 (on RA) Blood Pressure: 98/71 - Physical Exam General Appearance: positive: No acute distress, Alert, Other (alert, ill appearing, muscle wasting noted) Eyes Bilateral: positive: Other (+corrective lenses) ENT: positive: No signs of dehydration Cardiovascular: positive: Regular rate & rhythm Respiratory: positive: No respiratory distress, Rales (LLL), Other (Aspira drain in place left chest wall) Abdomen: positive: Non-tender, Soft, Nml bowel sounds. negative: Guarding Skin: positive: Pallor Extremities: positive: No pedal edema Neurologic/Psychiatric: positive: Oriented x3 (+STM impairment with recall and supported by spouse--increased alertness last two visits), Mood/affect nml, Weakness Palliative Care - POLST Patient has POLST: No POLST Status: Full Code Pain: Pain improved (pain 3/10) Tiredness/Fatigue: Moderate (4-6) Drowsiness/Sedation: Moderate (4-6) Nausea: Mild (1-3) Anorexia: Moderate (4-6) Dyspnea: Mild (1-3) Depression: Moderate (4-6) Anxiety: Moderate (4-6) Feelings of wellbeing/Perceived Quality of Life: Acceptable Sleep: Sleeps well Constipation: Yes, Opoid induced, Intermittent constipation - Palliative Care Discussion: Patient is proceeding with chemotherapy today and both the patient and spouse remain optimistic regarding being able to move forward with chemotherapy recognizing that it is palliative in nature and not curative. Reviewed that with the patient's anemia today and receiving packed RBCs will have improvement of the patient's overall fatigue however, this will be combated by patient receiving chemotherapy as prior receivables have resulted in the patient's overall fatigue and decline several days after with all parties recognizing and acknowledging this expectation. The patient is quite pleased with her ability to assist with transfers today and this has limited her fears in regards to falling. Positive reinforcement was made regarding this. Patient continues to be quite fragile with moderate symptom burden. However, her pain is under well control which was previously source escalation and fear regarding both the patient and spouse of return of escalating pain. Results - Lab Results Lab results reviewed: Yes Lab and Imaging Results: 03/07/2022 Sodium 134, potassium 3.5, BUN 11, creatinine 0.7, estimated GFR 83, calcium 8.2, a AST 38, ALT 20, alk phos 146, albumin 2.3, WBC 3.8, hemoglobin 6.4, hematocrit 20.4%, platelet 137 Impression and Recommendations - Palliative Care Impression: This is a nichole 71-year-old female with a history of right breast cancer infiltrating ductal carcinoma diagnosed in 2019 now with metastatic breast cancer, triple negative with pain of neoplastic origin specifically to her spine, constipation, anemia, and left pleural effusion in the setting of anorexia. Her pain is presently well controlled. Requires dose of declog suppository this evening. Palliative care will continue to provide care coordination, pain and symptom management as well as anticipatory guidance. Recommendations/Counseling Done: 1.Pain of neoplastic origin with bony metastases. Presently controlled. Has a T2 pathologic compression fracture noted on ED evaluation 02/08/2022. Radiation oncology presently on hold to avoid interruption of chemotherapy. Continue fentanyl 75 mcg every 48 hours (50 mcg and 25 mcg patch given the patient's evidence of end of dose failure. Resend fentanyl 25 mcg patches to [facility] pharmacy per spouse's request. Continue to reinforce expectations with patient and spouse regarding administration of oxycodone and to listen to the patient's physical and bodily cues regarding administration of oxycodone and not administer when the patient is pain-free which has been working well. To continue oxycodone 10 to 15 mg every 3-4 hours for breakthrough pain not to exceed 12 tablets in 24 hours. Patient requires use of oxycodone 5 mg tablets given her difficulty with swallowing. Has Narcan in the home. Continue meloxicam 15 mg once daily with food as an adjunct for pain regimen. Continue to monitor and adjust as warranted. 2. Anemia in the setting of chemotherapy. She received 2 units of packed RBCs divided between today and tomorrow. Would expect improvement of the overall fatigue. 3. Hypotension. Minimal burden in the setting of anemia and anorexia. Continue to encourage oral hydration. To receive 2 units of packed RBCs divided between today and tomorrow. 4. Constipation. Sedentary lifestyle as well as opioid therapy contributing. Continue Dulcolax 5 mg 3 times a day. Continue MiraLAX as recommended. Unable to swallow Colace. Advised to administer to collect suppository this evening in the home to promote defecation. 5. Left malignant pleural effusion. Noted evidence of pleural effusion remaining on physical examination. No respiratory complaints at rest. Continue to drain once per week and monitor output. Drained 100 mL today. 6. Advance care planning. Continue concerns regarding the patient's tolerance of chemotherapy Given symptom burden however, patient and spouse continue to be optimistic and have hope regarding the patient's ability to continue to receive chemotherapy as an intervention to extend quantity of time. They have been working with the [employer] to set affairs in order. Supportive and empathetic listening provided today. Request that palliative care nuclear plant technical advisor follow back up with spouse regarding support. 40 minutes with review of labs, oncology note, [id number] with patient and spouse for counseling on pain and symptom management, psychosocial support, anticipatory guidance and advanced care planning. Coordination with serger. Disclaimer: The chart note was formulated using voice recognition technology and unfortunately sound alike errors may occur.
== END 2022-03-07 10:31 | disposition home or self-care (01) ==
LOC: PC 10:30
PROVIDERS: ATTEND Nurse Practitioner Family
DX: Z51.5 Encounter for palliative care (principal); G89.3 Neoplasm related pain (acute) (chronic); R53.83 Other fatigue; C79.51 Secondary malignant neoplasm of bone; J91.0 Malignant pleural effusion; Z85.3 Personal history of malignant neoplasm of breast; D64.81 Anemia due to antineoplastic chemotherapy; T45.1X5A Adverse effect of antineoplastic and immunosuppressive drugs, initial encounter; I95.9 Hypotension, unspecified; K59.03 Drug induced constipation; T40.2X5A Adverse effect of other opioids, initial encounter; Z96.89 Presence of other specified functional implants; Z79.891 Long term (current) use of opiate analgesic; Z79.899 Other long term (current) drug therapy
CPT/HCPCS: 99215

== ENCOUNTER 2022-03-14 09:07 | Outpatient (CLI) | payer MEDICARE ==
--- NOTE | 2022-03-14 12:56 | CONSULTATION NOTE ---
Palliative Care Follow Up - Referral Referring Provider: Dr. Lidia Streeter Time of Visit: Intiated 1030 Referral setting: [facility] [place] Referral Reason: Pain of neoplasm/Constipation/Debility - Information Sources Records reviewed: Previous records reviewed History/Review of Systems obtained from: Patient, Family (spouse, Madhav) Exam limitations: Clinical condition (STM impairment) - History of Present Illness Update Brief HPI Update: This is a nichole 71-year-old female who was seen in follow-up today at [facility] [place] due to pain of neoplastic origin, constipation, and debility in the setting of metastatic breast cancer with her spouse, Madhav present. Provider wore N95 mask. Patient is having reports of increased pain where patient's spouse was previously reported improvement of pain. Pain is most pacifically to the patient's back. This morning, she did have a headache which has resolved but she was unable to swallow the acetaminophen which typically is affected as is resulted in emesis to the size of the pill. Previously, when the patient's spouse was administering too much oxycodone preemptively for control of the patient's pain this resulted in increased sedation and since backing off the patient has had increased alertness and engagement with the pain under better control. However, the last 3 days she has required an increase of oxycodone which is not gone over her dosage of 12 tablets/day per the max. The patient herself reports that she felt better getting in and out of the car with assistance with her son. She is also working on resistance with a stretch band as well as foot exercises for her strength. Patient did have her [employer] instant breakfast drink today however, resulted in emesis after taking her acetaminophen. She is also having improvement of her shortness of breath overall. Satting 95% today on room air. Continues to drain approximately 110 mL from her tunneled catheter due to left malignant pleural effusion. She is not receiving treatment today due to her thrombocytopenia and will be on an every other week schedule moving forward. Patient feels optimistic regarding how she is feeling overall. Last bowel movement was 2 days ago with utilization of Dulcolax suppository. 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 Social History - Living Situation Living arrangement: At home Living Situation: With spouse/s.o., With family Support System: Patient her spouse, Madhav had lived on and off [facility] since the . They have been for 50 years. They have 2 sons, 1 son lives with them and can provide some physical support. They have 3 grandchildren. They have 1 dog, Madison who is a pisano retriever in the home as well as a cat, sender. Medications/Allergies - Medications Home Medications: Ambulatory Orders Medication Instructions Recorded Confirmed Levothyroxine [Synthroid] 88 mcg PO QDAC 11/04/19 02/08/22 polyethylene glycoL 3350 [Miralax] 1 applic PO BID MDD up to BID 12/21/21 Memantine [Namenda] 10 mg PO BID MDD see below 01/06/22 02/08/22 Naloxone HCl Nasal [Narcan Nasal] PRN MDD use as prescribed 01/10/22 oxyCODONE [Roxicodone] 2 - 3 tab PO .Q3-4H PRN 01/10/22 02/08/22 Bisacodyl Supp [Dulcolax Supp] 1 supp [place] DAILY PRN 01/20/22 02/08/22 bisacodyL [Dulcolax] 5 mg PO TID 01/20/22 02/08/22 fentaNYL [Fentanyl 25mcg patch] 75 mcg TP Q72H MDD use 50mcg and 01/24/22 02/08/22 25mcg patch Meloxicam [Mobic] 15 mg PO DAILY 02/14/22 02/14/22 Ondansetron Odt [Zofran Odt] 4 mg PO Q8H PRN 03/05/22 03/05/22 Prochlorperazine Supp [Compazine 1 supp [place] BID PRN 03/05/22 03/05/22 Supp] - Allergies Allergies/Adverse Reactions: Allergies Allergy/AdvReac Type Severity Reaction Status Date / Time dexamethasone Allergy Rash Verified 02/08/22 02:07 Review of Systems - Constitutional Constitutional: reports: Poor appetite, Weight loss (weight 02/07/22 72.2kg). denies: Fever - Eyes Eyes: reports: Corrective lenses - Ears, Nose & Throat Ears, Nose & Throat: denies: Mouth lesions - Cardiovascular Cardiovascular: reports: Exertional dyspnea. denies: Edema (no longer with RUE edema) - Respiratory Respiratory: reports: Other (Left pleural catheter with Aspire, spouse draining once per week, see HPI). denies: SOB at rest, SOB with exertion (improved) - Gastrointestinal Gastrointestinal: reports: Constipation (see HPI), Nausea (positive effective with utulizing zofran ODT), Poor appetite, Early satiety. denies: Abdominal pain, Abdominal distention, Vomiting (see HPI) - Genitourinary Genitourinary: reports: Incontinence (due to mobility). denies: Dysuria - Musculoskeletal Musculoskeletal: reports: Back pain (mild reported today), Muscle weakness, Assistive devices (using wheelchair and no longer ambulatory) - Integumentary Integumentary: reports: Other (Alopecia) - Neurological Neurological: reports: General weakness, Memory problems. denies: Headache (resolved after this AM), Dizziness - Psychiatric Psychiatric: reports: Depression - Endocrine Endocrine: reports: Hypothyroidism - Hematologic/Lymphatic Hematologic/Lymph: reports: Anemia (Hg 6.4 and Hct 20.4% today, 03/07 s/p 2 units PRBC) - All Other Systems All Other Systems: reports: Reviewed and negative (ROS supplemented by spouse, Madhav) Physical Exam - Vital Signs Temperature: 36.4 C O2 Saturation: 95 (on RA) - Physical Exam General Appearance: positive: No acute distress, Alert, Other (alert, ill appearing, muscle wasting noted) Eyes Bilateral: positive: Other (+corrective lenses) ENT: positive: No signs of dehydration. negative: Oral lesions Neck: positive: Trachea midline. negative: Lymphadenopathy (R), Lymphadenopathy (L) Cardiovascular: positive: Regular rate & rhythm Respiratory: positive: No respiratory distress, Rales (LLL), Other (Aspira drain in place left chest wall) Abdomen: positive: Non-tender, Soft, Nml bowel sounds Skin: positive: Pallor Extremities: positive: No pedal edema Neurologic/Psychiatric: positive: Oriented x3 (+STM impairment with recall and supported by spouse), Mood/affect nml, Weakness Palliative Care - POLST Patient has POLST: No POLST Status: Full Code Pain: Comment (Reports pain improved with increase in oxycodone use the last 2 days and present score 5/10) Tiredness/Fatigue: Mild (1-3) Drowsiness/Sedation: Moderate (4-6) Anorexia: Moderate (4-6) Dyspnea: Mild (1-3) Depression: Mild (1-3) Anxiety: Mild (1-3) Feelings of wellbeing/Perceived Quality of Life: Good Sleep: Sleeps well Constipation: Yes, Opoid induced, Managed Performance Status: Patient continues to not be ambulatory at this time but is working on lower extremity strengthening. Is able to transfer with assistance of her son and and or spouse. No falls. Meal prep provided by spouse as well as assistance with medication management. - Palliative Care Discussion: Again, set expectations with the patient and spouse today regarding oxycodone usage and to not have on a strict schedule but listen to the patient's response in regards to administration and usage. Patient's alertness and engagement has significantly improved since the patient's spouse has been listening more to the patient's body's response. She continues to remain quite fragile and moderate symptom burden however, has had improvement with her overall breathlessness in the last several days. Both the patient and spouse continue to remain optimistic regarding continued continuation of palliative therapy moving forward. Results - Lab Results Lab results reviewed: Yes Lab and Imaging Results: 03/14/2022 WBC 1.6, hemoglobin 9.6, hematocrit 29%, RDW 16.6, platelets 71, sodium 133, potassium 3.8, BUN 10, creatinine 0.5, glucose 96, calcium 8.3, AST 96, ALT 44, alk phos 168, albumin 2.6, 03/07/2022 CA 15-3 antigen 193.2, 02/28/22 196.9 Impression and Recommendations - Palliative Care Impression: This is a nichole 71-year-old female with a history of right breast cancer infiltrating ductal carcinoma diagnosed in 2019 now with metastatic breast cancer, triple negative with pain of neoplastic origin specifically to her spine, constipation, and left pleural effusion in the setting of anorexia and debility. Pain has improved with recognizing the patient's underlying pain and responding accordingly. Therefore, will not change fentanyl dosage at this time and does require fentanyl 25 mcg patches To [facility] with [facility]. Palliative care will continue to provide care coordination, pain and symptom management as well as anticipatory guidance. Recommendations/Counseling Done: 1. Pain of neoplastic origin with bony metastases. Stabilized. Has T2 pathologic compression fracture noted on ED evaluation 02/08/2022. Radiation oncology presently on hold to avoid interruption of chemotherapy. Continue fentanyl 75 mcg every 48 hours (50 mcg and 25 mcg patch (given the patient's evidence of end of dose failure previously. Contacted pharmacist at [facility] pharmacy in [place] and to process request of fentanyl 25 mcg patches and we ready this afternoon and updated patient's spouse via phone. Advised patient spouse not to cut any of the patches if run out in the future. [facility] did not have 75 mcg patches with in the store. Continue to reinforce expectations with the patient and spouse regarding administration of oxycodone and management. Continue oxycodone 10 to 15 mg every 3-4 hours for breakthrough pain not to exceed 12 tablets in 24 hours to avoid sedation. Patient requires use of oxycodone 5 mg tablets given her difficulty with swallowing. Has Narcan in the home. Continue meloxicam 15 mg once daily with food as an adjunct for pain regimen and continue to reevaluate continuation in the future. Continue to monitor and adjust as warranted. 2. Constipation. Sedentary lifestyle as well as opioid therapy contributing. Continue Dulcolax 5 mg 3 times a day. Advised to taper back on MiraLAX given patient's perpetually of the last 2 days for emesis. Has been unable to swallow Colace in the past. Advised to administer Dulcolax suppository if no bowel movement in 3 days. 3. Left malignant pleural effusion. Continues with evidence of pleural effusi on on physical examination. No respiratory complaints at rest and pulse ox improved at 95%. Continue to drain once per week and monitor output. Last output 110 and else recorded by patient's spouse. 4. debility due to generalized muscle wasting and to chemotherapy and deconditioning contributing. Continue to encourage the patient to utilize home exercise regimen to improve lower extremity strengthening. Fall precautions. Will address at next evaluation and physical therapy regimen with patient and spouse if open and amenable. 5. Metastatic breast cancer, triple negative. Chemotherapy on hold and to begin every other week regimen moving forward. Oncology to continue to follow. Patient and spouse are aware that therapy is palliative in intent. 40 minutes with review of labs, , oncology note, coordination and discussion of POC with oncologist; [id number] with patient and spouse for counseling on pain and symptom management, , anticipatory guidance and advanced care planning. Disclaimer: The chart note was formulated using voice recognition technology and unfortunately sound alike errors may occur.
== END 2022-03-14 09:08 | disposition home or self-care (01) ==
LOC: PC 09:07
PROVIDERS: ATTEND Nurse Practitioner Family
DX: Z51.5 Encounter for palliative care (principal); G89.3 Neoplasm related pain (acute) (chronic); K59.03 Drug induced constipation; T40.2X5A Adverse effect of other opioids, initial encounter; J91.0 Malignant pleural effusion; Z96.89 Presence of other specified functional implants; C50.911 Malignant neoplasm of unspecified site of right female breast; C78.7 Secondary malignant neoplasm of liver and intrahepatic bile duct; C79.31 Secondary malignant neoplasm of brain; C78.02 Secondary malignant neoplasm of left lung; C78.01 Secondary malignant neoplasm of right lung; Z17.1 Estrogen receptor negative status [ER-]; R63.0 Anorexia; R63.4 Abnormal weight loss; R53.81 Other malaise; M62.50 Muscle wasting and atrophy, not elsewhere classified, unspecified site; R53.1 Weakness; Z79.891 Long term (current) use of opiate analgesic; Z79.899 Other long term (current) drug therapy
CPT/HCPCS: 99212; 99497

== ENCOUNTER 2022-03-22 11:35 | Outpatient (CLI) | payer MEDICARE ==
--- NOTE | 2022-03-22 16:12 | CONSULTATION NOTE ---
Palliative Care Follow Up - Referral Referring Provider: Dr. Lidia Streeter Time of Visit: 9105-4228 Referral setting: Home Referral Reason: Pain of neoplasm/COnstipation/Debility/ACP - Information Sources Records reviewed: Previous records reviewed History/Review of Systems obtained from: Patient, Family (spouse, Madhav) Exam limitations: Clinical condition (STM impairment) - History of Present Illness Update Brief HPI Update: This is a nichole 71-year-old female who is seen in follow-up today within her home due to pain of neoplastic origin, constipation, Debility and advanced care planning with her spouse, Madhav present. Provider N95 mask. Patient has had overall improvement of her pain most pacifically to her back. She is no longer having any headaches. On Sunday when she was at the [facility] she opted to remain in her wheelchair versus getting in the treatment chair and this resulted in some increased pain after being treated for several hours. She is presently taking 4-8 oxycodones per day with a maximum recommendation of 12 tablets/day. The patient is more alert and engaged with her present pain re gimen. She is also on meloxicam. She continues to pick at things with her appetite. She will have yogurt, pizza, bran cereal. She continues to consume her [place] instant breakfast on a daily basis. Her nausea and emesis is presently controlled with utilization of Zofran ODT 4 mg typically 3 times per day. Spouse has not had to utilize rectal suppository with Compazine to control nausea. She continues to report that her fear of getting up and down and in and out of the car with transfers has improved. Her spouse utilizes a drawl sheet incontinence pad to transfer the patient. She continues to have stable shortness of breath satting at 95% on date today on room air. Tunneled catheter last drained 75 mL on 03/18. Patient chemoimmunotherapy was held due to pancytopenia and it is to be reevaluated next week prior she did receive her Zometa on 03/20. Spouse also reports package issue with the fentanyl and 2 were torn in the box for note moving forward. Last bowel movement was on Sunday after a rectal suppository. Past Medical History: Patient has a past medical history of hypertension, hyperlipidemia, hypothyroidism, right breast cancer triple negative invasive ductal carcinoma 2019; metastatic cancer involving bilateral lungs with malignant left pleural effusion with brain metastases, brain mets and liver mets since 11/07/2021; tunneled Pleurx pleural catheter placed 01/02/2022, depression, urinary retention, right mastectomy March 2020, previous history of alcohol dependence, hypothyroidism. Social History - Living Situation Living arrangement: At home Living Situation: With spouse/s.o., With family Support System: Patient her spouse, Madhav had lived on and off [facility] since the 1970s. They have been for 50 years. They have 2 sons, 1 son lives with them and can provide some physical support. They have 3 grandchildren. They have 1 dog, Madison who is a pisano retriever in the home as well as a cat, sender. On 03/20 went to [place] after MAC and this was the first time in awhile the patient wanted to stay out and in the car vs returning home after MAC. Medications/Allergies - Medications Home Medications: Ambulatory Orders Medication Instructions Recorded Confirmed Levothyroxine [Synthroid] 88 mcg PO QDAC 11/04/19 02/08/22 polyethylene glycoL 3350 [Miralax] 1 applic PO BID MDD up to BID 12/21/21 Memantine [Namenda] 10 mg PO BID MDD see below 01/06/22 02/08/22 Naloxone HCl Nasal [Narcan Nasal] PRN MDD use as prescribed 01/10/22 oxyCODONE [Roxicodone] 2 - 3 tab PO .Q3-4H PRN 01/10/22 02/08/22 Bisacodyl Supp [Dulcolax Supp] 1 supp GA DAILY PRN 01/20/22 02/08/22 bisacodyL [Dulcolax] 5 mg PO TID 01/20/22 02/08/22 fentaNYL [Fentanyl 25mcg patch] 75 mcg TP Q72H MDD use 50mcg and 01/24/22 02/08/22 25mcg patch Meloxicam [Mobic] 15 mg PO DAILY 02/14/22 02/14/22 Ondansetron Odt [Zofran Odt] 4 mg PO Q6H PRN 03/05/22 03/05/22 Prochlorperazine Supp [Compazine 1 supp GA BID PRN 03/05/22 03/05/22 Supp] Cholecalciferol [Vitamin D3] 1,000 unit PO DAILY 03/22/22 03/22/22 - Allergies Allergies/Adverse Reactions: Allergies Allergy/AdvReac Type Severity Reaction Status Date / Time dexamethasone Allergy Rash Verified 02/08/22 02:07 Review of Systems - Constitutional Constitutional: reports: Fatigue, Poor appetite, Weight loss (Left MAC 21.5cm 03/22/22). denies: Fever - Eyes Eyes: reports: Corrective lenses - Ears, Nose & Throat Ears, Nose & Throat: denies: Hearing aids - Cardiovascular Cardiovascular: denies: Edema - Respiratory Respiratory: reports: Other (Aspire drain left chest wall). denies: SOB at rest - Gastrointestinal Gastrointestinal: reports: Constipation, Poor appetite, Early satiety. denies: Abdominal pain, Nausea (controlled with antiemetics), Vomiting - Genitourinary Genitourinary: reports: Incontinence (due to mobility). denies: Dysuria - Musculoskeletal Musculoskeletal: reports: Back pain (see HPI), Muscle weakness, Assistive devices, Transfer issues - Integumentary Integumentary: reports: Other (Alopecia) - Neurological Neurological: reports: General weakness, Memory problems. denies: Headache, Dizziness - Psychiatric Psychiatric: reports: Depression - Endocrine Endocrine: reports: Hypothyroidism - Hematologic/Lymphatic Hematologic/Lymph: reports: Anemia ( 03/07 s/p 2 units PRBC) - All Other Systems All Other Systems: reports: Reviewed and negative (ROS supplemented by spouse, Madhav) Physical Exam - Vital Signs Temperature: 36.2 C Pulse Rate: 86 O2 Saturation: 95 (on RA) Blood Pressure: 105/66 - Physical Exam General Appearance: positive: No acute distress, Alert, Other (alert, ill appearing, muscle wasting noted) Eyes Bilateral: positive: Other (+corrective lenses) ENT: positive: No signs of dehydration Neck: positive: Trachea midline Cardiovascular: positive: Regular rate & rhythm Respiratory: positive: No respiratory distress, Rales (LLL), Other (Aspira drain in place left chest wall) Abdomen: positive: Non-tender, Soft, Nml bowel sounds. negative: Distended Skin: positive: Pallor Extremities: positive: No pedal edema Neurologic/Psychiatric: positive: Oriented x3 (+STM impairment with recall and supported by spouse), Mood/affect nml, Weakness (generalized, able to resist force to BLE) Palliative Care - POLST Patient has POLST: No POLST Status: Full Code Pain: Comment (pain controlled with fentanyl 75mcg q48h and PRN oxycodone and daily mobic 15mg) Tiredness/Fatigue: Moderate (4-6) Drowsiness/Sedation: Moderate (4-6) Nausea: Moderate (4-6) Anorexia: Moderate (4-6) Sleep: Sleeps well Constipation: Opoid induced, Managed Performance Status: Patient remains nonambulatory and is able to transfer with assistance. Is incontinent due to debility. No falls. Meal prep and medication management provided by spouse. - Palliative Care Discussion: Patient did not receive a chemoimmunotherapy due to pancytopenia. This continues to be a theme where chemoimmunotherapy has to be held due to the patient's response and now presently on regimen of every 2 weeks. Patient and spouse are not deterred by the patient's chemoimmunotherapy being held as they remain optimistic that the patient will be able to resume reintroduction. Both the patient and spouse report the patient has increased energy level and highlighted that this is likely due to the patient not receiving chemoimmunotherapy and concerns regarding the patient's body's response to chemoimmunotherapy with thrombocytopenia on 03/20 resulting in moving forward with infusion. Both the patient and spouse recognize that treatment is palliative in nature and continue to be optimistic and wish to proceed with infusions. Results - Lab Results Lab results reviewed: Yes Lab and Imaging Results: 03/20/2022 WBC 4, hemoglobin 9.5, hematocrit 28.5, platelet 92, sodium 135, potassium 3.6, BUN 10, creatinine 0.5, GFR 122, glucose 95, calcium 8.4, AST 43, ALT 25, alk phos 165, albumin 2.9 Impression and Recommendations - Palliative Care Impression: This is a nichole 71-year-old female with history of right breast cancer infiltrating ductal carcinoma diagnosed in 2019 now with metastatic breast cancer, triple negative with pain of neoplastic origin specifically to her spine presently controlled, constipation, debility, left pleural effusion in the setting of anorexia. Patient remains wheelchair-bound and nonambulatory. Chemoimmunotherapy was held on 03/20 due to thrombocytopenia and patient and spouse remain optimistic regarding continuation of intervention moving forward. Palliative care will continue provide care coordination, pain and symptom management as well as anticipatory guidance and continue to tease out goals of c are. Recommendations/Counseling Done: 1. Pain of neoplastic origin with bony metastases. Stabilized. Has T2 pathologic compression fracture noted on ED evaluation 02/09/2020. Radiation oncology presently on hold to avoid interruption of chemotherapy. Continue fentanyl 75 mcg patch every 48 hours (50 mcg and 25 mcg patch (given the patient's evidence of allodynia's failure previously. 2 with fentanyl patches from 50 mcg fentanyl patches patient's spouse to follow-up with pharmacist regarding this. Patient spouse is aware not to cut and patches. Continue oxycodone 10 to 15 mg every 3-4 hours for breakthrough pain not to exceed 12 tablets in 24 hours to avoid sedation. Patient requires use of oxycodone 5 mg tablets given her difficulty with swallowing. Has Narcan in home. Continue meloxicam 15 mg once daily with food as an adjunct for pain regimen and continue to reevaluate continuation future. Continue to monitor and adjust as warranted. 2. Left malignant pleural effusion. Continues with evidence of pleural effusion on physical examination. No respiratory complaints. Continues to drain once per week and monitor output. Last output reported to 75 mL recorded at patient's spouse. 3. Debility due to generalized muscle wasting secondary to chemotherapy and deconditioning contributing. Fall precautions. Continue to encourage the patient to utilize home exercise regimen to improve lower extremity strengthening. Consider physical therapy regimen the patient and spouse are amenable. 4. Anorexia in the setting of metastatic breast cancer and chemoimmunotherapy. Continue with ondansetron 4 mg ODT every 6 hours as needed and has Compazine rectal suppository to use at least twice daily if needed. Did not tolerate initiated shot of Zyprexa in the evening for nausea management. Continue to encourage small frequent meals throughout the day that are high in protein. Status post nutritional consult in [facility]. 5. Metastatic breast cancer, triple negative. Continues with chemoimmunotherapy every 2 weeks held on 03/20. Continue to follow-up with oncology as scheduled. 6. Advance care planning. Patient does not have a POLST in place. Patient's spouse are aware that chemoimmunotherapy is palliative in nature and not curative. However, they continue to remain optimistic regarding extension of time and patient's ability to continue chemoimmunotherapy. We will continue to build rapport and establish goals of care. Total time spent 50 minutes with greater than 50% of the spent in counseling and coordination of care with the patient and spouse; examination of patient; review of lab work; pain and symptom management as well as anticipatory guidance. Disclaimer: The chart note was formulated using voice recognition technology and unfortunately sound alike errors may occur.
== END 2022-03-22 11:36 | disposition home or self-care (01) ==
LOC: PC 11:35
PROVIDERS: ATTEND Nurse Practitioner Family
DX: Z51.5 Encounter for palliative care (principal); G89.3 Neoplasm related pain (acute) (chronic); K59.03 Drug induced constipation; T40.2X5A Adverse effect of other opioids, initial encounter; J91.0 Malignant pleural effusion; R63.0 Anorexia; R11.2 Nausea with vomiting, unspecified; R53.1 Weakness; M62.59 Muscle wasting and atrophy, not elsewhere classified, multiple sites; D61.810 Antineoplastic chemotherapy induced pancytopenia; T45.1X5A Adverse effect of antineoplastic and immunosuppressive drugs, initial encounter; Z79.899 Other long term (current) drug therapy; Z79.891 Long term (current) use of opiate analgesic; C79.51 Secondary malignant neoplasm of bone; C79.31 Secondary malignant neoplasm of brain; C78.7 Secondary malignant neoplasm of liver and intrahepatic bile duct; C78.02 Secondary malignant neoplasm of left lung; C78.01 Secondary malignant neoplasm of right lung; Z85.3 Personal history of malignant neoplasm of breast; Z99.3 Dependence on wheelchair
CPT/HCPCS: 99349

== ENCOUNTER 2022-03-28 08:57 | Outpatient (CLI) | payer MEDICARE ==
--- NOTE | 2022-03-28 11:16 | CONSULTATION NOTE ---
Palliative Care Follow Up - Referral Referring Provider: Dr. Lidia Streeter Time of Visit: [id number] Referral setting: [facility] Referral Reason: Pain of Neoplasm/Debility/Constipation - Information Sources Records reviewed: Previous records reviewed History/Review of Systems obtained from: Patient, Family (spouse, Madhav) - History of Present Illness Update Brief HPI Update: This is a nichole 71-year-old female seen for follow-up today at [facility] due to pain of neoplastic origin, constipation and debility with her spouse, Madhav present. Patient has experienced poor toleration of chemoimmunotherapy with multiple delays for increased LFTs, low platelets, neutropenia and reduced function since starting treatment. She is proceeding today with carbo/Gemzar as platelet count is above 400 K. Her CA 15-3 antigen has also been noted to be 210.8 which is an increase from 03/07 at 193.2 Her shortness of breath remains stable with oxygen saturation 96% on room air today. Tunnel catheter last drained 100 mL per spouse's report. The patient has only had 2 episodes of emesis with nausea in the past week with utilization of Zofran and ODT preemptively before attempting to consume any meals. Has been doing well with having her [place] instant breakfast on a daily basis. She also did have half of a sloppy John recently and tolerated that well. Constipation continues to be a struggle. Spouse relays that they have not been consistent with utilizing and administering Dulcolax 5 mg tablets as recommended 3 times per day. They are utilizing a Dulcolax suppository typically every 3 days the patient has not defecated. Reports positive flatus and denies early CAD or abdominal discomfort. She has not been consistent with working on some home exercises and continues to rely her spouse and son for assistance with transfers. She is mainly staying in a wheelchair. 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 Social History - Living Situation Living arrangement: At home Living Situation: With spouse/s.o., With family Support System: Patient her spouse, Madhav had lived on and off [facility] since the . They have been for 50 years. They have 2 sons, 1 son lives with them and can provide some physical support. They have 3 grandchildren. They have 1 dog, Madison who is a pisano retriever in the home as well as a cat, sender. Patient has a desire to improve her ability to function and ambulate to be able to go outside and look at garcía in the garden versus having pictures being taken and shown to her. Medications/Allergies - Medications Home Medications: Ambulatory Orders Medication Instructions Recorded Confirmed Levothyroxine [Synthroid] 88 mcg PO QDAC 11/04/19 02/08/22 polyethylene glycoL 3350 [Miralax] 1 applic PO BID MDD up to BID 12/21/21 Memantine [Namenda] 10 mg PO BID MDD see below 01/06/22 02/08/22 Naloxone HCl Nasal [Narcan Nasal] PRN MDD use as prescribed 01/10/22 oxyCODONE [Roxicodone] 2 - 3 tab PO .Q3-4H PRN 01/10/22 02/08/22 Bisacodyl Supp [Dulcolax Supp] 1 supp UT DAILY PRN 01/20/22 02/08/22 bisacodyL [Dulcolax] 5 mg PO TID 01/20/22 02/08/22 fentaNYL [Fentanyl 25mcg patch] 75 mcg TP Q72H MDD use 50mcg and 01/24/22 02/08/22 25mcg patch Meloxicam [Mobic] 15 mg PO DAILY 02/14/22 02/14/22 Ondansetron Odt [Zofran Odt] 4 mg PO Q6H PRN 03/05/22 03/05/22 Prochlorperazine Supp [Compazine 1 supp UT BID PRN 03/05/22 03/05/22 Supp] Cholecalciferol [Vitamin D3] 1,000 unit PO DAILY 03/22/22 03/22/22 - Allergies Allergies/Adverse Reactions: Allergies Allergy/AdvReac Type Severity Reaction Status Date / Time dexamethasone Allergy Rash Verified 02/08/22 02:07 Review of Systems - Constitutional Constitutional: reports: Fatigue (decreased over last week then previous baseli ne), Poor appetite, Weight loss (Left MAC 21.5cm 5/4/22). denies: Fever - Eyes Eyes: reports: Corrective lenses - Ears, Nose & Throat Ears, Nose & Throat: denies: Mouth lesions - Cardiovascular Cardiovascular: denies: Edema - Respiratory Respiratory: reports: Other (Aspire drain left chest wall). denies: Wheezing, SOB at rest - Gastrointestinal Gastrointestinal: reports: Constipation (see HPI), Vomiting (episode of emesis this AM after [place] instant breakfast), Poor appetite. denies: Abdominal pain, Abdominal distention, Nausea (controlled with antiemetics) - Genitourinary Genitourinary: reports: Incontinence (due to mobility). denies: Dysuria - Musculoskeletal Musculoskeletal: reports: Back pain (mild ache reported today and opted to be in treatment chair vs W/C as last week this increased back pain being in the W/c for long length ot time), Muscle weakness, Assistive devices, Transfer issues - Integumentary Integumentary: reports: Other (Alopecia) - Neurological Neurological: reports: General weakness, Memory problems. denies: Headache - Psychiatric Psychiatric: reports: Depression, Anxiety (situational with concern initially about not getting chemoimmuotherapy) - Endocrine Endocrine: reports: Hypothyroidism - Hematologic/Lymphatic Hematologic/Lymph: reports: Anemia ( 03/07 s/p 2 units PRBC) - All Other Systems All Other Systems: reports: Reviewed and negative (ROS supplemented by spouse, Madhav) Physical Exam - Vital Signs Pulse Rate: 89 O2 Saturation: 96 (on RA) Blood Pressure: 115/75 - Physical Exam General Appearance: positive: No acute distress, Alert, Other (alert, muscle wasting noted) Eyes Bilateral: positive: Other (+corrective lenses) ENT: positive: No signs of dehydration Neck: positive: Trachea midline Cardiovascular: positive: Regular rate & rhythm Respiratory: positive: No respiratory distress, Rales (LLL), Other (Aspira drain in place left chest wall) Abdomen: positive: Non-tender, Soft, Nml bowel sounds Skin: positive: Pallor Extremities: positive: No pedal edema Neurologic/Psychiatric: positive: Oriented x3 (+STM impairment with recall and supported by spouse), Mood/affect nml, Weakness (generalized, able to resist force to BLE) Palliative Care - POLST Patient has POLST: No POLST Status: Full Code Pain: Comment (Pain controlled with fentanyl 75mcg q48h and PRN oxycodone with daily mobic 15mg) Tiredness/Fatigue: Moderate (4-6) Drowsiness/Sedation: Mild (1-3) Nausea: Moderate (4-6) Anorexia: Moderate (4-6) Dyspnea: Mild (1-3) Depression: Mild (1-3) Anxiety: Moderate (4-6), Comment (see HPI regarding anxiety) Feelings of wellbeing/Perceived Quality of Life: Good Sleep: Sleeps well Constipation: Opoid induced, Managed, Intermittent constipation Performance Status: Patient remains nonambulatory and is able to transfer with assistance. Is incontinent due to debility. No falls. Meal prep and medication management provided by spouse. - Palliative Care Discussion: Patient unfortunately has had poor toleration of chemoimmunotherapy with multiple delays and is now on a regimen of every 2 weeks. Given her increase of platelets she is moving forward with chemoimmunotherapy today as this is both the patient and spouse strong desire. They both reported anxiety and trepidation coming in today to the patient's appointments for fear that chemoimmunotherapy would not be administered. They have been praying significantly regarding the availability of chemoimmunotherapy and feel that things are "meant to be." Spouse perceives that every time the patient has communal immunotherapy she "is getting better." They do recognize that present treatment is palliative in nature and not curative. Results - Lab Results Lab results reviewed: Yes Lab and Imaging Results: 03/28/2022 Sodium 134, potassium 3.5, BUN 11, creatinine 0.6, AST 38, ALT 14, alk phos 172, albumin 3.0, CA 15-3 210.8, WBC 6.5, hemoglobin 10.2, hematocrit 31.6, platelet 407 Impression and Recommendations - Palliative Care Impression: This is a nichole 71-year-old female with a history of right breast cancer infiltrating ductal carcinoma diagnosed in 2019 now with metastatic breast cancer, triple negative with pain of neoplastic origin specifically to her spine presently controlled, constipation, and debility. Patient remains wheelchair- bound and nonambulatory. Is moving forward with chemoimmunotherapy today, 03/28. Would benefit from home health physical therapy for strengthening and safety to optimize the patient's ability to function and tolerate chemoimmunotherapy. Palliative care will continue to provide care coordination, pain and symptom management as well as anticipatory guidance with continuation of teasing out goals of care. Recommendations/Counseling Done: 1. Debility due to generalized muscle wasting secondary to chemotherapy and deconditioning. Fall precautions. Patient and would benefit from lower extremity strengthening to assist with ambulation. Request home health physical therapy for evaluation and treatment. 2. Pain of neoplastic origin with bony metastases. Stable. Has T2 pathologic compression fracture noted on ED evaluation 02/08/2022. Radiation oncology presently on hold to avoid interruption of chemotherapy. Continue fentanyl 75 patch every 48 hours (50 mcg and 25 mcg patch (given the patient's evidence of end of dose failure previously. Patient spouse is aware not to cut patches. Continue oxycodone 10 to 15 mg every 3-4 hours for breakthrough pain not to exceed 12 tablets in 24 hours to avoid sedation. Patient requires use of oxycodone 5 mg tablets given the difficulty of swallowing. Has Narcan in the home. Continue meloxicam 15 mg daily with food as an adjunct for pain regimen and consider reevaluation for continuation at next visit. Continue to monitor and adjust as warranted. 3. Constipation. Sedentary lifestyle as well as opioid therapy contributing. Resume Dulcolax 5 mg 1 tablet 3 times a day. Has been unable to swallow Colace in the past. Advised to administer Dulcolax suppository if no bowel movement in 3 days. 4. Metastatic breast cancer, triple negative. Continues with chemoimmunotherapy every 2 weeks held on 03/20 and proceeding on 03/28. Continue to follow-up with oncology as scheduled. FACE TO FACE: It would be a taxing considerable effort for the patient to leave her home secondary to her wheelchair bound status, lower extremity weakness, and back pain. PT for strengthening program with a goal of pivot transfers to wheelchair/recliner and gain ground with ambulation. Training with family with equipment recommendations and home safety evaluation. Total time spent 30 minutes with greater than 50% of the spent in counseling coronation of care with the patient and spouse; examination of patient; review of lab work; pain and symptom management as well as anticipatory guidance. Disclaimer: The chart note was formulated using voice recognition technology and unfortunately sound alike errors may occur.
== END 2022-03-28 08:58 | disposition home or self-care (01) ==
LOC: PC 08:57
PROVIDERS: ATTEND Nurse Practitioner Family
DX: Z51.5 Encounter for palliative care (principal); G89.3 Neoplasm related pain (acute) (chronic); R53.1 Weakness; R53.81 Other malaise; M62.59 Muscle wasting and atrophy, not elsewhere classified, multiple sites; R53.83 Other fatigue; R63.0 Anorexia; C79.51 Secondary malignant neoplasm of bone; C78.02 Secondary malignant neoplasm of left lung; C78.01 Secondary malignant neoplasm of right lung; C79.31 Secondary malignant neoplasm of brain; J91.0 Malignant pleural effusion; C50.911 Malignant neoplasm of unspecified site of right female breast; R13.10 Dysphagia, unspecified; K59.03 Drug induced constipation; T40.2X5A Adverse effect of other opioids, initial encounter; Z79.899 Other long term (current) drug therapy; Z79.891 Long term (current) use of opiate analgesic; Z99.3 Dependence on wheelchair; Z96.89 Presence of other specified functional implants
CPT/HCPCS: 99214

== ENCOUNTER 2022-04-11 10:08 | Outpatient (CLI) | payer MEDICARE ==
--- NOTE | 2022-04-11 13:29 | CONSULTATION NOTE ---
Palliative Care Follow Up - Referral Referring Provider: Dr. Lidia Streeter Time of Visit: 9427-4204 Referral setting: [facility] [place] Referral Reason: Pain of neoplasm/Nausea/Neuropathy/Metastatic Breast Ca - Information Sources Records reviewed: Previous records reviewed History/Review of Systems obtained from: Patient, Family (spouse/DPOA, Madhav) Exam limitations: Clinical condition (Mild STM impairment) - History of Present Illness Update Brief HPI Update: This is a nichole 71-year-old female who is seen in follow-up today of any symptoms or tingling, constipation, nausea and debility with her spouse, Madhav present. Patient has experienced poor toleration of chemoimmunotherapy with multiple ways for increased LFTs, low platelets, neutropenia, anemia, and reduced function since starting treatment. Today, his her carbo/Gemzar is being held due to her platelet count of 56 hence they will add anemia. Her CA 15-3 antigen has also been increasing with today's result at 259.9.Therapy is presently on hold and to have imaging performed and potential for new regimen to be established given the patient is demonstrating poor tolerance. Patient and spouse stated that since her last chemoimmunotherapy last week she has been feeling better and did not have her energy level not that she had previously and therefore were optimistic. However, due to her age and age at 7.2 and 21.7% as well as platelet count 56 she is receiving 2 units of packed RBCs today. Unfortunately, with premedication with acetaminophen and Benadryl patient became extremely symptomatic with nausea and emesis. Requested that 4 mg of IV Zofran be administered and after 30 minutes is with positive response per the patient. She has had an increase in her overall generalized oral intake however, anorexia continues to be a concern. She continues to consume her [place] instant breakfast, her total cereal as well as trackers and cheese with apples. She had 4 bowel movements yesterday. She continues to have a tunneled pleural catheter to her left lung and spouse is draining weekly with last amount drained 75 mL. Patient denies any respiratory symptoms or increase shortness of breath. In relation to today's news from oncologist regarding her response to chemoimmunotherapy she is expressing appropriate grief response and in the past has been treated for depression with citalopram that was discontinued many months ago due to her nausea, vomiting, and anorexia and has been overall stable. She has a history of being established with counseling but has not followed up regarding this. Would be appropriate to resume. She has been having more routine bowel movements and had 4 bowel movements yesterday. She continues to require assistance from her spouse regarding this. Spouse is reporting skin breakdown to her left heel and the patient describes it as "blood blister" that then popped. Denies any discomfort at the site. She is presently working with home health physical therapy for strengthening and balance and still for this is going well appropriate with the spouse and patient's report. 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 Social History - Living Situation Living arrangement: At home Living Situation: With spouse/s.o., With family Support System: Patient her spouse, Madhav had lived on and off [facility] since the 1970s. They have been for 50 years. They have 2 sons, 1 son lives with them and can provide some physical support. They have 3 grandchildren. They have 1 dog, Madison who is a pisano retriever in the home as well as a cat, sender. Spouse's mother recently and the service was on Sunday. Her [id number] was 89 at her passing. Both parties indicate that they are suppo rting each other during this time and do not demonstrate any acute concerns regarding grief response. Presently being supported by [facility]. Requested palliative care vehicle mechanic and she had previously contacted but due to chaos in the couples life they have not been able to adequately afognak back around and provided number for palliative care vehicle mechanic today. Medications/Allergies - Medications Home Medications: Ambulatory Orders Medication Instructions Recorded Confirmed Levothyroxine [Synthroid] 88 mcg PO QDAC 11/04/19 02/08/22 polyethylene glycoL 3350 [Miralax] 1 applic PO BID MDD up to BID 12/21/21 Memantine [Namenda] 10 mg PO BID MDD see below 01/06/22 02/08/22 Naloxone HCl Nasal [Narcan Nasal] PRN MDD use as prescribed 01/10/22 oxyCODONE [Roxicodone] 2 - 3 tab PO .Q3-4H PRN 01/10/22 02/08/22 Bisacodyl Supp [Dulcolax Supp] 1 supp LA DAILY PRN 01/20/22 02/08/22 bisacodyL [Dulcolax] 5 mg PO TID 01/20/22 02/08/22 fentaNYL [Fentanyl 25mcg patch] 87.5 mcg TP Q72H 01/24/22 02/08/22 Meloxicam [Mobic] 15 mg PO DAILY 02/14/22 02/14/22 Ondansetron Odt [Zofran Odt] 4 mg PO Q6H PRN 03/05/22 03/05/22 Prochlorperazine Supp [Compazine 1 supp LA BID PRN 03/05/22 03/05/22 Supp] Cholecalciferol [Vitamin D3] 1,000 unit PO DAILY 03/22/22 03/22/22 Pregabalin [Lyrica] 25 mg PO QPM 04/11/22 04/11/22 - Allergies Allergies/Adverse Reactions: Allergies Allergy/AdvReac Type Severity Reaction Status Date / Time dexamethasone Allergy Rash Verified 02/08/22 02:07 Review of Systems - Constitutional Constitutional: reports: Poor appetite, Weight loss (Left MAC 21.5cm 04/11/2022; Left MAC 21.5cm 03/22/22). denies: Fever - Eyes Eyes: reports: Corrective lenses - Ears, Nose & Throat Ears, Nose & Throat: denies: Hearing loss - Cardiovascular Cardiovascular: denies: Edema - Respiratory Respiratory: reports: Other (Aspire drain left chest wall). denies: Wheezing, SOB at rest - Gastrointestinal Gastrointestinal: reports: Constipation, Nausea (typically controlled with zofran ODT), Vomiting (today after taking premedication for PRBC had episode of emesis), Poor appetite, Early satiety. denies: Abdominal pain - Genitourinary Genitourinary: reports: Incontinence (due to mobility). denies: Dysuria - Musculoskeletal Musculoskeletal: reports: Back pain (improved), Muscle weakness, Assistive devices, Transfer issues - Integumentary Integumentary: reports: Other (Alopecia; left heel broken blister) - Neurological Neurological: reports: General weakness, Memory problems, Other (numbness and tingling to feet, intermittent, responds to foot rubs and becoming more persistent). denies: Headache - Psychiatric Psychiatric: reports: Depression - Endocrine Endocrine: reports: Hypothyroidism - Hematologic/Lymphatic Hematologic/Lymph: reports: Anemia ( 03/07 s/p 2 units PRBC and 04/11/22 2 units PRBC) - All Other Systems All Other Systems: reports: Reviewed and negative (ROS supplemented by spouse, Madhav) Physical Exam - Vital Signs Temperature: 36.6 C Pulse Rate: 107 O2 Saturation: 93 (on RA) Blood Pressure: 102/69 (left wrist) - Physical Exam General Appearance: positive: No acute distress, Alert, Other (alert, muscle wasting noted) Eyes Bilateral: positive: Other (+corrective lenses) ENT: positive: No signs of dehydration Neck: positive: Trachea midline Cardiovascular: positive: Tachycardia Respiratory: positive: No respiratory distress, Rales (LLL), Other (Aspira drain in place left chest wall) Abdomen: positive: Non-tender, Soft, Nml bowel sounds Skin: positive: Pallor, Pressure wound (Left heel with discoloration to without blister, warmth or tenderness and no bogginess) Extremities: positive: No pedal edema Neurologic/Psychiatric: positive: Oriented x3 (+STM impairment with recall and supported by spouse), Mood/affect nml, Weakness (generalized, able to resist force to BLE) Palliative Care - POLST Patient has POLST: No POLST Status: Full Code Pain: Pain improved (Controlled with 75mcg Fentanyl every 48h and PRN oxycodone with daily 15mg mobic) - Palliative Care Discussion: With having her chemoimmunotherapy held again today, as well as her CA 15-3 antigen level continuing to increase conversational represents that she is likely not responding to her present regimen recognizing that anything is palliative in nature at this time and the patient continues to wish to pursue any available options for extension of quantity of time. She is reporting appropriate grief response regarding the news received today and continues to rely heavily on her marciano as ultimately everything is in the hands of God. Given she is having some neuropathy symptoms related to her treatment will initiate a low dose pregabablin 25mg at bedtime after reviewing purpose dose and side effects and both spouse and patient are in agreement. Both the patient and her spouse continue to be optimistic regarding extension of the patient's quantity of time and reviewed again today that moving forward it is about weighing benefit vs burdens regarding moving forward with potential new intervention based on pending imaging results. Both parties recognize that in the future there may be a time to pivot in the future. Results - Lab Results Lab results reviewed: Yes Lab and Imaging Results: 04/11/2022 WBC 2.5, hemoglobin 7.2, hematocrit 21.7%, platelet 56, sodium 134, potassium 3.4, BUN 15, creatinine 0.7, estimated GFR 83, AST 32, ALT 15, alk phos 26, albumin 2.9, CA 15-3 antigen 259.9 03/20/2022 CA 15-3 antigen 210.8 Impression and Recommendations - Palliative Care Impression: This is a nichole 71-year-old female with history of HI presents for infiltrating ductal carcinoma diagnosed in 2019 now with metastatic breast cancer, triple negative with pain of neoplastic origin specifically to her spine presently controlled, peripheral neuropathy to her feet, and debility. Wheelchair-bound and nonambulatory. Her chemoimmunotherapy is held today due to anemia receiving 2 units of packed RBCs. Given her underlying peripheral neuropathy would benefit from introduction of pregabalin 25 mg in the evening for management. Palliative care will continue provide care coordination, pain and symptom management as well as anticipatory guidance with continuation of teasing out goals of care moving forward. Recommendations/Counseling Done: 1. Peripheral neuropathy, feet. Due to chemotherapy that is impacting patient's comfort. To initiate pregabalin 25mg every evening after purpose, dose and side effects reviewed. Set expectations regarding possible BID to TID dosing if needed moving forward. 2. Left heel pressure,skin intact. Immobility contributing. Reviewed with patient and spouse given the patient's underlying protein calorie malnutrition due to her anorexia this is contributing for her increased risk of skin breakdown and need to offload both heels at all times. Advised to obtain heel protectors from [id number] to utilize. 3. Debility due to generalized muscle wasting secondary to chemotherapy and deconditioning. Fall precautions. Continue to work with home health physical therapy for lower extremity strengthening and to assist with ambulation. 4. Pain of neoplastic origin with bony metastases. Stable. Has T2 pathologic compression fracture noted on ED evaluation 02/08/2022. Radiation oncology presently on hold to avoid interruption of chemotherapy. Continue fentanyl 2.5 mcg every 48 hours in addition to oxycodone 10 to 15 mg every 3-4 hours for breakthrough pain not to exceed 12 tablets in 24 hours to avoid sedation. Patient requires use of oxycodone 5 mg tablets given the difficulty of swallowing. Has Narcan in the home. Continue meloxicam 15 mg daily with food as an adjunct for pain regimen and discuss discontinuation at this visit however, weighing benefits versus burdens and aware of risk for GI bleed patient and spouse wish to continue with meloxicam and aware of the need to have food on board before administration. Continue to monitor and adjust medication regimen as warranted. 5. Nausea and vomiting. Chemotherapy and metastatic breast cancer contributing. Previously failed trial of Zyprexa. Presently controlled with Zofran ODT as needed Compazine suppository. Today, symptomatic after administration of premedication of acetaminophen and Benadryl for packed RBC administration. Requested that Zofran 4 mg be administered IV and RN to complete with resolution of nausea symptoms and 30 minutes. 5. Metastatic breast cancer, triple negative. Continues with chemoimmunotherapy every 2 weeks presently on hold 04/11 and to be reevaluated next week with request for imaging. Continue to follow-up with oncology as scheduled. 6. Grief reaction. Appropriate response from patient regarding potential for h er not responding to chemoimmunotherapy and advancement of her cancer with her CEA 153 antigen rising. Patient would benefit from reestablishment with her counselor, Anjali for support and also provided contact information for palliative care vehicle mechanic to reestablish connection and additional support as the patient finds face assistive. The patient continues to find these avenues of nonpharmacologic interventions not beneficial or adequate and may consider introduction of low-dose SSRI as the patient had previously been on citalopram in the past for depressive symptoms. All parties are in agreement regarding plan. 7. Advanced care planning. Patient does not have a POLST in place. Patient and spouse continue to have underlying optimism that there will be additional interventions for the patient to extend quantity of time. She has a strong marciano based and is not ready to stop any type of intervention. Did recognize today given her rising CVP a number and continual pattern of having to have her chemoimmunotherapy behold that this is looking at potential further disease advancement and limited options and aware that she may need to look at finality more inevitably in the future but at this time, wishes to focus on hope and to be positive. CC: [facility] Total time spent 70 minutes with greater than 50% of the spent in counseling coronation of care with the patient, spouse, oncology, oncology MD; examination of patient; review of lab work; review of pain and symptom management; and supportive listening with anticipatory guidance. Disclaimer: The chart note was formulated using voice recognition technology and unfortunately sound alike errors may occur.
== END 2022-04-11 10:09 | disposition home or self-care (01) ==
LOC: PC 10:08
PROVIDERS: ATTEND Nurse Practitioner Family
DX: Z51.5 Encounter for palliative care (principal); G62.0 Drug-induced polyneuropathy; T45.1X5A Adverse effect of antineoplastic and immunosuppressive drugs, initial encounter; E46 Unspecified protein-calorie malnutrition; M62.50 Muscle wasting and atrophy, not elsewhere classified, unspecified site; G89.3 Neoplasm related pain (acute) (chronic); C50.911 Malignant neoplasm of unspecified site of right female breast; C78.02 Secondary malignant neoplasm of left lung; C78.01 Secondary malignant neoplasm of right lung; J91.0 Malignant pleural effusion; C78.7 Secondary malignant neoplasm of liver and intrahepatic bile duct; C79.31 Secondary malignant neoplasm of brain; Z17.1 Estrogen receptor negative status [ER-]; M54.9 Dorsalgia, unspecified; R11.2 Nausea with vomiting, unspecified; F43.20 Adjustment disorder, unspecified
CPT/HCPCS: 99215

== ENCOUNTER 2022-04-27 15:20 | Outpatient (CLI) | payer OTHER | END 2022-04-27 15:21 | disposition hospice, home (50) | LOC: EMS 15:20 | PROVIDERS: ATTEND Family Medicine | DX: R06.00 Dyspnea, unspecified (principal); R53.1 Weakness; Z99.81 Dependence on supplemental oxygen | CPT/HCPCS: A0425; A0428 ==